=== PATIENT | female | born 1980 | race Caucasian/White ===

== ENCOUNTER → 2022-10-26 | Outpatient (CLI) | payer MEDICARE, OTHER, SELFPAY ==
[2022-10-26 11:05] LABS: Absolute Lymphocyte Count 2.23 X10^3/uL (0.83-4.51); Absolute Neutrophil Count 6.4 X10^3/uL (2.0-7.7); Basophil# 0.03 X10^3/uL; Basophil% 0.3 % (0-1); Eosinophil# 0.24 X10^3/uL; Eosinophils% 2.5 % (0-5); Hematocrit 40.4 % (37-47); Hemoglobin 12.9 g/dL (12.0-15.0); Lymphocyte # 2.23 X10^3/ul (0.83-4.51); Lymphocyte % 23.3 % (19-41); Mean Corp Hgb Conc 31.9 g/dL (32-36); Mean Corpuscular Hgb 29.3 pg (27.0-32.0); Mean Corpuscular Volume 91.8 fL (81-99); Monocyte# 0.65 X10^3/uL; Monocyte% 6.8 % (0-10); NRBC Flagged by Analyzer 0 % (0-5); Neutrophil # 6.39 X10^3/uL (2.7-7.7); Neutrophil % 66.8 % (47-70); Platelet Count 304 K/mm3 (150-450); RBC Distribution Width CV 13.6 % (11.6-14.6); RBC Distribution Width SD 46.3 fl (35.1-43.9); White Blood Count 9.6 K/mm3 (4.4-11.0)
[2022-10-26 11:22] LABS: ALB/GLOB Ratio 0.8 RATIO (0.9-2.4); AST(SGOT) 35 U/L (15-37); Alanine Aminotransfer ALT/SGPT 58 U/L (13-56); Albumin, Serum 3.8 g/dL (3.2-5.0); Alkaline Phosphatase 82 U/L (45-117); Anion Gap 2 (5-15); BUN 17 mg/dL (7-18); BUN/Creat Ratio 19.3 RATIO (10-20); Calcium,Total 9.2 mg/dL (8.5-10.1); Chloride 106 mmol/L (98-107); Creatinine, Serum 0.88 mg/dL (0.55-1.02); EST Glomerular Filtration Rate 74 mL/min (>60); Est Glom Filt Rate - Afr Amer 89 mL/min (>60); Globulin 4.5 g/dL (2.2-4.2); Glucose 149 mg/dL (74-106); Potassium 4.2 mmol/L (3.5-5.1); Protein, Total 8.3 g/dL (6.4-8.2); Sodium Level 139 mmol/L (136-145)
[2022-10-26 11:40] LABS: Hemoglobin A1c 6.9 % (3.8-5.6)
== END | disposition home or self-care (01) ==
PROVIDERS: PCP Internal Medicine; Referring Provider Internal Medicine; Visit Provider Internal Medicine
DX: R73.9 Hyperglycemia, unspecified (principal)
CPT/HCPCS: 36415; 80053; 83036; 85025

== ENCOUNTER → 2023-02-13 | Outpatient (CLI) | payer MEDICARE, OTHER, MEDICAID, SELFPAY ==
[2023-02-13 10:35] LABS: Absolute Lymphocyte Count 1.56 X10^3/uL (0.83-4.51); Absolute Neutrophil Count 3.8 X10^3/uL (2.0-7.7); Basophil# 0.03 X10^3/uL; Basophil% 0.5 % (0-1); Eosinophil# 0.12 X10^3/uL; Hematocrit 24.7 % (37-47); Hemoglobin 7.2 g/dL (12.0-15.0); Lymphocyte # 1.56 X10^3/ul (0.83-4.51); Lymphocyte % 25.7 % (19-41); Mean Corp Hgb Conc 29.1 g/dL (32-36); Mean Corpuscular Hgb 27.1 pg (27.0-32.0); Mean Corpuscular Volume 92.9 fL (81-99); Mean Platelet Vol. 10.8 fl (6.2-12.0); Monocyte# 0.52 X10^3/uL; Monocyte% 8.6 % (0-10); NRBC Flagged by Analyzer 0 % (0-5); Neutrophil % 62.7 % (47-70); Platelet Count 374 K/mm3 (150-450); RBC Distribution Width CV 16.1 % (11.6-14.6); RBC Distribution Width SD 54.3 fl (35.1-43.9); Red Blood Count 2.66 M/mm3 (4.2-5.4); White Blood Count 6.1 K/mm3 (4.4-11.0)
[2023-02-13 10:36] LABS: ALB/GLOB Ratio 0.8 RATIO (0.9-2.4); AST(SGOT) 24 U/L (15-37); Alanine Aminotransfer ALT/SGPT 61 U/L (13-56); Albumin, Serum 3.6 g/dL (3.2-5.0); Alkaline Phosphatase 80 U/L (45-117); Anion Gap -1 (5-15); BUN 16 mg/dL (7-18); BUN/Creat Ratio 16.9 RATIO (10-20); Calcium,Total 9.2 mg/dL (8.5-10.1); Chloride 110 mmol/L (98-107); Cholesterol 158 mg/dL (200); Creatinine, Serum 0.95 mg/dL (0.55-1.02); EST Glomerular Filtration Rate 68 mL/min (>60); Est Glom Filt Rate - Afr Amer 82 mL/min (>60); Globulin 4.3 g/dL (2.2-4.2); Glucose 108 mg/dL (74-106); High Density Lipoprotein 41 mg/dL; Potassium 4.6 mmol/L (3.5-5.1); Protein, Total 7.9 g/dL (6.4-8.2); Sodium Level 137 mmol/L (136-145); Triglycerides 88 mg/dL; Very Low Density Lipoprotein 18 mg/dL (5-40)
[2023-02-13 10:44] LABS: Hemoglobin A1c 5.3 % (3.8-5.6)
[2023-02-13 11:01] LABS: Microalbumin:Creatinine Ratio 39.9 mg/g CRE (<30 mg/g CRE)
[2023-02-14 09:26] LABS: Ferritin 7 ng/mL (8-252); Iron 19 ug/dL (50-170); Iron Binding Capacity,Total 460 ug/dL (250-450); PERCENT IRON SATURATION 4.1 % (15.0-55.0)
[2023-02-14 09:35] LABS: POSITIVE COUNT YES; Reticulocyte Count 4.31 % (0.5-1.5)
== END | disposition home or self-care (01) ==
PROVIDERS: PCP Internal Medicine; Referring Provider Internal Medicine; Visit Provider Internal Medicine
DX: Z00.00 Encounter for general adult medical examination without abnormal findings (principal); E11.9 Type 2 diabetes mellitus without complications; I37.0 Nonrheumatic pulmonary valve stenosis; E66.9 Obesity, unspecified; Q87.19 Other congenital malformation syndromes predominantly associated with short stature; D64.9 Anemia, unspecified
CPT/HCPCS: 36415; 80053; 80061; 82043; 82570; 82728; 82746; 83036; 83540; 83550; 85025; 85045

== ENCOUNTER 2023-02-14 15:01 | Inpatient (IN) | payer MEDICARE, OTHER, MEDICAID, SELFPAY ==
[2023-02-14 15:02] VITALS: BP 144/99; PULSE 109; RESP 16; TEMP 36.6; O2SAT 99; BMI 35.0
--- NOTE | 2023-02-14 15:36 | EKG12_ITS ---
Test Reason : ABN LABS Blood Pressure : / mmHG Vent. Rate : 092 BPM Atrial Rate : 092 BPM P-R Int : 168 ms QRS Dur : 068 ms QT Int : 360 ms P-R-T Axes : 046 057 -40 degrees QTc Int : 445 ms Normal sinus rhythm ST & T wave abnormality, consider inferior ischemia Abnormal ECG Confirmed by WILIAM BOLIVAR, GLORIA ([id number]), commissioning editor INÉS HOWELL ([id number]) on 02/16/2023 9:05:51 AM Referred By: Confirmed By:GLORIA SWAIN MD
--- NOTE | 2023-02-14 15:40 | EX.ED.DYSGE1 ---
HPI History of Present Illness Chief Complaint: Abn Labs Detail of Chief Complaint: Anemia Informant: patient and parent Narrative Narrative: Patient sent in by primary care physician secondary to anemia. She was recently diagnosed with diabetes and has an appointment to be seen by her doctor next week. Yesterday she had some labs drawn in preparation for her upcoming appointment. She was noted to be anemic with a hemoglobin of 7.2. Last hemoglobin was in the 12 range in October of this year. CBC was redrawn this morning and confirms hemoglobin of 7.1. Patient does report intermittent dark stools or bloody stools over the past couple of months. No significant abdominal pain. She does report feeling lightheaded and dizzy over the past 2 weeks. [facility] Medical History Diabetes Migraines Bruno syndrome VSD (ventricular septal defect) Allergy/AdvReac Type Severity Reaction Status Date / Time Sulfa (Sulfonamide AdvReac PT UNSURE Verified 02/14/23 15:03 Antibiotics) OF REACTION Social History Smoking Status: Never smoker ROS ROS ED Constitutional Constitutional ED: Denies chills or fever(s) Eyes Eyes: Denies change in vision or discharge from eye(s) ENT ENT ED: Denies discharge from eye(s), rhinorrhea or sore throat Cardiovascular Cardiovascular: Denies chest pain or palpitations Respiratory/Chest Respiratory/Chest: Denies cough or dyspnea Gastrointestinal Gastrointestinal: Reports melena and nausea; Denies abdominal pain, diarrhea or vomiting Genitourinary Genitourinary ED: Denies dysuria Musculoskeletal Musculoskeletal: Denies back pain or extremity pain Integumentary Denies Abrasions or rash Neurologic Neurologic: Reports weakness; Denies headache(s) Psychiatric Psychiatric: Denies anxiety or depression Allergic/Immunologic Allergic/Immunologic ED: Denies lip swelling or urticaria EXAM Physical Exam Const Vital Signs: 02/14/23 15:02 02/14/23 15:41 02/14/23 15:43 Temperature 98 F Temperature Source Temporal Pulse Rate 109 H 97 Respiratory Rate 16 13 Respiratory Effort Normal Non-Labored Respiratory Pattern Normal Blood Pressure 144/99 H 130/83 H Blood Pressure Mean 114 98 Pulse Ox 99 97 Oxygen Delivery Method Room Air Room Air 02/14/23 17:14 Temperature Temperature Source Pulse Rate 91 Respiratory Rate 14 Respiratory Effort Respiratory Pattern Blood Pressure 123/57 H Blood Pressure Mean 79 Pulse Ox 98 Oxygen Delivery Method Room Air Positive well nourished and well developed General Appearance ED: well developed HEENT Reports normocephalic and head/scalp atraumatic Eyes PERRL and EOMs intact bilaterally Neck supple Chest Wall inspection of chest normal and palpation of chest normal Resp normal respiratory effort and clear to auscultation bilaterally Cardio regular rate and regular rhythm GI normal to inspection, nondistended, normoactive bowel sounds GI Narrative: Rectal examination performed with brown-colored stool noted on gloved finger. No obvious hemorrhoids or source of bleeding noted Palpation: soft Back/Spine no CVA tenderness Extremity normal to inspection Neuro oriented x3 and no sensory deficits noted Sensorium / Orientation: alert Motor Exam: strength 5/5 throughout Psych mental status grossly normal Skin no rashes or lesions noted MDM MDM MDM Narrative Medical decision making narrative: Patient CBC from earlier today is reviewed. Hemoglobin is 7.1 and hematocrit is 24.4. Platelet count is normal at 339,000. Coags are obtained. Microscopic urine from earlier today appears to show possible infection so full urinalysis is obtained. Stool guaiac obtained. Given the patient's recent dizziness she was placed on nurse monitoring and EKG was obtained. Lab Data Attestation: I reviewed the patient's lab results. Labs: Laboratory Results - last 24 hr 02/14/23 02/14/23 17:15 17:15 PT 12.7 INR 1.0 APTT 27.8 Urine Color Yellow Urine Clarity Clear Urine pH 6.0 Ur Specific [place] 1.015 Urine Protein Negative Urine Glucose (UA) Normal Urine Ketones Negative Urine Occult Blood 10 H Urine Nitrite Negative Urine Bilirubin Negative Urine Urobilinogen Normal Ur Leukocyte Esterase 500 H Urine RBC 0 SEEN Urine WBC 0-5 SEEN Ur Squamous Epith Cells 0-5 SEEN Urine Bacteria RARE Urine Mucus 0 SEEN EKG Initial EKG: Attestation: I personally reviewed and interpreted this EKG as follows: Interpretation: Sinus Rhythm (Sinus at 92 with anterior lateral minimal ST depression of 1/2 to 1 mm. No prior studies available for comparison.) Treatment and Re-Evaluation :: Stool guaiac test returned positive. Coags are unremarkable. Full urinalysis reveals no evidence of infection. I spoke with Dr. Dolan, on-call for GI. Patient's hemoglobin is 7.1 with no significant history of coronary artery disease. Her vital signs are stable. He does recommend she come into the hospital for monitoring of her hemoglobin and scope. I will speak with the hospitalist. Discharge Plan Triage Chief Complaint: Abn Labs ED Provider: Kelley Farmer Dx/Rx/DC Orders Clinical Impression: GI bleed, Anemia Primary Care Provider: Marie Ritter Referrals: Marie Ritter MD [Primary Care Provider] - Disposition Disposition: Acute Care Hospital [facility]
[2023-02-14 15:41] VITALS: BP 130/83; PULSE 97; RESP 13; O2SAT 97
[2023-02-14 17:14] VITALS: BP 123/57; PULSE 91; RESP 14; O2SAT 98
[2023-02-14] MEDS: 0.9% Normal Saline 1,000 ML 150 ML IV ×2 (17:21→22:44)
[2023-02-14 17:22] LABS: Mucous, Urine 0 SEEN /hpf (<or=2+); Red Blood Cells-Urine 0 SEEN /hpf (0-5)
[2023-02-14 17:34] LABS: Prothrombin Time (Protime)PT. 12.7 SECONDS (11.7-14.9)
[2023-02-14 17:35] LABS: Partial Thromboplast Time 27.8 Seconds (24.1-36.2)
[2023-02-14 17:42] LABS: Color, Urine Yellow (Yellow); Glucose, Dipstick Normal (Normal); Ketone-Dipstick Negative (Negative); Leukocyte Esterase-Dipstick 500 /ul (Negative); Nitrite-Dipstick Negative (Negative); Occult Blood-Urine 10 /ul (Negative); Protein-Dipstick Negative (Negative); Specific Gravity, Urine 1.015 (1.002-1.030); Urine Bilirubin Dipstick Negative (Negative); Urine Clarity Clear (Clear); Urine Urobilinogen Normal (Normal)
[2023-02-14 18:08] LABS: White Blood Cells 0-5 SEEN /hpf (0-5)
[2023-02-14 18:09] LABS: Bacteria RARE /hpf (None Seen); Squamous Epithelial Cells - UA 0-5 SEEN /hpf (5-10)
[2023-02-14 19:05] VITALS: BP 112/73; PULSE 84; RESP 14; O2SAT 99
--- NOTE | 2023-02-14 19:31 | HP.PCM.HOS_ITS ---
HPI - General General Date of Admission: 02/14/23 Date of Service: 02/14/23 Chief Complaint: Low hemoglobin on outpatient lab HPI Narrative FRIDA LEBRON, is a 42 F with a significant history of diabetes mellitus; Georges syndrome and VSD who presents to the emergency department with low hemoglobin on outpatient lab. Patient was recently diagnosed with diabetes mellitus and was started on metformin. Because of upcoming follow-up doctor visits on her diabetes patient was requested to get some lab work done ahead of her visit. The lab work showed low hemoglobin of 7.2. However in October this year her hemoglobin was 12.9. With patient's hemoglobin of 7.2 she was made to repeat the hemoglobin and the repeat hemoglobin turned out to be 7.1. Because of persistent low hemoglobin she was sent to emergency department for further evaluation and treatment. Also patient reports that in the past 2 days she noticed dark stools and a spot of blood. She reports lightheadedness for the past 2 weeks. She reports fatigue. She denies anorexia. Emergency department, discussed the case with gastroenterology who recommended that patient stays at the hospital for further evaluation and treatment. Emergency department doctor reports guaiac positive exams on rectal examination. In regard to patient's VSD she reports that she is growing out of it and follow- up examination shows that the VSD is closing up. She reported that her last symptoms in regard to the VSD was when she was a kid. [facility] Medical History Diabetes Migraines Georges syndrome VSD (ventricular septal defect) Home Medications loratadine 10 mg tablet (Claritin) 10 mg PO DAILY PRN SEASONAL ALLERGIES 01/22 03/14 [History Last Taken 02/14/23] metformin 500 mg tablet,extended release 24 hr 500 mg PO QPM diabetes 02/14/23 [History Last Taken 02/13/23] multivitamin 1 tab PO DAILY health maintenance 02/14/23 [History Last Taken 02/14/23] pantoprazole 40 mg tablet,delayed release 40 mg PO DAILY acid reflux 02/14/23 [History Last Taken Unknown] sumatriptan succinate 25 mg tablet 25 mg PO DAILY PRN Migraine Headache 02/14/23 [History Last Taken 2 Days Ago ~02/12/23] Allergy/AdvReac Type Severity Reaction Status Date / Time Sulfa (Sulfonamide AdvReac PT UNSURE Verified 02/14/23 15:03 Antibiotics) OF REACTION Family History Other Alzheimer's dementia Breast cancer Colon cancer Diabetes Surgical History History of excision of pilonidal cyst Social History Smoking Status: Never smoker ROS ROS Narrative Pertinent positives and pertinent negatives as noted in HPI. All other systems were reviewed and are negative Vital Signs Vital Signs Vital Signs: 02/14/23 15:02 02/14/23 15:41 02/14/23 15:43 Temperature 98 F Temperature Source Temporal Pulse Rate 109 H 97 Respiratory Rate 16 13 Respiratory Effort Normal Non-Labored Respiratory Pattern Normal Blood Pressure 144/99 H 130/83 H Blood Pressure Mean 114 98 Pulse Ox 99 97 Oxygen Delivery Method Room Air Room Air 02/14/23 17:14 02/14/23 19:05 Temperature Temperature Source Pulse Rate 91 84 Respiratory Rate 14 14 Respiratory Effort Respiratory Pattern Blood Pressure 123/57 H 112/73 Blood Pressure Mean 79 86 Pulse Ox 98 99 Oxygen Delivery Method Room Air Room Air Weight Weight: 81.335 kg Body Mass Index (BMI) 35.0 Physical Exam Narrative Physical exam: General: Well-nourished, well-developed. Head: Normocephalic, atraumatic, no tenderness Eyes: Vision is grossly intact. EOMI ENT, no trauma, moist mucous membranes, no rhinorrhea Neck: Nontender, No thyromegaly. CVS: Regular rate and rhythm. S1-S2 present. No murmur, gallop or rub. Respiratory : clear to auscultation bilaterally, chest wall nontender Abdomen: Soft, nontender, nondistended, normal bowel sounds, no masses : Deferred Back: Nontender, no CVA tenderness, no midline spinal tenderness, deformities, step-offs Extremities: Nontender full range of motion, no trauma Skin: Normal color, no trauma, abrasions Neuro: Alert, oriented, cranial nerves II through XII grossly intact. Psychiatry: Normal mood. Normal affect. Not depressed. Not anxious. Results Lab / Micro Data Labs: Laboratory Results - last 24 hr 02/14/23 17:15: PT 12.7, INR 1.0, APTT 27.8 02/14/23 17:15: Urine Color Yellow, Urine Clarity Clear, Urine pH 6.0, Ur Specific [place] 1.015, Urine Protein Negative, Urine Glucose (UA) Normal, Urine Ketones Negative, Urine Occult Blood 10 H, Urine Nitrite Negative, Urine Bilirubin Negative, Urine Urobilinogen Normal, Ur Leukocyte Esterase 500 H, Urine RBC 0 SEEN, Urine WBC 0-5 SEEN, Ur Squamous Epith Cells 0-5 SEEN, Urine Bacteria RARE, Urine Mucus 0 SEEN Micro: Microbiology 02/14/23 15:39 Stool Stool Occult Blood (LEX) - Final Occult Blood Positive Assessment & Plan Assessment/Plan (1) ABLA (acute blood loss anemia): (2) GI bleed: PLAN: Plan Acute blood loss anemia Patient with lightheadedness, fatigue, BUN is stable. Of note BUN on the same day of presentation was 16. BUN on 10/26/2022 was 17. With dark stools upper GI bleed is more probable. However cannot rule out lower GI bleed. Patient was prescribed Protonix p.o. on the same day of presentation. However she could not get to start the outpatient Protonix p.o. Protonix bolus and drip ordered at the emergency department. Protonix drip continued inpatient. Normal saline hydration of 150 MLS per hour. Admit to monitored bed on [facility] Hemoglobin on the day before presentation was 7.2. Hemoglobin on the day of presentation was 7.1. Hemoglobin on 10/26/2022 was 12.9. H&H every 6 hours Review of outpatient iron panel a day before presentation gives a picture of iron deficiency anemia. Will order one-time dose of iron sucrose IV No anticoagulants for DVT prophylaxis SCD Bowel prep with Dulcolax and GoLytely ordered. Clear liquid diet on the day of presentation and n.p.o. after midnight. Gastroenterology consulted. Diabetes mellitus Review of labs shows that her hemoglobin A1c on 10/26/2022 was 6.9. Her hemoglobin A1c on 02/13/2023 is 5.3. Patient is doing well on home metformin therapy. We will hold antidiabetic medication in the setting of clear liquids and n.p.o. after midnight. Blood glucose on BMP on day of presentation is stable. BMP in AM. DVT prophylaxis: SCDs ordered. Charges/Coding Visit Charges Inpatient E&M: 54092 Init Hosp L3
[2023-02-14 19:51] VITALS: BP 118/64; PULSE 91; RESP 16; TEMP 36.3; O2SAT 99
[2023-02-14 20:56] VITALS: BMI 34.7
[2023-02-14 20:59] VITALS: BP 128/57; PULSE 85; RESP 16; TEMP 36.9; O2SAT 100
[2023-02-14] MEDS: Bisacodyl 5 MG Tablet 20 MG PO (21:35)
[2023-02-14] MEDS: Polyethylene Glycol 3350 BOWEL PREP PO (21:36)
[2023-02-14 22:05] LABS: Hemoglobin 7.1 g/dL (12.0-15.0)
[2023-02-15] VITALS (14 sets, daily range): BP systolic 106–140; BP diastolic 46–76; PULSE 66–88; RESP 14–18; TEMP 36.7–37.2; O2SAT 95–98
[2023-02-15 03:42] LABS: Anion Gap 4 (5-15); BUN 10 mg/dL (7-18); BUN/Creat Ratio 11.4 RATIO (10-20); Calcium,Total 8.6 mg/dL (8.5-10.1); Chloride 111 mmol/L (98-107); Creatinine, Serum 0.88 mg/dL (0.55-1.02); EST Glomerular Filtration Rate 74 mL/min (>60); Est Glom Filt Rate - Afr Amer 90 mL/min (>60); Glucose 131 mg/dL (74-106); Potassium 3.8 mmol/L (3.5-5.1); Sodium Level 137 mmol/L (136-145)
[2023-02-15 03:48] LABS: Absolute Lymphocyte Count 2.05 X10^3/uL (0.83-4.51); Absolute Neutrophil Count 4.7 X10^3/uL (2.0-7.7); Basophil# 0.04 X10^3/uL; Basophil% 0.5 % (0-1); Eosinophil# 0.12 X10^3/uL; Eosinophils% 1.5 % (0-5); Hematocrit 26.4 % (37-47); Hemoglobin 7.6 g/dL (12.0-15.0); Lymphocyte # 2.05 X10^3/ul (0.83-4.51); Lymphocyte % 26.3 % (19-41); Mean Corp Hgb Conc 28.8 g/dL (32-36); Mean Corpuscular Hgb 26.8 pg (27.0-32.0); Mean Platelet Vol. 11.1 fl (6.2-12.0); Monocyte% 10.3 % (0-10); NRBC Flagged by Analyzer 0 % (0-5); Neutrophil # 4.74 X10^3/uL (2.7-7.7); Neutrophil % 60.9 % (47-70); Platelet Count 271 K/mm3 (150-450); RBC Distribution Width CV 15.9 % (11.6-14.6); RBC Distribution Width SD 54.4 fl (35.1-43.9); Red Blood Count 2.84 M/mm3 (4.2-5.4); White Blood Count 7.8 K/mm3 (4.4-11.0)
[2023-02-15] MEDS: 0.9% Normal Saline 1,000 ML 150 ML IV (06:55)
[2023-02-15 07:50] LABS: Hemoglobin A1c 5.1 % (3.8-5.6)
--- NOTE | 2023-02-15 08:01 | EX.PCM.CON.G ---
HPI Consult Data Date of Consult: 02/14/23 HPI Narrative Reason for Consultation: Anemia HPI Narrative: FRIDA LEBRON, is a 42 F who presents for the evaluation of anemia. Patient sent in by primary care physician secondary to anemia.? She was recently diagnosed with diabetes and has an appointment to be seen by her doctor next week.? Yesterday she had some labs drawn in preparation for her upcoming appointment.? She was noted to be anemic with a hemoglobin of 7.2.? Last hemoglobin was in the 12 range in October of this year.? CBC was redrawn this morning and confirms hemoglobin of 7.1. Patient does report intermittent dark stools or bloody stools over the past couple of months.? No significant abdominal pain.? She does report feeling lightheaded and dizzy over the past 2 weeks. Also patient reports that in the past 2 days she noticed dark stools and a spot of blood.? She reports lightheadedness for the past 2 weeks. She reports fatigue.? She denies anorexia. Emergency department doctor reports guaiac positive exams on rectal examination. In regard to patient's VSD she reports that she is growing out of it and follow-up examination shows that the VSD is closing up.? She reported that her last symptoms in regard to the VSD was when she was a kid. [facility] Medical History Diabetes Migraines Georges syndrome VSD (ventricular septal defect) Home Medications loratadine 10 mg tablet (Claritin) 10 mg PO DAILY PRN SEASONAL ALLERGIES 02/14/23 [History Last Taken 02/14/23] metformin 500 mg tablet,extended release 24 hr 500 mg PO QPM diabetes 02/14/23 [History Last Taken 02/13/23] multivitamin 1 tab PO DAILY health maintenance 02/14/23 [History Last Taken 02/14/23] pantoprazole 40 mg tablet,delayed release 40 mg PO DAILY acid reflux 02/14/23 [History Last Taken Unknown] sumatriptan succinate 25 mg tablet 25 mg PO DAILY PRN Migraine Headache 02/14/23 [History Last Taken 2 Days Ago ~02/12/23] Allergy/AdvReac Type Severity Reaction Status Date / Time Sulfa (Sulfonamide AdvReac PT UNSURE Verified 02/14/23 15:03 Antibiotics) OF REACTION Family History Other Alzheimer's dementia Breast cancer Colon cancer Diabetes Surgical History History of excision of pilonidal cyst Social History Smoking Status: Never smoker ROS ROS Narrative Pertinent positives and pertinent negatives as noted in HPI. All other systems were reviewed and are negative Physical Exam Narrative Physical exam: General: Well-nourished, well-developed. Head: Normocephalic, atraumatic, no tenderness Eyes: Vision is grossly intact. EOMI ENT, no trauma, moist mucous membranes, no rhinorrhea Neck: Nontender, No thyromegaly. CVS: Regular rate and rhythm. S1-S2 present. No murmur, gallop or rub. Respiratory : clear to auscultation bilaterally, chest wall nontender Abdomen: Soft, nontender, nondistended, normal bowel sounds, no masses : Deferred Back: Nontender, no CVA tenderness, no midline spinal tenderness, deformities, step-offs Extremities: Nontender full range of motion, no trauma Skin: Normal color, no trauma, abrasions Neuro: Alert, oriented, cranial nerves II through XII grossly intact. Psychiatry: Normal mood. Normal affect. Not depressed. Not anxious. Lab / Micro Data Result Diagrams: 02/15/23 03:37 02/15/23 02:55 Labs: Laboratory Results - last 24 hr 02/14/23 17:15: PT 12.7, INR 1.0, APTT 27.8 02/14/23 17:15: Urine Color Yellow, Urine Clarity Clear, Urine pH 6.0, Ur Specific [place] 1.015, Urine Protein Negative, Urine Glucose (UA) Normal, Urine Ketones Negative, Urine Occult Blood 10 H, Urine Nitrite Negative, Urine Bilirubin Negative, Urine Urobilinogen Normal, Ur Leukocyte Esterase 500 H, Urine RBC 0 SEEN, Urine WBC 0-5 SEEN, Ur Squamous Epith Cells 0-5 SEEN, Urine Bacteria RARE, Urine Mucus 0 SEEN 02/14/23 21:55: Hgb 7.1 L, Hct 24.0 L 02/15/23 02:55: Sodium 137, Potassium 3.8, Chloride 111 H, Carbon Dioxide 22.0, Anion Gap 4 L, BUN 10, Creatinine 0.88, Estim Creat Clear Calc 58.60, Est GFR (MDRD) Af Amer 90, Est GFR (MDRD) Non-Af 74, BUN/Creatinine Ratio 11.4, Glucose 131 H, Calcium 8.6 02/15/23 03:37: WBC 7.8, RBC 2.84 L, Hgb 7.6 L, Hct 26.4 L, MCV 93.0, MCH 26.8 L, MCHC 28.8 L, RDW Std Deviation 54.4 H, RDW Coeff of Dana 15.9 H, Plt Count 271, MPV 11.1, Immature Gran % (Auto) 0.500, Neut % (Auto) 60.9, Lymph % (Auto) 26.3, [place] % (Auto) 10.3 H, Eos % (Auto) 1.5, Baso % (Auto) 0.5, Absolute Neuts (auto) 4.7, Absolute Lymphs (auto) 2.05, Nucleated RBC % 0 02/15/23 03:37: Hemoglobin A1c 5.1 Micro: Microbiology 02/14/23 15:39 Stool Stool Occult Blood (LEX) - Final Occult Blood Positive Assessment & Plan Assessment/Plan (1) ABLA (acute blood loss anemia): (2) GI bleed: PLAN: Plan 42-year-old presents with fatigue and weakness along with some dark stools discovered to have a profound iron deficiency anemia. She has a positive family history of ovarian cancer and colon cancer in her grandfather and aunt respectively. Patient was prescribed Protonix p.o. on the same day of presentation. However she could not get to start the outpatient Protonix p.o. the differential diagnosis does include celiac disease, angiodysplasia, hereditary telangiectasia, neoplasia, gastric antral vascular ectasia. She will undergo an upper and lower endoscopy in order to evaluate upper and lower GI tract. If this test are negative. I discussed with the patient and her sister at the bedside she will need to undergo capsule endoscopy. DVT prophylaxis: SCDs ordered. Charges/Coding Visit Charges Inpatient E&M: 27140 Init Hosp L3
[2023-02-15 09:30] LABS: Erythrocyte Sedimentation Rate 5 mm/hr (0-30)
[2023-02-15 10:15] LABS: CRP 5.34 mg/L (0.0-3.0)
--- NOTE | 2023-02-15 10:20 | NURSING ---
pt to AC/ENDO area via bed staff were informed of 2 preop antb to be given
[2023-02-15 10:30] LABS: Hematocrit 22.6 % (37-47); Hemoglobin 6.4 g/dL (12.0-15.0)
--- NOTE | 2023-02-15 11:29 | CASEMGMT ---
RN CM NOTE: RN CM to room to complete initial RN CM assessment. Pt out of room @ endo at this time. Jennifer BSN RN CM
[2023-02-15 12:21] LABS: Troponin-I HS 5 pg/mL (3.0-54.0)
--- NOTE | 2023-02-15 15:20 | CASEMGMT ---
RN?CM?RED CROSS WORKER?CM?to room to meet with patient for initial transition planning/care coordination?assessment.?RN?CM?introduced self and role at [facility].? Pt voices understanding and consents to?assessment?at this time.? Pt resting in bed in no distress at this time.? Pt's mother and sister visiting @ bedside. Pt is A/O at this time and answers all questions appropriately.? Care providers, pharmacy, and demographics verified/updated at this time with pt and her family. PCP: Dr Ritter Specialists: none Preferred Pharmacy: [facility] Retail Insurance: MCR, , KRYSTYNA Prescription Benefit:?Yes Living Will/HPOA:?Pt does not currently have LW, but she does have HCPOA, who is her mother. LNOK: Mother/POA, May. Sister, Pallavi Living Arrangements: Pt lives w/her mother, May, who is an MECHANICAL MAINTENANCE. They live in a split-level home (6-7 steps between floors) w/7 steps to enter home w/railing on both sides. Pt states she usually can navigate the stairs well, but has been weak recently d/t low Hgb and they have become more difficult to navigate. Pt is indep w/ADL's and IADL's @ her baseline. Mom does med mgmt and appts. Transportation:?mom drives. Pt states she is working on getting her drivers' permit. DME: States has the following DME:?functioning glucometer w/supplies. HHC/SNF: No hx of SNF. Pt has had HHC in the past. Pt wishes to return home and states has no concerns with going home at time of discharge.? ?CM?to follow for any discharge planning/needs.? Pt and family voice no further concerns/needs at this time.? Advised them to ask for?CM?if any questions/concerns/needs arise.? They voice understanding. PLAN:??Home w/family support and discharge plans in place. Jennifer CRANEN?RN?CM
[2023-02-15 15:22] LABS: Vitamin B12 631 pg/mL (211-911)
--- NOTE | 2023-02-15 16:16 | PN.HOSP_ITS ---
Subjective Subjective Doing well, no issues overnight. She feels little bit better today she denies any chest pain or shortness of breath. She still is a little bit fatigued from her anemia Objective Data Objective Data Vital Signs: Vital Signs Temp Pulse Resp BP Pulse Ox O2 Del Method 98.0 F 81 18 117/61 98 Room Air 02/15/23 15:56 02/15/23 15:56 02/15/23 15:56 02/15/23 15:56 02/15/23 15:56 02/15/23 15:56 Oxygen Delivery Method Room Air Weight: 177 lb 14.609 oz Body Mass Index (BMI) 34.7 Intake & Output: Intake and Output for Last 24 Hours 02/14/23 02/15/23 02/16/23 03:59 03:59 03:59 Intake Total 985 / 985 2821.5 / 2821.5 Balance 985 / 985 2821.5 / 2821.5 Lab / Micro Data Result Diagrams: 02/15/23 09:15 02/15/23 02:55 Labs: Laboratory Results - last 24 hr 02/14/23 16:20: Blood Type O POSITIVE, Antibody Screen NEGATIVE, Crossmatch See Detail 02/14/23 17:15: PT 12.7, INR 1.0, APTT 27.8 02/14/23 17:15: Urine Color Yellow, Urine Clarity Clear, Urine pH 6.0, Ur Specific [place] 1.015, Urine Protein Negative, Urine Glucose (UA) Normal, Urine Ketones Negative, Urine Occult Blood 10 H, Urine Nitrite Negative, Urine Bilirubin Negative, Urine Urobilinogen Normal, Ur Leukocyte Esterase 500 H, Urine RBC 0 SEEN, Urine WBC 0-5 SEEN, Ur Squamous Epith Cells 0-5 SEEN, Urine Bacteria RARE, Urine Mucus 0 SEEN 02/14/23 21:55: Hgb 7.1 L, Hct 24.0 L 02/15/23 02:55: Sodium 137, Potassium 3.8, Chloride 111 H, Carbon Dioxide 22.0, Anion Gap 4 L, BUN 10, Creatinine 0.88, Estim Creat Clear Calc 58.60, Est GFR (MDRD) Af Amer 90, Est GFR (MDRD) Non-Af 74, BUN/Creatinine Ratio 11.4, Glucose 131 H, Calcium 8.6 02/15/23 03:37: WBC 7.8, RBC 2.84 L, Hgb 7.6 L, Hct 26.4 L, MCV 93.0, MCH 26.8 L , MCHC 28.8 L, RDW Std Deviation 54.4 H, RDW Coeff of [place] 15.9 H, Plt Count 271, MPV 11.1, Immature Gran % (Auto) 0.500, Neut % (Auto) 60.9, Lymph % (Auto) 26.3, [place] % (Auto) 10.3 H, Eos % (Auto) 1.5, Baso % (Auto) 0.5, Absolute Neuts (auto) 4.7, Absolute Lymphs (auto) 2.05, Nucleated RBC % 0 02/15/23 03:37: Hemoglobin A1c 5.1 02/15/23 09:15: Hgb 6.4 L, Hct 22.6 L 02/15/23 09:15: ESR 5 02/15/23 09:15: C-React Prot Ext Range 5.34 H, Folate 14.30 02/15/23 09:15: Vitamin B12 631 02/15/23 09:15: Troponin I High Sens 5 Micro: Microbiology 02/14/23 15:39 Stool Stool Occult Blood (LEX) - Final Occult Blood Positive Physical Exam Narrative General: Alert, Oriented x3, Cooperative, No apparent distress HEENT: Atraumatic, PERRLA, EOMI, Normocephalic Oral: Moist Mucosa Neck: Supple, No JVD Lungs:?, Normal air movement, No rhonchi, No wheeze, No rales Cardiovascular: Regular rate, Regular Rhythm, Normal S1, Normal S2, No murmurs Abdomen: Soft, Non Tender, Non-Distended, No Hepato-splenomegaly Extremities: No edema, Capillary Refill Less than 3 Seconds Skin: No rashes, No breakdown Musculoskeletal: No Tenderness to Palpation of Joints or Extremities Neurological: Cranial nerves II-XII grossly intact, Motor Exam 5/5 strength throughout, Sensory exam intact to light touch and pain Psych/Mental Status: Normal Affect, Appropriate Assessment & Plan Assessment/Plan (1) ABLA (acute blood loss anemia): (2) GI bleed: PLAN: Plan 1. Acute blood loss anemia from likely GI bleed ? Plan was for EGD today however this was canceled because of her anemia below 7 despite the appropriateness of intervention by EGD to fix the bleeding there was report of ST changes which are not evident on the EKG prior, troponin was normal and she continues to deny any chest pain. No further cardiac work-up at this time is indicated and EGD should proceed as planned ? Continue with PPI ? Continue with 1 unit PRBCs as she does not have any cardiac history we need to maintain her only above 7 ? Appreciate GIs assistance, will continue with gentamicin and Vanc ? She did receive an iron infusion yesterday 2. DM2 ? Continue with sliding scale insulin when she is able to take p.o. ? Hold metformin ? A1c is improved to 5.3 ? We will make adjustments to her blood sugar interventions as necessary DVT: SCDs Charges/Coding Visit Charges Inpatient E&M: 17461 Subs Hosp L2
[2023-02-15] MEDS: 0.9% Normal Saline 1,000 ML 100 ML IV (18:24)
[2023-02-15] MEDS: 0.9% Saline Lock 10 ML Syringe IV (18:30)
[2023-02-15 20:58] LABS: Hematocrit 31.6 % (37-47); Hemoglobin 9.5 g/dL (12.0-15.0)
[2023-02-16] VITALS (10 sets, daily range): BP systolic 98–132; BP diastolic 55–72; PULSE 73–95; RESP 15–18; TEMP 36.6–37.2; O2SAT 94–100
[2023-02-16] MEDS: 0.9% Normal Saline 1,000 ML 100 ML IV (04:10)
[2023-02-16 05:46] LABS: Absolute Lymphocyte Count 1.75 X10^3/uL (0.83-4.51); Absolute Neutrophil Count 5.2 X10^3/uL (2.0-7.7); Basophil# 0.04 X10^3/uL; Basophil% 0.5 % (0-1); Eosinophil# 0.27 X10^3/uL; Eosinophils% 3.4 % (0-5); Hematocrit 29.8 % (37-47); Hemoglobin 9.2 g/dL (12.0-15.0); Lymphocyte # 1.75 X10^3/ul (0.83-4.51); Mean Corp Hgb Conc 30.9 g/dL (32-36); Mean Corpuscular Hgb 27.1 pg (27.0-32.0); Mean Corpuscular Volume 87.6 fL (81-99); Mean Platelet Vol. 10.8 fl (6.2-12.0); Monocyte# 0.63 X10^3/uL; Monocyte% 7.9 % (0-10); NRBC Flagged by Analyzer 0.3 % (0-5); Neutrophil # 5.23 X10^3/uL (2.7-7.7); Neutrophil % 65.6 % (47-70); Platelet Count 268 K/mm3 (150-450); RBC Distribution Width CV 18.1 % (11.6-14.6); RBC Distribution Width SD 57.6 fl (35.1-43.9)
[2023-02-16 06:09] LABS: Anion Gap 3 (5-15); BUN 7 mg/dL (7-18); BUN/Creat Ratio 8.7 RATIO (10-20); Calcium,Total 8.2 mg/dL (8.5-10.1); Chloride 111 mmol/L (98-107); Creatinine, Serum 0.81 mg/dL (0.55-1.02); EST Glomerular Filtration Rate 82 mL/min (>60); Est Glom Filt Rate - Afr Amer 99 mL/min (>60); Estimated Creatinine Clearance 63.66 ml/min; Glucose 100 mg/dL (74-106); Potassium 3.6 mmol/L (3.5-5.1); Sodium Level 139 mmol/L (136-145)
--- NOTE | 2023-02-16 09:01 | PCM.PN.HOSP ---
Subjective Subjective Doing well, no issues overnight. No chest pain Objective Data Objective Data Vital Signs: Vital Signs Temp Pulse Resp BP Pulse Ox O2 Del Method 98.8 F 74 15 132/72 H 96 Room Air 02/16/23 03:00 02/16/23 03:00 02/16/23 03:00 02/16/23 03:00 02/16/23 07:14 02/16/23 07:14 Oxygen Delivery Method Room Air Weight: 177 lb 14.609 oz Body Mass Index (BMI) 34.7 Intake & Output: Intake and Output for Last 24 Hours 02/15/23 02/16/23 02/17/23 03:59 03:59 03:59 Intake Total 985 / 985 5028.0 / 5028.0 1073.34 / 1073.34 Balance 985 / 985 5028.0 / 5028.0 1073.34 / 1073.34 Lab / Micro Data Result Diagrams: 02/16/23 05:15 02/16/23 05:15 Labs: Laboratory Results - last 24 hr 02/14/23 16:20: Blood Type O POSITIVE, Antibody Screen NEGATIVE, Crossmatch See Detail 02/15/23 09:15: Hgb 6.4 L, Hct 22.6 L 02/15/23 09:15: ESR 5 02/15/23 09:15: C-React Prot Ext Range 5.34 H, Folate 14.30 02/15/23 09:15: Vitamin B12 631 02/15/23 09:15: Troponin I High Sens 5 02/15/23 20:28: Hgb 9.5 L, Hct 31.6 L 02/16/23 05:15: WBC 8.0, RBC 3.40 L, Hgb 9.2 L, Hct 29.8 L, MCV 87.6 D, MCH 27.1, MCHC 30.9 L D, RDW Std Deviation 57.6 H, RDW Coeff of Dana 18.1 H, Plt Count 268, MPV 10.8, Immature Gran % (Auto) 0.600, Neut % (Auto) 65.6, Lymph % (Auto) 22.0, [place] % (Auto) 7.9, Eos % (Auto) 3.4, Baso % (Auto) 0.5, Absolute Neuts (auto) 5.2, Absolute Lymphs (auto) 1.75, Nucleated RBC % 0.3 02/16/23 05:15: Sodium 139, Potassium 3.6, Chloride 111 H, Carbon Dioxide 25.0, Anion Gap 3 L, BUN 7, Creatinine 0.81, Estim Creat Clear Calc 63.66, Est GFR (MDRD) Af Amer 99, Est GFR (MDRD) Non-Af 82, BUN/Creatinine Ratio 8.7 L, Glucose 100, Calcium 8.2 L Micro: Microbiology 02/14/23 15:39 Stool Stool Occult Blood (LEX) - Final Occult Blood Positive Physical Exam Narrative General: Alert, Oriented x3, Cooperative, No apparent distress HEENT: Atraumatic, PERRLA, EOMI, Normocephalic Oral: Moist Mucosa Neck: Supple, No JVD Lungs: Diminished, Normal air movement, No rhonchi, No wheeze, No rales Cardiovascular: Regular rate, Regular Rhythm, Normal S1, Normal S2, No murmurs Abdomen: Soft, Non Tender, Non-Distended, No Hepato-splenomegaly Extremities: No edema, Capillary Refill Less than 3 Seconds Skin: No rashes, No breakdown Musculoskeletal: No Tenderness to Palpation of Joints or Extremities Neurological: Cranial nerves II-XII grossly intact, Motor Exam 5/5 strength throughout, Sensory exam intact to light touch and pain Psych/Mental Status: Normal Affect, Appropriate Assessment & Plan Assessment/Plan (1) ABLA (acute blood loss anemia): (2) GI bleed: PLAN: Plan 1. Acute blood loss anemia from likely GI bleed ? Plan was for EGD yesterday however this was canceled because of her anemia below 7 despite the appropriateness of intervention by EGD to fix the bleeding there was report of ST changes which are not evident on the EKG prior, troponin was normal and she continues to deny any chest pain. No further cardiac work-up at this time is indicated and EGD should proceed as planned ? Continue with PPI ? She transfused 2 unit and overcorrected to 9 indicating at the 6.4 yesterday that held up EGD was falsely low ? Appreciate GIs assistance, will continue with gentamicin and Vanc ? She did receive an iron infusion yesterday 2. DM2 ? Continue with sliding scale insulin when she is able to take p.o. ? Hold metformin ? A1c is improved to 5.3 ? We will make adjustments to her blood sugar interventions as necessary DVT: SCDs Charges/Coding Visit Charges Inpatient E&M: 51346 Subs Hosp L2
[2023-02-16 10:34] LABS: Partial Thromboplast Time 29.9 Seconds (24.1-36.2)
[2023-02-16] MEDS: 0.9% Normal Saline 1,000 ML 15 ML IV (10:46)
--- NOTE | 2023-02-16 11:30 | EGD_PTH ---
PATIENT: FRIDA LEBRON LOC: MS3 U#:[id number] AGE/SX: 42/F ROOM: [facility] RE02/14/[address]: Dr. Charly Diaz MD : 1980 BED: 1 DIS: 02/16/2023 SPEC #: [id number] RECD: 02/16/23 14:07 STATUS: CHAPARRITA ALVARADO #: [id number] FLAKITO: 02/16/23 11:[address]: Anthony Dolan DEPT: SURGICAL PATHOLOGY RECD BY: Liya Cotter ENTERED: 02/17/23 08:50 SP TYPE: EGD BIOPSY OTHR DR: MD Dr. Jean-Pierre Aguilera MD Dr. Nicholas F Kotsonis, MD Tissues: A - Gastric mucous membrane B - Duodenum, NOS C - Ileum, NOS D - Sigmoid colon biopsy Procedures: Surgery Specimen Level IV Comments: @ Ordering doctor for SUIV edited from to @ by MARGARITA at 02/17/23 1340 @ Submitting doctor edited from to @ by RGOOD at 02/17/23 1340 HEADER OPERATION: Colonoscopy, EGD ([facility]), biopsy PRE-OP DIAGNOSIS: Acute blood loss anemia, GI bleed TISSUE SUBMITTED: A ? Gastric ulcer biopsy for histo and H. pylori, B ? Duodenum biopsy, C ? Terminal ileum biopsy, D ? Sigmoid polyps biopsy MICROSCOPIC DIAGNOSIS A. Gastric ulcer, biopsy: Ulceration with associated acute and chronic inflammation and granulation. Chronic gastritis. See comment. B. Duodenum, biopsy: Focal changes suggestive of gastric metaplasia. C. Terminal ileum, biopsy: No pathologic change. D. Sigmoid colon polyps, biopsy: Fragments of hyperplastic polyp. AM:erwin 02/20/2023 COMMENT A. The results of immunohistochemistry for Helicobacter pylori will be reported separately ([id number]). MICROSCOPIC DESCRIPTION Slides are reviewed. GROSS DESCRIPTION A - Received in fixative is one container labeled with the patient's name and designated gastric ulcer biopsy. The specimen consists of multiple irregular fragments of light hair soft tissue that in aggregate measure 1.0 x 1.0 x 0.1 cm. The specimen is totally submitted in one cassette. B - Received in fixative is one container labeled with the patient's name and designated duodenum biopsy. The specimen consists of multiple irregular fragments of light hair soft tissue that in aggregate measure 0.8 x 0.3 x 0.1 cm. The specimen is totally submitted in one cassette. C - Received in fixative is one container labeled with the patient's name and designated terminal ileum biopsy. The specimen consists of one irregular fragment of light hair soft tissue that measures 0.4 x 0.3 x 0.1 cm. The specimen is totally submitted in one cassette. D - Received in fixative is one container labeled with the patient's name and designated sigmoid polyps biopsy. The specimen consists of two irregular fragments of light hair soft tissue that in aggregate measure 0.7 x 0.4 x 0.1 cm. The specimen is totally submitted in one cassette. / SJ:rg 02/17/2023 TC:2 CPT: 31560 x4
--- NOTE | 2023-02-16 11:30 | IMM_PTH ---
PATIENT: FRIDA LEBRON LOC: MS3 U#:[id number] AGE/SX: 42/F ROOM: [facility] RE02/14/[address]: Dr. Charly Diaz MD : 1980 BED: 1 DIS: 02/16/2023 SPEC #: [id number] RECD: 02/17/23 10:00 STATUS: CHAPARRITA RETeri #: [id number] FLAKITO: 02/16/23 11:[address]: Anthony Dolan DEPT: IMMUNOHISTOCHEMISTRY RECD BY: Rosalba Wade ENTERED: 02/17/23 10:01 SP TYPE: IMMUNO OTHR DR: MD Dr. Jean-Pierre Aguilera MD Dr. Nicholas F Kotsonis, MD Tissues: A - Stomach, NOS Procedures: H Pylori (initial) PHYSICIAN & INSTITUTION [place] [id number] SPECIMEN INFORMATION: Tissue Source: A ? Gastric ulcer Clinical Info: Acute blood loss anemia, GI bleed Specimen Number: [id number] CPT code: 61999 METHODOLOGY: Deparaffinized sections of prefer/formalin-fixed tissue or PAP/DQ stained slides are incubated with monoclonal/polyclonal antibodies/oligonucleotide probes. Localization is made via biotin free immunoperoxidase method. Appropriate controls are performed and reacted as expected. Results on target cell population are indicated in the following table: RESULTS: ANTIBODY / CLONE RESULT Block A H Pylori (polyclonal) negative These tests were developed and their performance characteristics determined by [facility]. They may not have been cleared or approved by the U.S. Food and Drug Administration. The FDA has determined that such clearance or approval is not necessary. The above immunohistochemical/dualISH markers are ordered and reviewed by the Pathologist. INTERPRETATION: A. Gastric ulcer, biopsy: Negative for Helicobacter pylori organisms. AM:erwin 02/20/2023
[2023-02-16] MEDS: Vancomycin IV 1,000 MG/200 ML BAG 200 MG IV (12:45)
--- NOTE | 2023-02-16 13:12 | OP.CCLET_ITS ---
02/16/2023 Marie Ritter Re : Upper GI endoscopy procedure for Sophia Wolfe Dear Stone This procedure was performed on January. My impressions and recommendations are as follows: Impressions : - Normal esophagus. - Oozing gastric ulcer with a visible vessel. Injected. Biopsied. Treated with a heater probe. - Duodenitis. Biopsied. Recommendations : - Return patient to hospital al for ongoing care. - Use Protonix (pantoprazole) 40 mg PO BID for 8 weeks. - Use sucralfate tablets 1 gram PO QID for 8 weeks. - Continue present medications. My findings are described in the full procedure note, which is enclosed. If I can be of further assistance, please feel free to contact me at . Sincerely, Anthony Dolan, 02/16/2023 1:11:55 PM This report has been signed electronically.
--- NOTE | 2023-02-16 13:12 | OP.EGD_ITS ---
Patient Name: Sophia Wolfe Procedure Date: 02/16/2023 12:05 PM Date of : 1980 Age: 42 Procedure: Upper GI endoscopy Indications: Iron deficiency anemia Providers: Anthony Dolan DO Medicines: Monitored Anesthesia Care Patient Profile: This is a 42 year old female. Refer to note in patient chart for documentation of history and physical. Patient has symptoms. Complications: No immediate complications. Procedure: Pre-Anesthesia Assessment: - Prior to the procedure, a History and Physical was performed, and patient medications and allergies were reviewed. The patient is competent. The risks and benefits of the procedure and the sedation options and risks were discussed with the patient. All questions were answered and informed consent was obtained. Patient identification and proposed procedure were verified by the physician in the pre-procedure area. Mental Status Examination: alert and oriented. Airway Examination: normal oropharyngeal airway and neck mobility. Respiratory Examination: clear to auscultation. CV Examination: normal. Prophylactic Antibiotics: The patient does not require prophylactic antibiotics. Prior Anticoagulants: The patient has taken no previous anticoagulant or antiplatelet agents. ASA Grade Assessment: II - A patient with mild systemic disease. After reviewing the risks and benefits, the patient was deemed in satisfactory condition to undergo the procedure. The anesthesia plan was to use monitored anesthesia care (MAC). Immediately prior to administration of medications, the patient was re-assessed for adequacy to receive sedatives. The heart rate, respiratory rate, oxygen saturations, blood pressure, adequacy of pulmonary ventilation, and response to care were monitored throughout the procedure. The physical status of the patient was re-assessed after the procedure. After obtaining informed consent, the endoscope was passed under direct vision. Throughout the procedure, the patient's blood pressure, pulse, and oxygen saturations were monitored continuously. The colonoscope was introduced through the mouth, and advanced to the second part of duodenum. The upper GI endoscopy was accomplished without difficulty. The patient tolerated the procedure well. Scope In: 12:20:12 PM Scope Out: 12:35:05 PM Total Procedure Duration Time 0 hours 14 minutes 53 seconds Findings: The examined esophagus was normal. One oozing cratered gastric ulcer with a visible vessel was found in the gastric antrum. The lesion was 15 mm in largest dimension. Area was successfully injected with 5 mL of a 1:10,000 solution of epinephrine for drug delivery. Estimated blood loss: none. Biopsies were taken with a cold forceps for histology. Verification of patient identification for the specimen was done. Estimated blood loss was minimal. Coagulation for hemostasis using heater probe was successful. Estimated blood loss was minimal. Patchy moderate inflammation characterized by congestion (edema) and friability was found in the duodenal bulb. Biopsies were taken with a cold forceps for histology. Verification of patient identification for the specimen was done. Estimated blood loss was minimal. Impression: - Normal esophagus. - Oozing gastric ulcer with a visible vessel. Injected. Biopsied. Treated with a heater probe. - Duodenitis. Biopsied. Recommendation: - Return patient to hospital al for ongoing care. - Use Protonix (pantoprazole) 40 mg PO BID for 8 weeks. - Use sucralfate tablets 1 gram PO QID for 8 weeks. - Continue present medications. Procedure Code(s): --- Professional --- 57980, 59, Esophagogastroduodenoscopy, flexible, transoral; with control of bleeding, any method 66289, 59, Esophagogastroduodenoscopy, flexible, transoral; with directed submucosal injection(s), any substance 33460, 51, Esophagogastroduodenoscopy, flexible, transoral; with biopsy, single or multiple CPT copyright 2017 [employer]. All rights reserved. The codes documented in this report are preliminary and upon food inspector review may be revised to meet current compliance requirements. Anthony Dolan DO 02/16/2023 1:11:55 PM This report has been signed electronically. Number of Addenda: 0 Note Initiated On: 02/16/2023 12:05 PM
--- NOTE | 2023-02-16 13:18 | OP.COLON_ITS ---
Patient Name: Sophia Wolfe Procedure Date: 02/16/2023 12:35 PM Date of : 1980 Age: 42 Procedure: Colonoscopy Indications: Hematochezia Providers: Anthony Dolan DO Medicines: Monitored Anesthesia Care Patient Profile: This is a 42 year old female. Refer to note in patient chart for documentation of history and physical. Patient has symptoms. Last Colonoscopy: none. The patient's first colonoscopy is today. Complications: No immediate complications. Procedure: Pre-Anesthesia Assessment: - Prior to the procedure, a History and Physical was performed, and patient medications and allergies were reviewed. The patient is competent. The risks and benefits of the procedure and the sedation options and risks were discussed with the patient. All questions were answered and informed consent was obtained. Patient identification and proposed procedure were verified by the physician in the pre-procedure area. Mental Status Examination: alert and oriented. Airway Examination: normal oropharyngeal airway and neck mobility. Respiratory Examination: clear to auscultation. CV Examination: normal. Prophylactic Antibiotics: The patient does not require prophylactic antibiotics. Prior Anticoagulants: The patient has taken no previous anticoagulant or antiplatelet agents. ASA Grade Assessment: II - A patient with mild systemic disease. After reviewing the risks and benefits, the patient was deemed in satisfactory condition to undergo the procedure. The anesthesia plan was to use monitored anesthesia care (MAC). Immediately prior to administration of medications, the patient was re-assessed for adequacy to receive sedatives. The heart rate, respiratory rate, oxygen saturations, blood pressure, adequacy of pulmonary ventilation, and response to care were monitored throughout the procedure. The physical status of the patient was re-assessed after the procedure. After I obtained informed consent, the scope was passed under direct vision. Throughout the procedure, the patient's blood pressure, pulse, and oxygen saturations were monitored continuously. The colonoscope was introduced through the anus and advanced to the terminal ileum. The colonoscopy was performed without difficulty. The patient tolerated the procedure well. The quality of the bowel preparation was poor. Scope In: 12:37:25 PM Scope Withdrawal Time 0 hours 7 minutes 9 seconds Scope Out: 12:57:20 PM Total Procedure Duration Time 0 hours 19 minutes 55 seconds Findings: The perianal and digital rectal examinations were normal. Two sessile polyps were found in the sigmoid colon. The polyps were 1 to 2 mm in size. These polyps were removed with a cold snare. Resection and retrieval were complete. Verification of patient identification for the specimen was done. Estimated blood loss was minimal. The terminal ileum appeared normal. Biopsies were taken with a cold forceps for histology. Verification of patient identification for the specimen was done. Estimated blood loss was minimal. A large amount of stool was found in the rectum, in the recto-sigmoid colon, in the sigmoid colon, in the descending colon, in the transverse colon, at the hepatic flexure, in the ascending colon and in the cecum, precluding visualization. Lavage of the area was performed using copious amounts of sterile water, resulting in incomplete clearance with continued poor visualization. Impression: - Preparation of the colon was poor. - Two 1 to 2 mm polyps in the sigmoid colon, removed with a cold snare. Resected and retrieved. - The examined portion of the ileum was normal. Biopsied. - Stool in the rectum, in the recto-sigmoid colon, in the sigmoid colon, in the descending colon, in the transverse colon, at the hepatic flexure, in the ascending colon and in the cecum. Recommendation: - Return patient to hospital al for ongoing care. - Repeat colonoscopy in 4 months because the bowel preparation was poor. - Continue present medications. Procedure Code(s): --- Professional --- 68010, Colonoscopy, flexible; with removal of tumor(s), polyp(s), or other lesion(s) by snare technique 18772, 59, Colonoscopy, flexible; with biopsy, single or multiple CPT copyright 2017 [employer]. All rights reserved. The codes documented in this report are preliminary and upon manager fleet review may be revised to meet current compliance requirements. Anthony Dolan DO 02/16/2023 1:17:53 PM This report has been signed electronically. Number of Addenda: 0 Note Initiated On: 02/16/2023 12:35 PM
--- NOTE | 2023-02-16 13:18 | OP.CCLET_ITS ---
02/16/2023 Marie Ritter Re : Colonoscopy procedure for Sophia Wolfe Dear Stone This procedure was performed on January. My impressions and recommendations are as follows: Impressions : - Preparation of the colon was poor. - Two 1 to 2 mm polyps in the sigmoid colon, removed with a cold snare. Resected and retrieved. - The examined portion of the ileum was normal. Biopsied. - Stool in the rectum, in the recto-sigmoid colon, in the sigmoid colon, in the descending colon, in the transverse colon, at the hepatic flexure, in the ascending colon and in the cecum. Recommendations : - Return patient to hospital al for ongoing care. - Repeat colonoscopy in 4 months because the bowel preparation was poor. - Continue present medications. My findings are described in the full procedure note, which is enclosed. If I can be of further assistance, please feel free to contact me at . Sincerely, Anthony Dolan, 02/16/2023 1:17:53 PM This report has been signed electronically.
[2023-02-16 14:01] LABS: Internal QC Validated? YES +Cl - CLEAR BKGD; Pregnancy, Urine Negative Negative
[2023-02-16 14:09] LABS: Anti-Centromere B Ab <0.2 AI (0.0-0.9); Anti-Chromatin <0.2 AI (0.0-0.9); Anti-Jo <0.2 AI (0.0-0.9); Anti-Scleroderma-70 AB <0.2 AI (0.0-0.9); Anti-dsDNA Ab 1 IU/mL (0-9); RNP Ab <0.2 AI (0.0-0.9); SJOGREN'S Anti-SS-A test < 0.2 AI (0.0-0.9); SJOGREN'S Anti-SS-B test < 0.2 AI (0.0-0.9); Smith Ab <0.2 AI (0.0-0.9)
--- NOTE | 2023-02-16 14:40 | CASEMGMT ---
RN NOLA NOTE: Pt being discharged. RN CM to room. Pt resting in bed. Mother @ bedside. They deny having any discharge planning needs and deny wanting/needing HHC. Jennifer CRNAEN RN CM
--- NOTE | 2023-02-16 15:13 | PCM.DC ---
Discharge Instructions Diet Discharge Diet: Carb Control Diet Activity Discharge Activity: Return to Normal Activity Dressing / Incision Call your doctor if you observe: Fever of 101 or Higher, Shortness of breath, Dizziness, Fainting spells, Swelling in the ankles, Chest pain and Increased palpitations (irregular heartbeat) Follow Up Care Test Results: Test results from this visit will be discussed in further detail at your follow-up appointment, if applicable. Discharge Plan Admission Admit Date/Time: 02/14/23 19:12 Attending Provider: Charly Diaz Primary Care Provider: Marie Ritter Consulting Providers: Jean-Pierre Antonio Instructions Additional Instructions / Restrictions: Follow-up with your PCP in 3 to 5 days to obtain outpatient lab work to monitor your hemoglobin Discharge Orders/Prescriptions Prescriptions: New sucralfate 1 gram Tablet 1 g PO 1HR_ACHS 30 Days Qty: 90 0RF Continued metformin 500 mg tablet extended release 24 hr 500 mg PO QPM Label Comments: take 1 tablet by mouth every evening multivitamin Tablet 1 tab PO DAILY sumatriptan succinate 25 mg tablet 25 mg PO DAILY PRN (Reason: Migraine Headache) Label Comments: take 1 tablet by mouth if needed AT ONSET OF HEADACHE may repeat in 2 hours if needed loratadine [Claritin] 10 mg Tablet 10 mg PO DAILY PRN (Reason: SEASONAL ALLERGIES) Changed pantoprazole 40 mg tablet,delayed release (DR/EC) 40 mg PO BID 60 Days Qty: 120 0RF Referrals / Follow Up: Marie Ritter MD [Primary Care Provider] - Within 1 Week Anthony Dolan DO [Med Staff - Active Staff] - Within 1 Month Disposition Disposition (needs filled in before D/C Order can be placed): Home, Self Care
--- NOTE | 2023-02-16 15:18 | DS.PCM_ITS ---
Providers Date of Admission: 02/14/23 Primary Care Physician: Dr. Marie Ritter MD Consultations 02/14/23 20:55 Consult: Gastroenterology Routine Consulting Provider: Sergio Gastroenterology Reason for Consult: ABLA EMERGENT Consult: No MD Notified: Yes Date Notified: 02/14/23 Time Notified: 19:26 Method of Notification: Text Reason For Visit: ABLA Diagnosis Discharge Diagnosis (1) ABLA (acute blood loss anemia): Status: Acute Code(s): D62 - Acute posthemorrhagic anemia (2) GI bleed: Status: Acute Code(s): K92.2 - Gastrointestinal hemorrhage, unspecified Medications at Discharge Home Medications loratadine 10 mg tablet (Claritin) 10 mg PO DAILY PRN SEASONAL ALLERGIES 02/14/23 metformin 500 mg tablet,extended release 24 hr 500 mg PO QPM diabetes 02/14/23 multivitamin 1 tab PO DAILY health maintenance 02/14/23 sumatriptan succinate 25 mg tablet 25 mg PO DAILY PRN Migraine Headache 02/14/23 pantoprazole 40 mg tablet,delayed release 40 mg PO BID acid reflux 60 days #120 tabs 02/16/23 sucralfate 1 gram tablet 1 g PO 1HR_ACHS 30 days #90 tabs 02/16/23 Hospital Course Operations None Procedures Colonoscopy and EGD Summary of Care Provided Minutes Spent on Discharge: 35 Hospital Course: Per HPI: FRIDA LEBRON, is a 42 F with a significant history of diabetes tone itus; Georges syndrome and VSD who presents to the emergency department with low hemoglobin on outpatient lab. Patient was recently diagnosed with diabetes mellitus and was started on metformin.? Because of upcoming follow-up doctor visits on her diabetes patient was requested to get some lab work done ahead of her visit.? The lab work showed low hemoglobin of 7.2.? However in October this year her hemoglobin was 12.9.?With patient's hemoglobin of 7.2 she was made to repeat the hemoglobin and the repeat hemoglobin turned out to be 7.1.? Because of persistent low hemoglobin she was sent to emergency department for further evaluation and treatment. Also patient reports that in the past 2 days she noticed dark stools and a spot of blood.? She reports lightheadedness for the past 2 weeks. She reports fatigue.? She denies anorexia. Emergency department, discussed the case with gastroenterology who recommended that patient stays at the hospital for further evaluation and treatment.?Emergency department doctor reports guaiac positive exams on rectal examination. In regard to patient's VSD she reports that she is growing out of it and follow- up examination shows that the VSD is closing up.? She reported that her last symptoms in regard to the VSD was when she was a kid. Hospital Course: 1. Acute blood loss anemia from upper GI bleed ? Plan was for EGD yesterday however this was canceled because of her anemia below 7 despite the appropriateness of intervention by EGD to fix the bleeding there was report of ST changes which are not evident on the EKG prior, troponin was normal and she continues to deny any chest pain. No further cardiac work-up at this time is indicated ? Continue with PPI ? She transfused 2 unit and overcorrected to 9.5 indicating that the 6.4 yesterday that held up EGD was falsely low ? Appreciate GIs assistance, will continue with gentamicin and Vanc ? She did receive an iron infusion during her stay ? EGD demonstrated a gastric ulcer or that was oozing with a visible vessel this was treated with heater probe and injection. We will plan on Carafate for the next 8 weeks as well as twice daily Protonix for the next 8 weeks. She did have a colonoscopy that showed 2 polyps that were removed however prep was poor so she needs a follow-up with gastroenterology in the next 4 months to have a repeat colonoscopy. I discussed with her and her family the plan for possible discharge today they expressed understanding the risk benefits of going home and would like to go home today. They did state that she does tend to take a decent amount of Advil per month due to headaches I discussed with the risks of taking Advil in the setting of her GI bleeding and expressed understanding and will find alternative methods to controlling and treating the headaches 2. DM2 ? Continue with sliding scale insulin when she is able to take p.o. ? Can resume metformin on discharge ? A1c is improved to 5.3 ? We will make adjustments to her blood sugar interventions as necessary Weight / BMI Weight Weight: 177 lb 14.609 oz Body Mass Index (BMI) 34.7 ABG / Lab / Microbiology Data Result Diagrams: 02/16/23 05:15 02/16/23 05:15 Laboratory: Laboratory Results - last 24 hr 02/14/23 16:20: Blood Type O POSITIVE, Antibody Screen NEGATIVE, Crossmatch See Detail 02/15/23 09:15: ZAFRA-1 Antibody <0.2, SS-A/Ro IgG Antibody < 0.2, SS-B/La IgG Antibody < 0.2, Sm (Funes) Antibody <0.2, SENIOR G[employer]ERNMENT PROGRAM ANALYST Antibody <0.2, Scl-70 Scleroderma Ab <0.2, Double Strand DNA Ab 1, Centromere B Antibody <0.2 02/15/23 09:15: Vitamin B12 631 02/15/23 20:28: Hgb 9.5 L, Hct 31.6 L 02/16/23 05:15: WBC 8.0, RBC 3.40 L, Hgb 9.2 L, Hct 29.8 L, MCV 87.6 D, MCH 27.1, MCHC 30.9 L D, RDW Std Deviation 57.6 H, RDW Coeff of Dana 18.1 H, Plt Count 268, MPV 10.8, Immature Gran % (Auto) 0.600, Neut % (Auto) 65.6, Lymph % (Auto) 22.0, [place] % (Auto) 7.9, Eos % (Auto) 3.4, Baso % (Auto) 0.5, Absolute Neuts (auto) 5.2, Absolute Lymphs (auto) 1.75, Nucleated RBC % 0.3 02/16/23 05:15: Sodium 139, Potassium 3.6, Chloride 111 H, Carbon Dioxide 25.0, Anion Gap 3 L, BUN 7, Creatinine 0.81, Estim Creat Clear Calc 63.66, Est GFR (MDRD) Af Amer 99, Est GFR (MDRD) Non-Af 82, BUN/Creatinine Ratio 8.7 L, Glucose 100, Calcium 8.2 L 02/16/23 09:25: Urine Test Negative 02/16/23 10:16: APTT 29.9 Microbiology: Microbiology 02/14/23 15:39 Stool Stool Occult Blood (LEX) - Final Occult Blood Positive D/C Instructions Discharge Diet: Carb Control Diet Call your doctor if you observe: Fever of 101 or Higher, Shortness of breath, Dizziness, Fainting spells, Swelling in the ankles, Chest pain and Increased palpitations (irregular heartbeat) Meaningful Use Info Meaningful Use Diagnoses (Choose all that apply): None applicable Discharge Plan Admission Admit Date/Time: 02/14/23 19:12 Attending Provider: Charly Diaz Primary Care Provider: Marie Ritter Consulting Providers: Jean-Pierre Antonio Instructions Additional Instructions / Restrictions: Follow-up with your PCP in 3 to 5 days to obtain outpatient lab work to monitor your hemoglobin Discharge Orders/Prescriptions Prescriptions: New sucralfate 1 gram Tablet 1 g PO 1HR_ACHS 30 Days Qty: 90 0RF Continued metformin 500 mg tablet extended release 24 hr 500 mg PO QPM Label Comments: take 1 tablet by mouth every evening multivitamin Tablet 1 tab PO DAILY sumatriptan succinate 25 mg tablet 25 mg PO DAILY PRN (Reason: Migraine Headache) Label Comments: take 1 tablet by mouth if needed AT ONSET OF HEADACHE may repeat in 2 hours if needed loratadine [Claritin] 10 mg Tablet 10 mg PO DAILY PRN (Reason: SEASONAL ALLERGIES) Changed pantoprazole 40 mg tablet,delayed release (DR/EC) 40 mg PO BID 60 Days Qty: 120 0RF Referrals / Follow Up: Marie Ritter MD [Primary Care Provider] - Within 1 Week FriendAnthony DO [Med Staff - Active Staff] - Within 1 Month Disposition Disposition (needs filled in before D/C Order can be placed): Home, Self Care Charges/Coding Visit Charges Inpatient E&M: 58288 Disch Hosp >30min
--- NOTE | 2023-02-16 15:46 | CASEMGMT ---
Social Work SW spoke with pt and mother regarding advance directives. Pt states she does have a HCPOA naming mother May Wolfe. Pt has not made a living will. SW requested HCPOA be brought in for scanning into medical record. FABIOLA Brannon
[2023-02-16 17:07] LABS: Deamidated Gliadin IgA 5 units (0-19); Deamidated Gliadin IgG 5 units (0-19); Endomysial Antibody IgA Negative (Negative); Immunoglobulin A 152 mg/dL (87-352); t-Transglutaminase IgA <2 U/mL (0-3)
[2023-02-19 02:06] LABS: Cytoplasmic Ab (C-ANCA) <1:20 titer (Neg:<1:20); Immunoglobulin A 176 mg/dL (87-352); Immunoglobulin E 26 IU/mL (6-495); Immunoglobulin G 1160 mg/dL (586-1602); Immunoglobulin M 112 mg/dL (26-217); Perinuclear Ab (P-ANCA) <1:20 titer (Neg:<1:20)
== END 2023-02-16 16:14 | disposition home or self-care (01) | DRG 378 ==
LOC: ED 19:47 → MS3 20:44
PROVIDERS: Anesthesiology; Internal Medicine Gastroenterology; Admitting Provider Hospitalist; Emergency Provider Emergency Medicine; PCP Internal Medicine; Visit Provider Family Medicine
PROC: 0DJD8ZZ Inspection of Lower Intestinal Tract, Via Natural or Artificial Opening Endoscopic (ICD-10-PCS; CPT 45378; principal; 2023-02-16 11:25)
DX: K25.4 Chronic or unspecified gastric ulcer with hemorrhage (principal); D62 Acute posthemorrhagic anemia; Q87.19 Other congenital malformation syndromes predominantly associated with short stature; Q21.0 Ventricular septal defect; E11.9 Type 2 diabetes mellitus without complications; Z79.4 Long term (current) use of insulin; K63.5 Polyp of colon; I37.0 Nonrheumatic pulmonary valve stenosis; K29.81 Duodenitis with bleeding; K29.51 Unspecified chronic gastritis with bleeding; E66.9 Obesity, unspecified; Z68.34 Body mass index [BMI] 34.0-34.9, adult; Z79.2 Long term (current) use of antibiotics; Z79.84 Long term (current) use of oral hypoglycemic drugs; Z80.0 Family history of malignant neoplasm of digestive organs
CPT/HCPCS: 36415; 80048; 80053; 80061; 81001; 81002; 81025; 82043; 82274; 82306; 82570; 82607; 82728; 82746; 82784; 82785; 83036; 83516; 83540; 83550; 84443; 84484; 85014; 85018; 85025; 85045; 85610; 85652; 85730; 86140; 86225; 86235; 86255; 86256; 86850; 86900; 86901; 86920; 86922; 88305; 88342; 93005; 99284; J7030; J7040; J7050; J7120; P9016; A4216; J2405; J2916; J3490

== ENCOUNTER → 2023-02-14 | Outpatient (CLI) | payer MEDICARE, OTHER, MEDICAID, SELFPAY ==
[2023-02-14 10:24] LABS: Absolute Lymphocyte Count 1.57 X10^3/uL (0.83-4.51); Absolute Neutrophil Count 4.2 X10^3/uL (2.0-7.7); Basophil# 0.02 X10^3/uL; Basophil% 0.3 % (0-1); Eosinophil# 0.12 X10^3/uL; Eosinophils% 1.8 % (0-5); Hematocrit 24.4 % (37-47); Hemoglobin 7.1 g/dL (12.0-15.0); Lymphocyte # 1.57 X10^3/ul (0.83-4.51); Lymphocyte % 24.2 % (19-41); Mean Corp Hgb Conc 29.1 g/dL (32-36); Mean Corpuscular Hgb 26.9 pg (27.0-32.0); Mean Corpuscular Volume 92.4 fL (81-99); Mean Platelet Vol. 10.6 fl (6.2-12.0); Monocyte# 0.52 X10^3/uL; NRBC Flagged by Analyzer 0 % (0-5); Neutrophil # 4.23 X10^3/uL (2.7-7.7); Neutrophil % 65.1 % (47-70); Platelet Count 339 K/mm3 (150-450); RBC Distribution Width CV 15.9 % (11.6-14.6); RBC Distribution Width SD 53.6 fl (35.1-43.9); Red Blood Count 2.64 M/mm3 (4.2-5.4); White Blood Count 6.5 K/mm3 (4.4-11.0)
[2023-02-14 10:48] LABS: Thyroid Stim Hormone (TSH) 2.43 uIU/mL (0.358-3.74)
[2023-02-14 10:53] LABS: Color, Urine Yellow (Yellow); Glucose, Dipstick Normal (Normal); Ketone-Dipstick Negative (Negative); Leukocyte Esterase-Dipstick 500 /ul (Negative); Nitrite-Dipstick Negative (Negative); Occult Blood-Urine 50 /ul (Negative); Protein-Dipstick 100 mg/dl (Negative); Urine Bilirubin Dipstick Negative (Negative); Urine Clarity Sl. Cloudy (Clear); Urine Urobilinogen Normal (Normal); Urine pH 6.5 (5.0 - 8.0)
[2023-02-14 10:58] LABS: Vitamin B12 731 pg/mL (211-911); Vitamin D,25 Hydroxy 53.8 ng/mL
== END | disposition home or self-care (01) ==
PROVIDERS: PCP Internal Medicine; Referring Provider Internal Medicine; Visit Provider Internal Medicine
DX: E11.9 Type 2 diabetes mellitus without complications (principal); E66.9 Obesity, unspecified; I37.0 Nonrheumatic pulmonary valve stenosis; Q87.19 Other congenital malformation syndromes predominantly associated with short stature; D64.9 Anemia, unspecified
CPT/HCPCS: 36415; 81002; 82306; 82607; 84443; 85025

== ENCOUNTER → 2023-02-21 | Outpatient (CLI) | payer MEDICARE, OTHER, MEDICAID, SELFPAY ==
[2023-02-21 10:06] LABS: Absolute Lymphocyte Count 1.96 X10^3/uL (0.83-4.51); Absolute Neutrophil Count 4.7 X10^3/uL (2.0-7.7); Basophil# 0.04 X10^3/uL; Basophil% 0.5 % (0-1); Eosinophil# 0.22 X10^3/uL; Eosinophils% 2.9 % (0-5); Hematocrit 36.8 % (37-47); Hemoglobin 10.8 g/dL (12.0-15.0); Lymphocyte # 1.96 X10^3/ul (0.83-4.51); Mean Corp Hgb Conc 29.3 g/dL (32-36); Mean Corpuscular Hgb 26.8 pg (27.0-32.0); Mean Corpuscular Volume 91.3 fL (81-99); Mean Platelet Vol. 10.9 fl (6.2-12.0); Monocyte# 0.55 X10^3/uL; Monocyte% 7.3 % (0-10); NRBC Flagged by Analyzer 0 % (0-5); Neutrophil # 4.74 X10^3/uL (2.7-7.7); Neutrophil % 62.9 % (47-70); Platelet Count 313 K/mm3 (150-450); RBC Distribution Width CV 17.4 % (11.6-14.6); RBC Distribution Width SD 57.1 fl (35.1-43.9); Red Blood Count 4.03 M/mm3 (4.2-5.4); White Blood Count 7.5 K/mm3 (4.4-11.0)
== END | disposition home or self-care (01) ==
LOC: PAVLAB 09:34
PROVIDERS: PCP Internal Medicine; Referring Provider Internal Medicine; Visit Provider Internal Medicine
DX: D64.9 Anemia, unspecified (principal)
CPT/HCPCS: 36415; 85025

== ENCOUNTER → 2023-04-07 | Outpatient (CLI) | payer MEDICARE, OTHER, MEDICAID, SELFPAY ==
[2023-04-07 10:39] LABS: Absolute Lymphocyte Count 2.01 X10^3/uL (0.83-4.51); Absolute Neutrophil Count 6.3 X10^3/uL (2.0-7.7); Basophil# 0.04 X10^3/uL; Basophil% 0.4 % (0-1); Eosinophil# 0.21 X10^3/uL; Eosinophils% 2.3 % (0-5); Hematocrit 39.3 % (37-47); Hemoglobin 12.3 g/dL (12.0-15.0); Lymphocyte # 2.01 X10^3/ul (0.83-4.51); Lymphocyte % 22.1 % (19-41); Mean Corp Hgb Conc 31.3 g/dL (32-36); Mean Corpuscular Hgb 27.7 pg (27.0-32.0); Mean Corpuscular Volume 88.5 fL (81-99); Mean Platelet Vol. 11.6 fl (6.2-12.0); Monocyte# 0.55 X10^3/uL; NRBC Flagged by Analyzer 0 % (0-5); Neutrophil # 6.27 X10^3/uL (2.7-7.7); Platelet Count 301 K/mm3 (150-450); RBC Distribution Width CV 16.5 % (11.6-14.6); RBC Distribution Width SD 54.2 fl (35.1-43.9); Red Blood Count 4.44 M/mm3 (4.2-5.4); White Blood Count 9.1 K/mm3 (4.4-11.0)
[2023-04-07 11:15] LABS: Ferritin 8 ng/mL (8-252); Iron 91 ug/dL (50-170); Iron Binding Capacity,Total 346 ug/dL (250-450); PERCENT IRON SATURATION 26.3 % (15.0-55.0)
== END | disposition home or self-care (01) ==
LOC: LAB 09:54
PROVIDERS: PCP Internal Medicine; Referring Provider Nurse Practitioner Adult Health; Visit Provider Nurse Practitioner Adult Health
DX: D62 Acute posthemorrhagic anemia (principal)
CPT/HCPCS: 36415; 82728; 83540; 83550; 85025

== ENCOUNTER 2023-08-07 05:14 | Day surgery (SDC) | payer MEDICARE, OTHER, MEDICAID, SELFPAY ==
--- NOTE | 2023-08-07 | COLBX_PTH ---
PATIENT: FRIDA LEBRON LOC: EN U#:[id number] AGE/SX: 43/F ROOM: RE08/07/[address]: Dr. Anthony Dolan DO : 1980 BED: DIS: 08/07/2023 SPEC #: [id number] RECD: 08/07/23 10:48 STATUS: CHAPARRITA JENNY #: [id number] FLAKITO: 08/07/23 00:[address]: Anthony Dolan DEPT: SURGICAL PATHOLOGY RECD BY: Lydia Wayne ENTERED: 08/07/23 11:20 SP TYPE: COLON BX OTHR DR: Dr. Marie Ritter MD Tissues: A - Gastric mucous membrane B - Esophagus, NOS C - Descending colon D - Rectum, NOS Procedures: Special Stain Group II Surgery Specimen Level IV Alcian Blue/PAS (control) HEADER OPERATION: Colonoscopy, EGD ([facility]), biopsy, polypectomy PRE-OP DIAGNOSIS: Gastric ulcer due to NSAID therapy, colon polyps TISSUE SUBMITTED: A - Gastric antrum ulcer biopsy, B - Distal esophagus biopsy, C - Descending colon polyp, D - Rectum polyp MICROSCOPIC DIAGNOSIS A. Gastric antrum ulcer, biopsy: Fragments of gastric mucosa with focal ulceration, fibrinopurulent exudation and acute and chronic inflammation. See comment. B. Distal esophagus, biopsy: Fragments of gastroesophageal mucosa with moderate chronic inflammation. Intestinal metaplasia (goblet cell metaplasia) not identified. See comment. C. Descending colon polyp, polypectomy: Tubular adenoma. D. Rectum polyp, polypectomy: Fragments of hyperplastic polyp. SJ:rg 08/08/2023 COMMENT A. The results of immunohistochemistry for Helicobacter pylori will be reported separately ([id number]). B. Alcian blue/PAS stain with matched control is used in the evaluation of the specimen. MICROSCOPIC DESCRIPTION Slides are reviewed. GROSS DESCRIPTION A - Received in fixative is one container labeled with the patient's name and designated gastric antrum ulcer. The specimen consists of multiple irregular fragments of light hair soft tissue that in aggregate measure 2.0 x 0.3 x 0.1 cm. The specimen is totally submitted in one cassette. B - Received in fixative is one container labeled with the patient's name and designated distal esophagus biopsy. The specimen consists of two irregular fragments of light hair soft tissue that in aggregate measure 0.6 x 0.3 x 0.1 cm. The specimen is totally submitted in one cassette. C - Received in fixative is one container labeled with the patient's name and designated descending colon polyp. The specimen consists of one irregular fragment of light hair soft tissue that measures 0.3 x 0.2 x 0.1 cm. The specimen is totally submitted in one cassette. D - Received in fixative is one container labeled with the patient's name and designated rectum polyp. The specimen consists of multiple irregular fragments of light hair soft tissue that in aggregate measure 1.0 x 0.3 x 0.1 cm. The specimen is totally submitted in one cassette. / SJ:rg 08/07/2023 TC:2 CPT: 04950 x4
[2023-08-07] MEDS: Lactated Ringers 1,000 ML 15 ML IV (06:03)
[2023-08-07 06:05] VITALS: BP 117/63; PULSE 70; RESP 18; TEMP 37; O2SAT 98; BMI 33.2
[2023-08-07 06:28] LABS: Bedside Glucose 95 mg/dL (74-106)
[2023-08-07 06:29] LABS: Internal QC Validated? YES +Cl - CLEAR BKGD; Pregnancy, Serum, hCG Quali. NEGATIVE Negative
--- NOTE | 2023-08-07 06:30 | IMM_PTH ---
PATIENT: FRIDA LEBRON LOC: EN U#:[id number] AGE/SX: 43/F ROOM: RE08/07/[address]: Dr. Anthony Dolan DO : 1980 BED: DIS: 08/07/2023 SPEC #: [id number] RECD: 08/07/23 14:00 STATUS: CHAPARRITA RETeri #: [id number] FLAKITO: 08/07/23 06:[address]: Anthony Dolan DEPT: IMMUNOHISTOCHEMISTRY RECD BY: Rosalba Wade ENTERED: 08/07/23 14:00 SP TYPE: IMMUNO OTHR DR: Dr. Marie Ritter MD Tissues: A - Stomach, NOS Procedures: H Pylori (initial) PHYSICIAN & INSTITUTION [place] [phone] SPECIMEN INFORMATION: Tissue Source: A - Gastric antrum ulcer Clinical Info: Gastric ulcer due to NSAID therapy; colon polyps Specimen Number: [id number] CPT code: 66844 METHODOLOGY: Deparaffinized sections of prefer/formalin-fixed tissue or PAP/DQ stained slides are incubated with monoclonal/polyclonal antibodies/oligonucleotide probes. Localization is made via biotin free immunoperoxidase method. Appropriate controls are performed and reacted as expected. Results on target cell population are indicated in the following table: RESULTS: ANTIBODY / CLONE RESULT Block A H Pylori (polyclonal) negative These tests were developed and their performance characteristics determined by [facility]. They may not have been cleared or approved by the U.S. Food and Drug Administration. The FDA has determined that such clearance or approval is not necessary. The above immunohistochemical/dualISH markers are ordered and reviewed by the Pathologist. INTERPRETATION: A. Gastric antrum ulcer, biopsy: Negative for Helicobacter pylori organisms. BISHOP:erwin 08/08/2023
--- NOTE | 2023-08-07 06:37 | PCM.HP.BLA ---
History and Physical Date of Admission: 08/07/23 43 F who presents to the office today for f/u hospitalization 02/14/23-02/16/23 for acute blood loss anemia from upper GI bleed. She is accompanied by her mother. She was admitted via the ED where she had been sent by primary care for hgb of 7.2. EGD demonstrated a 15 mm gastric ulcer that was oozing with a visible vessel which was treated with heater probe and injection.?Bxs revealed chronic gastritis, gastric metaplasia in duodenum, negative H pylori. Being treated with pantoprazole 40 mg bid x 8 wks and sucralfate x 8 wks. Received iron transfusion during hospitalization as well as 2 units of blood. Had colonoscopy but prep was poor so she needs repeat colonoscopy; 2 polyps were removed--hyperplastic. Was taking ibuprofen and naproxen for headaches, no longer taking those. She feels better--no longer has SOB, dizziness, abd pain. No melena or hematochezia. No nausea, vomiting, dysphagia, diarrhea, constipation. ROS Const Constitutional: Positive for headache(s); No fatigue ENT ENT: Positive for headache(s); No difficulty swallowing Gastro GI: No abdominal pain, belching, bloating, change in bowel habits, change in stool character, coffee ground emesis, constipation, cramping, diarrhea, heartburn, difficulty swallowing, feeling full early, excessive flatus, incontinent of stools, Vomiting blood/hematemesis, Blood in stool, loose stools, Black,tarry stools, nausea/dyspepsia, pain with swallowing, vomiting or other Musc Musculoskeletal: Positive for back pain and sciatica; No joint pain Skin Skin: No yellowing of the eye or itchy eyes Neuro Neurology: Positive for headache(s) and tremor(s) Psych Psychiatric: Positive for anxiety and No depression Endo Endocrine: No fatigue Aller/Imm Allergy/Immunologic: No itchy eyes Mo/Lymp Hematologic/Lymphatic: No easy bleeding or easy bruising Exam Const General: cooperative, healthy appearing and comfortable Nutritional Appearance: obese Orientation: alert, awake and oriented x3 Eyes Conjunctivae: conjunctivae normal Sclera: sclerae normal Resp Effort & Inspection: normal respiratory effort GI Inspection: normal to inspection Skin General: no rashes or lesions noted Quality Reporting Tobacco Screening ([facility] 138) Smoking Status: Never smoker Assessment and Plan Assessment and Plan (1) Gastric ulcer due to nonsteroidal antiinflammatory drug (NSAID) therapy: Status: Acute Plan: 43 yo female with recent hospitalization for bleeding gastric ulcer. Due to large size 15 mm of ulcer she needs repeat EGD. Will be done same time as repeat colonoscopy which is required because of poor prep, 2 small polyps were removed--hyperplastic. Finish 8 wk course of sucralfate, as well as 8 wk course of PPI bid, then continue pantoprazole 40 mg QAM. f/u after endoscopies. Update cbc, iron today. (2) Colon polyps: Status: Acute Plan: see above Orders: Orders CBC W/Diff, Automated Today D62 - Acute posthemorrhagic anemia Iron+Iron Binding Capacity Today D62 - Acute posthemorrhagic anemia Ferritin Today D62 - Acute posthemorrhagic anemia Medications: Changed From pantoprazole 40 mg PO BID 60 days 120 tabs 0RF acid reflux To pantoprazole 40 mg PO QAM 90 tabs 1RF acid reflux I have examined the patient and the H&P has been reviewed. There are no clinical changes since date of exam.
[2023-08-07 07:16] VITALS: BP 106/57; BP 117/63; PULSE 80; RESP 18; TEMP 36.2; O2SAT 98
[2023-08-07 07:20] VITALS: BP 106/55; BP 117/63; PULSE 78; RESP 18; O2SAT 100
--- NOTE | 2023-08-07 07:24 | OP.CCLET_ITS ---
08/07/2023 Marie Ritter Re : Upper GI endoscopy procedure for Sophia Wolfe Dear Stone This procedure was performed on Monday, August 07, 2023. My impressions and recommendations are as follows: Impressions : - Z-line irregular, 37 cm from the incisors. Biopsied. - Non-bleeding gastric ulcer with no stigmata of bleeding. Biopsied. - Normal first portion of the duodenum. Recommendations : - Await pathology results. - Repeat upper endoscopy. - Continue present medications. My findings are described in the full procedure note, which is enclosed. If I can be of further assistance, please feel free to contact me at . Sincerely, Anthony Dolan, 08/07/2023 7:24:00 AM This report has been signed electronically.
--- NOTE | 2023-08-07 07:24 | OP.EGD_ITS ---
Patient Name: Sophia Wolfe Procedure Date: 08/07/2023 6:09 AM Date of : 1980 Age: 43 Procedure: Upper GI endoscopy Indications: Peptic ulcer Providers: Anthony Dolan DO Medicines: Monitored Anesthesia Care Patient Profile: This is a 43 year old female. Refer to note in patient chart for documentation of history and physical. Patient has symptoms of chronic epigastric abdominal pain. Her most recent EGD for ulcer treatment. Complications: No immediate complications. Procedure: Pre-Anesthesia Assessment: - Prior to the procedure, a History and Physical was performed, and patient medications and allergies were reviewed. The patient is competent. The risks and benefits of the procedure and the sedation options and risks were discussed with the patient. All questions were answered and informed consent was obtained. Patient identification and proposed procedure were verified by the physician. Mental Status Examination: normal. Prophylactic Antibiotics: The patient does not require prophylactic antibiotics. Prior Anticoagulants: The patient has taken no anticoagulant or antiplatelet agents. After reviewing the risks and benefits, the patient was deemed in satisfactory condition to undergo the procedure. The anesthesia plan was to use monitored anesthesia care (MAC). Immediately prior to administration of medications, the patient was re-assessed for adequacy to receive sedatives. The heart rate, respiratory rate, oxygen saturations, blood pressure, adequacy of pulmonary ventilation, and response to care were monitored throughout the procedure. The physical status of the patient was re-assessed after the procedure. After obtaining informed consent, the endoscope was passed under direct vision. Throughout the procedure, the patient's blood pressure, pulse, and oxygen saturations were monitored continuously. The colonoscope was introduced through the mouth, and advanced to the second part of duodenum. The upper GI endoscopy was accomplished without difficulty. The patient tolerated the procedure well. Scope In: 6:41:43 AM Scope Out: 6:50:15 AM Total Procedure Duration Time 0 hours 8 minutes 32 seconds Findings: The Z-line was irregular and was found 37 cm from the incisors. Biopsies were taken with a cold forceps for histology. Verification of patient identification for the specimen was done. Estimated blood loss was minimal. One non-bleeding cratered gastric ulcer with no stigmata of bleeding was found in the gastric antrum. The lesion was 8 mm in largest dimension. Biopsies were taken with a cold forceps for histology. Verification of patient identification for the specimen was done. Estimated blood loss was minimal. The first portion of the duodenum was normal. Impression: - Z-line irregular, 37 cm from the incisors. Biopsied. - Non-bleeding gastric ulcer with no stigmata of bleeding. Biopsied. - Normal first portion of the duodenum. Recommendation: - Await pathology results. - Repeat upper endoscopy. - Continue present medications. Procedure Code(s): --- Professional --- 77794, Esophagogastroduodenoscopy, flexible, transoral; with biopsy, single or multiple CPT copyright 2021 [employer]. All rights reserved. The codes documented in this report are preliminary and upon internal affairs commander review may be revised to meet current compliance requirements. Anthony Dolan DO 08/07/2023 7:24:00 AM This report has been signed electronically. Number of Addenda: 0 Note Initiated On: 08/07/2023 6:09 AM
[2023-08-07 07:25] VITALS: BP 112/68; BP 117/63; PULSE 76; RESP 18; O2SAT 100
--- NOTE | 2023-08-07 07:27 | OP.COLON_ITS ---
Patient Name: Sophia Wolfe Procedure Date: 08/07/2023 6:50 AM Date of : 1980 Age: 43 Procedure: Colonoscopy Indications: Colon cancer screening in patient at increased risk: Family history of 1st-degree relative with colon polyps, High risk colon cancer surveillance: Personal history of colonic polyps Providers: Anthony Dolan DO Medicines: Monitored Anesthesia Care Patient Profile: This is a 43 year old female. Refer to note in patient chart for documentation of history and physical. Patient has symptoms of chronic epigastric abdominal pain. Her most recent EGD for ulcer treatment. Last Colonoscopy: 5 years ago. Complications: No immediate complications. Procedure: Pre-Anesthesia Assessment: - Prior to the procedure, a History and Physical was performed, and patient medications and allergies were reviewed. The patient is competent. The risks and benefits of the procedure and the sedation options and risks were discussed with the patient. All questions were answered and informed consent was obtained. Patient identification and proposed procedure were verified by the physician. Mental Status Examination: normal. Prophylactic Antibiotics: The patient does not require prophylactic antibiotics. Prior Anticoagulants: The patient has taken no anticoagulant or antiplatelet agents. After reviewing the risks and benefits, the patient was deemed in satisfactory condition to undergo the procedure. The anesthesia plan was to use monitored anesthesia care (MAC). Immediately prior to administration of medications, the patient was re-assessed for adequacy to receive sedatives. The heart rate, respiratory rate, oxygen saturations, blood pressure, adequacy of pulmonary ventilation, and response to care were monitored throughout the procedure. The physical status of the patient was re-assessed after the procedure. After I obtained informed consent, the scope was passed under direct vision. Throughout the procedure, the patient's blood pressure, pulse, and oxygen saturations were monitored continuously. The colonoscope was introduced through the anus and advanced to the cecum, identified by appendiceal orifice and ileocecal valve. The colonoscopy was performed without difficulty. The patient tolerated the procedure well. The quality of the bowel preparation was adequate. The ileocecal valve, appendiceal orifice, and rectum were photographed. Scope In: 6:52:35 AM Scope Withdrawal Time 0 hours 10 minutes 58 seconds Scope Out: 7:12:17 AM Total Procedure Duration Time 0 hours 19 minutes 42 seconds Findings: The perianal and digital rectal examinations were normal. A few small and large-mouthed diverticula were found in the recto-sigmoid colon and sigmoid colon. A 5 mm polyp was found in the rectum. The polyp was sessile. The polyp was removed with a jumbo cold forceps. Resection and retrieval were complete. Verification of patient identification for the specimen was done. Estimated blood loss was minimal. A 15 mm polyp was found in the descending colon. The polyp was sessile. The polyp was removed with a hot snare. Resection and retrieval were complete. Verification of patient identification for the specimen was done. Estimated blood loss was minimal. Impression: - Diverticulosis in the recto-sigmoid colon and in the sigmoid colon. - One 5 mm polyp in the rectum, removed with a jumbo cold forceps. Resected and retrieved. - One 15 mm polyp in the descending colon, removed with a hot snare. Resected and retrieved. Recommendation: - Repeat colonoscopy in 5 years for surveillance. - Continue present medications. Procedure Code(s): --- Professional --- 75559, Colonoscopy, flexible; with removal of tumor(s), polyp(s), or other lesion(s) by snare technique 02383, 59, Colonoscopy, flexible; with biopsy, single or multiple CPT copyright 2021 [employer]. All rights reserved. The codes documented in this report are preliminary and upon hospital coder review may be revised to meet current compliance requirements. Anthony Dolan DO 08/07/2023 7:27:05 AM This report has been signed electronically. Number of Addenda: 0 Note Initiated On: 08/07/2023 6:50 AM
--- NOTE | 2023-08-07 07:27 | OP.CCLET_ITS ---
08/07/2023 Marie Ritter Re : Colonoscopy procedure for Sophia Wolfe Dear Stone This procedure was performed on Monday, August 07, 2023. My impressions and recommendations are as follows: Impressions : - Diverticulosis in the recto-sigmoid colon and in the sigmoid colon. - One 5 mm polyp in the rectum, removed with a jumbo cold forceps. Resected and retrieved. - One 15 mm polyp in the descending colon, removed with a hot snare. Resected and retrieved. Recommendations : - Repeat colonoscopy in 5 years for surveillance. - Continue present medications. My findings are described in the full procedure note, which is enclosed. If I can be of further assistance, please feel free to contact me at . Sincerely, Anthony Dolan, 08/07/2023 7:27:05 AM This report has been signed electronically.
[2023-08-07 07:30] VITALS: BP 107/73; BP 117/63; PULSE 70; RESP 18; TEMP 36.3; O2SAT 100
[2023-08-07 07:47] VITALS: BP 117/63
== END 2023-08-07 07:56 | disposition home or self-care (01) ==
LOC: EN 05:16 → AC 05:17
PROVIDERS: Anesthesiology; PCP Internal Medicine; Referring Provider Internal Medicine; Visit Provider Internal Medicine Gastroenterology
PROC: 0DJD8ZZ Inspection of Lower Intestinal Tract, Via Natural or Artificial Opening Endoscopic (ICD-10-PCS; CPT 45378; principal; 2023-08-07 06:25)
DX: D12.4 Benign neoplasm of descending colon (principal); E11.9 Type 2 diabetes mellitus without complications; K25.3 Acute gastric ulcer without hemorrhage or perforation; K25.7 Chronic gastric ulcer without hemorrhage or perforation; K57.30 Diverticulosis of large intestine without perforation or abscess without bleeding; K62.1 Rectal polyp; E66.9 Obesity, unspecified; E78.00 Pure hypercholesterolemia, unspecified; G43.909 Migraine, unspecified, not intractable, without status migrainosus; Z79.899 Other long term (current) drug therapy; Z79.84 Long term (current) use of oral hypoglycemic drugs; Z86.010 Personal history of colon polyps; Z68.33 Body mass index [BMI] 33.0-33.9, adult
CPT/HCPCS: 45385; 45380; 43239; 82962; 84703; 88305; 88313; 88342; J7120; J2405

== ENCOUNTER → 2023-08-24 | Outpatient (CLI) | payer MEDICARE, OTHER, MEDICAID, SELFPAY ==
[2023-08-24 08:18] LABS: Absolute Lymphocyte Count 2.39 X10^3/uL (0.83-4.51); Absolute Neutrophil Count 5.2 X10^3/uL (2.0-7.7); Basophil# 0.03 X10^3/uL; Basophil% 0.4 % (0-1); Eosinophil# 0.22 X10^3/uL; Eosinophils% 2.6 % (0-5); Hematocrit 39.9 % (37-47); Hemoglobin 12.6 g/dL (12.0-15.0); Lymphocyte # 2.39 X10^3/ul (0.83-4.51); Lymphocyte % 28.3 % (19-41); Mean Corp Hgb Conc 31.6 g/dL (32-36); Mean Corpuscular Hgb 28.9 pg (27.0-32.0); Mean Corpuscular Volume 91.5 fL (81-99); Mean Platelet Vol. 10.9 fl (6.2-12.0); Monocyte# 0.61 X10^3/uL; Monocyte% 7.2 % (0-10); NRBC Flagged by Analyzer 0 % (0-5); Neutrophil # 5.16 X10^3/uL (2.7-7.7); Neutrophil % 61.1 % (47-70); Platelet Count 334 K/mm3 (150-450); RBC Distribution Width CV 14.6 % (11.6-14.6); RBC Distribution Width SD 49.3 fl (35.1-43.9); Red Blood Count 4.36 M/mm3 (4.2-5.4); Reticulocyte Count 1.93 % (0.5-1.5); White Blood Count 8.4 K/mm3 (4.4-11.0)
[2023-08-24 08:51] LABS: Vitamin B12 513 pg/mL (211-911)
[2023-08-24 08:55] LABS: Hemoglobin A1c 5.9 % (3.8-5.6)
[2023-08-24 08:59] LABS: ALB/GLOB Ratio 0.8 RATIO (0.9-2.4); AST(SGOT) 18 U/L (15-37); Alanine Aminotransfer ALT/SGPT 35 U/L (13-56); Albumin, Serum 3.6 g/dL (3.2-5.0); Alkaline Phosphatase 82 U/L (45-117); Anion Gap 4 (5-15); BUN 18 mg/dL (7-18); BUN/Creat Ratio 19.8 RATIO (10-20); Calcium,Total 8.9 mg/dL (8.5-10.1); Chloride 104 mmol/L (98-107); Cholesterol 131 mg/dL (200); Creatinine, Serum 0.91 mg/dL (0.55-1.02); EST Glomerular Filtration Rate 71 mL/min (>60); Est Glom Filt Rate - Afr Amer 86 mL/min (>60); Ferritin 11 ng/mL (8-252); Globulin 4.3 g/dL (2.2-4.2); Glucose 125 mg/dL (74-106); High Density Lipoprotein 45 mg/dL; Iron 48 ug/dL (50-170); Iron Binding Capacity,Total 348 ug/dL (250-450); PERCENT IRON SATURATION 13.8 % (15.0-55.0); Potassium 4.5 mmol/L (3.5-5.1); Protein, Total 7.9 g/dL (6.4-8.2); Sodium Level 137 mmol/L (136-145); Thyroid Stim Hormone (TSH) 3.36 uIU/mL (0.358-3.74); Triglycerides 126 mg/dL; Very Low Density Lipoprotein 25 mg/dL (5-40)
[2023-08-24 10:41] LABS: Microalbumin,Random Urine 5.3 mg/L (NO RANGE EST.); Microalbumin:Creatinine Ratio 10.5 mg/g CRE (<30 mg/g CRE)
== END | disposition home or self-care (01) ==
PROVIDERS: PCP Internal Medicine; Referring Provider Internal Medicine; Visit Provider Internal Medicine
DX: E78.00 Pure hypercholesterolemia, unspecified (principal); E11.9 Type 2 diabetes mellitus without complications; D64.9 Anemia, unspecified
CPT/HCPCS: 36415; 80053; 80061; 82043; 82570; 82607; 82728; 82746; 83036; 83540; 83550; 84443; 85025; 85045

== ENCOUNTER → 2023-08-25 | Outpatient (CLI) | payer MEDICARE, OTHER, MEDICAID, SELFPAY ==
--- NOTE | 2023-08-25 12:01 | BI_ITS ---
MAMMOGRAPHY - BILATERAL SCREENING REASON FOR EXAM: Female, 43 years old. Routine annual screening examination. PERTINENT HISTORY: Grandmother with breast cancer. Aunt with breast cancer. TECHNIQUE: Digital bilateral breast bereket (3D mammographic acquisition) in the CC and MLO projections. 2-D mediolateral oblique (MLO) and craniocaudad (CC) views of both breasts were obtained. CAD: Full Field Digital Mammography with Computer Added Detection was performed. COMPARISON: Comparison is made with prior examination dated April 03, 2020. FINDINGS: Breast Composition: The breasts are heterogeneously dense, which may obscure small masses. There are no dominant masses or suspicious calcifications. No other significant abnormalities are identified. There has been no significant change since the prior study. BI/SCRN MAMM (CAD)W/BEREKET BILAT IMPRESSION: Stable bilateral screening mammogram. Yearly follow-up mammogram recommended. (A) ASSESSMENT CATEGORY: BIRADS Category 1: Negative. A letter regarding these results will be sent to the patient by the facility within 30 days. Approximately 10% of breast cancers are not detected by mammography. A normal mammogram should not delay biopsy of a clinically suspicious abnormality. [id number] Electronically Signed: Raghavendra Guo MD at 13:52 EDT ,
== END | disposition home or self-care (01) ==
LOC: OPBI 12:00
PROVIDERS: PCP Internal Medicine; Referring Provider Internal Medicine; Visit Provider Internal Medicine
DX: Z12.31 Encounter for screening mammogram for malignant neoplasm of breast (principal)
CPT/HCPCS: 77063; 77067

== ENCOUNTER 2023-10-10 12:42 | Emergency (ER) | payer MEDICARE, OTHER, MEDICAID, SELFPAY ==
[2023-10-10 12:42] VITALS: BP 144/69; PULSE 71; RESP 16; TEMP 36.2; O2SAT 99; BMI 34.2
--- NOTE | 2023-10-10 13:04 | EDS_ITS ---
HPI <IGGY Pruett - Last Filed: 10/10/23 14:16> History of Present Illness Chief Complaint: Abd Pain Narrative Narrative: Patient is a 43-year-old female with history of a VSD, gastric ulcers who sees Dr. Dolan. Patient seen Dr. Dolan the end of July 2023. Patient had a gastric ulcer secondary to NSAID usage that she takes for chronic migraines. Patient states that last evening, she had big ziti which she does not usually eat. This morning, she had catch up with her breakfast, and also took 4 Excedrin tablets for her migraine headaches. She developed some pain to her epigastric area, she is concerned for the irritation of the ulcer. She denies any fever or chills. Denies any nausea or vomiting. PFSH <IGGY Pruett - Last Filed: 10/10/23 14:16> [facility] Medical History Anemia Anxiety Bladder disease Cardiology follow-up encounter Diabetes GERD (gastroesophageal reflux disease) High cholesterol History of echocardiogram History of ulceration Iron deficiency anemia Loss of hearing Migraines Neurogenic bladder Non-smoker [place] syndrome Pulmonic stenosis Type 2 diabetes mellitus without complication VSD (ventricular septal defect) Wears glasses Home Medications loratadine 10 mg tablet (Claritin) 10 mg PO DAILY PRN SEASONAL ALLERGIES 02/14/23 [History Last Taken 02/14/23] metformin 500 mg tablet,extended release 24 hr 500 mg PO QPM diabetes 02/14/23 [History Last Taken 02/13/23] sumatriptan succinate 25 mg tablet 25 mg PO DAILY PRN Migraine Headache 02/14/23 [History Last Taken 2 Days Ago ~02/12/23] atorvastatin 20 mg tablet 20 mg PO DAILY 08/02/23 [History Last Taken Unknown] pantoprazole 40 mg tablet,delayed release 40 mg PO DAILY 08/02/23 [History Last Taken Unknown] sucralfate 1 gram tablet (Carafate) 1 g PO TID 10 days #30 tabs 10/10/23 [Rx Last Taken Unknown] Allergy/AdvReac Type Severity Reaction Status Date / Time Sulfa (Sulfonamide AdvReac PT UNSURE Verified 10/10/23 12:43 Antibiotics) OF REACTION Family History Father Heart disease CVA (cerebral vascular accident) Hypertension Dementia Mother Diabetes Sister Diabetes Fibromyalgia Other Alzheimer's dementia Breast cancer Colon cancer Surgical History History of cardiac catheterization History of colonoscopy History of excision of pilonidal cyst (~2004) Social History household members: family housing: house pets and animals: Yes Smoking Status: Never smoker alcohol intake: never substance use type: does not use caffeine: Yes ROS <IGGY Pruett - Last Filed: 10/10/23 14:16> ROS ED ROS Narrative Constitutional: Negative for fever, chills, weight loss, weakness Eyes: Negative for vision loss, vision change, double vision ENT: Negative for any sore throat, ear pain, congestion Cardiovascular: Negative for any chest pain, tightness, palpitations Respiratory: Negative for any cough, sputum production, hemoptysis, dyspnea, dyspnea on exertion, orthopnea Gastrointestinal: Negative for any nausea, vomiting, diarrhea, constipation, blood in stool, blood in vomit. Positive for abdominal pain, epigastric pain : Negative for any urinary frequency, dysuria, retention, blood in urine Muscle skeletal: Negative for any myalgias, arthralgias, neck pain, back pain Neurological: Negative for any headache, syncope, paresthesias, dizziness Skin: Negative for any rashes, lumps, itching, abrasions, lacerations Psychiatric: Negative for any depression, anxiety, stress, suicidal ideation, homicidal ideation Hematologic: Negative for any easy bruising, excessive bruising, easy bleeding Allergies: Negative for any eczema, hives, rash EXAM <IGGY Pruett - Last Filed: 10/10/23 14:16> Physical Exam Narrative Exam Narrative: Vital signs reviewed. HEET: Head normocephalic atraumatic, TMs clear bilaterally. Posterior pharynx is clear, moist mucous membranes. Nares clear bilaterally. Neck: Supple with no lymphadenopathy or tenderness. No signs of meningismus. Cardiac: Regular rate and rhythm no murmurs gallops or rubs, equal peripheral pulses bilaterally. Respiratory: Lungs clear to auscultation bilaterally. No chest tenderness. Abdomen: Soft, nondistended. No abdominal bruit or pulsatile masses. No hepatosplenomegaly. Patient did have some discomfort to the epigastric area palpation. Negative Munguia sign. Extremities: No peripheral edema, no signs of gross trauma or deformity. Active full range of motion of all extremities. Neuro: Cranial nerves II through XII intact, no focal neurological deficits. Skin: Clean dry and intact with no rash, purpura, petechiae, vesicles or pustules. Backs/flank: No CVA tenderness, no midline spinal tenderness, no deformity. Psych: Normal mood and affect. No SI, HI or acute psychosis. Const Vital Signs: 10/10/23 12:42 Temperature 97.2 F L Temperature Source Temporal Pulse Rate 71 Respiratory Rate 16 Blood Pressure 144/69 H Blood Pressure Mean 94 Pulse Ox 99 Oxygen Delivery Method Room Air <Dr. Ramírez Forbes DO - Last Filed: 10/10/23 14:27> Physical Exam Const Vital Signs: 10/10/23 12:42 Temperature 97.2 F L Temperature Source Temporal Pulse Rate 71 Respiratory Rate 16 Blood Pressure 144/69 H Blood Pressure Mean 94 Pulse Ox 99 Oxygen Delivery Method Room Air [facility] <IGGY Pruett - Last Filed: 10/10/23 14:16> [facility] Lab Data Labs: Laboratory Results - last 24 hr 10/10/23 12:58 WBC 9.5 RBC 4.55 Hgb 13.0 Hct 40.8 MCV 89.7 MCH 28.6 MCHC 31.9 L RDW Std Deviation 46.2 H RDW Coeff of Dana 14.1 Plt Count 293 MPV 11.8 Immature Gran % (Auto) 0.500 Neut % (Auto) 66.4 Lymph % (Auto) 23.1 [place] % (Auto) 8.1 Eos % (Auto) 1.5 Baso % (Auto) 0.4 Absolute Neuts (auto) 6.3 Absolute Lymphs (auto) 2.19 Nucleated RBC % 0 Sodium 141 Potassium 3.9 Chloride 102 Carbon Dioxide 33.0 H Anion Gap 6 BUN 15 Creatinine 0.96 Estim Creat Clear Calc 53.16 Est GFR (MDRD) Af Amer 81 Est GFR (MDRD) Non-Af 67 BUN/Creatinine Ratio 15.7 Glucose 114 H Calcium 9.7 Total Bilirubin 0.30 AST 20 ALT 28 Alkaline Phosphatase 79 Total Protein 8.4 H Albumin 3.8 Globulin 4.6 H Albumin/Globulin Ratio 0.8 L Lipase 24 Treatment and Re-Evaluation :: Patient appears generally well, patient appears nontoxic, vital signs are stable. Presenting to the emergency department with complaints of epigastric pain concern of her gastritis. Differential diagnosis includes acute cholecystitis, bowel obstruction, gastritis which she has history of. Patient will be treated with IV Pepcid, GI cocktail. She will receive laboratory values look for any leukocytosis, electrolyte abnormality, lipase will be drawn. Patient's laboratory values showed normal CBC, patient's chemistries were unremarkable. Patient received GI cocktail as well as IV Pepcid. On reevaluation, the patient was feeling much better. At this time, this is patient's likely recurrent gastritis. Patient will be continuing her Protonix, she will also be given Carafate before meals as well as at nighttime. She will follow-up with Dr. Dolan who is her GI specialist. She instructed to decrease her spicy fatty foods. To decrease any caffeine use. 2 decrease any of her anti-inflammatories. All questions were answered, she instructed return for any worsening symptoms <Dr. Ramírez Forbes, DO - Last Filed: 10/10/23 14:27> [facility] Narrative Medical decision making narrative: I have personally performed a face to face assessment of the patient and have reviewed the IMAN Note. I performed a substantive portion of the visit including all aspects of the following. My sinha findings include: History: Patient presents with epigastric abdominal pain that began today. Patient states it began after eating breakfast today. Patient states it began rather suddenly. Patient describes it as stabbing, cramping, and sharp. Patient states nothing seems to help with her pain. Patient denies any fevers or chills. Patient denies any nausea or vomiting. Patient denies any diarrhea, melena, or hematochezia. Patient denies any dysuria, frequency, or hematuria. Patient denies any back pain. Exam: Vital signs are stable. Patient is afebrile. Patient is in no acute distress. Oral mucosa is pink and moist. Neck is supple. Trachea is midline. There is no JVD. Heart was regular rate and rhythm. Lungs are clear and equal bilaterally. Abdomen is soft. Bowel sounds are normal. There is tenderness over the epigastric area. There is no rebound or guarding noted. Cranial nerves II through XII are intact. There are no focal motor or sensory deficits noted. Medical Decision Making: Differential diagnosis includes peptic ulcer disease, gastritis, cholecystitis, cholelithiasis, pancreatitis, and gastroesophageal reflux disease. CBC will be obtained to assess for leukocytosis and anemia. Comprehensive metabolic profile will be obtained to assess for hepatic function, renal function, and electrolyte abnormality. Lipase will be obtained to assess for pancreatitis. CBC was reviewed and was within normal limits. Comprehensive metabolic profile was reviewed and was within normal limits. Lipase was reviewed and was normal at 24. Patient was given a GI cocktail here. Patient is feeling better on reevaluation. Patient was also given a dose of Pepcid. Patient was given a prescription for Carafate. Patient was instructed to follow-up with her primary care physician in 5 to 7 days. Patient was instructed to eat a bland diet. 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 Patient and family understood and were agreeable with the plan. All questions were answered. Lab Data Labs: Laboratory Results - last 24 hr 10/10/23 12:58 WBC 9.5 RBC 4.55 Hgb 13.0 Hct 40.8 MCV 89.7 MCH 28.6 MCHC 31.9 L RDW Std Deviation 46.2 H RDW Coeff of Dana 14.1 Plt Count 293 MPV 11.8 Immature Gran % (Auto) 0.500 Neut % (Auto) 66.4 Lymph % (Auto) 23.1 [place] % (Auto) 8.1 Eos % (Auto) 1.5 Baso % (Auto) 0.4 Absolute Neuts (auto) 6.3 Absolute Lymphs (auto) 2.19 Nucleated RBC % 0 Sodium 141 Potassium 3.9 Chloride 102 Carbon Dioxide 33.0 H Anion Gap 6 BUN 15 Creatinine 0.96 Estim Creat Clear Calc 53.16 Est GFR (MDRD) Af Amer 81 Est GFR (MDRD) Non-Af 67 BUN/Creatinine Ratio 15.7 Glucose 114 H Calcium 9.7 Total Bilirubin 0.30 AST 20 ALT 28 Alkaline Phosphatase 79 Total Protein 8.4 H Albumin 3.8 Globulin 4.6 H Albumin/Globulin Ratio 0.8 L Lipase 24 Discharge Plan Triage Chief Complaint: Abd Pain ED Midlevel Provider: Michael Fritz ED Provider: Ramírez Forbes Dx/Rx/DC Orders Prescriptions: No Action metformin 500 mg tablet extended release 24 hr 500 mg PO QPM Patient Comments: take 1 tablet by mouth every evening sumatriptan succinate 25 mg tablet 25 mg PO DAILY PRN (Reason: Migraine Headache) Patient Comments: take 1 tablet by mouth if needed AT ONSET OF HEADACHE may repeat in 2 hours if needed loratadine [Claritin] 10 mg Tablet 10 mg PO DAILY PRN (Reason: SEASONAL ALLERGIES) atorvastatin 20 mg tablet 20 mg PO DAILY Patient Comments: take 1 tablet by mouth every evening pantoprazole 40 mg tablet,delayed release (DR/EC) 40 mg PO DAILY Primary Care Provider: Marie Ritter Referrals: Marie Ritter MD [Primary Care Provider] -
[2023-10-10 13:11] LABS: Absolute Lymphocyte Count 2.19 X10^3/uL (0.83-4.51); Absolute Neutrophil Count 6.3 X10^3/uL (2.0-7.7); Basophil# 0.04 X10^3/uL; Basophil% 0.4 % (0-1); Eosinophil# 0.14 X10^3/uL; Eosinophils% 1.5 % (0-5); Hematocrit 40.8 % (37-47); Lymphocyte # 2.19 X10^3/ul (0.83-4.51); Lymphocyte % 23.1 % (19-41); Mean Corp Hgb Conc 31.9 g/dL (32-36); Mean Corpuscular Hgb 28.6 pg (27.0-32.0); Mean Corpuscular Volume 89.7 fL (81-99); Mean Platelet Vol. 11.8 fl (6.2-12.0); Monocyte# 0.77 X10^3/uL; Monocyte% 8.1 % (0-10); NRBC Flagged by Analyzer 0 % (0-5); Neutrophil # 6.31 X10^3/uL (2.7-7.7); Neutrophil % 66.4 % (47-70); Platelet Count 293 K/mm3 (150-450); RBC Distribution Width CV 14.1 % (11.6-14.6); RBC Distribution Width SD 46.2 fl (35.1-43.9); Red Blood Count 4.55 M/mm3 (4.2-5.4); White Blood Count 9.5 K/mm3 (4.4-11.0)
[2023-10-10] MEDS: Mag Hydrox/Al Hydrox/Simeth 30 ML UDC PO (13:17)
[2023-10-10] MEDS: Famotidine 200 MG/20 ML MDV 20 MG in 0.9% Normal Saline (Pres. free 8 ML 300 MG IV (13:24)
[2023-10-10 13:28] LABS: ALB/GLOB Ratio 0.8 RATIO (0.9-2.4); AST(SGOT) 20 U/L (15-37); Alanine Aminotransfer ALT/SGPT 28 U/L (13-56); Albumin, Serum 3.8 g/dL (3.2-5.0); Alkaline Phosphatase 79 U/L (45-117); Anion Gap 6 (5-15); BUN 15 mg/dL (7-18); BUN/Creat Ratio 15.7 RATIO (10-20); Calcium,Total 9.7 mg/dL (8.5-10.1); Chloride 102 mmol/L (98-107); Creatinine, Serum 0.96 mg/dL (0.55-1.02); EST Glomerular Filtration Rate 67 mL/min (>60); Est Glom Filt Rate - Afr Amer 81 mL/min (>60); Estimated Creatinine Clearance 53.16 ml/min; Globulin 4.6 g/dL (2.2-4.2); Glucose 114 mg/dL (74-106); Lipase 24 U/L (13-75); Potassium 3.9 mmol/L (3.5-5.1); Protein, Total 8.4 g/dL (6.4-8.2); Sodium Level 141 mmol/L (136-145)
== END 2023-10-10 14:25 | disposition home or self-care (01) ==
PROVIDERS: Nurse Practitioner; Emergency Provider Emergency Medicine; PCP Internal Medicine; Visit Provider Emergency Medicine
DX: R10.13 Epigastric pain (principal); E11.9 Type 2 diabetes mellitus without complications; E78.00 Pure hypercholesterolemia, unspecified; K21.9 Gastro-esophageal reflux disease without esophagitis; G43.909 Migraine, unspecified, not intractable, without status migrainosus; Z79.84 Long term (current) use of oral hypoglycemic drugs; Z79.899 Other long term (current) drug therapy
CPT/HCPCS: 80053; 83690; 85025; 96365; 99283; J3490

== ENCOUNTER → 2023-10-25 | Outpatient (CLI) | payer MEDICARE, OTHER, SELFPAY ==
--- NOTE | 2023-10-25 11:34 | US_ITS ---
EXAM: US SOFT TISSUES HEAD AND NECK, THYROID CLINICAL INDICATION: ENLARGED THYROID TECHNIQUE: Greyscale and color doppler imaging was performed of the thyroid gland. COMPARISON: No relevant prior studies available. FINDINGS: LEFT THYROID LOBE: The left thyroid lobe measures 4.5 x 1.9 x 1.5 cm. Homogeneous echotexture with normal vascularity. No thyroid nodules are present. RIGHT THYROID LOBE: The right thyroid lobe measures 4.9 x 2.1 x 2.1 cm. There is a right lower pole thyroid nodule measuring 1 cm. This nodule is mixed cystic and solid, hyperechoic or isoechoic, [id number], ill-defined and contains no echogenic foci. TI-RADS points: 2. TI-RADS category: TR2. This nodule is not suspicious and no FNA or follow-up is necessary. ISTHMUS: The thyroid isthmus measures 0.08 cm. No thyroid nodules are present. US/Thyroid IMPRESSION: There is a right lower pole thyroid nodule. TI-RADS category: TR2. This nodule is not suspicious and no FNA or follow-up is necessary. No additional thyroid abnormality is identified. Electronically Signed: Herberth Son DO at 23:32 EST ,
--- OUTSIDE RECORDS SUMMARY | 2023-10-25 12:47 | XMS RPT_ITS | CCD ---
Author Name Unknown Address [address] [place] [address] Organization [facility] Care Team Providers Care Supervisor [employer] Name Role Phone DEBBI MILLAN MD Primary Care Unavailable LATOUF, DEBBI BOLIVAR Admitting Unavailable LATOUF, DEBBI BOLIVAR Consulting Unavailable LATOUF, DEBBI BOLIVAR Attending Unavailable PROVIDER, UNKNOWN Consulting Unavailable PROVIDER, UNKNOWN Consulting Unavailable PROVIDER, UNKNOWN Consulting Unavailable LATOURaysa, DEBBI BOLIVAR Primary Care Unavailable LATOUF, DEBBI BOLIVAR Admitting Unavailable LATOUF, DEBBI BOLIVAR Attending Unavailable LATOUF, DEBBI BOLIVAR Consulting Unavailable PROVIDER, UNKNOWN Consulting Unavailable PROVIDER, UNKNOWN Consulting Unavailable PROVIDER, UNKNOWN Consulting Unavailable LATOURaysa, DEBBI BOLIVAR Primary Care Unavailable LATOUF, DEBBI BOLIVAR Admitting Unavailable LATOUF, DEBBI BOLIVAR Attending Unavailable LATOUF, DEBBI BOLIVAR Consulting Unavailable PROVIDER, UNKNOWN Consulting Unavailable PROVIDER, UNKNOWN Consulting Unavailable PROVIDER, UNKNOWN Consulting Unavailable LATOUF, DEBBI BOLIVAR Admitting Unavailable LATOUF, DEBBI BOLIVAR Attending Unavailable LATOUF, DEBBI BOLIVAR Consulting Unavailable LATOUF, DEBBI BOLIVAR Primary Care Unavailable PROVIDER, UNKNOWN Consulting Unavailable PROVIDER, UNKNOWN Consulting Unavailable PROVIDER, UNKNOWN Consulting Unavailable LATOURaysa, DEBBI BOLIVAR Primary Care Unavailable LATOUF, DEBBI BOLIVAR Admitting Unavailable LATOUF, DEBBI BOLIVAR Attending Unavailable LATOUF, DEBBI BOLIVAR Consulting Unavailable PROVIDER, UNKNOWN Consulting Unavailable PROVIDER, UNKNOWN Consulting Unavailable PROVIDER, UNKNOWN Consulting Unavailable LATOURaysa, DEBBI BOLIVAR Primary Care Unavailable LATOUF, DEBBI BOLIVAR Admitting Unavailable LATOUF, DEBBI BOLIVAR Attending Unavailable LATOUF, DEBBI BOLIVAR Consulting Unavailable PROVIDER, UNKNOWN Consulting Unavailable PROVIDER, UNKNOWN Consulting Unavailable PROVIDER, UNKNOWN Consulting Unavailable Allergies Allergy Classification Reported Allergen(s) Allergy Type Date of Onset Reaction(s) Facility (1 source) Sulfonamides (Antibiotic) Drug allergy (disorder) [facility] Repository Problems Problem Classification Problem Date Documented Da te Episodic/Chronic Deficiency and other anemia (1 source) Iron deficiency anemia, unspecified; Translations: [Iron deficiency anemia, unspecified] Onset: 09-05-2023 Episodic Deficiency and other anemia (1 source) Anemia, unspecified; Translations: [Anemia, unspecified] Onset: 09-05-2023 Episodic Diabetes mellitus without complication (2 sources) Type 2 diabetes mellitus without complications; Translations: [Type 2 diabetes mellitus without complications] Onset: 09-05-2023 Chronic Diabetes mellitus without complication (1 source) Hyperglycemia, unspecified; Translations: [Hyperglycemia, unspecified] Onset: 10-19-2023 Episodic Disorders of lipid metabolism (1 source) Pure hypercholesterolem ia, unspecified; Translations: [Pure hypercholesterolem ia, unspecified] Onset: 09-05-2023 Chronic Encounters Encounter Date Encounter Type Care Provider Facility Start: 10-19-2023 ambulatory DEBBI BOLIVAR [facility] Start: 09-06-2023 End: 09-06-2023 ambulatory DEBBI BOLIVAR [facility] Start: 09-06-2023 Encounter for genera l adult medical examination without abnormal findings DEBBI BOLIVAR [facility] Start: 09-05-2023 ambulatory DEBBI BOLIVAR [facility] Start: 12-12-2022 End: 12-12-2022 ambulatory DEBBI BOLIVAR [facility] Payers Date Payer Category Payer Medicare [id number] 1980 Unknown [id number] 1978 Unknown [id number] 1978 Unknown [id number] 1978 Unknown [id number] 1978 Unknown [id number] 1978 Unknown [id number] [employer] ([facility] and others) [id number] [facility] and others) [id number] Medicaid [id number] Summary Purpose Family History No Family History Records Found Advance Directives No Advanced Directives Records Found Additional Source Comments INFORMATION SOURCE (unrecogn ized section and content) FOR RECORDS PERTAINING TO PATIENTS WHO ARE OR HAVE BEEN ENROLLED IN A CHEMICAL DEPENDENCY/SUBSTANCEABUSE PROGRAM, SOME INFORMATION MAY BE OMITTED. This clinical summary was aggregated from multiple sources. Caution should be exercised in using it in the provision of clinical care. This summary normalizes information from multiple sources, and as a consequence, information in this document may materially change the coding, format and clinical context of patient data. In addition, data may be omitted in some cases. CLINICAL DECISIONS SHOULD BE BASED ON THE PRIMARY CLINICAL RECORDS. [employer] [facility]. provides no warranty or guarantee of the accuracy or completeness of information in this document.
== END | disposition home or self-care (01) ==
PROVIDERS: PCP Internal Medicine; Visit Provider Internal Medicine
DX: E04.9 Nontoxic goiter, unspecified (principal)
CPT/HCPCS: 76536

== ENCOUNTER → 2023-11-28 | Outpatient (CLI) | payer MEDICARE, OTHER, SELFPAY ==
[2023-11-28 12:37] LABS: Absolute Neutrophil Count 5.8 X10^3/uL (2.0-7.7); Basophil# 0.03 X10^3/uL; Basophil% 0.3 % (0-1); Eosinophils% 2.2 % (0-5); Hematocrit 39.8 % (37-47); Lymphocyte % 25.4 % (19-41); Mean Corp Hgb Conc 32.7 g/dL (32-36); Mean Corpuscular Hgb 29.7 pg (27.0-32.0); Mean Corpuscular Volume 91.1 fL (81-99); Mean Platelet Vol. 11.4 fl (6.2-12.0); Monocyte# 0.68 X10^3/uL; Monocyte% 7.5 % (0-10); NRBC Flagged by Analyzer 0 % (0-5); Neutrophil # 5.82 X10^3/uL (2.7-7.7); Neutrophil % 64.2 % (47-70); Platelet Count 336 K/mm3 (150-450); RBC Distribution Width CV 14.6 % (11.6-14.6); RBC Distribution Width SD 49.4 fl (35.1-43.9); Red Blood Count 4.37 M/mm3 (4.2-5.4); White Blood Count 9.1 K/mm3 (4.4-11.0)
[2023-11-28 13:47] LABS: Iron 49 ug/dL (50-170); Iron Binding Capacity,Total 304 ug/dL (250-450)
[2023-11-28 13:59] LABS: Hemoglobin A1c 6.4 % (3.8-5.6)
[2023-11-29 08:40] LABS: PERCENT IRON SATURATION 16.1 % (15.0-55.0)
== END | disposition home or self-care (01) ==
PROVIDERS: PCP Internal Medicine; Referring Provider Internal Medicine; Visit Provider Internal Medicine
DX: D50.9 Iron deficiency anemia, unspecified (principal); E11.9 Type 2 diabetes mellitus without complications
CPT/HCPCS: 36415; 83036; 83540; 83550; 85025

== ENCOUNTER → 2024-01-30 | Outpatient (CLI) | payer MEDICARE, OTHER, SELFPAY | END | disposition home or self-care (01) | LOC: SL 13:09 | PROVIDERS: PCP Internal Medicine; Referring Provider Internal Medicine; Visit Provider Internal Medicine | DX: G47.10 Hypersomnia, unspecified (principal) | CPT/HCPCS: 95806 ==

== ENCOUNTER → 2024-05-13 | Outpatient (CLI) | payer MEDICARE, OTHER, SELFPAY ==
--- NOTE | 2024-05-13 12:36 | ECHOD_ITS ---
Reason For Study: VENTRICULAR SEPTAL DEFECT Procedure This was a 2D Doppler, Color Flow transthoracic echocardiogram. Myocardial strain analysis was performed in this exam to aid in the assessment of cardiac function. Exam performed in department. Left Ventricle Normal LV size. Mildapical non compaction noted. Small membranous VSD with a pressure gradient of 80 to 85 mmHg across with L to R shunt Qp/Qs 1.5/1. Left ventricular systolic function is normal. The left ventricular ejection fraction is 55 %. No regional wall motion abnormalities noted. Right Ventricle Normal RV size. Normal systolic function. Atria Normal left atrium. Normal right atrium. Mitral Valve Normal mitral valve. Tricuspid Valve Normal tricuspid valve. Aortic Valve Trisinus/trileaflet aortic valve. Pulmonic Valve Normal pulmonic valve. Great Vessels Normal aortic root. The pulmonary artery is normal size. Normal inferior vena cava. Pericardium/Pleural No pericardial effusion. MMode/2D Measurements & Calculations LVIDd: 4.5 cm IVSd: 0.72 cm LVOT diam: 1.8 cm LVIDs: 2.5 cm LVPWd: 0.72 cm LVOT area: 2.5 cm2 RVDd: 2.8 cm FS: 44.8 % Ao root diam: 2.7 cm LAV(MOD-bp): 31.8 ml RVOT diam: 2.0 cm LAV(MOD-bp) Indexed: 17.6 ml/m2 LAV(MOD-sp2): 39.0 ml LAV(MOD-sp4): 23.8 ml SV(MOD-sp4): 22.2 ml LVAd ap4: 17.7 cm2 LVAd ap2: 15.2 cm2 LVLd ap4: 6.7 cm LVLd ap2: 6.3 cm EDV(MOD-sp4): 40.1 ml EDV(MOD-sp2): 32.7 ml EDV(sp4-el): 40.0 ml EDV(sp2-el): 31.3 ml LVAs ap4: 10.6 cm2 LVAs ap2: 9.2 cm2 LVLs ap4: 5.5 cm LVLs ap2: 5.4 cm ESV(MOD-sp4): 17.9 ml ESV(MOD-sp2): 14.3 ml ESV(sp4-el): 17.2 ml ESV(sp2-el): 13.2 ml EF(MOD-sp4): 55.4 % EF(MOD-sp2): 56.4 % EF(sp4-el): 57.0 % SV(MOD-sp2): 18.4 ml SV(sp4-el): 22.8 ml LA A4 area: 12.3 cm2 LA dimension(2D): 3.7 cm TAPSE: 1.8 cm RA A4 area: 8.3 cm2 Time Measurements MV dec time: 0.19 sec Doppler Measurements & Calculations MV E max anirudh: 87.2 cm/sec Lat Peak E' Anirudh: 9.2 cm/sec Med Peak E' Anirudh: 8.0 cm/sec MV A max anirudh: 98.6 cm/sec E/E' lat: 9.4 E/E' med: 11.0 MV E/A: 0.88 MV dec slope: 468.3 cm/sec2 Ao V2 max: 144.8 cm/sec LV V1 max: 107.9 cm/sec Ao max P.4 mmHg LV V1 max P.7 mmHg Ao V2 mean: 101.3 cm/sec LV V1 mean P.3 mmHg Ao mean P.6 mmHg LV V1 mean: 70.5 cm/sec Ao V2 VTI: 27.8 cm LV V1 VTI: 20.3 cm AV (velocity ratio): 0.73 CLINT(I,D): 1.9 cm2 CLINT(V,D): 1.9 cm2 SV(LVOT): 51.6 ml PA V2 max: 165.4 cm/sec PI end-d anirudh: 91.3 cm/sec PA max PG (full): 5.0 mmHg PA V2 mean: 114.7 cm/sec PA mean PG (full): 2.7 mmHg SV(RVOT): 77.9 ml Qp/Qs: 1.5/1.0 ECHO/Echo Complete Interpretation Summary Normal LV size. Left ventricular systolic function is normal. The left ventricular ejection fraction is 55 %. Mildapical non compaction noted Small membranous VSD with a pressure gradient of 80 to 85 mmHg across with L to R shunt Qp/Qs 1.5/1 The global longitudinal strain is normal. The global longitudinal strain = -17. 3 % (normal). Ordering Physician: Ammon Whitt Referring Physician: Ammon Whitt MD Performed By: Radha Michele SASHA
== END | disposition home or self-care (01) ==
LOC: CVS 12:35
PROVIDERS: PCP Internal Medicine; Referring Provider Internal Medicine Cardiovascular Disease; Visit Provider Internal Medicine Cardiovascular Disease
DX: Q21.0 Ventricular septal defect (principal)
CPT/HCPCS: 93306

== ENCOUNTER → 2024-05-30 | Outpatient (CLI) | payer MEDICARE, OTHER, SELFPAY ==
[2024-05-30 09:26] LABS: Absolute Lymphocyte Count 1.84 X10^3/uL (0.83-4.51); Absolute Neutrophil Count 5.5 X10^3/uL (2.0-7.7); Basophil# 0.03 X10^3/uL; Basophil% 0.4 % (0-1); Eosinophil# 0.12 X10^3/uL; Eosinophils% 1.5 % (0-5); Hematocrit 43.6 % (37-47); Hemoglobin 14.1 g/dL (12.0-15.0); Lymphocyte # 1.84 X10^3/ul (0.83-4.51); Lymphocyte % 23.1 % (19-41); Mean Corp Hgb Conc 32.3 g/dL (32-36); Mean Corpuscular Hgb 29.4 pg (27.0-32.0); Mean Corpuscular Volume 90.8 fL (81-99); Mean Platelet Vol. 11.2 fl (6.2-12.0); Monocyte# 0.47 X10^3/uL; Monocyte% 5.9 % (0-10); NRBC Flagged by Analyzer 0 % (0-5); Neutrophil # 5.48 X10^3/uL (2.7-7.7); Neutrophil % 68.7 % (47-70); Platelet Count 309 K/mm3 (150-450); RBC Distribution Width CV 13.9 % (11.6-14.6); RBC Distribution Width SD 46.7 fl (35.1-43.9)
[2024-05-30 10:03] LABS: ALB/GLOB Ratio 0.8 RATIO (0.9-2.4); AST(SGOT) 18 U/L (15-37); Alanine Aminotransfer ALT/SGPT 31 U/L (13-56); Albumin, Serum 3.8 g/dL (3.2-5.0); Alkaline Phosphatase 80 U/L (45-117); Anion Gap 4 (5-15); BUN 15 mg/dL (7-18); BUN/Creat Ratio 14.7 RATIO (10-20); Calcium,Total 9.3 mg/dL (8.5-10.1); Chloride 106 mmol/L (98-107); Cholesterol 179 mg/dL (200); Creatinine, Serum 1.02 mg/dL (0.55-1.02); EST Glomerular Filtration Rate 62 mL/min (>60); Est Glom Filt Rate - Afr Amer 75 mL/min (>60); Ferritin 41 ng/mL (8-252); Globulin 4.7 g/dL (2.2-4.2); Glucose 135 mg/dL (74-106); High Density Lipoprotein 42 mg/dL; Iron 89 ug/dL (50-170); Iron Binding Capacity,Total 320 ug/dL (250-450); PERCENT IRON SATURATION 27.8 % (15.0-55.0); Potassium 4.2 mmol/L (3.5-5.1); Protein, Total 8.5 g/dL (6.4-8.2); Sodium Level 137 mmol/L (136-145); T4 Free Direct 0.89 ng/dL (0.76-1.46); Thyroid Stim Hormone (TSH) 2.74 uIU/mL (0.358-3.74); Triglycerides 168 mg/dL; Very Low Density Lipoprotein 34 mg/dL (5-40)
[2024-05-30 10:35] LABS: Hemoglobin A1c 6.3 % (3.8-5.6)
== END | disposition home or self-care (01) ==
LOC: LAB 07:59
PROVIDERS: PCP Internal Medicine; Referring Provider Internal Medicine; Visit Provider Internal Medicine
DX: D50.9 Iron deficiency anemia, unspecified (principal); E11.9 Type 2 diabetes mellitus without complications; E78.00 Pure hypercholesterolemia, unspecified; E04.1 Nontoxic single thyroid nodule
CPT/HCPCS: 36415; 80053; 80061; 82043; 82570; 82728; 83036; 83540; 83550; 84439; 84443; 85025

== ENCOUNTER 2024-07-01 17:48 | Inpatient (IN) | payer MEDICARE, OTHER, SELFPAY ==
[2024-07-01 17:49] VITALS: BP 138/94; PULSE 118; RESP 18; TEMP 36.3; O2SAT 100; BMI 34.7
--- NOTE | 2024-07-01 18:48 | EKG12_ITS ---
Test Reason : DYSRHYTHMIA Blood Pressure : / mmHG Vent. Rate : 097 BPM Atrial Rate : 097 BPM P-R Int : 152 ms QRS Dur : 066 ms QT Int : 316 ms P-R-T Axes : 049 059 -47 degrees QTc Int : 401 ms Normal sinus rhythm ST & T wave abnormality, consider inferior ischemia Abnormal ECG Confirmed by WILIAM BOLIVAR, GLORIA ([id number]), fan mail editor INÉS HOWELL ([id number]) on 07/02/2024 7:43:15 AM Referred By: Confirmed By:GLORIA SWAIN MD
[2024-07-01] MEDS: 0.9% Normal Saline (1000mL) 1,000 ML 999 ML IV (19:20)
[2024-07-01] MEDS: Pantoprazole Sodium 40 MG in 0.9% Normal Saline (100mL MB+) 100 ML 330 MG IV ×2 (19:23→20:55)
[2024-07-01 19:32] LABS: Absolute Lymphocyte Count 2.81 X10^3/uL (0.83-4.51); Absolute Neutrophil Count 6.6 X10^3/uL (2.0-7.7); Basophil# 0.02 X10^3/uL; Basophil% 0.2 % (0-1); Eosinophil# 0.05 X10^3/uL; Eosinophils% 0.5 % (0-5); Hematocrit 28.5 % (37-47); Hemoglobin 9.4 g/dL (12.0-15.0); Lymphocyte # 2.81 X10^3/ul (0.83-4.51); Lymphocyte % 27.2 % (19-41); Mean Corpuscular Hgb 29.4 pg (27.0-32.0); Mean Corpuscular Volume 89.1 fL (81-99); Mean Platelet Vol. 11.3 fl (6.2-12.0); Monocyte# 0.81 X10^3/uL; Monocyte% 7.8 % (0-10); NRBC Flagged by Analyzer 0 % (0-5); Neutrophil # 6.58 X10^3/uL (2.7-7.7); Neutrophil % 63.6 % (47-70); Platelet Count 275 K/mm3 (150-450); RBC Distribution Width CV 13.6 % (11.6-14.6); RBC Distribution Width SD 44.5 fl (35.1-43.9); White Blood Count 10.3 K/mm3 (4.4-11.0)
[2024-07-01 19:48] LABS: ALB/GLOB Ratio 0.9 RATIO (0.9-2.4); AST(SGOT) 13 U/L (15-37); Alanine Aminotransfer ALT/SGPT 28 U/L (13-56); Albumin, Serum 3.2 g/dL (3.2-5.0); Alkaline Phosphatase 64 U/L (45-117); Anion Gap 6 (5-15); BUN 40 mg/dL (7-18); BUN/Creat Ratio 47.7 RATIO (10-20); Calcium,Total 9.7 mg/dL (8.5-10.1); Chloride 104 mmol/L (98-107); Creatinine, Serum 0.84 mg/dL (0.55-1.02); EST Glomerular Filtration Rate 78 mL/min (>60); Est Glom Filt Rate - Afr Amer 94 mL/min (>60); Estimated Creatinine Clearance 78.68 ml/min; Globulin 3.7 g/dL (2.2-4.2); Glucose 124 mg/dL (74-106); Lipase 29 U/L (13-75); Potassium 4.1 mmol/L (3.5-5.1); Protein, Total 6.9 g/dL (6.4-8.2); Sodium Level 138 mmol/L (136-145)
[2024-07-01 19:49] VITALS: BP 123/73; PULSE 107; RESP 18; O2SAT 100
--- NOTE | 2024-07-01 19:50 | EDS_ITS ---
HPI History of Present Illness Chief Complaint: GI Bleed Narrative Narrative: Chief complaint and HPI: GI bleed. 44-year-old female with history of gastric ulcers, VSD, developmental delay presents for evaluation of GI bleed. History is taken by patient and as well as patient's mother. Per mother, patient has a diagnosis of gastric ulcer in the past in which she is required EGD and colonoscopy with cautery. Patient follows with Dr. Dolan for GI. Patient states that she has been off Carafate and PPI for approximately 4 months. Patient states that this morning she developed abdominal pain that then led to multiple episodes of dark stool. Associated symptoms are lightheadedness. She denies any syncope, fever, chills, shortness of breath, chest pain, nausea, vomiting, dysuria. Mother reports that patient had her labs drawn by the PCP today and was told to present to the ED for a drop in hemoglobin. Patient denies daily NSAID use. Denies alcohol use. Denies smoking. Review of systems: See HPI Medications: As listed on the chart Allergies: As listed on the chart PFSH: Per chart Vital signs: As listed on the chart. Reviewed. Physical exam: Gen: A&O x3, NAD Head: Normocephalic, atraumatic Eyes: No sclera icterus, conjunctiva clear ENT: Moist mucous membranes Neck: Trachea midline, No JVD CV: RRR, no murmurs, no peripheral edema Resp: Lungs CTA BL, no w/r/c GI: Abd soft, non-distended, non-tender, no r/r/g Rectal: Normal external examination. No evidence of hemorrhoids or fissures. Normal tone and sensation. No masses, fluctuance, or tenderness. No pain out of proportion. Dark stool in her underwear as well on the gloved finger. Musc: Full ROM, no deformity Skin: Warm, dry Neuro: Alert, oriented, grossly intact, sensation intact Psych: Cooperative, appropriate mood and affect EKG: Interpreted by me/EM physician: EKG shows normal sinus rhythm. Patient has nonspecific ST changes. No ST elevation. Heart rate 97. [facility] Medical History Loss of hearing Wears glasses Anxiety Diabetes Bladder disease High cholesterol Anemia History of ulceration GERD (gastroesophageal reflux disease) Non-smoker History of echocardiogram Cardiology follow-up encounter Neurogenic bladder Type 2 diabetes mellitus without complication Pulmonic stenosis Iron deficiency anemia VSD (ventricular septal defect) Georges syndrome Migraines Home Medications ?Medication ?Instructions ?Recorded ?Last Taken ?Type loratadine 10 mg tablet (Claritin) 10 mg PO DAILY PRN SEASONAL 02/14/23 02/14/23 History ALLERGIES metformin 500 mg tablet,extended 500 mg PO QHS diabetes 02/14/23 02/13/23 History release 24 hr sumatriptan succinate 25 mg tablet 25 mg PO DAILY PRN Migraine 02/14/23 2 Days Ago History Headache ~02/12/23 atorvastatin 40 mg tablet 40 mg PO DAILY 07/01/24 Unknown History Allergy/AdvReac Type Severity Reaction Status Date / Time Sulfa (Sulfonamide AdvReac PT UNSURE Verified 07/01/24 17:51 Antibiotics) OF REACTION Family History Father Heart disease CVA (cerebral vascular accident) Hypertension Dementia Mother Diabetes Sister Diabetes Fibromyalgia Other Alzheimer's dementia Breast cancer Colon cancer Surgical History History of cardiac catheterization History of colonoscopy History of excision of pilonidal cyst (~2004) Social History household members: family housing: house pets and animals: Yes Smoking Status: Never smoker alcohol intake: never substance use type: does not use caffeine: Yes EXAM Physical Exam Const Vital Signs: 07/01/24 17:49 07/01/24 19:49 Temperature 97.3 F L Temperature Source Temporal Pulse Rate 118 H 107 H Respiratory Rate 18 18 Blood Pressure 138/94 H 123/73 H Blood Pressure Mean 108 89 Pulse Ox 100 100 Oxygen Delivery Method Room Air MDM MDM MDM Narrative Medical decision making narrative: 44-year-old female with history of gastric ulcer presents for evaluation for GI bleed. Differential diagnosis includes but is not limited to gastric ulcer, PUD, AVM, anemia, electrolyte abnormality patient. On physical exam, patient has dark stool which I suspect is positive for blood. NS bolus and Protonix ordered. GI bleed workup ordered. Patient currently not endorsing abdominal pain and she is nontender on exam therefore I do not think any imaging is needed at this time. CBC without leukocytosis. Patient has acute blood loss anemia of 9.4. This is downtrending from earlier today at 10.3. Her baseline is about 13-14. CMP shows elevated BUN at 40 which is consistent with GI bleed. Lipase unremarkable. Dr. Dolan with GI was consulted and patient was discussed. He agrees with admission. He recommend a total 80 mg Protonix bolus and be given with start of a Protonix drip. This was ordered. Patient will warrant admis damien to the hospitalist service. Patient and family were updated on the results and agreed with plan. Dr. Sanders excepted admission. Impression: 1. GI bleed, suspect upper 2. Acute blood loss anemia secondary to #1 Lab Data Labs: Laboratory Results - last 24 hr 07/01/24 19:18 WBC 10.3 RBC 3.20 L Hgb 9.4 L Hct 28.5 L MCV 89.1 MCH 29.4 MCHC 33.0 RDW Std Deviation 44.5 H RDW Coeff of Dana 13.6 Plt Count 275 MPV 11.3 Immature Gran % (Auto) 0.700 Neut % (Auto) 63.6 Lymph % (Auto) 27.2 [place] % (Auto) 7.8 Eos % (Auto) 0.5 Baso % (Auto) 0.2 Absolute Neuts (auto) 6.6 Absolute Lymphs (auto) 2.81 Nucleated RBC % 0 Sodium 138 Potassium 4.1 Chloride 104 Carbon Dioxide 28.0 Anion Gap 6 BUN 40 H Creatinine 0.84 Estim Creat Clear Calc 78.68 Est GFR (MDRD) Af Amer 94 Est GFR (MDRD) Non-Af 78 BUN/Creatinine Ratio 47.7 H Glucose 124 H Calcium 9.7 Total Bilirubin 0.10 L AST 13 L ALT 28 Alkaline Phosphatase 64 Total Protein 6.9 Albumin 3.2 Globulin 3.7 Albumin/Globulin Ratio 0.9 Lipase 29 Discharge Plan Disposition Disposition: Acute Care Hospital [facility] Discharge Date/Time: 07/01/24 21:03
--- NOTE | 2024-07-01 19:55 | PCM.HP.STD ---
[facility] - General General Date of Admission: 07/01/24 Date of Service: 07/01/24 Chief Complaint: Dark Stools. [facility] Narrative FRIDA LEBRON, is a 44 F with a past medical history of hyperlipidemia, DM-2; of unknown control on Metformin, obesity; with BMI of 34.7 this admission, history of Burnside syndrome; with developmental delay, VSD and pulmonic stenosis, history of neurogenic bladder, KENN, history of Right-sided hearing loss since , history of migraine headaches, history of colon polyps and history of upper GI bleed due to PUD (01/2023); followed by Dr. Dolan of gastroenterology who has previously performed EGD and colonoscopy with electrocautery who presents to [facility] ER complaining of dark stools. Ms. Lebron reports her symptoms began earlier this morning with the abrupt-development of dark, black, foul-smelling stools that were nearly identical to her previous UGIB. She admits to associated lightheadedness but she denies related fever, chills, nausea, vomiting, abdominal pain, dysuria, chest pain, SOB or frequent NSAID use. She states she has been off of her Protonix and Carafate for the past ~4 months. She further denies EtOH use or tobacco abuse. Her mother informed the ER provider that labs drawn by her PCP revealed a drop in her hemoglobin so she decided to come in for further evaluation and treatment. In the ER she was noted to have relatively low hemoglobin of 9.4 g/dL present on admission (down from her baseline of 13-14 g/dL) with confirmatory laboratory evidence of a significantly elevated blood nitrogen level of 40 mg/dL with a normal creatinine of 0.84 mg/dL consistent with recurrent UGIB with melanotic stools and she was then admitted to the PCU for ongoing care for a stay that is expected to extend beyond 2 midnights. [facility] Medical History Loss of hearing Wears glasses Anxiety Diabetes Bladder disease High cholesterol Anemia History of ulceration GERD (gastroesophageal reflux disease) Non-smoker History of echocardiogram Cardiology follow-up encounter Neurogenic bladder Type 2 diabetes mellitus without complication Pulmonic stenosis Iron deficiency anemia VSD (ventricular septal defect) Georges syndrome Migraines Home Medications ?Medication ?Instructions ?Recorded ?Last Taken ?Type loratadine 10 mg tablet (Claritin) 10 mg PO DAILY PRN SEASONAL 02/14/23 02/14/23 History ALLERGIES metformin 500 mg tablet,extended 500 mg PO QHS diabetes 02/14/23 02/13/23 History release 24 hr sumatriptan succinate 25 mg tablet 25 mg PO DAILY PRN Migraine 02/14/23 2 Days Ago History Headache ~02/12/23 atorvastatin 40 mg tablet 40 mg PO DAILY 07/01/24 Unknown History Allergy/AdvReac Type Severity Reaction Status Date / Time Sulfa (Sulfonamide AdvReac PT UNSURE Verified 07/01/24 17:51 Antibiotics) OF REACTION Family History Father Heart disease CVA (cerebral vascular accident) Hypertension Dementia Mother Diabetes Sister Diabetes Fibromyalgia Other Alzheimer's dementia Breast cancer Colon cancer Surgical History History of cardiac catheterization History of colonoscopy History of excision of pilonidal cyst (~2004) Social History household members: family housing: house pets and animals: Yes Smoking Status: Never smoker alcohol intake: never substance use type: does not use caffeine: Yes ROS ROS Narrative Review of Systems: Constitutional: Patient denies fever or chills. Eyes: Patient denies changes in vision or discharge from eyes. ENT: Patient denies sore throat, runny nose or ear pain. Resp: Patient denies SOB or cough. CV: Patient denies chest pain, palpitations or heart racing. GI: Patient admits dark, foul-smelling stools but she denies abdominal pain, vomiting, diarrhea and constipation. : Patient denies dysuria or hematuria. MSK: Patient denies myalgias or arthralgias. Skin: Patient denies rash, abscess or jaundice. Psych: Patient denies symptoms of uncontrolled depression or anxiety. Neuro: Patient denies headache, paresthesias or focal neurologic deficits. Allergy: Patient denies lip swelling, tongue swelling or urticaria. Hematology: Patient admits to black stools similar to her previous UGIB. Endocrinology: Patient denies polyuria, polydipsia and polyphagia. 14 point ROS otherwise negative except for positives noted above. Vital Signs Vital Signs Vital Signs: 07/01/24 17:49 Temperature 97.3 F L Temperature Source Temporal Pulse Rate 118 H Respiratory Rate 18 Blood Pressure 138/94 H Blood Pressure Mean 108 Pulse Ox 100 Oxygen Delivery Method Room Air Weight Weight: 177 lb 12.8 oz Body Mass Index (BMI) 34.7 Physical Exam Const alert, oriented x3, no apparent distress and healthy appearing Constitutional Narrative: Obese. General Appearance: cooperative HEENT normocephalic, head/scalp atraumatic, hearing grossly normal bilaterally and moist oral mucous membranes Eyes PERRL and EOMs intact bilaterally Neck no lymphadenopathy and supple Resp normal respiratory effort, no retractions, no use of accessory muscles and clear to auscultation bilaterally Cardio regular rate and regular rhythm GI normal to inspection, nondistended, normoactive bowel sounds, soft to palpation, non-tender and non-distended Extremity normal to inspection, full ROM and no clubbing, cyanosis or edema Skin Skin Narrative: Patient has no evidence of rash, abscess, wound or jaundice. Neuro oriented x3, CN's II-XII intact bilaterally, moves all extremities and no focal motor deficits Sensorium / Orientation: awake, alert, oriented to person, oriented to place and oriented to time Speech: speech normal Psych affect normal Results Medical Records Data Attestation: I reviewed the patient's medical records Lab / Micro Data Attestation: I reviewed the patient's lab results. Lab results narrative: RUN DATE: 07/02/24 [facility], DEPARTMENT OF LABORATORIES PAGE 1 RUN TIME: 0117 Specimen In[facility] [address], [place], [address] PATIENT: FRIDA LEBRON LOC: [facility] U #: [id number] : 1980 AGE/SX: 44/F FACILITY: [facility] ROOM: [facility] RE07/01/[address]: Milvia Bergeron STATUS:ADM IN ED: 1 DIS: ~ SPEC #: [id number] __ FLAKITO: 07/01/24 STATUS: COMP REQ #: [id number] SOURCE: Stool RECD: 07/01/[address]: Dr. Jordan Glasgow, DO SPSESC: ENTR: 07/01/24-190 [facility] DR: Dr. Marie Ritter MD ~ ORDERED: STOB iFOB Procedure Result Verified Stool Occult Blood iFOB Final 07/01/24-2020 Occult Blood Positive Organism 1 OCCULT BLOOD POSITIVE Normal Reference Range = Negative Immunochemical Fecal Occult Blood (iFOBT) method. Limitation: Menstrual bleeding, constipation bleeding, bleeding hemorrhoids, and urinary bleeding conditions may interfere with test. RESULTS CALLED TO FRIDA 07/01/242019 Susan Hamptontannerpaulino. REPORT READ BACK BY SAME. END OF REPORT 07/01/24 19:18 07/01/24 19:18 Labs: Laboratory Results - last 24 hr 07/01/24 19:18: WBC 10.3, RBC 3.20 L, Hgb 9.4 L, Hct 28.5 L, MCV 89.1, MCH 29.4, MCHC 33.0, RDW Std Deviation 44.5 H, RDW Coeff of Dana 13.6, Plt Count 275, MPV 11.3, Immature Gran % (Auto) 0.700, Neut % (Auto) 63.6, Lymph % (Auto) 27.2, [place] % (Auto) 7.8, Eos % (Auto) 0.5, Baso % (Auto) 0.2, Absolute Neuts (auto) 6.6, Absolute Lymphs (auto) 2.81, Nucleated RBC % 0, Sodium 138, Potassium 4.1, Chloride 104, Carbon Dioxide 28.0, Anion Gap 6, BUN 40 H, Creatinine 0.84, Estim Creat Clear Calc 78.68, Est GFR (MDRD) Af Amer 94, Est GFR (MDRD) Non-Af 78, BUN/Creatinine Ratio 47.7 H, Glucose 124 H, Calcium 9.7, Total Bilirubin 0.10 L, AST 13 L, ALT 28, Alkaline Phosphatase 64, Total Protein 6.9, Albumin 3.2, Globulin 3.7, Albumin/Globulin Ratio 0.9, Lipase 29 Assessment & Plan Assessment/Plan (1) Upper gastrointestinal bleed: (2) Melanotic stools: (3) Acute blood loss anemia: (4) History of peptic ulcer disease: (5) Burnside syndrome: PLAN: Plan 1. Recurrent UGIB with melanotic stools with confirmatory laboratory evidence of a significantly elevated blood nitrogen level of 40 mg/dL with a normal creatinine of 0.84 mg/dL - Admit to PCU. Keep strict NPO and continue IV Protonix drip begun in the ER. 2. Acute Blood Loss Anemia due to #1 with relatively low hemoglobin of 9.4 g/dL present on admission (down from her baseline of 13-14 g/dL) with +FOBT present on admission in the setting of chronic KENN - Type and Screen blood. Transfuse for hemoglobin <7 g/dL. 3. History of colon polyps and history of upper GI bleed due to PUD (01/2023); followed by Dr. Dolan of gastroenterology who has previously performed EGD and colonoscopy with electrocautery with patient not on Protonix and Carafate for the past ~4 months likely precipitating #1 & #2 - Noted. Patient will likely need to take these agents chronically in the future to prevent serial readmission. 4. History of Georges syndrome; with developmental delay, VSD and pulmonic stenosis adding to the complexity of #1 - #3 - Stable. 5. Hyperlipidemia - Restart stain when patient is able to safely resume oral intake. 6. DM-2; of unknown control on Metformin - ADA diet. FSBS q. 6 hours. Hold SSI until patient resumes oral intake. 7. Obesity; with BMI of 34.7 this admission - Weight loss will be recommended. 8. History of neurogenic bladder - Noted. 9. History of Right-sided hearing loss since - Stable. 10. History of migraine headaches - Stable with no complaint of headache at this time. 11. DVT prophylaxis - SCD's only in light of recent hemorrhage outlined in #1. Total time: Approximately 55 minutes. Charges/Coding Visit Charges Inpatient E&M: 65513 Init Hosp L2
[2024-07-01 20:52] VITALS: BP 123/73; PULSE 107; RESP 16; TEMP 36.6; O2SAT 100
[2024-07-01 21:08] VITALS: BMI 32.5
[2024-07-01 21:16] VITALS: BP 123/100; PULSE 108; RESP 14; TEMP 36.6; O2SAT 100
[2024-07-01] MEDS: Lactated Ringers 1,000 ML 100 ML IV (22:18)
[2024-07-01] MEDS: Pantoprazole Sodium 80 MG in 0.9% Normal Saline (100mL Bag) 80 ML 10 MG CONT INF (22:18)
[2024-07-01 23:00] LABS: Bedside Glucose 108 mg/dL (74-106)
[2024-07-02] VITALS (11 sets, daily range): BP systolic 99–114; BP diastolic 44–65; PULSE 77–102; RESP 15–16; TEMP 36.2–37.1; O2SAT 92–98; BMI 32.5
[2024-07-02 06:59] LABS: Bedside Glucose 120 mg/dL (74-106)
[2024-07-02] MEDS: Lactated Ringers 1,000 ML 100 ML IV ×2 (07:52→17:39)
[2024-07-02 08:08] LABS: Absolute Lymphocyte Count 2.06 X10^3/uL (0.83-4.51); Absolute Neutrophil Count 4.9 X10^3/uL (2.0-7.7); Basophil# 0.02 X10^3/uL; Basophil% 0.3 % (0-1); Eosinophil# 0.13 X10^3/uL; Eosinophils% 1.7 % (0-5); Hematocrit 23.7 % (37-47); Hemoglobin 7.7 g/dL (12.0-15.0); Lymphocyte # 2.06 X10^3/ul (0.83-4.51); Lymphocyte % 27.2 % (19-41); Mean Corp Hgb Conc 32.5 g/dL (32-36); Mean Corpuscular Hgb 29.5 pg (27.0-32.0); Mean Corpuscular Volume 90.8 fL (81-99); Mean Platelet Vol. 11.1 fl (6.2-12.0); Monocyte# 0.46 X10^3/uL; Monocyte% 6.1 % (0-10); NRBC Flagged by Analyzer 0 % (0-5); Neutrophil # 4.87 X10^3/uL (2.7-7.7); Neutrophil % 64.2 % (47-70); Platelet Count 228 K/mm3 (150-450); RBC Distribution Width SD 45.6 fl (35.1-43.9); Red Blood Count 2.61 M/mm3 (4.2-5.4); White Blood Count 7.6 K/mm3 (4.4-11.0)
--- NOTE | 2024-07-02 08:17 | PCM.PN.HOSP ---
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 (07/01/24) Personal history of peptic ulcer disease (07/01/24) Subjective Subjective No nausea, no further dark stools, no abdominal pain at this time, awaiting scope, has a right-sided headache but otherwise no complaints Objective Data Objective Data Vital Signs: Vital Signs Temp Pulse Resp BP Pulse Ox O2 Del Method 97.1 F L 87 16 105/63 98 Room Air 07/02/24 08:04 07/02/24 08:04 07/02/24 08:04 07/02/24 08:04 07/02/24 08:04 07/02/24 08:04 Oxygen Delivery Method Room Air Weight: 78.3 kg Body Mass Index (BMI) 32.5 Intake & Output: Intake and Output for Last 24 Hours 06/30/24 07/01/24 07/02/24 23:59 23:59 23:59 Intake Total 1220 / 1220 956.67 / 956.67 Balance 1220 / 1220 956.67 / 956.67 Lab / Micro Data 07/02/24 07:55 07/02/24 07:55 Labs: Laboratory Results - last 24 hr 07/01/24 19:18: WBC 10.3, RBC 3.20 L, Hgb 9.4 L, Hct 28.5 L, MCV 89.1, MCH 29.4, MCHC 33.0, RDW Std Deviation 44.5 H, RDW Coeff of Dana 13.6, Plt Count 275, MPV 11.3, Immature Gran % (Auto) 0.700, Neut % (Auto) 63.6, Lymph % (Auto) 27.2, [place] % (Auto) 7.8, Eos % (Auto) 0.5, Baso % (Auto) 0.2, Absolute Neuts (auto) 6.6, Absolute Lymphs (auto) 2.81, Nucleated RBC % 0, Sodium 138, Potassium 4.1, Chloride 104, Carbon Dioxide 28.0, Anion Gap 6, BUN 40 H, Creatinine 0.84, Estim Creat Clear Calc 78.68, Est GFR (MDRD) Af Amer 94, Est GFR (MDRD) Non-Af 78, BUN/Creatinine Ratio 47.7 H, Glucose 124 H, Calcium 9.7, Total Bilirubin 0.10 L, AST 13 L, ALT 28, Alkaline Phosphatase 64, Total Protein 6.9, Albumin 3.2, Globulin 3.7, Albumin/Globulin Ratio 0.9, Lipase 29 07/01/24 21:25: POC Glucose 108 H 07/01/24 21:42: Blood Type O POSITIVE, Antibody Screen NEGATIVE 07/02/24 05:59: POC Glucose 120 H 07/02/24 07:55: WBC 7.6, RBC 2.61 L, Hgb 7.7 L, Hct 23.7 L, MCV 90.8, MCH 29.5, MCHC 32.5, RDW Std Deviation 45.6 H, RDW Coeff of Dana 14.0, Plt Count 228, MPV 11.1, Immature Gran % (Auto) 0.500, Neut % (Auto) 64.2, Lymph % (Auto) 27.2, [place] % (Auto) 6.1, Eos % (Auto) 1.7, Baso % (Auto) 0.3, Absolute Neuts (auto) 4.9, Absolute Lymphs (auto) 2.06, Nucleated RBC % 0 Micro: Microbiology 07/01/24 19:18 Stool Stool Occult Blood (LEX) - Final Occult Blood Positive Physical Exam Narrative General: Alert, no apparent distress HEENT: Atraumatic, normocephalic Eyes: Anicteric, normal conjunctiva, extraocular movements grossly intact Neck: Supple Respiratory: Clear to auscultation bilaterally, normal respiratory effort Cardiovascular: Regular rate and rhythm GI: Soft, nontender, nondistended Extremities: No edema Musculoskeletal: Moving all extremities Neuro: No overt focal neurological deficits Skin: No rashes appreciated Psych: Cooperative Assessment & Plan Assessment/Plan (1) Upper gastrointestinal bleed: PLAN: Plan # Concern for recurrent upper GI bleed -Recent GI bleed due to peptic ulcer disease 01/[address] Dolan with GI -Representing with dark stools identical to previous GI bleed -Has not been taking Protonix or Carafate -Hemoglobin initially 10.3 which down trended to 9.4 and subsequently 7.7 and an elevated BUN suggestive of upper GI bleed -Additionally had fecal occult positive -IV PPI -GI consult -N.p.o. #Type 2 diabetes mellitus -Glucose checks and sliding scale insulin # History of developmental delay/[place] syndrome -Noted, supportive care # History of neurogenic bladder -Monitor I's and O's # History of VSD/pulmonic stenosis -Noted, supportive care # History of colonic polyps -Follows with Dr. Dolan #DVT ppx: SCDs Alisa Barreto MD Time spent in the patient's overall evaluation,decision-making process, review of diagnostic data, adjustment of management, discussion with other providers, nursing nursing and ancillary staff involved in patient's care documentation, 35 minutes Charges/Coding Visit Charges Inpatient E&M: 94455 Subs Hosp L2
[2024-07-02 08:19] LABS: Phosphorus 2.7 mg/dL (2.5-4.9)
[2024-07-02] MEDS: Pantoprazole Sodium 80 MG in 0.9% Normal Saline (100mL Bag) 80 ML 10 MG CONT INF ×2 (08:25→17:39)
[2024-07-02 08:33] LABS: AST(SGOT) 12 U/L (15-37); Alanine Aminotransfer ALT/SGPT 21 U/L (13-56); Albumin, Serum 2.9 g/dL (3.2-5.0); Alkaline Phosphatase 55 U/L (45-117); Anion Gap 6 (5-15); BUN 24 mg/dL (7-18); BUN/Creat Ratio 30.2 RATIO (10-20); Calcium,Total 8.3 mg/dL (8.5-10.1); Chloride 108 mmol/L (98-107); EST Glomerular Filtration Rate 83 mL/min (>60); Est Glom Filt Rate - Afr Amer 100 mL/min (>60); Estimated Creatinine Clearance 83.23 ml/min; Globulin 2.9 g/dL (2.2-4.2); Glucose 145 mg/dL (74-106); Magnesium 1.4 mg/dL (1.6-2.6); Potassium 3.5 mmol/L (3.5-5.1); Protein, Total 5.8 g/dL (6.4-8.2); Sodium Level 140 mmol/L (136-145)
[2024-07-02 08:37] LABS: Ferritin 30 ng/mL (8-252); Iron 64 ug/dL (50-170); Iron Binding Capacity,Total 247 ug/dL (250-450); PERCENT IRON SATURATION 25.9 % (15.0-55.0)
[2024-07-02] MEDS: Magnesium Sulfate 4gm/100mL 4 GM/100 ML IV.SOLN. IV (10:02)
[2024-07-02 12:06] LABS: Bedside Glucose 118 mg/dL (74-106)
[2024-07-02] MEDS: Acetaminophen 325 MG Tablet 650 MG PO ×2 (12:43→17:43)
[2024-07-02] MEDS: Lactated Ringers 1,000 ML 15 ML IV (14:23)
--- NOTE | 2024-07-02 14:42 | PCM.PRE.AN2 ---
ASA Classification* ASA Classification ASA Classification: 2 Assessment & Plan Anesthesia* Anesthesia Assessment Anesthesia Assessment: Discussed sedation and/or anesthesia options, risks, benefits, and alternatives with patient/parents/legal guardian/POA. Questions invited. The patient/parents/legal guardian/POA seems to understand and agrees to proceed with anesthesia plan. Reviewed the physical assessment, medical history, allergy history and patient home medications list prior to surgery/procedure/anesthetic and documented any changes. Performed airway and anesthesia risk assessments. Anesthesia Type Anesthesia Type: MAC History Source History Obtained from:: Patient and Chart Anesthesia Focused Assessment* Temperature: 97.1 F Pulse Rate: 87 Blood Pressure: 105/63 Respiratory Rate: 16 Pulse Ox: 98 Oxygen Delivery Method: Room Air Airway Assessment Mouth opens: 2 cm Mallampati Score: IV Teeth Condition: Intact Neck Range of motion (ROM): Full ROM Pertinent Findings EKG Pertinent Findings:: July 01, 2024. Normal sinus rhythm. ST and T wave abnormality consider inferior ischemia. ST and T wave abnormality consider anterior lateral ischemia. Compared to EKG of February 14, 2023 there is no change. See follow-up echo after the February 14, 2023 EKG. ECHO Pertinent Findings:: May 13, 2024. Ejection fraction is 55%. Normal valves. Focused Labs Anesthesia Preop lab: CBC WBC 7.6 K/mm3 (4.4-11.0) 07/02/24 07:55 RBC 2.61 M/mm3 (4.2-5.4) L 07/02/24 07:55 Hgb 7.7 g/dL (12.0-15.0) L 07/02/24 07:55 Hct 23.7 % (37-47) L 07/02/24 07:55 Plt Count 228 K/mm3 (150-450) 07/02/24 07:55 CHEMISTRY Potassium 3.5 mmol/L (3.5-5.1) 07/02/24 07:55 Sodium 140 mmol/L (136-145) 07/02/24 07:55 Magnesium 1.4 mg/dL (1.6-2.6) L 07/02/24 07:55 Phosphorus 2.7 mg/dL (2.5-4.9) 07/02/24 07:55 BUN 24 mg/dL (7-18) H 07/02/24 07:55 Creatinine 0.80 mg/dL (0.55-1.02) 07/02/24 07:55 Glucose 145 mg/dL (74-106) H 07/02/24 07:55 POC Glucose 118 mg/dL (74-106) H 07/02/24 11:47 TSH 3.970 uIU/mL (0.358-3.740) H 07/02/24 07:55 COAG PT 12.7 SECONDS (11.7-14.9) 02/14/23 17:15 Urine Test Negative Negative 02/16/23 09:25 Pre-Assessment Diagnosis/Proposed Procedure Planned Operative Procedure(s): Esophagogastroduodenoscopy with possible biopsy. 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 When Was Last Pacemaker Check QUESTION #4 FULL TEXT: You/Your Family Experience fever (hyperthermia) with Anesthesia Last Oral Intake Last Oral intake: Last Oral Intake NPO since 00:00 07/02/24 08:04 Meds taken in AM with sips of Yes 07/02/24 08:04 water? Meds patient instructed to tylenol at 1243 07/02/24 08:04 take am of surgery PONV PONV - accountant machine processing: PONV - accountant machine processing Female HX of Motion Sickness HX of N/V After Surgery Non-Smoker Duration of Surgery greater than 60 minutes Number of Risk Factors PONV Score Height & Weight Height & Weight: Anesthesia: Height & Weight Height 5 ft 1 in 07/02/24 08:04 Weight: 78.3 kg 07/02/24 08:04 Body Mass Index (BMI) 32.5 07/02/24 08:04 Respiratory Assessment Respiratory Assessment - accountant machine processing: Respiratory Tract Infection Hx - accountant machine processing Hx Respiratory Tract Infection No 07/02/24 08:04 STOP Sleep Apnea STOP Sleep Apnea - accountant machine processing: STOP Sleep Apnea - accountant machine processing Hx Hypertension No 07/02/24 11:35 Hx Sleep Apnea No 07/01/24 21:08 CPAP BIPAP Do you snore loudly (louder No 07/01/24 21:08 than talking or can be heard Do you often feel tired/ No 07/01/24 21:08 fatigued/ sleepy during daytime? Has anyone observed you stop No 07/01/24 21:08 breathing during sleep? STOP Results Negative 07/01/24 21:08 QUESTION #5 FULL TEXT : Do you snore loudly (louder than talking or can be heard through closed doors)? Tobacco Use History Tobacco Use History - accountant machine processing: Tobacco Use History - accountant machine processing Tobacco Use Smoking Status Never smoker 07/01/24 21:08 Hx Tobacco Use No 07/01/24 21:08 Years Smoking Packs Smoked per Day Smoking Cessation Date was within the last 15 years Hx Smoking Cessation Date Hx Smoking Cessation Counseling Hematologic Medial History Hematologic Hx - accountant machine processing: Hematologic Medical Hx - dry roller Hx of Blood Transfusion Yes 07/01/24 21:08 Hx of Transfusion in last 3 No 07/01/24 21:08 Months Date of Last Transfusion (if within last 3 months) Ever experience any problems No 07/01/24 21:08 with transfusion(s)? Specify any problems Hx of Preganancy in last 3 No 07/01/24 21:08 Months Nurse Filling Out Transfusion [id number] 07/01/24 21:08 & Questions: Date: 07/01/24 07/01/24 21:08 Time: 21:11 07/01/24 21:08 Patient unable to answer at this time (ie. 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 - accountant machine processing: /Reproductive Hx- accountant machine processing Hx Now No 07/02/24 08:04 Gestational Age (in weeks): EDC: Hx Hx Para Hx Section SAB No 07/02/24 08:04 Active Medications Active Medications: Current Medications Generic Name Dose Route Start Last Admin Trade Name Freq PRN Reason Stop Dose Admin Acetaminophen 650 mg 07/02/24 11:51 07/02/24 12:43 Acetaminophen 325 Mg Tablet PO 650 mg Q4H PRN PRN Administration Pain Score 4-10 Glucagon 1 mg 07/01/24 21:08 Glucagon 1 Mg/Ml Syringe IM X1 PRN HYPOGLYCEMIA Protocol Pantoprazole Sodium 80 mg/ 100 mls @ 10 mls/hr 07/01/24 20:00 07/02/24 08:25 Sodium Chloride CONT INF 10 mls/hr Q10H GIANNA Administration Lactated Ringer's 1,000 mls @ 100 mls/hr 07/01/24 20:15 07/02/24 14:23 IV 0 mls/hr .Q10H GIANNA Infusion Dextrose 250 mls @ 0 mls/hr 07/01/24 21:08 Dextrose 10%-Water IV .Q0M PRN HYPOGLYCEMIA Protocol As Directed Sodium Chloride 250 mls @ 15 mls/hr 07/01/24 21:13 IV .[id number] PRN Additional IVPB Infusion Sodium Chloride 250 mls @ 15 mls/hr 07/01/24 21:13 IV .[id number] PRN Saline Flush Lactated Ringer's 1,000 mls @ 15 mls/hr 07/02/24 14:30 07/02/24 14:23 IV 15 mls/hr .Q48H GIANNA Administration Insulin Human Lispro 0 unit 07/02/24 00:00 07/02/24 11:47 Insulin Lispro 100 Unit/Ml Insuln.Pen SC Not Given Q6 GIANNA Protocol Morphine Sulfate 2 mg 07/01/24 21:08 Morphine 2 Mg/Ml Syringe IV Q4H PRN PRN Pain Score 6-10 Ondansetron HCl 4 mg 07/01/24 21:08 Ondansetron 4 Mg/2 Ml Vial IV Q8H PRN PRN NAUSEA/VOMITING Sodium Chloride 10 - 40 ml 07/01/24 21:13 0.9% Saline Lock 10 Ml Syringe IV UD PRN SALINE FLUSH PFSH Medical History Loss of hearing Wears glasses Anxiety Diabetes Bladder disease High cholesterol Anemia History of ulceration GERD (gastroesophageal reflux disease) Non-smoker History of echocardiogram Cardiology follow-up encounter Neurogenic bladder Type 2 diabetes mellitus without complication Pulmonic stenosis Iron deficiency anemia VSD (ventricular septal defect) Westby syndrome Migraines Home Medications ?Medication ?Instructions ?Recorded ?Last Taken ?Type loratadine 10 mg tablet (Claritin) 10 mg PO DAILY PRN SEASONAL 02/14/23 02/14/23 History ALLERGIES metformin 500 mg tablet,extended 500 mg PO QHS diabetes 02/14/23 02/13/23 History release 24 hr sumatriptan succinate 25 mg tablet 25 mg PO DAILY PRN Migraine 02/14/23 2 Days Ago History Headache ~02/12/23 atorvastatin 40 mg tablet 40 mg PO DAILY 07/01/24 Unknown History Allergy/AdvReac Type Severity Reaction Status Date / Time Sulfa (Sulfonamide AdvReac PT UNSURE Verified 07/01/24 17:51 Antibiotics) OF REACTION Family History Father Heart disease CVA (cerebral vascular accident) Hypertension Dementia Mother Diabetes Sister Diabetes Fibromyalgia Other Alzheimer's dementia Breast cancer Colon cancer Surgical History History of cardiac catheterization History of colonoscopy History of excision of pilonidal cyst (~2004) Social History household members: family housing: house pets and animals: Yes Smoking Status: Never smoker alcohol intake: never substance use type: does not use caffeine: Yes Review of Systems (Anesthesia) ROS Narrative System reviewed and no additional complaints, except as documented.
--- NOTE | 2024-07-02 15:01 | CASEMGMT ---
This RN CM to pt room at this time for initial assessment. Pt is currently off of the floor. Case management to follow.
--- NOTE | 2024-07-02 15:29 | EX.PCM.CON.G ---
HPI Consult Data Date of Consult: 07/02/24 HPI Narrative Reason for Consultation: GI bleed HPI Narrative: FRIDA LEBRON, is a 44 F with a past medical history of hyperlipidemia, DM-2; of unknown control on Metformin, obesity; with BMI of 34.7 this admission, history of Georges syndrome; with developmental delay, VSD and pulmonic stenosis, history of neurogenic bladder, KENN, history of Right-sided hearing loss since , history of migraine headaches, history of colon polyps and history of upper GI bleed due to PUD (01/2023); followed by Dr. Dolan of gastroenterology who has previously performed EGD and colonoscopy with electrocautery who presents to [facility] ER complaining of dark stools. Ms. Lebron reports her symptoms began earlier this morning with the abrupt-development of dark, black, foul-smelling stools that were nearly identical to her previous UGIB. She admits to associated lightheadedness but she denies related fever, chills, nausea, vomiting, abdominal pain, dysuria, chest pain, SOB or frequent NSAID use. She states she has been off of her Protonix and Carafate for the past ~4 months. She further denies EtOH use or tobacco abuse. Her mother informed the ER provider that labs drawn by her PCP revealed a drop in her hemoglobin so she decided to come in for further evaluation and treatment. In the ER she was noted to have relatively low hemoglobin of 9.4 g/dL present on admission (down from her baseline of 13-14 g/dL) with confirmatory laboratory evidence of a significantly elevated blood nitrogen level of 40 mg/dL with a normal creatinine of 0.84 mg/dL consistent with recurrent UGIB with melanotic stools [facility] Medical History Loss of hearing Wears glasses Anxiety Diabetes Bladder disease High cholesterol Anemia History of ulceration GERD (gastroesophageal reflux disease) Non-smoker History of echocardiogram Cardiology follow-up encounter Neurogenic bladder Type 2 diabetes mellitus without complication Pulmonic stenosis Iron deficiency anemia VSD (ventricular septal defect) Georges syndrome Migraines Home Medications ?Medication ?Instructions ?Recorded ?Last Taken ?Type loratadine 10 mg tablet (Claritin) 10 mg PO DAILY PRN SEASONAL 02/14/23 02/14/23 History ALLERGIES metformin 500 mg tablet,extended 500 mg PO QHS diabetes 02/14/23 02/13/23 History release 24 hr sumatriptan succinate 25 mg tablet 25 mg PO DAILY PRN Migraine 02/14/23 2 Days Ago History Headache ~02/12/23 atorvastatin 40 mg tablet 40 mg PO DAILY 07/01/24 Unknown History Allergy/AdvReac Type Severity Reaction Status Date / Time Sulfa (Sulfonamide AdvReac PT UNSURE Verified 07/01/24 17:51 Antibiotics) OF REACTION Family History Father Heart disease CVA (cerebral vascular accident) Hypertension Dementia Mother Diabetes Sister Diabetes Fibromyalgia Other Alzheimer's dementia Breast cancer Colon cancer Surgical History History of cardiac catheterization History of colonoscopy History of excision of pilonidal cyst (~2004) Social History household members: family housing: house pets and animals: Yes Smoking Status: Never smoker alcohol intake: never substance use type: does not use caffeine: Yes ROS ROS Narrative Review of Systems: Constitutional: Patient denies fever or chills. Eyes: Patient denies changes in vision or discharge from eyes. ENT: Patient denies sore throat, runny nose or ear pain. Resp: Patient denies SOB or cough. CV: Patient denies chest pain, palpitations or heart racing. GI: Patient admits dark, foul-smelling stools but she denies abdominal pain, vomiting, diarrhea and constipation. : Patient denies dysuria or hematuria. MSK: Patient denies myalgias or arthralgias. Skin: Patient denies rash, abscess or jaundice. Psych: Patient denies symptoms of uncontrolled depression or anxiety. Neuro: Patient denies headache, paresthesias or focal neurologic deficits. Allergy: Patient denies lip swelling, tongue swelling or urticaria. Hematology: Patient admits to black stools similar to her previous UGIB. Endocrinology: Patient denies polyuria, polydipsia and polyphagia. 14 point ROS otherwise negative except for positives noted above. Physical Exam Narrative General: Alert, no apparent distress HEENT: Atraumatic, normocephalic Eyes: Anicteric, normal conjunctiva, extraocular movements grossly intact Neck: Supple Respiratory: Clear to auscultation bilaterally, normal respiratory effort Cardiovascular: Regular rate and rhythm GI: Soft, nontender, nondistended Extremities: No edema Musculoskeletal: Moving all extremities Neuro: No overt focal neurological deficits Skin: No rashes appreciated Psych: Cooperative Lab / Micro Data 07/02/24 07:55 07/02/24 07:55 Labs: Laboratory Results - last 24 hr 07/01/24 19:18: WBC 10.3, RBC 3.20 L, Hgb 9.4 L, Hct 28.5 L, MCV 89.1, MCH 29.4, MCHC 33.0, RDW Std Deviation 44.5 H, RDW Coeff of Dana 13.6, Plt Count 275, MPV 11.3, Immature Gran % (Auto) 0.700, Neut % (Auto) 63.6, Lymph % (Auto) 27.2, [place] % (Auto) 7.8, Eos % (Auto) 0.5, Baso % (Auto) 0.2, Absolute Neuts (auto) 6.6, Absolute Lymphs (auto) 2.81, Nucleated RBC % 0, Sodium 138, Potassium 4.1, Chloride 104, Carbon Dioxide 28.0, Anion Gap 6, BUN 40 H, Creatinine 0.84, Estim Creat Clear Calc 78.68, Est GFR (MDRD) Af Amer 94, Est GFR (MDRD) Non-Af 78, BUN/Creatinine Ratio 47.7 H, Glucose 124 H, Calcium 9.7, Total Bilirubin 0.10 L, AST 13 L, ALT 28, Alkaline Phosphatase 64, Total Protein 6.9, Albumin 3.2, Globulin 3.7, Albumin/Globulin Ratio 0.9, Lipase 29 07/01/24 21:25: POC Glucose 108 H 07/01/24 21:42: Blood Type O POSITIVE, Antibody Screen NEGATIVE 07/02/24 05:59: POC Glucose 120 H 07/02/24 07:55: WBC 7.6, RBC 2.61 L, Hgb 7.7 L, Hct 23.7 L, MCV 90.8, MCH 29.5, MCHC 32.5, RDW Std Deviation 45.6 H, RDW Coeff of Dana 14.0, Plt Count 228, MPV 11.1, Immature Gran % (Auto) 0.500, Neut % (Auto) 64.2, Lymph % (Auto) 27.2, [place] % (Auto) 6.1, Eos % (Auto) 1.7, Baso % (Auto) 0.3, Absolute Neuts (auto) 4.9, Absolute Lymphs (auto) 2.06, Nucleated RBC % 0, Sodium 140, Potassium 3.5, Chloride 108 H, Carbon Dioxide 26.0, Anion Gap 6, BUN 24 H, Creatinine 0.80, Estim Creat Clear Calc 83.23, Est GFR (MDRD) Af Amer 100, Est GFR (MDRD) Non-Af 83, BUN/Creatinine Ratio 30.2 H, Glucose 145 H, Hemoglobin A1c 6.0 H, Calcium 8.3 L, Phosphorus 2.7, Magnesium 1.4 L, Iron 64, TIBC 247 L, Iron Saturation 25.9, Ferritin 30, Total Bilirubin 0.20, AST 12 L, ALT 21, Alkaline Phosphatase 55, Total Protein 5.8 L, Albumin 2.9 L, Globulin 2.9, Albumin/Globulin Ratio 1.0, TSH 3.970 H 07/02/24 11:47: POC Glucose 118 H Micro: Microbiology 07/01/24 19:18 Stool Stool Occult Blood (LEX) - Final Occult Blood Positive Assessment & Plan Assessment/Plan (1) Upper gastrointestinal bleed: (2) Melanotic stools: (3) Acute blood loss anemia: (4) History of peptic ulcer disease: (5) Georges syndrome: PLAN: Plan 1. Recurrent UGIB with melanotic stools with confirmatory laboratory evidence of a significantly elevated blood nitrogen level of 40 mg/dL with a normal creatinine of 0.84 mg/dL - Admit to PCU. Keep strict NPO and continue IV Protonix drip begun in the ER. 2. Acute Blood Loss Anemia due to #1 with relatively low hemoglobin of 9.4 g/dL present on admission (down from her baseline of 13-14 g/dL) with +FOBT present on admission in the setting of chronic KENN - Type and Screen blood. Transfuse for hemoglobin <7 g/dL. 3. She will undergo upper endoscopy. She was explained alternatives, risk, benefits including outstanding bleeding, infection, sepsis, perforation, need for surgery . She have an ASA of 3. Charges/Coding Visit Charges Inpatient E&M: 02914 Init Hosp L3
--- NOTE | 2024-07-02 16:12 | PCM.POST.ANE ---
Anesthesia: Postop Eval I Current Vital Signs Temperature: 98.8 F Pulse Rate: 99 Blood Pressure: 101/62 Respiratory Rate: 16 Pulse Ox: 92 Oxygen Delivery Method: Room Air Assessment Airway patent: Yes Spontaneous unlabored respirations: Yes Mental status: Awake and Calm nausea: No Vomiting: No Anesthesia Complication: Yes Anesthesia Complication Comment:: O2 desat d/t upper airway obstruction, switch to SFM Fluid Hydration Crystalloid volume administer (ml): 600 Total IV fluid infused: 600 Progress Note Anesthesia document: Postop Eval 1 completed: Yes
--- NOTE | 2024-07-02 16:21 | OP.EGD_ITS ---
Patient Name: Sophia Wolfe Procedure Date: 07/02/2024 3:23 PM Date of : 1980 Age: 44 Procedure: Upper GI endoscopy Indications: Active gastrointestinal bleeding Providers: Anthony Dolan DO Medicines: Monitored Anesthesia Care Patient Profile: This is a 44 year old female. Refer to note in patient chart for documentation of history and physical. Patient has symptoms of acute epigastric abdominal pain. Complications: No immediate complications. Procedure: Pre-Anesthesia Assessment: - Prior to the procedure, a History and Physical was performed, and patient medications and allergies were reviewed. The patient is competent. The risks and benefits of the procedure and the sedation options and risks were discussed with the patient. All questions were answered and informed consent was obtained. Patient identification and proposed procedure were verified by the physician in the pre-procedure area. Mental Status Examination: alert and oriented. Airway Examination: normal oropharyngeal airway and neck mobility. Respiratory Examination: clear to auscultation. CV Examination: normal. Prophylactic Antibiotics: The patient does not require prophylactic antibiotics. Prior Anticoagulants: The patient has taken no anticoagulant or antiplatelet agents except for NSAID medication. ASA Grade Assessment: II - A patient with mild systemic disease. After reviewing the risks and benefits, the patient was deemed in satisfactory condition to undergo the procedure. The anesthesia plan was to use monitored anesthesia care (MAC). Immediately prior to administration of medications, the patient was re-assessed for adequacy to receive sedatives. The heart rate, respiratory rate, oxygen saturations, blood pressure, adequacy of pulmonary ventilation, and response to care were monitored throughout the procedure. The physical status of the patient was re-assessed after the procedure. After obtaining informed consent, the endoscope was passed under direct vision. Throughout the procedure, the patient's blood pressure, pulse, and oxygen saturations were monitored continuously. The Endoscope was introduced through the mouth, and advanced to the second part of duodenum. The upper GI endoscopy was accomplished without difficulty. The patient tolerated the procedure well. Scope In: 3:34:42 PM Scope Out: 4:02:20 PM Total Procedure Duration Time 0 hours 27 minutes 38 seconds Findings: The examined esophagus was normal. Three spurting cratered gastric ulcers with a visible vessel were found in the gastric antrum. The largest lesion was 30 mm in largest dimension. Coagulation for hemostasis using monopolar probe was successful. Estimated blood loss was minimal. A single 5 mm angiodysplastic lesion with bleeding was found in the cardia. Coagulation for hemostasis using heater probe was successful. Estimated blood loss was minimal. No gross lesions were noted in the first portion of the duodenum. Impression: - Normal esophagus. - Spurting gastric ulcers with a visible vessel. Treated with a monopolar probe. - A single bleeding angiodysplastic lesion in the stomach. Treated with a heater probe. - No gross lesions in the first portion of the duodenum. - No specimens collected. Recommendation: - Return patient to hospital al for ongoing care. - Clear liquid diet today. - Give Protonix (pantoprazole): initiate therapy with 80 mg IV bolus, then 8 mg/hr IV by continuous infusion today. - Continue present medications. - Carafate 1 gm QID Procedure Code(s): --- Professional --- 81211, Esophagogastroduodenoscopy, flexible, transoral; with control of bleeding, any method CPT copyright 2021 [employer]. All rights reserved. The codes documented in this report are preliminary and upon medical biller/coder review may be revised to meet current compliance requirements. Anthony Dolan DO 07/02/2024 4:21:10 PM This report has been signed electronically. Number of Addenda: 0 Note Initiated On: 07/02/2024 3:23 PM
--- NOTE | 2024-07-02 16:21 | OP.CCLET_ITS ---
07/02/2024 Marie Ritter Re : Upper GI endoscopy procedure for Sophia Wolfe Dear Stone This procedure was performed on Tuesday, July 02, 2024. My impressions and recommendations are as follows: Impressions : - Normal esophagus. - Spurting gastric ulcers with a visible vessel. Treated with a monopolar probe. - A single bleeding angiodysplastic lesion in the stomach. Treated with a heater probe. - No gross lesions in the first portion of the duodenum. - No specimens collected. Recommendations : - Return patient to hospital al for ongoing care. - Clear liquid diet today. - Give Protonix (pantoprazole): initiate therapy with 80 mg IV bolus, then 8 mg/hr IV by continuous infusion today. - Continue present medications. - Carafate 1 gm QID My findings are described in the full procedure note, which is enclosed. If I can be of further assistance, please feel free to contact me at . Sincerely, Anthony Dolan, 07/02/2024 4:21:10 PM This report has been signed electronically.
--- NOTE | 2024-07-02 16:42 | PCM.POSTANE2 ---
Anesthesia Postop Eval I Sum Postop Eval Completion status Anesthesia document: Postop Eval 1 completed: Yes Anesthesia Postop Eval I Summary Anesthesia Postop Eval I Summary: Anesthesia Postop Eval I: Assessment Summary Airway patent Yes 07/02/24 16:13 [email or web address] Spontaneous unlabored Yes 07/02/24 16:13 [email or web address] respirations Mental status Awake,Calm 07/02/24 16:13 [email or web address] nausea No 07/02/24 16:13 [email or web address] Vomiting No 07/02/24 16:13 [email or web address] Anesthesia Postop Eval I: Fluid Summary Crystalloid volume administer 600 07/02/24 16:13 [email or web address] (ml) Colloids volume administered ( ml) Blood Product volume administered (ml) Total IV fluid infused 600 07/02/24 16:13 [email or web address] Anesthesia Postop Eval I: Summary Notes Anesthesia Complication Yes 07/02/24 16:13 [email or web address] Anesthesia Complication O2 desat d/t upper 07/02/24 16:13 [email or web address] Comment: airway obstruction, switch to SFM Post-operative progress note Anesthesia: Postop Eval II Evaluation Mental status: Awake and Calm Pain Level: 0 nausea: No Vomiting: No Progress Note Post-operative progress note: No further desaturation episodes noted in PACU Complications Anesthesia Complication: Yes Anesthesia Complication Comment:: Oxygen desaturation noted intraop. Quickly resolved with oxygen facemask and chin lift.
[2024-07-02 18:05] LABS: Bedside Glucose 111 mg/dL (74-106)
[2024-07-02 22:10] LABS: Absolute Lymphocyte Count 2.69 X10^3/uL (0.83-4.51); Absolute Neutrophil Count 5.1 X10^3/uL (2.0-7.7); Basophil# 0.02 X10^3/uL; Basophil% 0.2 % (0-1); Eosinophil# 0.12 X10^3/uL; Eosinophils% 1.4 % (0-5); Hematocrit 20.5 % (37-47); Hemoglobin 6.6 g/dL (12.0-15.0); Lymphocyte # 2.69 X10^3/ul (0.83-4.51); Lymphocyte % 31.4 % (19-41); Mean Corp Hgb Conc 32.2 g/dL (32-36); Mean Corpuscular Hgb 29.5 pg (27.0-32.0); Mean Corpuscular Volume 91.5 fL (81-99); Monocyte# 0.61 X10^3/uL; Monocyte% 7.1 % (0-10); NRBC Flagged by Analyzer 0 % (0-5); Neutrophil # 5.05 X10^3/uL (2.7-7.7); Neutrophil % 59.1 % (47-70); Platelet Count 205 K/mm3 (150-450); RBC Distribution Width CV 14.2 % (11.6-14.6); RBC Distribution Width SD 46.5 fl (35.1-43.9); Red Blood Count 2.24 M/mm3 (4.2-5.4); White Blood Count 8.6 K/mm3 (4.4-11.0)
[2024-07-02] MEDS: Sucralfate 1 GM Tablet PO (22:23)
[2024-07-02 22:46] LABS: Bedside Glucose 97 mg/dL (74-106)
[2024-07-03] VITALS (10 sets, daily range): BP systolic 95–116; BP diastolic 51–61; PULSE 79–92; RESP 16–18; TEMP 36.2–36.9; O2SAT 94–99; BMI 32.5
[2024-07-03] MEDS: Acetaminophen 325 MG Tablet 650 MG PO ×2 (00:53→09:42)
[2024-07-03] MEDS: Pantoprazole Sodium 80 MG in 0.9% Normal Saline (100mL Bag) 80 ML 10 MG CONT INF ×2 (02:47→12:29)
[2024-07-03] MEDS: 0.9% Saline Lock 10 ML Syringe IV ×2 (02:48→14:43)
[2024-07-03] MEDS: Sucralfate 1 GM Tablet PO ×4 (06:23→23:19)
[2024-07-03] MEDS: Lactated Ringers 1,000 ML 100 ML IV (06:24)
[2024-07-03 06:53] LABS: Hematocrit 23.8 % (37-47); Hemoglobin 7.6 g/dL (12.0-15.0); Mean Corp Hgb Conc 31.9 g/dL (32-36); Mean Corpuscular Hgb 28.9 pg (27.0-32.0); Mean Corpuscular Volume 90.5 fL (81-99); Mean Platelet Vol. 11.4 fl (6.2-12.0); Platelet Count 194 K/mm3 (150-450); RBC Distribution Width CV 14.5 % (11.6-14.6); RBC Distribution Width SD 47.3 fl (35.1-43.9); Red Blood Count 2.63 M/mm3 (4.2-5.4); White Blood Count 9.9 K/mm3 (4.4-11.0)
[2024-07-03 06:59] LABS: Bedside Glucose 110 mg/dL (74-106)
[2024-07-03 08:04] LABS: Anion Gap 2 (5-15); BUN 12 mg/dL (7-18); BUN/Creat Ratio 14.7 RATIO (10-20); Chloride 109 mmol/L (98-107); Creatinine, Serum 0.82 mg/dL (0.55-1.02); EST Glomerular Filtration Rate 80 mL/min (>60); Est Glom Filt Rate - Afr Amer 97 mL/min (>60); Estimated Creatinine Clearance 81.09 ml/min; Glucose 109 mg/dL (74-106); Magnesium 2.4 mg/dL (1.6-2.6); Phosphorus 2.3 mg/dL (2.5-4.9); Potassium 3.8 mmol/L (3.5-5.1); Sodium Level 139 mmol/L (136-145)
[2024-07-03 11:43] LABS: Bedside Glucose 115 mg/dL (74-106)
--- NOTE | 2024-07-03 13:40 | CASEMGMT ---
RN CM Face to Face with patient for initial transition planning/care coordination assessment. RN CM introduced self and role at [facility]. Patient lying in bed, alert and oriented, mother at bedside. Patient willing to participate in assessment and is able to answer all questions appropriately. Care providers, pharmacy, and demographics verified. Strata: 2 PCP: [facility] Specialists: Friend, GI; Peri, senior patient account representative Preferred Pharmacy: [facility] Insurance: [employer] Prescription Benefit: yes Living Will/HPOA: yes, mother May Wolfe LNOK: mother, sister Living Arrangements: Patient lives with mother in a condo. Patient is independent and able to ambulate stairs. Transportation: mother DME/HHC: Patient denies DME in the home. No previous HHC or SNF. Patient wishes to discharge home, denies needs at this time. Patient states she has no further needs or concerns at this time. CM to follow for discharge planning needs that may arise. Disposition Plan: Patient to discharge home with family support and follow-up plans in place. Susan CARLISLE, RN, CM
[2024-07-03] MEDS: DiphenhydrAMINE 25 MG Capsule PO (14:43)
[2024-07-03] MEDS: Metoclopramide 10 MG/2 ML Vial IV (14:43)
--- NOTE | 2024-07-03 16:48 | PN.GI_ITS ---
Subjective Subjective Patient is doing very well. She is status post upper endoscopy for recurrent upper GI bleed secondary to peptic ulcer disease. She remained on PPI drip. Objective Data Objective Data Vital Signs: Vital Signs Temp Pulse Resp BP Pulse Ox O2 Del Method 98.1 F 82 18 115/60 98 Room Air 07/03/24 14:40 07/03/24 14:40 07/03/24 14:40 07/03/24 14:40 07/03/24 14:40 07/03/24 14:40 Oxygen Delivery Method Room Air Weight: 172 lb 2.896 oz Body Mass Index (BMI) 32.5 Intake & Output: Intake and Output for Last 24 Hours 07/01/24 07/02/24 07/03/24 23:59 23:59 23:59 Intake Total 1220 / 1220 2622.34 / 2872.34 2889.33 / 2889.33 Balance 1220 / 1220 2622.34 / 2872.34 2889.33 / 2889.33 Lab / Micro Data 07/03/24 06:31 07/03/24 06:31 Labs: Laboratory Results - last 24 hr 07/01/24 21:42: Crossmatch See Detail 07/02/24 17:28: POC Glucose 111 H 07/02/24 22:03: WBC 8.6, RBC 2.24 L, Hgb 6.6 L, Hct 20.5 L, MCV 91.5, MCH 29.5, MCHC 32.2, RDW Std Deviation 46.5 H, RDW Coeff of Dana 14.2, Plt Count 205, MPV 11.0, Immature Gran % (Auto) 0.800, Neut % (Auto) 59.1, Lymph % (Auto) 31.4, [place] % (Auto) 7.1, Eos % (Auto) 1.4, Baso % (Auto) 0.2, Absolute Neuts (auto) 5.1, Absolute Lymphs (auto) 2.69, Nucleated RBC % 0 07/02/24 22:22: POC Glucose 97 07/03/24 06:19: POC Glucose 110 H 07/03/24 06:31: WBC 9.9, RBC 2.63 L, Hgb 7.6 L, Hct 23.8 L, MCV 90.5, MCH 28.9, MCHC 31.9 L, RDW Std Deviation 47.3 H, RDW Coeff of [place] 14.5, Plt Count 194, MPV 11.4, Sodium 139, Potassium 3.8, Chloride 109 H, Carbon Dioxide 28.0, Anion Gap 2 L, BUN 12, Creatinine 0.82, Estim Creat Clear Calc 81.09, Est GFR (MDRD) Af Amer 97, Est GFR (MDRD) Non-Af 80, BUN/Creatinine Ratio 14.7, Glucose 109 H, C alcium 8.0 L, Phosphorus 2.3 L, Magnesium 2.4 07/03/24 11:17: POC Glucose 115 H Micro: Microbiology 07/01/24 19:18 Stool Stool Occult Blood (LEX) - Final Occult Blood Positive Physical Exam Narrative General: Alert, no apparent distress HEENT: Atraumatic, normocephalic Eyes: Anicteric, normal conjunctiva, extraocular movements grossly intact Neck: Supple Respiratory: Clear to auscultation bilaterally, normal respiratory effort Cardiovascular: Regular rate and rhythm GI: Soft, nontender, nondistended Extremities: No edema Musculoskeletal: Moving all extremities Neuro: No overt focal neurological deficits Skin: No rashes appreciated Psych: Cooperative Assessment & Plan Assessment/Plan (1) Upper gastrointestinal bleed: (2) Melanotic stools: (3) Acute blood loss anemia: (4) History of peptic ulcer disease: (5) [place] syndrome: PLAN: Plan 1. Recurrent UGIB with melanotic stools with confirmatory laboratory evidence of a significantly elevated blood nitrogen level of 40 mg/dL with a normal creatinine of 0.84 mg/dL - Admit to PCU. Keep strict NPO and continue IV Protonix drip begun in the ER. 2. Acute Blood Loss Anemia due to #1 with relatively low hemoglobin of 9.4 g/dL present on admission (down from her baseline of 13-14 g/dL) with +FOBT present on admission in the setting of chronic KENN - Type and Screen blood. Transfuse for hemoglobin <7 g/dL. 3. She will undergo upper endoscopy. She was explained alternatives, risk, benefits including outstanding bleeding, infection, sepsis, perforation, need for surgery . She have an ASA of 3. 07/03/2024- Findings: The examined esophagus was normal. Three spurting cratered gastric ulcers with a visible vessel were found in the gastric antrum. The largest lesion was 30 mm in largest dimension. Coagulation for hemostasis using monopolar probe was successful. Estimated blood loss was minimal. A single 5 mm angiodysplastic lesion with bleeding was found in the cardia. Coagulation for hemostasis using heater probe was successful. Estimated blood loss was minimal. No gross lesions were noted in the first portion of the duodenum. Impression: - Normal esophagus. - Spurting gastric ulcers with a visible vessel. Treated with a monopolar probe. - A single bleeding angiodysplastic lesion in the stomach. Treated with a heater probe. - No gross lesions in the first portion of the duodenum. - No specimens collected. Recommendation: - Return patient to hospital al for ongoing care. - Advance diet as tolerated today - Switch Protonix to 40 mg p.o. twice daily - Continue present medications. - Carafate 1 gm QID Charges/Coding Visit Charges Inpatient E&M: 28926 [facility] Hosp L3
[2024-07-03 17:09] LABS: Bedside Glucose 125 mg/dL (74-106)
--- NOTE | 2024-07-03 17:12 | PCM.PN.HOSP ---
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 (07/01/24) Personal history of peptic ulcer disease (07/01/24) Subjective Subjective Patient having headache again today but denies any abdominal pain, nausea, no blood per rectum Objective Data Objective Data Vital Signs: Vital Signs Temp Pulse Resp BP Pulse Ox O2 Del Method 98.1 F 82 18 115/60 98 Room Air 07/03/24 14:40 07/03/24 14:40 07/03/24 14:40 07/03/24 14:40 07/03/24 14:40 07/03/24 14:40 Oxygen Delivery Method Room Air Weight: 78.1 kg Body Mass Index (BMI) 32.5 Intake & Output: Intake and Output for Last 24 Hours 07/01/24 07/02/24 07/03/24 23:59 23:59 23:59 Intake Total 1220 / 1220 2622.34 / 2872.34 2889.33 / 2889.33 Balance 1220 / 1220 2622.34 / 2872.34 2889.33 / 2889.33 Lab / Micro Data 07/03/24 06:31 07/03/24 06:31 Labs: Laboratory Results - last 24 hr 07/01/24 21:42: Crossmatch See Detail 07/02/24 17:28: POC Glucose 111 H 07/02/24 22:03: WBC 8.6, RBC 2.24 L, Hgb 6.6 L, Hct 20.5 L, MCV 91.5, MCH 29.5, MCHC 32.2, RDW Std Deviation 46.5 H, RDW Coeff of Dana 14.2, Plt Count 205, MPV 11.0, Immature Gran % (Auto) 0.800, Neut % (Auto) 59.1, Lymph % (Auto) 31.4, [place] % (Auto) 7.1, Eos % (Auto) 1.4, Baso % (Auto) 0.2, Absolute Neuts (auto) 5.1, Absolute Lymphs (auto) 2.69, Nucleated RBC % 0 07/02/24 22:22: POC Glucose 97 07/03/24 06:19: POC Glucose 110 H 07/03/24 06:31: WBC 9.9, RBC 2.63 L, Hgb 7.6 L, Hct 23.8 L, MCV 90.5, MCH 28.9, MCHC 31.9 L, RDW Std Deviation 47.3 H, RDW Coeff of Dana 14.5, Plt Count 194, MPV 11.4, Sodium 139, Potassium 3.8, Chloride 109 H, Carbon Dioxide 28.0, Anion Gap 2 L, BUN 12, Creatinine 0.82, Estim Creat Clear Calc 81.09, Est GFR (MDRD) Af Amer 97, Est GFR (MDRD) Non-Af 80, BUN/Creatinine Ratio 14.7, Glucose 109 H, Calcium 8.0 L, Phosphorus 2.3 L, Magnesium 2.4 07/03/24 11:17: POC Glucose 115 H 07/03/24 16:31: POC Glucose 125 H Micro: Microbiology 07/01/24 19:18 Stool Stool Occult Blood (LEX) - Final Occult Blood Positive Physical Exam Narrative General: Alert, no apparent distress HEENT: Atraumatic, normocephalic Eyes: Anicteric, normal conjunctiva, extraocular movements grossly intact Neck: Supple Respiratory: Clear to auscultation bilaterally, normal respiratory effort Cardiovascular: Regular rate and rhythm GI: Soft, nontender, nondistended Extremities: No edema Musculoskeletal: Moving all extremities Neuro: No overt focal neurological deficits Skin: No rashes appreciated Psych: Cooperative Assessment & Plan Assessment/Plan (1) Upper gastrointestinal bleed: PLAN: Plan # Recurrent upper GI bleed secondary to peptic ulcers -Recent GI bleed due to peptic ulcer disease 01/[address] Dolan with GI -Representing with dark stools identical to previous GI bleed -Has not been taking Protonix or Carafate -Hemoglobin initially 10.3 which down trended to 9.4 and subsequently 7.7 and an elevated BUN suggestive of upper GI bleed -Additionally had fecal occult positive -IV PPI -GI consult -N.p.o. -07/03: Patient had endoscopy 07/02 which demonstrated spurting gastric ulcers with visible vessel treated with monopolar probe and an angiodysplastic lesion treated with heater probe. Patient kept on Protonix drip for 24 hours and full liquids day of procedure, diet advanced today as tolerated in Protonix switched to 40 mg p.o. twice daily. Carafate 1 g 4 times daily ordered as well. # Chronic headaches -Patient has chronic headaches at home and takes frequent Excedrin and also sumatriptan -Both of these things may exacerbate GI bleed, will need alternate plan on discharge -Patient reports Tylenol has not been very helpful -Will give Reglan, Benadryl, fluids -Avoid opiates if possible however they are absolutely necessary as we are avoiding NSAIDs and triptans due to increased risk of bleeding, also avoiding steroids if possible due to increased risk of GI bleeding Chronic medical problems: #Type 2 diabetes mellitus -Glucose checks and sliding scale insulin # History of developmental delay/[place] syndrome -Noted, supportive care # History of neurogenic bladder -Monitor I's and O's # History of VSD/pulmonic stenosis -Noted, supportive care # History of colonic polyps -Follows with Dr. Dolan #DVT ppx: SCDs Alisa Barreto MD Time spent in the patient's overall evaluation,decision-making process, review of diagnostic data, adjustment of management, discussion with other providers, nursing nursing and ancillary staff involved in patient's care documentation, 37 minutes Charges/Coding Visit Charges Inpatient E&M: 42088 Subs Hosp L2
[2024-07-03] MEDS: Pantoprazole Sodium 40 MG Tablet PO (23:19)
[2024-07-03 23:42] LABS: Bedside Glucose 100 mg/dL (74-106)
[2024-07-04 02:22] VITALS: BP 102/58; PULSE 83; RESP 16; TEMP 36.4; O2SAT 94
[2024-07-04 03:37] VITALS: BMI 40.6
[2024-07-04 06:41] LABS: Absolute Lymphocyte Count 2.05 X10^3/uL (0.83-4.51); Absolute Neutrophil Count 6.5 X10^3/uL (2.0-7.7); Basophil# 0.02 X10^3/uL; Basophil% 0.2 % (0-1); Eosinophil# 0.14 X10^3/uL; Eosinophils% 1.5 % (0-5); Hematocrit 23.6 % (37-47); Hemoglobin 7.7 g/dL (12.0-15.0); Lymphocyte # 2.05 X10^3/ul (0.83-4.51); Lymphocyte % 21.6 % (19-41); Mean Corp Hgb Conc 32.6 g/dL (32-36); Mean Corpuscular Volume 91.8 fL (81-99); Monocyte# 0.77 X10^3/uL; Monocyte% 8.1 % (0-10); NRBC Flagged by Analyzer 0 % (0-5); Neutrophil # 6.45 X10^3/uL (2.7-7.7); Neutrophil % 67.9 % (47-70); Platelet Count 218 K/mm3 (150-450); RBC Distribution Width CV 15.2 % (11.6-14.6); RBC Distribution Width SD 49.9 fl (35.1-43.9); Red Blood Count 2.57 M/mm3 (4.2-5.4); White Blood Count 9.5 K/mm3 (4.4-11.0)
[2024-07-04] MEDS: Sucralfate 1 GM Tablet PO ×2 (06:43→11:16)
[2024-07-04 06:46] VITALS: BP 120/53; PULSE 89; RESP 16; TEMP 36.6; O2SAT 94
[2024-07-04 07:23] LABS: Bedside Glucose 122 mg/dL (74-106)
[2024-07-04 07:23] LABS: Anion Gap 5 (5-15); BUN 9 mg/dL (7-18); BUN/Creat Ratio 10.8 RATIO (10-20); Calcium,Total 8.4 mg/dL (8.5-10.1); Chloride 106 mmol/L (98-107); Creatinine, Serum 0.83 mg/dL (0.55-1.02); EST Glomerular Filtration Rate 79 mL/min (>60); Est Glom Filt Rate - Afr Amer 95 mL/min (>60); Estimated Creatinine Clearance 90.49 ml/min; Glucose 122 mg/dL (74-106); Potassium 3.4 mmol/L (3.5-5.1); Sodium Level 138 mmol/L (136-145)
[2024-07-04 08:38] VITALS: O2SAT 97
[2024-07-04 09:45] VITALS: BP 112/60; PULSE 87; RESP 18; TEMP 36.7; O2SAT 94
[2024-07-04] MEDS: Potassium Chloride Oral Soln 20 MEQ/15 ML UDC PO (09:46)
[2024-07-04] MEDS: Pantoprazole Sodium 40 MG Tablet PO (09:46)
[2024-07-04] MEDS: Acetaminophen 325 MG Tablet 650 MG PO (09:47)
[2024-07-04 11:35] LABS: Bedside Glucose 151 mg/dL (74-106)
--- NOTE | 2024-07-04 15:10 | DCINST_ITS ---
Discharge Instructions Diet Discharge Diet: Light diet - advance as tolerated Activity Discharge Activity: - (Increase activity as tolerated) Follow Up Care Test Results: Test results from this visit will be discussed in further detail at your follow- up appointment, if applicable. Discharge Plan Admission Admit Date/Time: 07/01/24 20:02 Primary Reason for Your Visit: Concern for GI bleed Attending Provider: Alisa Barreto Primary Care Provider: Marie Ritter Consulting Providers: Ramo Pedraza Instructions Patient Instructions: ED Upper GI Bleeding (Stable) Additional Instructions / Restrictions: DISCHARGE INSTRUCTIONS PLEASE READ *Please take this with you to your next doctors appointment* -You will need to take sucralfate 1 g 4 times daily and pantoprazole 40 mg twice daily for 8 weeks. After 8 weeks your pantoprazole may be decreased to once daily but will defer this to your outpatient physician -No aspirin, ibuprofen, naproxen as we discussed -You will need to follow-up with Dr. Dolan with GI in his office upon discharge. Please call his office to schedule your hospital follow-up appointment (ph. [phone]) -Please call your primary care provider's office upon discharge to schedule a hospital follow up within 1 week. -For any concerning signs or symptoms please call 911 or proceed to the nearest emergency department Discharge Orders/Prescriptions Prescriptions: New sucralfate 1 gram Tablet 1 g PO ACHS 30 Days Qty: 120 0RF pantoprazole 40 mg Tablet,Delayed Release (Dr/Ec) 40 mg PO BID 30 Days Qty: 60 0RF Continued metformin 500 mg tablet extended release 24 hr 500 mg PO QHS Patient Comments: take 1 tablet by mouth every evening loratadine [Claritin] 10 mg Tablet 10 mg PO DAILY PRN (Reason: SEASONAL ALLERGIES) atorvastatin 40 mg tablet 40 mg PO DAILY Discontinued sumatriptan succinate 25 mg tablet 25 mg PO DAILY PRN (Reason: Migraine Headache) Patient Comments: take 1 tablet by mouth if needed AT ONSET OF HEADACHE may repeat in 2 hours if needed Referrals / Follow Up: Marie Ritter MD [Primary Care Provider] - Within 1 Week Anthony Dolan DO [Med Staff - Active Staff] - ( -You will need to follow-up with Dr. Dolan with GI in his office upon discharge. Please call his office to schedule your hospital follow-up appointment (ph. [phone])) Disposition Disposition (needs filled in before D/C Order can be placed): Home, Self Care
--- NOTE | 2024-07-04 15:15 | DS.PCM_ITS ---
Providers Date of Admission: 07/01/24 Date of Discharge: 07/04/24 Primary Care Physician: Dr. Marie Ritter MD Consultations 07/01/24 20:06 Consult: Gastroenterology Routine Consulting Provider: [facility] Reason for Consult: Upper GI Bleed with Dark Stools. EMERGENT Consult: No MD Notified: Yes Date Notified: 07/02/24 Time Notified: 06:48 Method of Notification: Text Method of Consult:: In-Person Reason For Visit: UPPER GI BLEED WITH DARK STOOLS AND HISTORY Diagnosis Discharge Diagnosis (1) Upper gastrointestinal bleed: Status: Acute Code(s): K92.2 - Gastrointestinal hemorrhage, unspecified Plan # Recurrent upper GI bleed secondary to peptic ulcers # Chronic headaches #Type 2 diabetes mellitus # History of developmental delay/[place] syndrome # History of neurogenic bladder # History of VSD/pulmonic stenosis # History of colonic polyps Medications at Discharge Home Medications loratadine 10 mg tablet (Claritin) 10 mg PO DAILY PRN SEASONAL ALLERGIES 02/14/23 metformin 500 mg tablet,extended release 24 hr 500 mg PO QHS diabetes 02/14/23 atorvastatin 40 mg tablet 40 mg PO DAILY 07/01/24 pantoprazole 40 mg tablet,delayed release 40 mg PO BID 30 days #60 tabs 07/04/24 sucralfate 1 gram tablet 1 g PO ACHS 30 days #120 tabs 07/04/24 Hospital Course Procedures - (EGD) Summary of Care Provided Minutes Spent on Discharge: 25 Hospital Course: 44-year-old female history of peptic ulcer disease, headaches, diabetes on metformin, [place] syndrome who presented to [facility] ED 07/01/2024 with dark stools concern for recurrent upper GI bleed. Patient was started on IV PPI and GI consulted. Hemoglobin initially 10.3 which down trended to 7.7 and had elevated BUN. Fecal occult positive. Patient had endoscopy 07/02 which demonstrated spurting gastric ulcers with visible vessel treated with monopolar probe and an angiodysplastic lesion treated with heater probe. Patient kept on Protonix drip for 24 hours and full liquids day of procedure, diet advanced as tolerated in Protonix switched to 40 mg p.o. twice daily. Carafate 1 g 4 times daily ordered as well. On day of discharge patient feeling much better, discussed with GI and patient stable for discharge and outpatient follow-up. Of note during her hospitalization she did have chronic headache, options for headache treatment were limited but she was treated with Reglan and Benadryl which did help significantly. Discussed what she should and should not take for headache management and she is scheduled to follow-up with a neurologist next week for her headaches. Understanding verbalized. Discharge instructions as follows: -You will need to take sucralfate 1 g 4 times daily and pantoprazole 40 mg twice daily for 8 weeks. After 8 weeks your pantoprazole may be decreased to once daily but will defer this to your outpatient physician -No aspirin, ibuprofen, naproxen as we discussed -You will need to follow-up with Dr. Dolan with GI in his office upon discharge. Please call his office to schedule your hospital follow-up appointment (ph. [phone]) -Please call your primary care provider's office upon discharge to schedule a hospital follow up within 1 week. -For any concerning signs or symptoms please call 911 or proceed to the nearest emergency department Physical Exam Narrative General: Alert, no apparent distress HEENT: Atraumatic, normocephalic Eyes: Anicteric, normal conjunctiva, extraocular movements grossly intact Neck: Supple Respiratory: Clear to auscultation bilaterally, normal respiratory effort Cardiovascular: Regular rate and rhythm GI: Soft, nontender, nondistended Extremities: No edema Musculoskeletal: Moving all extremities Neuro: No overt focal neurological deficits Skin: No rashes appreciated Psych: Cooperative Weight / BMI Weight Weight: 97.5 kg Body Mass Index (BMI) 40.6 ABG / Lab / Microbiology Data 07/04/24 06:27 07/04/24 06:27 Laboratory: Laboratory Results - last 24 hr 07/03/24 16:31: POC Glucose 125 H 07/03/24 23:17: POC Glucose 100 07/04/24 06:27: WBC 9.5, RBC 2.57 L, Hgb 7.7 L, Hct 23.6 L, MCV 91.8, MCH 30.0, MCHC 32.6, RDW Std Deviation 49.9 H, RDW Coeff of Dana 15.2 H, Plt Count 218, MPV 11.0, Immature Gran % (Auto) 0.700, Neut % (Auto) 67.9, Lymph % (Auto) 21.6, [place] % (Auto) 8.1, Eos % (Auto) 1.5, Baso % (Auto) 0.2, Absolute Neuts (auto) 6.5, Absolute Lymphs (auto) 2.05, Nucleated RBC % 0, Sodium 138, Potassium 3.4 L , Chloride 106, Carbon Dioxide 27.0, Anion Gap 5, BUN 9, Creatinine 0.83, Estim Creat Clear Calc 90.49, Est GFR (MDRD) Af Amer 95, Est GFR (MDRD) Non-Af 79, BUN/Creatinine Ratio 10.8, Glucose 122 H, Calcium 8.4 L 07/04/24 06:42: POC Glucose 122 H 07/04/24 11:15: POC Glucose 151 H Microbiology: Microbiology 07/01/24 19:18 Stool Stool Occult Blood (LEX) - Final Occult Blood Positive D/C Instructions Discharge Diet: Light diet - advance as tolerated Meaningful Use Info Meaningful Use Meaningful Use Diagnoses (Choose all that apply): None applicable Ischemic Stroke Statin Dosing Therapy Reference: STATIN DOSE THERAPY REFERENCE: * Patients > 75 years receive moderate or high dose statin therapy. * Patients 75 years or YOUNGER should receive HIGH intensity statin dose unless contraindicated. You will be required to document reason for non-treatment if statin daily dose does not meet guidelines. HIGH DOSE STATIN THERAPY DAILY Atorvastatin > than or = to 40 mg Rosuvastatin > than or = to 20 mg Amlodipine + Atorvastatin > than or = to 2.5/40 mg Ezetimibe + Simvastatin 10/80 mg Simvastatin 80mg Discharge Plan Admission Admit Date/Time: 07/01/24 20:02 Primary Reason for Your Visit: Concern for GI bleed Attending Provider: Alisa Barreto Primary Care Provider: Marie Ritter Consulting Providers: Ramo Pedraza Instructions Patient Instructions: ED Upper GI Bleeding (Stable) Additional Instructions / Restrictions: DISCHARGE INSTRUCTIONS PLEASE READ *Please take this with you to your next doctors appointment* -You will need to take sucralfate 1 g 4 times daily and pantoprazole 40 mg twice daily for 8 weeks. After 8 weeks your pantoprazole may be decreased to once daily but will defer this to your outpatient physician -No aspirin, ibuprofen, naproxen as we discussed -You will need to follow-up with Dr. Dolan with GI in his office upon discharge. Please call his office to schedule your hospital follow-up appointment (ph. [phone]) -Please call your primary care provider's office upon discharge to schedule a hospital follow up within 1 week. -For any concerning signs or symptoms please call 911 or proceed to the nearest emergency department Discharge Orders/Prescriptions Prescriptions: New sucralfate 1 gram Tablet 1 g PO ACHS 30 Days Qty: 120 0RF pantoprazole 40 mg Tablet,Delayed Release (Dr/Ec) 40 mg PO BID 30 Days Qty: 60 0RF Continued metformin 500 mg tablet extended release 24 hr 500 mg PO QHS Patient Comments: take 1 tablet by mouth every evening loratadine [Claritin] 10 mg Tablet 10 mg PO DAILY PRN (Reason: SEASONAL ALLERGIES) atorvastatin 40 mg tablet 40 mg PO DAILY Discontinued sumatriptan succinate 25 mg tablet 25 mg PO DAILY PRN (Reason: Migraine Headache) Patient Comments: take 1 tablet by mouth if needed AT ONSET OF HEADACHE may repeat in 2 hours if needed Referrals / Follow Up: Marie Ritter MD [Primary Care Provider] - Within 1 Week Anthony Dolan DO [Med Staff - Active Staff] - ( -You will need to follow-up with Dr. Dolan with GI in his office upon discharge. Please call his office to schedule your hospital follow-up appointment (ph. [phone])) Disposition Disposition (needs filled in before D/C Order can be placed): Home, Self Care Charges/Coding Visit Charges Inpatient E&M: 84312 Disch Hosp
[2024-07-04 15:45] VITALS: BP 108/60; PULSE 84; RESP 18; TEMP 36.8; O2SAT 98
--- NOTE | 2024-07-04 15:58 | CASEMGMT ---
Patient has order for discharge. RN CM in to discuss needs at discharge, mother at bedside. Patient denies needs or help at discharge. Patient had no further questions or concerns.
--- NOTE | 2024-07-04 16:39 | EX.PCM.PN.GI ---
Subjective Subjective Patient is doing well without any sign of bleeding at this time. Her hemoglobin seems to be holding stable at 7.7. Objective Data Objective Data Vital Signs: Vital Signs Temp Pulse Resp BP Pulse Ox O2 Del Method 98.2 F 84 18 108/60 98 Room Air 07/04/24 15:45 07/04/24 15:45 07/04/24 15:45 07/04/24 15:45 07/04/24 15:45 07/04/24 15:45 Oxygen Delivery Method Room Air Weight: 214 lb 15.211 oz Body Mass Index (BMI) 40.6 Intake & Output: Intake and Output for Last 24 Hours 07/02/24 07/03/24 07/04/24 23:59 23:59 23:59 Intake Total 2622.34 / 2872.34 2941.66 / 3441.66 1000 / 1000 Balance 2622.34 / 2872.34 2941.66 / 3441.66 1000 / 1000 Lab / Micro Data 07/04/24 06:27 07/04/24 06:27 Labs: Laboratory Results - last 24 hr 07/03/24 16:31: POC Glucose 125 H 07/03/24 23:17: POC Glucose 100 07/04/24 06:27: WBC 9.5, RBC 2.57 L, Hgb 7.7 L, Hct 23.6 L, MCV 91.8, MCH 30.0, MCHC 32.6, RDW Std Deviation 49.9 H, RDW Coeff of Dana 15.2 H, Plt Count 218, MPV 11.0, Immature Gran % (Auto) 0.700, Neut % (Auto) 67.9, Lymph % (Auto) 21.6, [place] % (Auto) 8.1, Eos % (Auto) 1.5, Baso % (Auto) 0.2, Absolute Neuts (auto) 6.5, Absolute Lymphs (auto) 2.05, Nucleated RBC % 0, Sodium 138, Potassium 3.4 L, Chloride 106, Carbon Dioxide 27.0, Anion Gap 5, BUN 9, Creatinine 0.83, Estim Creat Clear Calc 90.49, Est GFR (MDRD) Af Amer 95, Est GFR (MDRD) Non-Af 79, BUN/Creatinine Ratio 10.8, Glucose 122 H, Calcium 8.4 L 07/04/24 06:42: POC Glucose 122 H 07/04/24 11:15: POC Glucose 151 H Micro: Microbiology 07/01/24 19:18 Stool Stool Occult Blood (LEX) - Final Occult Blood Positive Physical Exam Narrative General: Alert, no apparent distress HEENT: Atraumatic, normocephalic Eyes: Anicteric, normal conjunctiva, extraocular movements grossly intact Neck: Supple Respiratory: Clear to auscultation bilaterally, normal respiratory effort Cardiovascular: Regular rate and rhythm GI: Soft, nontender, nondistended Extremities: No edema Musculoskeletal: Moving all extremities Neuro: No overt focal neurological deficits Skin: No rashes appreciated Psych: Cooperative Assessment & Plan Assessment/Plan (1) Upper gastrointestinal bleed: PLAN: Plan Recurrent upper GI bleed secondary to peptic ulcers -Recent GI bleed due to peptic ulcer disease 01/[address] Dolan with GI -Representing with dark stools identical to previous GI bleed -Has not been taking Protonix or Carafate -Hemoglobin initially 10.3 which down trended to 9.4 and subsequently 7.7 and an elevated BUN suggestive of upper GI bleed -Additionally had fecal occult positive -IV PPI -GI consult -N.p.o. -07/03: Patient had endoscopy 07/02 which demonstrated spurting gastric ulcers with visible vessel treated with monopolar probe and an angiodysplastic lesion treated with heater probe. Patient kept on Protonix drip for 24 hours and full liquids day of procedure, diet advanced today as tolerated in Protonix switched to 40 mg p.o. twice daily. Carafate 1 g 4 times daily ordered as well. -She is okay to be DC from GI standpoint Charges/Coding Visit Charges Inpatient E&M: 81493 Subs Hosp L3
== END 2024-07-04 16:11 | disposition home or self-care (01) | DRG 378 ==
LOC: ED 19:34 → PCU 20:44
PROVIDERS: Internal Medicine Gastroenterology; Admitting Provider Internal Medicine; Emergency Provider Surgery; PCP Internal Medicine; Visit Provider Internal Medicine
PROC: 0DJ08ZZ Inspection of Upper Intestinal Tract, Via Natural or Artificial Opening Endoscopic (ICD-10-PCS; CPT 43235; principal; 2024-07-02 14:30)
DX: K25.4 Chronic or unspecified gastric ulcer with hemorrhage (principal); Q87.19 Other congenital malformation syndromes predominantly associated with short stature; D62 Acute posthemorrhagic anemia; E11.9 Type 2 diabetes mellitus without complications; E66.9 Obesity, unspecified; E78.00 Pure hypercholesterolemia, unspecified; K21.9 Gastro-esophageal reflux disease without esophagitis; K31.811 Angiodysplasia of stomach and duodenum with bleeding; Z86.010 Personal history of colon polyps; R62.50 Unspecified lack of expected normal physiological development in childhood; Z79.899 Other long term (current) drug therapy; Z79.84 Long term (current) use of oral hypoglycemic drugs; Z68.34 Body mass index [BMI] 34.0-34.9, adult
CPT/HCPCS: 36415; 80048; 80053; 82274; 82728; 82962; 83036; 83540; 83550; 83690; 83735; 84100; 84443; 85025; 85027; 86850; 86900; 86901; 86920; 93005; 97802; 99284; J7030; J7040; J7050; J7120; P9016; A4216; J2405

== ENCOUNTER → 2024-07-01 | Outpatient (CLI) | payer MEDICARE, OTHER, SELFPAY ==
[2024-07-01 16:29] LABS: Absolute Lymphocyte Count 2.74 X10^3/uL (0.83-4.51); Basophil# 0.02 X10^3/uL; Basophil% 0.2 % (0-1); Eosinophil# 0.04 X10^3/uL; Eosinophils% 0.3 % (0-5); Hematocrit 31.6 % (37-47); Hemoglobin 10.3 g/dL (12.0-15.0); Lymphocyte # 2.74 X10^3/ul (0.83-4.51); Lymphocyte % 23.3 % (19-41); Mean Corp Hgb Conc 32.6 g/dL (32-36); Mean Corpuscular Hgb 29.5 pg (27.0-32.0); Mean Corpuscular Volume 90.5 fL (81-99); Mean Platelet Vol. 11.3 fl (6.2-12.0); Monocyte# 0.93 X10^3/uL; Monocyte% 7.9 % (0-10); NRBC Flagged by Analyzer 0 % (0-5); Neutrophil # 7.97 X10^3/uL (2.7-7.7); Neutrophil % 67.8 % (47-70); Platelet Count 307 K/mm3 (150-450); RBC Distribution Width CV 13.6 % (11.6-14.6); RBC Distribution Width SD 45.1 fl (35.1-43.9); Red Blood Count 3.49 M/mm3 (4.2-5.4); White Blood Count 11.8 K/mm3 (4.4-11.0)
[2024-07-01 17:03] LABS: Anion Gap 5 (5-15); BUN 43 mg/dL (7-18); Calcium,Total 9.8 mg/dL (8.5-10.1); Chloride 102 mmol/L (98-107); EST Glomerular Filtration Rate 64 mL/min (>60); Est Glom Filt Rate - Afr Amer 77 mL/min (>60); Glucose 160 mg/dL (74-106); Potassium 4.8 mmol/L (3.5-5.1); Sodium Level 135 mmol/L (136-145)
== END | disposition home or self-care (01) ==
LOC: LAB 15:41
PROVIDERS: PCP Internal Medicine; Referring Provider Internal Medicine; Visit Provider Internal Medicine
DX: R42 Dizziness and giddiness (principal); K25.9 Gastric ulcer, unspecified as acute or chronic, without hemorrhage or perforation; R53.1 Weakness
CPT/HCPCS: 36415; 80048; 85025

== ENCOUNTER → 2024-07-15 | Outpatient (CLI) | payer MEDICARE, OTHER, SELFPAY ==
[2024-07-15 15:47] LABS: Absolute Lymphocyte Count 2.48 X10^3/uL (0.83-4.51); Basophil# 0.02 X10^3/uL; Basophil% 0.2 % (0-1); Eosinophil# 0.13 X10^3/uL; Eosinophils% 1.4 % (0-5); Hematocrit 29.4 % (37-47); Hemoglobin 9.2 g/dL (12.0-15.0); Lymphocyte # 2.48 X10^3/ul (0.83-4.51); Lymphocyte % 26.8 % (19-41); Mean Corp Hgb Conc 31.3 g/dL (32-36); Mean Corpuscular Hgb 29.1 pg (27.0-32.0); Mean Platelet Vol. 10.8 fl (6.2-12.0); Monocyte# 0.63 X10^3/uL; Monocyte% 6.8 % (0-10); NRBC Flagged by Analyzer 0 % (0-5); Neutrophil # 5.97 X10^3/uL (2.7-7.7); Neutrophil % 64.5 % (47-70); Platelet Count 421 K/mm3 (150-450); RBC Distribution Width CV 14.6 % (11.6-14.6); RBC Distribution Width SD 49.4 fl (35.1-43.9); Red Blood Count 3.16 M/mm3 (4.2-5.4); White Blood Count 9.3 K/mm3 (4.4-11.0)
== END | disposition home or self-care (01) ==
LOC: LAB 14:23
PROVIDERS: PCP Internal Medicine; Referring Provider Student in an Organized Health Care Education/Training Program; Visit Provider Student in an Organized Health Care Education/Training Program
DX: D64.9 Anemia, unspecified (principal)
CPT/HCPCS: 36415; 85025

== ENCOUNTER → 2024-08-05 | Outpatient (CLI) | payer MEDICARE, OTHER, SELFPAY ==
--- NOTE | 2024-08-05 15:14 | MRI_ITS ---
STUDY: MRI BRAIN WITH AND WITHOUT CONTRAST REASON FOR EXAM: Female, 44 years old. MIGRAINE WITHOUT AURA TECHNIQUE: Standardized multiplanar fat and water weighted pulse sequences were obtained. IV 15CC CLARISCAN was administered for the contrast portion of the examination. COMPARISON: None. FINDINGS: Normal size of the ventricles and extra-axial spaces for the patient''s age. There are a couple of tiny punctate white matter lesions in the cerebral hemispheres bilaterally without mass effect or restricted diffusion . Normal bilateral basal ganglia. Normal thalami. There is no extra-axial fluid accumulation. Normal flow voids within the major intracranial circulation suggesting patency by spin echo criteria. Normal venous enhancement. There is no enhancing intra-axial or extra-axial abnormality. Normal sella turcica, pituitary gland, infundibular stalk, optic chiasm and hypothalamus. Normal tectal plate and pineal gland. Normal midbrain, jazz and medulla. Normal cerebellum. Normal basal cisterns. Normal bilateral temporal bones. Normal bilateral internal auditory canals. No demonstrated orbital abnormality, within the constraints of a routine brain study. Small mucous retention cyst or polyp in left maxillary sinus. Normal calvarium and skull base. Normal visualized soft tissue structures. Normal visualized upper cervical spine. MRI/Brain W/WO Contrast IMPRESSION: Minor nonspecific white matter lesions most likely representing chronic small vessel ischemic changes in patient of this age without evidence for acute infarct. No evidence for obstructive hydrocephalus mass or enhancing lesion following contrast administration Electronically Signed: Jf Baugh MD at 23:01 EDT ,
== END | disposition home or self-care (01) ==
LOC: MRI 15:07
PROVIDERS: PCP Internal Medicine; Referring Provider Psychiatry & Neurology Neurology; Visit Provider Psychiatry & Neurology Neurology
DX: G43.709 Chronic migraine without aura, not intractable, without status migrainosus (principal)
CPT/HCPCS: 70553

== ENCOUNTER → 2024-08-22 | Outpatient (CLI) | payer MEDICARE, OTHER, SELFPAY ==
--- OUTSIDE RECORDS SUMMARY | 2024-08-22 08:16 | XMS RPT_ITS | CCD ---
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 Name Role Phone DEBBI MILLAN MD Consulting Unavailable LATOUDEBBI Tabares MD Attending Unavailable LATOUDEBBI Tabares MD Admitting Unavailable LATOUDEBBI Tabares MD Primary Care Unavailable PROVIDER, UNKNOWN Consulting Unavailable PROVIDER, UNKNOWN Consulting Unavailable PROVIDER, UNKNOWN Consulting Unavailable LATOUDEBBI Tabares MD Primary Care Unavailable LATOUF, DEBBI BOLIVAR Attending Unavailable LATOUF, DEBBI BOLIVAR Admitting Unavailable LATOUFDEBBI MD Consulting Unavailable PROVIDER, UNKNOWN Consulting Unavailable PROVIDER, UNKNOWN Consulting Unavailable PROVIDER, UNKNOWN Consulting Unavailable LATOUDEBBI Tabares MD Admitting Unavailable LATOUF, DEBBI BOLIVAR Attending Unavailable LATOURaysa, DEBBI BOLIVAR Primary Care Unavailable LATOUDEBBI Tabares MD Consulting Unavailable PROVIDER, UNKNOWN Consulting Unavailable PROVIDER, UNKNOWN Consulting Unavailable PROVIDER, UNKNOWN Consulting Unavailable LATOURaysa, DEBBI BOLIVAR Admitting Unavailable LATOUF, DEBBI BOLIVAR Attending Unavailable LATOUF, DEBBI BOLIVAR Consulting Unavailable LATOUF, DEBBI BOLIVAR Primary Care Unavailable PROVIDER, UNKNOWN Consulting Unavailable PROVIDER, UNKNOWN Consulting Unavailable PROVIDER, UNKNOWN Consulting Unavailable LATOUDEBBI Tabares MD Primary Care Unavailable LATOUDEBBI Tabares MD Consulting Unavailable LATOURaysa, DEBBI BOLIVAR Attending Unavailable LATOUF, DEBBI BOLIVAR Admitting Unavailable PROVIDER, UNKNOWN Consulting Unavailable PROVIDER, UNKNOWN Consulting Unavailable PROVIDER, UNKNOWN Consulting Unavailable LATOUDEBBI Tabares MD Consulting Unavailable LATOUF, DEBBI BOLIVAR Attending Unavailable LATOUF, DEBBI BOLIVAR Admitting Unavailable LATOUF, DEBBI BOLIVAR Primary Care Unavailable PROVIDER, UNKNOWN Consulting Unavailable PROVIDER, UNKNOWN Consulting Unavailable PROVIDER, UNKNOWN Consulting Unavailable LATDEBBI BURT MD Consulting Unavailable LATOUF, DEBBI BOLIVAR Attending Unavailable LATOUF, DEBBI BOLIVAR Admitting Unavailable LATOURaysa, DEBBI BOLIVAR Primary Care Unavailable PROVIDER, UNKNOWN Consulting Unavailable PROVIDER, UNKNOWN Consulting Unavailable PROVIDER, UNKNOWN Consulting Unavailable Allergies Allergy Classification Reported Allergen(s) Allergy Type Date of Onset Reaction(s) Facility (1 source) Sulfonamides (Antibiotic) Drug allergy (disorder) [facility] Repository Problems Active Problems Problem Classification Problem Date Documented Da te Episodic/Chronic Conditions associated with dizziness or vertigo (1 source) Dizziness and giddiness; Translations: [Dizziness and giddiness] Onset: 07-01-2024 Episodic Deficiency and other anemia (1 source) Anemia, unspecified; Translations: [Anemia, unspecified] Onset: 07-15-2024 Episodic Deficiency and other anemia (1 source) Iron deficiency anemia, unspecified; Translations: [Iron deficiency anemia, unspecified] Onset: 07-01-2024 Episodic Diabetes mellitus without complication (2 sources) Type 2 diabetes mellitus without complications; Translations: [Type 2 diabetes mellitus without complications] Onset: 07-01-2024 Chronic Disorders of lipid metabolism (2 sources) Pure hypercholesterolemi a, unspecified; Translations: [Pure hypercholesterolemi a, unspecified] Onset: 07-01-2024 Chronic Gastroduodenal ulcer (except hemorrhage) (1 source) Gastric ulcer, unspecified as acute or chronic, without hemorrhage or perforation; Translations: [Gastric ulcer, unspecified as acute or chronic, without hemorrhage or perforation] Onset: 07-01-2024 Chronic Malaise and fatigue (1 source) Weakness; Translations: [Weakness] Onset: 07-01-2024 Episodic Past or Other Problems Problem Classification Problem Date Documented Da te Episodic/Chronic Diabetes mellitus without complication (1 source) Hyperglycemia, unspecified; Translations: [Hyperglycemia, unspecified] Onset: 10-19-2023 Episodic Encounters Encounter Date Encounter Type Care Provider Facility Start: 07-15-2024 ambulatory DEBBI BOLIVAR [facility] Start: 07-01[facility]2024 [facility] Start: 02-06-2024 ambulatory DEBBI BOLIVAR [facility] Start: 10-19-2023 ambulatory DEBBI BOLIVAR [facility] Start: 09-06-2023 End: 09-06-2023 ambulatory DEBBI BOLIVAR [facility] Start: 09-06-2023 Encounter for genera l adult medical examination without abnormal findings DBEBI BOLIVAR [facility] Payers Date Payer Category Payer Medicare [id number] 1980 Unknown [id number] 1980 Unknown [id number] 1980 Unknown [id number] 1980 Unknown [id number] 1980 Unknown [id number] 1980 Unknown [id number] 1980 Unknown [id number] [employer] ( and others) [id number] Summary Purpose Family History No Family History Records Found Advance Directives No Advanced Directives Records Found Additional Source Comments INFORMATION SOURCE (unrecogn ized section and content) DATE CREATED AUTHOR 07/17/2024 [facility] FOR RECORDS PERTAINING TO PATIENTS WHO ARE [...] BE BASED ON THE PRIMARY CLINICAL RECORDS. [employer] provides no warranty or guarantee of the accuracy or completeness of information in this document.
[2024-08-22 08:46] LABS: Absolute Lymphocyte Count 2.08 X10^3/uL (0.83-4.51); Absolute Neutrophil Count 5.2 X10^3/uL (2.0-7.7); Basophil# 0.04 X10^3/uL; Basophil% 0.5 % (0-1); Eosinophils% 1.2 % (0-5); Hematocrit 33.9 % (37-47); Hemoglobin 10.5 g/dL (12.0-15.0); Lymphocyte # 2.08 X10^3/ul (0.83-4.51); Lymphocyte % 25.6 % (19-41); Mean Corpuscular Hgb 27.5 pg (27.0-32.0); Mean Corpuscular Volume 88.7 fL (81-99); Mean Platelet Vol. 11.3 fl (6.2-12.0); Monocyte# 0.67 X10^3/uL; Monocyte% 8.2 % (0-10); NRBC Flagged by Analyzer 0 % (0-5); Neutrophil # 5.21 X10^3/uL (2.7-7.7); Neutrophil % 64.1 % (47-70); Platelet Count 308 K/mm3 (150-450); RBC Distribution Width CV 15.4 % (11.6-14.6); RBC Distribution Width SD 49.9 fl (35.1-43.9); Red Blood Count 3.82 M/mm3 (4.2-5.4); White Blood Count 8.1 K/mm3 (4.4-11.0)
[2024-08-22 09:43] LABS: AST(SGOT) 15 U/L (15-37); Alanine Aminotransfer ALT/SGPT 44 U/L (13-56); Albumin, Serum 3.5 g/dL (3.2-5.0); Alkaline Phosphatase 98 U/L (45-117); Bilirubin, Direct 0.06 mg/dL (0.00-0.30); Cholesterol 119 mg/dL (200); Ferritin 4 ng/mL (8-252); Globulin 3.7 g/dL (2.2-4.2); High Density Lipoprotein 42 mg/dL; Iron 56 ug/dL (50-170); Iron Binding Capacity,Total 331 ug/dL (250-450); PERCENT IRON SATURATION 16.9 % (15.0-55.0); Protein, Total 7.2 g/dL (6.4-8.2); Triglycerides 211 mg/dL; Very Low Density Lipoprotein 42 mg/dL (5-40)
== END | disposition home or self-care (01) ==
LOC: LAB 07:55
PROVIDERS: PCP Internal Medicine; Referring Provider Internal Medicine; Visit Provider Internal Medicine
DX: D50.9 Iron deficiency anemia, unspecified (principal); E78.00 Pure hypercholesterolemia, unspecified
CPT/HCPCS: 36415; 80061; 80076; 82728; 83540; 83550; 85025

== ENCOUNTER 2024-10-08 10:33 | Day surgery (SDC) | payer MEDICARE, OTHER, SELFPAY ==
--- NOTE | 2024-10-04 13:43 | PAT.ANESEVAL ---
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 When Was Last Pacemaker Check QUESTION #4 FULL TEXT: You/Your Family Experience fever (hyperthermia) with Anesthesia Last Oral Intake Last Oral intake: Last Oral Intake NPO since Meds taken in AM with sips of water? 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 Has anyone observed you stop No 10/04/24 12:21 breathing during sleep? STOP Results Negative 10/04/24 12:21 QUESTION #5 FULL TEXT : Do you snore loudly (louder than talking or can be heard through closed doors)? 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 Specify any problems Hx of Preganancy in last 3 No 10/04/24 12:21 Months Nurse Filling Out Transfusion VCHRISTIN 10/04/24 12:21 & Questions: Date: 10/04/24 10/04/24 12:21 Time: 12:22 10/04/24 12:21 Patient unable to answer at this time (ie. 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: /Reproductive Hx- concrete block mason Hx Now No 10/04/24 12:21 Gestational Age (in weeks): EDC: Hx Hx Para Hx Section SAB No 10/04/24 12:21 [facility] Medical History (Updated 10/04/24 @ 12:21 by Mariluz Palacios) Loss of hearing Wears glasses Anxiety Diabetes Bladder disease High cholesterol Anemia History of ulceration GERD (gastroesophageal reflux disease) Non-smoker History of echocardiogram Cardiology follow-up encounter Neurogenic bladder Type 2 diabetes mellitus without complication Pulmonic stenosis Iron deficiency anemia VSD (ventricular septal defect) [place] syndrome Migraines Home Medications ?Medication ?Instructions ?Recorded ?Last Taken ?Type loratadine 10 mg tablet (Claritin) 10 mg PO DAILY PRN SEASONAL 02/14/23 02/14/23 History ALLERGIES metformin 500 mg tablet,extended 500 mg PO QHS diabetes 02/14/23 02/13/23 History release 24 hr atorvastatin 40 mg tablet 20 mg PO DAILY 07/01/24 Unknown History sumatriptan succinate 100 mg tablet See Rx Instructions PO .COMPLEX 07/15/24 Unknown History pantoprazole 40 mg tablet,delayed 40 mg PO BID 30 days #60 tabs 08/01/24 Unknown Rx release amitriptyline 50 mg tablet 50 mg PO QHS 10/04/24 Unknown History Allergy/AdvReac Type Severity Reaction Status Date / Time Sulfa (Sulfonamide AdvReac PT UNSURE Verified 10/04/24 12:15 Antibiotics) OF REACTION Family History Father Heart disease CVA (cerebral vascular accident) Hypertension Dementia Mother Diabetes Sister Diabetes Fibromyalgia Other Alzheimer's dementia Breast cancer Colon cancer Surgical History (Updated 10/04/24 @ 12:21 by Mariluz Palacios) Hx of colonoscopy History of esophagogastroduodenoscopy (EGD) History of cardiac catheterization History of colonoscopy History of excision of pilonidal cyst (~2004) Social History household members: family housing: house pets and animals: Yes Smoking Status: Never smoker alcohol intake: never substance use type: does not use caffeine: Yes Audit: Pertinent Findings Pertinent Findings EKG Perinent findings: 06/[address]-t abnl consider inf ischemia Echo (EF%) pertinent findings: 04/2024 ef 55 Consult pertinent findings: cardio 04/16/2024 VD cont current med tx. check echo Recommendation Anesthesia Recommendation Anesthesia recommendation: OPTIMIZED for anesthesia
[2024-10-08] VITALS (8 sets, daily range): BP systolic 111–130; BP diastolic 67–80; PULSE 72–85; RESP 16; TEMP 36.2–36.5; O2SAT 95–98; BMI 32.9
[2024-10-08 10:55] LABS: Internal QC Validated? YES +Cl - CLEAR BKGD; Pregnancy, Urine Negative Negative
--- NOTE | 2024-10-08 11:21 | PRE.ANES_ITS ---
ASA Classification* ASA Classification ASA Classification: 3 Assessment & Plan Anesthesia* Anesthesia Assessment Anesthesia Assessment: Discussed sedation and/or anesthesia options, risks, benefits, and alternatives with patient/parents/legal guardian/POA. Questions invited. The patient/parents/legal guardian/POA seems to understand and agrees to proceed with anesthesia plan. Reviewed the physical assessment, medical history, allergy history and patient home medications list prior to surgery/procedure/anesthetic and documented any changes. Performed airway and anesthesia risk assessments. Anesthesia Type Anesthesia Type: MAC History Source History Obtained from:: Patient and Chart Anesthesia Focused Assessment* Temperature: 97.6 F Pulse Rate: 85 Blood Pressure: 130/75 Respiratory Rate: 16 Pulse Ox: 98 Oxygen Delivery Method: Room Air Airway Assessment Mouth opens: 2 cm Mallampati Score: IV Teeth Condition: Intact Neck Range of motion (ROM): Full ROM Focused Labs Anesthesia Preop lab: CBC WBC 8.1 K/mm3 (4.4-11.0) 08/22/24 08:04 RBC 3.82 M/mm3 (4.2-5.4) L 08/22/24 08:04 Hgb 10.5 g/dL (12.0-15.0) L 08/22/24 08:04 Hct 33.9 % (37-47) L 08/22/24 08:04 Plt Count 308 K/mm3 (150-450) 08/22/24 08:04 CHEMISTRY Potassium 3.4 mmol/L (3.5-5.1) L 07/04/24 06:27 Sodium 138 mmol/L (136-145) 07/04/24 06:27 Magnesium 2.4 mg/dL (1.6-2.6) 07/03/24 06:31 Phosphorus 2.3 mg/dL (2.5-4.9) L 07/03/24 06:31 BUN 9 mg/dL (7-18) 07/04/24 06:27 Creatinine 0.83 mg/dL (0.55-1.02) 07/04/24 06:27 Glucose 122 mg/dL (74-106) H 07/04/24 06:27 POC Glucose 151 mg/dL (74-106) H 07/04/24 11:15 TSH 3.970 uIU/mL (0.358-3.740) H 07/02/24 07:55 COAG PT 12.7 SECONDS (11.7-14.9) 02/14/23 17:15 Urine Test Negative Negative 10/08/24 10:43 Pre-Assessment Diagnosis/Proposed Procedure Planned Operative Procedure(s): EGD Anesthesia History 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 When Was Last Pacemaker Check QUESTION #4 FULL TEXT: You/Your Family Experience fever (hyperthermia) with Anesthesia Last Oral Intake Last Oral intake: Last Oral Intake NPO since 00:00 10/08/24 11:00 Meds taken in AM with sips of No 10/08/24 11:00 water? 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 Female Yes 10/04/24 12:21 HX of Motion Sickness No 10/04/24 12:21 HX of N/V After Surgery No 10/04/24 12:21 Non-Smoker Yes 10/04/24 12:21 Duration of Surgery greater No 10/04/24 12:21 than 60 minutes Number of Risk Factors 2 10/04/24 12:21 PONV Score Moderate Risk 10/04/24 12:21 Height & Weight Height & Weight: Anesthesia: Height & Weight Height 5 ft 1 in 10/08/24 11:00 Weight: 79 kg 10/08/24 11:00 Body Mass Index (BMI) 32.9 10/08/24 11:00 Respiratory Assessment Respiratory Assessment - 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 Has anyone observed you stop No 10/04/24 12:21 breathing during sleep? STOP Results Negative 10/04/24 12:21 QUESTION #5 FULL TEXT : Do you snore loudly (louder than talking or can be heard through closed doors)? 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 Specify any problems Hx of Preganancy in last 3 No 10/04/24 12:21 Months Nurse Filling Out Transfusion VCHRISTIN 10/04/24 12:21 & Questions: Date: 10/04/24 10/04/24 12:21 Time: 12:22 10/04/24 12:21 Patient unable to answer at this time (ie. 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: /Reproductive Hx- tunneling machine operator Hx Now No 10/04/24 12:21 Gestational Age (in weeks): EDC: Hx Hx Para Hx Section SAB No 10/04/24 12:21 PFSH Medical History Loss of hearing Wears glasses Anxiety Diabetes Bladder disease High cholesterol Anemia History of ulceration GERD (gastroesophageal reflux disease) Non-smoker History of echocardiogram Cardiology follow-up encounter Neurogenic bladder Type 2 diabetes mellitus without complication Pulmonic stenosis Iron deficiency anemia VSD (ventricular septal defect) [place] syndrome Migraines Home Medications ?Medication ?Instructions ?Recorded ?Last Taken ?Type loratadine 10 mg tablet (Claritin) 10 mg PO DAILY PRN SEASONAL 02/14/23 02/14/23 History ALLERGIES metformin 500 mg tablet,extended 500 mg PO QHS diabetes 02/14/23 10/07/24 Hist ory release 24 hr atorvastatin 40 mg tablet 20 mg PO DAILY 07/01/24 10/07/24 History sumatriptan succinate 100 mg tablet See Rx Instructions PO .COMPLEX 07/15/24 Unknown History pantoprazole 40 mg tablet,delayed 40 mg PO BID 30 days #60 tabs 08/01/24 10/07/24 Rx release amitriptyline 50 mg tablet 50 mg PO QHS 10/04/24 10/07/24 History Allergy/AdvReac Type Severity Reaction Status Date / Time Sulfa (Sulfonamide AdvReac PT UNSURE Verified 10/08/24 10:59 Antibiotics) OF REACTION Family History Father Heart disease CVA (cerebral vascular accident) Hypertension Dementia Mother Diabetes Sister Diabetes Fibromyalgia Other Alzheimer's dementia Breast cancer Colon cancer Surgical History Hx of colonoscopy History of esophagogastroduodenoscopy (EGD) History of cardiac catheterization History of colonoscopy History of excision of pilonidal cyst (~2004) Social History household members: family housing: house pets and animals: Yes Smoking Status: Never smoker alcohol intake: never substance use type: does not use caffeine: Yes Review of Systems (Anesthesia) ROS Narrative System reviewed and no additional complaints, except as documented.
--- NOTE | 2024-10-08 12:00 | EGD_PTH ---
PATIENT: FRIDA LEBRON LOC: EN U#:[id number] AGE/SX: 44/F ROOM: RE10/08/[address]: Dr. Anthony Dolan DO : 1980 BED: DIS: 10/08/2024 SPEC #: [id number] RECD: 10/09/24 07:27 STATUS: CHAPARRITA JENNY #: [id number] FLAKITO: 10/08/24 12:[address]: Anthony Dolan DEPT: SURGICAL PATHOLOGY RECD BY: Lydia Wayne ENTERED: 10/09/24 11:23 SP TYPE: EGD BIOPSY OT DR: Dr. Marie Ritter MD Tissues: Gastric mucous membrane Procedures: Surgery Specimen Level IV HEADER OPERATION: EGD with biopsy PRE-OP DIAGNOSIS: Upper gastrointestinal bleed TISSUE SUBMITTED: Gastric antrum ulcer biopsy x2 MICROSCOPIC DIAGNOSIS Gastric antrum ulcer, biopsy: Fragments of gastric mucosa with ulceration, acute and chronic inflammation. See comment. SJ.mr 10/10/2024 COMMENT The results of immunohistochemistry for Helicobacter pylori will be reported separately ([id number]). MICROSCOPIC DESCRIPTION Slides are reviewed. GROSS DESCRIPTION Received in fixative is one container labeled with the patient's name and designated Gastric antrum ulcer biopsy x2. The specimen consists of multiple irregular fragments of light hair soft tissue that in aggregate measure 1.0 x 0.3 x 0.1 cm. The specimen is totally submitted in one cassette. 10/09/2024 TC:2 CPT:03952
--- NOTE | 2024-10-08 12:00 | IMM_PTH ---
PATIENT: FRIDA LEBRON LOC: EN U#:[id number] AGE/SX: 44/F ROOM: RE10/08/[address]: Dr. Anthony Dolan DO : 1980 BED: DIS: 10/08/2024 SPEC #: [id number] RECD: 10/09/24 11:25 STATUS: CHAPARRITA REQ #: [id number] FLAKITO: 10/08/24 12:[address]: Anthony Dolan DEPT: IMMUNOHISTOCHEMISTRY RECD BY: Lazarus King ENTERED: 10/09/24 11:25 SP TYPE: IMMUNO OTHR DR: Dr. Marie Ritter MD Tissues: A - Gastric mucous membrane Procedures: H Pylori (initial) PHYSICIAN & INSTITUTION [place] [id number] SPECIMEN INFORMATION: Tissue Source: Gastric antrum biopsy Clinical Info: Upper gastrointestinal bleed Specimen Number: [id number] CPT code: 21640 METHODOLOGY: Deparaffinized sections of prefer/formalin-fixed tissue or PAP/DQ stained slides are incubated with monoclonal/polyclonal antibodies/oligonucleotide probes. Localization is made via biotin free immunoperoxidase method. Appropriate controls are performed and reacted as expected. Results on target cell population are indicated in the following table: RESULTS: ANTIBODY / CLONE RESULT H Pylori (polyclonal) negative These tests were developed and their performance characteristics determined by [facility]. They may not have been cleared or approved by the U.[place]. Food and Drug Administration. The FDA has determined that such clearance or approval is not necessary. The above immunohistochemical/dualISH markers are ordered and reviewed by the Pathologist. INTERPRETATION: Gastric antrum, biopsy: Negative for Helicobacter pylori organisms. 10/10/2024
--- NOTE | 2024-10-08 12:13 | HP.PCM_ITS ---
HPI - General General Date of Admission: 10/08/24 Date of Service: 10/08/24 Chief Complaint: Gastric ulcer surveillance HPI Narrative FRIDA LEBRON, is a 44 F who presents to the office today for f/u *[facility] established 02.14.23-02.16.23 for management of GIB with ABLA and chronic DMII?EGD and colonoscopy 02.16.23?EGD one oozing cratered gastric ulcer, heater probe; duodenitis.? Colonoscopy poor prep; two sessile hyperplastic polyps? OV 04.07.23 as f/u ?Biochemical 04.07.23?CBC (hgb12.3), iron, TIBC, ferritin?EGD and Colonoscopy 08.07.23?EGD irregular Zline; one non- bleeding cratered gastric ulcer, 8mm. HPylori and metaplasia neg? Colonoscopy diverticulosis; 5mm rectal hyperplastic polyp, 15mm descending TA polyp.? ?OV 10.2623 Pt continues to have HB. Is very diligent with her diet. Takes Pantoprazole 40mg QD. Bowels are normal now. Was having constipation previously. No dark or bloddy stools. OV 02.16.24 Pt reports that she is doing well and has minimal symptoms to report. Pt states that she has occasionally heartburn if she's been running around doing a lot of things. Pt reports that she continues Pantoprazole 40mg. Pt states that she has at least 1 formed bm per day with no blood in the stool. OV 07.15.24 Pt was hospitalized in early June 2024 for bleeding gastric ulcer. She underwent EGD with Dr. Dolan. Since her discharge she has been doing well. She has some weakness and lightheadedness. She denies abdominal; pain, n/v, constipation, diarrhea or melena. She continues to take pantoprazole 40 mg BID and sucralfate. EGD 07.02.24 Normal esophagus. - Spurting gastric ulcers with a visible vessel. Treated with a monopolar probe. - A single bleeding angiodysplastic lesion in the stomach. Treated with a heater probe. - No gross lesions in the first portion of the duodenum. - No specimens collected. [facility] Medical History Loss of hearing Wears glasses Anxiety Diabetes Bladder disease High cholesterol Anemia History of ulceration GERD (gastroesophageal reflux disease) Non-smoker History of echocardiogram Cardiology follow-up encounter Neurogenic bladder Type 2 diabetes mellitus without complication Pulmonic stenosis Iron deficiency anemia VSD (ventricular septal defect) [place] syndrome Migraines Home Medications ?Medication ?Instructions ?Recorded ?Last Taken ?Type loratadine 10 mg tablet (Claritin) 10 mg PO DAILY PRN SEASONAL 02/14/23 02/14/23 History ALLERGIES metformin 500 mg tablet,extended 500 mg PO QHS diabetes 02/14/23 10/07/24 History release 24 hr atorvastatin 40 mg tablet 20 mg PO DAILY 07/01/24 10/07/24 History sumatriptan succinate 100 mg tablet See Rx Instructions PO .COMPLEX 07/15/24 Unknown History pantoprazole 40 mg tablet,delayed 40 mg PO BID 30 days #60 tabs 08/01/24 10/07/24 Rx release amitriptyline 50 mg tablet 50 mg PO QHS 10/04/24 10/07/24 History Allergy/AdvReac Type Severity Reaction Status Date / Time Sulfa (Sulfonamide AdvReac PT UNSURE Verified 10/08/24 10:59 Antibiotics) OF REACTION Family History Father Heart disease CVA (cerebral vascular accident) Hypertension Dementia Mother Diabetes Sister Diabetes Fibromyalgia Other Alzheimer's dementia Breast cancer Colon cancer Surgical History Hx of colonoscopy History of esophagogastroduodenoscopy (EGD) History of cardiac catheterization History of colonoscopy History of excision of pilonidal cyst (~2004) Social History household members: family housing: house pets and animals: Yes Smoking Status: Never smoker alcohol intake: never substance use type: does not use caffeine: Yes Vital Signs Vital Signs Vital Signs: 10/08/24 11:00 10/08/24 11:00 10/08/24 11:23 Temperature 97.6 F L 97.6 F L Temperature Source Temporal Pulse Rate 85 85 Respiratory Rate 16 16 Respiratory Pattern Normal Blood Pressure 130/75 H 130/75 H Blood Pressure Mean 93 Blood Pressure Source Monitor Blood Pressure Position Semi-Fowlers Blood Pressure Location Right Arm Pulse Ox 98 98 Oxygen Delivery Method Room Air Room Air Weight Weight: 174 lb 2.643 oz Body Mass Index (BMI) 32.9 Physical Exam Narrative General: Alert, no apparent distress HEENT: Atraumatic, normocephalic Eyes: Anicteric, normal conjunctiva, extraocular movements grossly intact Neck: Supple Respiratory: Clear to auscultation bilaterally, normal respiratory effort Cardiovascular: Regular rate and rhythm GI: Soft, nontender, nondistended Extremities: No edema Musculoskeletal: Moving all extremities Neuro: No overt focal neurological deficits Skin: No rashes appreciated Psych: Cooperative Results Lab / Micro Data Labs: Laboratory Results - last 24 hr 10/08/24 10:43: Urine Test Negative Assessment & Plan Assessment/Plan (1) Upper gastrointestinal bleed: PLAN: Plan Recurrent upper GI bleed secondary to peptic ulcers -Recent GI bleed due to peptic ulcer disease 01/2023 -Representing with dark stools identical to previous GI bleed -Has not been taking Protonix or Carafate -Hemoglobin initially 10.3 which down trended to 9.4 and subsequently 7.7 and an elevated BUN suggestive of upper GI bleed -N.p.o. Patient had endoscopy 07/02 which demonstrated spurting gastric ulcers with visible vessel treated with monopolar probe and an angiodysplastic lesion treated with heater probe. Patient kept on Protonix drip for 24 hours and full liquids day of procedure, diet advanced today as tolerated in Protonix switched to 40 mg p.o. twice daily. Carafate 1 g 4 times daily ordered as well. She went to have repeat upper endoscopy today. This is for surveillance of her gastric ulcers. She was explained alternatives, risk and benefits include understanding bleeding, infection, sepsis, perforation, need for charge and . She will have an ASA of 3.
[2024-10-08 12:35] LABS: Bedside Glucose 127 mg/dL (74-106)
--- NOTE | 2024-10-08 12:38 | OP.EGD_ITS ---
Patient Name: Sophia Wolfe Procedure Date: 10/08/2024 12:20 PM Date of : 1980 Age: 44 Procedure: Upper GI endoscopy Indications: Peptic ulcer Providers: Anthony Dolan DO Referring MD: Marie Ritter Medicines: Monitored Anesthesia Care Patient Profile: This is a 44 year old female. Refer to note in patient chart for documentation of history and physical. Patient has symptoms. Her most recent EGD for biopsy and EGD for treatment of bleeding was within the past three months. Complications: No immediate complications. Procedure: Pre-Anesthesia Assessment: - Prior to the procedure, a History and Physical was performed, and patient medications and allergies were reviewed. The patient is competent. The risks and benefits of the procedure and the sedation options and risks were discussed with the patient. All questions were answered and informed consent was obtained. Patient identification and proposed procedure were verified by the physician in the pre-procedure area. Mental Status Examination: alert and oriented. Airway Examination: normal oropharyngeal airway and neck mobility. Respiratory Examination: clear to auscultation. CV Examination: normal. Prophylactic Antibiotics: The patient does not require prophylactic antibiotics. Prior Anticoagulants: The patient has taken no anticoagulant or antiplatelet agents except for NSAID medication. ASA Grade Assessment: II - A patient with mild systemic disease. After reviewing the risks and benefits, the patient was deemed in satisfactory condition to undergo the procedure. The anesthesia plan was to use monitored anesthesia care (MAC). Immediately prior to administration of medications, the patient was re-assessed for adequacy to receive sedatives. The heart rate, respiratory rate, oxygen saturations, blood pressure, adequacy of pulmonary ventilation, and response to care were monitored throughout the procedure. The physical status of the patient was re-assessed after the procedure. After obtaining informed consent, the endoscope was passed under direct vision. Throughout the procedure, the patient's blood pressure, pulse, and oxygen saturations were monitored continuously. The Endoscope was introduced through the mouth, and advanced to the second part of duodenum. The upper GI endoscopy was accomplished without difficulty. The patient tolerated the procedure well. Scope In: 12:30:52 PM Scope Out: 12:34:59 PM Total Procedure Duration Time 0 hours 4 minutes 7 seconds Findings: The examined esophagus was normal. One non-bleeding cratered gastric ulcer with no stigmata of bleeding was found in the gastric antrum. The lesion was 9 mm in largest dimension. Biopsies were taken with a cold forceps for histology. Biopsies were taken with a cold forceps for histology. Verification of patient identification for the specimen was done. Estimated blood loss was minimal. No gross lesions were noted in the first portion of the duodenum. Impression: - Normal esophagus. - Non-bleeding gastric ulcer with no stigmata of bleeding. Biopsied. - No gross lesions in the first portion of the duodenum. Recommendation: - Discharge patient to home. - Resume previous diet. - Continue present medications. - Await pathology results. Procedure Code(s): --- Professional --- 99144, Esophagogastroduodenoscopy, flexible, transoral; with biopsy, single or multiple CPT copyright 2021 [employer] [place] [employer]. All rights reserved. The codes documented in this report are preliminary and upon computer networking instructor review may be revised to meet current compliance requirements. Anthony Dolan DO 10/08/2024 12:38:13 PM This report has been signed electronically. Number of Addenda: 0 Note Initiated On: 10/08/2024 12:20 PM
--- NOTE | 2024-10-08 12:39 | OP.CCLET_ITS ---
10/08/2024 Marie Ritter Re : Upper GI endoscopy procedure for Sophia Wolfe Dear Stone This procedure was performed on Tuesday, October 08, 2024. My impressions and recommendations are as follows: Impressions : - Normal esophagus. - Non-bleeding gastric ulcer with no stigmata of bleeding. Biopsied. - No gross lesions in the first portion of the duodenum. Recommendations : - Discharge patient to home. - Resume previous diet. - Continue present medications. - Await pathology results. My findings are described in the full procedure note, which is enclosed. If I can be of further assistance, please feel free to contact me at . Sincerely, Anthony Dolan, 10/08/2024 12:38:13 PM This report has been signed electronically.
--- NOTE | 2024-10-08 12:44 | PCM.POST.ANE ---
Anesthesia: Postop Eval I Current Vital Signs Temperature: 97.7 F Pulse Rate: 72 Blood Pressure: 120/77 Respiratory Rate: 16 Pulse Ox: 97 Oxygen Delivery Method: Room Air Assessment Airway patent: Yes Spontaneous unlabored respirations: Yes Mental status: Awake and Calm nausea: No Vomiting: No Anesthesia Complication: No Fluid Hydration Crystalloid volume administer (ml): 30 Total IV fluid infused: 30 Progress Note Anesthesia document: Postop Eval 1 completed: Yes
--- NOTE | 2024-10-08 12:46 | PCM.POSTANE2 ---
Anesthesia Postop Eval I Sum Postop Eval Completion status Anesthesia document: Postop Eval 1 completed: Yes Anesthesia Postop Eval I Summary Anesthesia Postop Eval I Summary: Anesthesia Postop Eval I: Assessment Summary Airway patent Yes 10/08/24 12:44 [email or web address] Spontaneous unlabored Yes 10/08/24 12:44 [email or web address] respirations Mental status Awake,Calm 10/08/24 12:44 [email or web address] nausea No 10/08/24 12:44 [email or web address] Vomiting No 10/08/24 12:44 [email or web address] Anesthesia Postop Eval I: Fluid Summary Crystalloid volume administer 30 10/08/24 12:44 [email or web address] (ml) Colloids volume administered ( ml) Blood Product volume administered (ml) Total IV fluid infused 30 10/08/24 12:44 [email or web address] Anesthesia Postop Eval I: Summary Notes Anesthesia Complication No 10/08/24 12:44 [email or web address] Anesthesia Complication Comment: Post-operative progress note Anesthesia: Postop Eval II Evaluation Mental status: Awake Pain Level: 0 nausea: No Vomiting: No
== END 2024-10-08 13:15 | disposition home or self-care (01) ==
LOC: EN 10:33 → AC 11:08
PROVIDERS: Anesthesiology; PCP Internal Medicine; Referring Provider Internal Medicine; Visit Provider Internal Medicine Gastroenterology
PROC: 0DJ08ZZ Inspection of Upper Intestinal Tract, Via Natural or Artificial Opening Endoscopic (ICD-10-PCS; CPT 43235; principal; 2024-10-08 11:55)
DX: K29.50 Unspecified chronic gastritis without bleeding (principal); E11.9 Type 2 diabetes mellitus without complications; E78.00 Pure hypercholesterolemia, unspecified; K21.9 Gastro-esophageal reflux disease without esophagitis; Z79.84 Long term (current) use of oral hypoglycemic drugs; Z79.899 Other long term (current) drug therapy; K25.9 Gastric ulcer, unspecified as acute or chronic, without hemorrhage or perforation
CPT/HCPCS: 43239; 81025; 82962; 88305; 88342; A4216; J2405

== ENCOUNTER → 2024-12-02 | Outpatient (CLI) | payer MEDICARE, OTHER, SELFPAY ==
[2024-12-02 07:47] LABS: Absolute Lymphocyte Count 2.05 X10^3/uL (0.83-4.51); Absolute Neutrophil Count 6.2 X10^3/uL (2.0-7.7); Basophil# 0.03 X10^3/uL; Basophil% 0.3 % (0-1); Eosinophil# 0.15 X10^3/uL; Eosinophils% 1.6 % (0-5); Hematocrit 39.1 % (37-47); Hemoglobin 12.3 g/dL (12.0-15.0); Lymphocyte # 2.05 X10^3/ul (0.83-4.51); Lymphocyte % 22.5 % (19-41); Mean Corp Hgb Conc 31.5 g/dL (32-36); Mean Corpuscular Hgb 28.1 pg (27.0-32.0); Mean Corpuscular Volume 89.3 fL (81-99); Mean Platelet Vol. 11.3 fl (6.2-12.0); Monocyte% 7.7 % (0-10); NRBC Flagged by Analyzer 0 % (0-5); Neutrophil # 6.16 X10^3/uL (2.7-7.7); Neutrophil % 67.7 % (47-70); Platelet Count 302 K/mm3 (150-450); RBC Distribution Width CV 15.9 % (11.6-14.6); RBC Distribution Width SD 52.3 fl (35.1-43.9); Red Blood Count 4.38 M/mm3 (4.2-5.4); White Blood Count 9.1 K/mm3 (4.4-11.0)
[2024-12-02 08:20] LABS: ALB/GLOB Ratio 0.8 RATIO (0.9-2.4); AST(SGOT) 17 U/L (15-37); Alanine Aminotransfer ALT/SGPT 31 U/L (13-56); Albumin, Serum 3.5 g/dL (3.2-5.0); Alkaline Phosphatase 84 U/L (45-117); Anion Gap 6 (5-15); BUN 23 mg/dL (7-18); Calcium,Total 9.4 mg/dL (8.5-10.1); Chloride 104 mmol/L (98-107); Cholesterol 111 mg/dL (200); Creatinine, Serum 0.92 mg/dL (0.55-1.02); EST Glomerular Filtration Rate 70 mL/min (>60); Est Glom Filt Rate - Afr Amer 84 mL/min (>60); Ferritin 18 ng/mL (8-252); Globulin 4.2 g/dL (2.2-4.2); Glucose 144 mg/dL (74-106); High Density Lipoprotein 45 mg/dL; Iron 52 ug/dL (50-170); Iron Binding Capacity,Total 264 ug/dL (250-450); PERCENT IRON SATURATION 19.7 % (15.0-55.0); Potassium 4.3 mmol/L (3.5-5.1); Protein, Total 7.7 g/dL (6.4-8.2); Sodium Level 139 mmol/L (136-145); Triglycerides 144 mg/dL; Very Low Density Lipoprotein 29 mg/dL (5-40)
[2024-12-02 09:54] LABS: Hemoglobin A1c 6.7 % (3.8-5.6)
== END | disposition home or self-care (01) ==
PROVIDERS: PCP Internal Medicine; Referring Provider Internal Medicine; Visit Provider Internal Medicine
DX: D50.9 Iron deficiency anemia, unspecified (principal); E11.9 Type 2 diabetes mellitus without complications; E78.00 Pure hypercholesterolemia, unspecified
CPT/HCPCS: 36415; 80053; 80061; 82728; 83036; 83540; 83550; 85025

== ENCOUNTER → 2024-12-04 | Outpatient (CLI) | payer MEDICARE, OTHER, SELFPAY ==
[2024-12-04 14:28] LABS: Microalbumin,Random Urine 17.5 mg/L (NO RANGE EST.); Microalbumin:Creatinine Ratio 12.8 mg/g CRE (<30 mg/g CRE)
== END | disposition home or self-care (01) ==
LOC: LAB 10:43
PROVIDERS: PCP Internal Medicine; Referring Provider Internal Medicine; Visit Provider Internal Medicine
DX: D50.9 Iron deficiency anemia, unspecified (principal); E11.9 Type 2 diabetes mellitus without complications; E78.00 Pure hypercholesterolemia, unspecified
CPT/HCPCS: 82043; 82570

== ENCOUNTER → 2024-12-13 | Outpatient (CLI) | payer MEDICARE, OTHER, SELFPAY ==
--- NOTE | 2024-12-13 10:23 | RAD_ITS ---
PROCEDURE: Lumbar spine radiographs REASON FOR EXAM: Pain, radiculopathy TECHNIQUE: 6 views of the lumbar spine COMPARISON: None. FINDINGS: See impression RAD/L/S Spine Comp/w Bending Views IMPRESSION: Vertebral body heights are within normal limits. Trace retrolisthesis of L1-2 and L4-5. Trace anterolisthesis of L5-S1. No gross pars defects. Moderate disc space narrowing at L1-2. Mild disc space na rrowing elsewhere. Negative for abnormal motion. Sacroiliac joints are intact. Reading Location: [facility]
== END | disposition home or self-care (01) ==
LOC: RAD 10:15
PROVIDERS: PCP Internal Medicine; Referring Provider Anesthesiology Pain Medicine; Visit Provider Anesthesiology Pain Medicine
DX: M54.17 Radiculopathy, lumbosacral region (principal)
CPT/HCPCS: 72114

== ENCOUNTER 2025-01-21 11:51 | Day surgery (SDC) | payer MEDICARE, OTHER, SELFPAY ==
--- NOTE | 2025-01-15 15:20 | PAT.ANESEVAL ---
Pre-Assessment Diagnosis/Proposed Procedure Planned Operative Procedure(s): EGD Anesthesia History Anesthesia History - solution designer: Anesthesia History - solution designer Hx Hospitalization Yes: 07/02/2024 - [facility] 01/15/25 14:45 Any Problems With Anesthesia No 01/15/25 14:45 Cholinesterase deficiency No 01/15/25 14:45 You/Your Family Experience No 01/15/25 14:45 fever (hyperthermia) with Relationship Recent Exposure to Contagious No 10/08/24 11:00 Disease Does patient have nerve No 01/15/25 14:45 stimulator Patient instructed to have device shut off --Does patient have Pacemaker or ICD? When Was Last Pacemaker Check QUESTION #4 FULL TEXT: You/Your Family Experience fever (hyperthermia) with Anesthesia Last Oral Intake Last Oral intake: Last Oral Intake NPO since Meds taken in AM with sips of water? 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 - solution designer: PONV - solution designer Female Yes 01/15/25 14:45 HX of Motion Sickness No 01/15/25 14:45 HX of N/V After Surgery No 01/15/25 14:45 Non-Smoker Yes 01/15/25 14:45 Duration of Surgery greater No 01/15/25 14:45 than 60 minutes Number of Risk Factors 2 01/15/25 14:45 PONV Score Moderate Risk 01/15/25 14:45 Height & Weight Height & Weight: Anesthesia: Height & Weight Height 5 ft 1 in 10/08/24 11:00 Respiratory Assessment Respiratory Assessment - solution designer: Respiratory Tract Infection Hx - solution designer Hx Respiratory Tract Infection No 01/15/25 14:45 STOP Sleep Apnea STOP Sleep Apnea - solution designer: STOP Sleep Apnea - solution designer Hx Hypertension No 01/15/25 14:45 Hx Sleep Apnea No 01/15/25 14:45 CPAP BIPAP Do you snore loudly (louder No 01/15/25 14:45 than talking or can be heard Do you often feel tired/ No 01/15/25 14:45 fatigued/ sleepy during daytime? Has anyone observed you stop No 01/15/25 14:45 breathing during sleep? STOP Results Negative 01/15/25 14:45 QUESTION #5 FULL TEXT : Do you snore loudly (louder than talking or can be heard through closed doors)? Tobacco Use History Tobacco Use History - solution designer: Tobacco Use History - solution designer Tobacco Use Smoking Status Never smoker 01/15/25 14:45 Hx Tobacco Use No 01/15/25 14:45 Years Smoking Packs Smoked per Day Smoking Cessation Date was within the last 15 years Hx Smoking Cessation Date Hx Smoking Cessation Counseling Hematologic Medial History Hematologic Hx - solution designer: Hematologic Medical Hx - nutritional services host Hx of Blood Transfusion Yes 01/15/25 14:45 Hx of Transfusion in last 3 No 01/15/25 14:45 Months Date of Last Transfusion (if within last 3 months) Ever experience any problems No 01/15/25 14:45 with transfusion(s)? Specify any problems Hx of Preganancy in last 3 N/A 01/15/25 14:45 Months Nurse Filling Out Transfusion NBUCHER 01/15/25 14:45 & Questions: Date: 01/15/25 01/15/25 14:45 Time: 14:46 01/15/25 14:45 Patient unable to answer at this time (ie. 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 - solution designer: /Reproductive Hx- solution designer Hx Now Gestational Age (in weeks): EDC: Hx Hx Para Hx Section SAB No 01/15/25 14:45 PFSH Medical History Loss of hearing Wears glasses Anxiety Diabetes Bladder disease High cholesterol Anemia History of ulceration GERD (gastroesophageal reflux disease) Non-smoker History of echocardiogram Cardiology follow-up encounter Neurogenic bladder Type 2 diabetes mellitus without complication Pulmonic stenosis Iron deficiency anemia VSD (ventricular septal defect) [place] syndrome Migraines Home Medications ?Medication ?Instructions ?Recorded ?Last Taken ?Type loratadine 10 mg tablet (Claritin) 10 mg PO DAILY PRN SEASONAL 02/14/23 02/14/23 History ALLERGIES metformin 500 mg tablet,extended 500 mg PO QHS diabetes 02/14/23 10/07/24 History release 24 hr atorvastatin 40 mg tablet 20 mg PO DAILY 07/01/24 10/07/24 History sumatriptan succinate 100 mg tablet See Rx Instructions PO .COMPLEX 07/15/24 Unknown History pantoprazole 40 mg tablet,delayed 40 mg PO BID 30 days #60 tabs 08/01/24 10/07/24 Rx release amitriptyline 50 mg tablet 50 mg PO QHS 10/04/24 10/07/24 History Allergy/AdvReac Type Severity Reaction Status Date / Time Sulfa (Sulfonamide AdvReac PT UNSURE Verified 01/15/25 14:43 Antibiotics) OF REACTION Family History Father Heart disease CVA (cerebral vascular accident) Hypertension Dementia Mother Diabetes Sister Diabetes Fibromyalgia Other Alzheimer's dementia Breast cancer Colon cancer Surgical History Hx of colonoscopy History of esophagogastroduodenoscopy (EGD) History of cardiac catheterization History of colonoscopy History of excision of pilonidal cyst (~2004) Social History household members: family housing: house pets and animals: Yes Smoking Status: Never smoker alcohol intake: never substance use type: does not use caffeine: Yes Audit: Pertinent Findings Pertinent Findings EKG Perinent findings: 07/01/2024. Normal sinus rhythm [address] and T wave abnormality, consider inferior ischemia Echo (EF%) pertinent findings: 05/13/2024. EF 55%. Small VSD with pressure gradient of 80 to 85 mmHg. Left to right shunt Consult pertinent findings: Cardiology 04/16/2024. VSD. Continue current medical therapy. Pulmonic stenosis. Mild pulmonic valve regurgitation. Recommendation Anesthesia Recommendation Anesthesia recommendation: OPTIMIZED for anesthesia
[2025-01-21 12:28] VITALS: BP 131/62; PULSE 85; RESP 18; TEMP 37.1; O2SAT 99; BMI 33.9
[2025-01-21 12:42] LABS: Internal QC Validated? YES +Cl - CLEAR BKGD; Pregnancy, Urine Negative Negative; Record Kit Lot#,Urine Preg 899023
--- NOTE | 2025-01-21 12:59 | PRE.ANES_ITS ---
ASA Classification* ASA Classification ASA Classification: 2 Assessment & Plan Anesthesia* Anesthesia Assessment Anesthesia Assessment: Discussed sedation and/or anesthesia options, risks, benefits, and alternatives with patient/parents/legal guardian/POA. Questions invited. The patient/parents/legal guardian/POA seems to understand and agrees to proceed with anesthesia plan. Reviewed the physical assessment, medical history, allergy history and patient home medications list prior to surgery/procedure/anesthetic and documented any changes. Performed airway and anesthesia risk assessments. Anesthesia Type Anesthesia Type: MAC History Source History Obtained from:: Patient and Chart Anesthesia Focused Assessment* Temperature: 98.8 F Pulse Rate: 85 Blood Pressure: 131/62 Respiratory Rate: 18 Pulse Ox: 99 Oxygen Delivery Method: Room Air Airway Assessment Mouth opens: 2 cm Mallampati Score: IV Teeth Condition: Intact Neck Range of motion (ROM): Limited ROM (Slight decrease in extension) Focused Labs Anesthesia Preop lab: CBC WBC 9.1 K/mm3 (4.4-11.0) 12/02/24 07:15 12/02/24 RBC 4.38 M/mm3 (4.2-5.4) 12/02/24 07:15 12/02/24 Hgb 12.3 g/dL (12.0-15.0) 12/02/24 07:15 12/02/24 Hct 39.1 % (37-47) 12/02/24 07:15 12/02/24 Plt Count 302 K/mm3 (150-450) 12/02/24 07:15 12/02/24 CHEMISTRY Potassium 4.3 mmol/L (3.5-5.1) 12/02/24 07:15 12/02/24 Sodium 139 mmol/L (136-145) 12/02/24 07:15 12/02/24 Magnesium 2.4 mg/dL (1.6-2.6) 07/03/24 06:31 07/03/24 Phosphorus 2.3 mg/dL (2.5-4.9) L 07/03/24 06:31 07/03/24 BUN 23 mg/dL (7-18) H 12/02/24 07:15 12/02/24 Creatinine 0.92 mg/dL (0.55-1.02) 12/02/24 07:15 12/02/24 Glucose 144 mg/dL (74-106) H 12/02/24 07:15 12/02/24 POC Glucose 95 mg/dL (74-106) 01/21/25 12:32 01/21/25 TSH 3.970 uIU/mL (0.358-3.740) H 07/02/24 07:55 COAG PT 12.7 SECONDS (11.7-14.9) 02/14/23 17:15 Urine Test Negative Negative 01/21/25 12:10 01/21/25 Pre-Assessment Diagnosis/Proposed Procedure Planned Operative Procedure(s): EGD Anesthesia History 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 When Was Last Pacemaker Check QUESTION #4 FULL TEXT: You/Your Family Experience fever (hyperthermia) with Anesthesia Last Oral Intake Last Oral intake: Last Oral Intake NPO since 21:00 01/21/25 12:28 Meds taken in AM with sips of Yes 01/21/25 12:28 water? 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 - electrical hardware engineer: PONV - electrical hardware engineer Female Yes 01/15/25 14:45 HX of Motion Sickness No 01/15/25 14:45 HX of N/V After Surgery No 01/15/25 14:45 Non-Smoker Yes 01/15/25 14:45 Duration of Surgery greater No 01/15/25 14:45 than 60 minutes Number of Risk Factors 2 01/15/25 14:45 PONV Score Moderate Risk 01/15/25 14:45 Height & Weight Height & Weight: Anesthesia: Height & Weight Height 5 ft 1 in 01/21/25 12:28 Weight: 81.374 kg 01/21/25 12:28 Body Mass Index (BMI) 33.9 01/21/25 12:28 Respiratory Assessment Respiratory Assessment - electrical hardware engineer: Respiratory Tract Infection Hx - electrical hardware engineer Hx Respiratory Tract Infection No 01/15/25 14:45 Any additional information?: Yes Hx Respiratory Tract Infection: Yes (Patient had a head cold 2 to 3 weeks ago. Still has some residual today) STOP Sleep Apnea STOP Sleep Apnea - electrical hardware engineer: STOP Sleep Apnea - electrical hardware engineer Hx Hypertension No 01/15/25 14:45 Hx Sleep Apnea No 01/15/25 14:45 CPAP BIPAP Do you snore loudly (louder No 01/15/25 14:45 than talking or can be heard Do you often feel tired/ No 01/15/25 14:45 fatigued/ sleepy during daytime? Has anyone observed you stop No 01/15/25 14:45 breathing during sleep? STOP Results Negative 01/15/25 14:45 QUESTION #5 FULL TEXT : Do you snore loudly (louder than talking or can be heard through closed doors)? 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 Specify any problems Hx of Preganancy in last 3 N/A 01/15/25 14:45 Months Nurse Filling Out Transfusion NBUCHER 01/15/25 14:45 & Questions: Date: 01/15/25 01/15/25 14:45 Time: 14:46 01/15/25 14:45 Patient unable to answer at this time (ie. 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 - electrical hardware engineer: /Reproductive Hx- electrical hardware engineer Hx Now Gestational Age (in weeks): EDC: Hx Hx Para Hx Section SAB No 01/15/25 14:45 PFSH Medical History Loss of hearing Wears glasses Anxiety Diabetes Bladder disease High cholesterol Anemia History of ulceration GERD (gastroesophageal reflux disease) Non-smoker History of echocardiogram Cardiology follow-up encounter Neurogenic bladder Type 2 diabetes mellitus without complication Pulmonic stenosis Iron deficiency anemia VSD (ventricular septal defect) Georges syndrome Migraines Home Medications ?Medication ?Instructions ?Recorded ?Last Taken ?Type loratadine 10 mg tablet (Claritin) 10 mg PO DAILY PRN SEASONAL 02/14/23 01/20/25 History ALLERGIES metformin 500 mg tablet,extended 500 mg PO QHS diabete s 02/14/23 01/19/25 History release 24 hr atorvastatin 40 mg tablet 20 mg PO DAILY 07/01/2412/23 History sumatriptan succinate 100 mg tablet See Rx Instruction s PO .COMPLEX 07/15/24 01/19/25 History pantoprazole 40 mg tablet,delayed 40 mg PO BID 30 days #60 tabs 08/01/24 01/21/25 07:00 Rx release amitriptyline 50 mg tablet 50 mg PO QHS 10/04/2401/19 History Allergy/AdvReac Type Severity Reaction Status Date / Time Sulfa (Sulfonamide AdvReac PT UNSURE Verified 01/21/25 12:23 Antibiotics) OF REACTION Family History Father Heart disease CVA (cerebral vascular accident) Hypertension Dementia Mother Diabetes Sister Diabetes Fibromyalgia Other Alzheimer's dementia Breast cancer Colon cancer Surgical History Hx of colonoscopy History of esophagogastroduodenoscopy (EGD) History of cardiac catheterization History of colonoscopy History of excision of pilonidal cyst (~2004) Social History household members: family housing: house pets and animals: Yes Smoking Status: Never smoker alcohol intake: never substance use type: does not use caffeine: Yes Review of Systems (Anesthesia) ROS Narrative System reviewed and no additional complaints, except as documented.
[2025-01-21 13:06] VITALS: BP 131/62; PULSE 85; RESP 18; TEMP 37.1; O2SAT 99
--- NOTE | 2025-01-21 13:15 | COLBX_PTH ---
PATIENT: FRIDA LEBRON LOC: EN U#:[id number] AGE/SX: 44/F ROOM: RE01/21/[address]: Dr. Anthony Dolan DO : 1980 BED: DIS: 01/21/2025 SPEC #: [id number] RECD: 01/22/25 11:00 STATUS: CHAPARRITA JENNY #: [id number] FLAKITO: 01/21/25 13:[address]: Anthony Dolan DEPT: SURGICAL PATHOLOGY RECD BY: Lazarus King ENTERED: 01/22/25 11:00 SP TYPE: COLON BX OTHR DR: Dr. Marie Ritter MD Tissues: A - Gastric mucous membrane Procedures: Immunohistochemical Stains Surgery Specimen Level IV HEADER OPERATION: EGD, biopsy PRE-OP DIAGNOSIS: Anemia, history of peptic ulcer disease TISSUE SUBMITTED: A- Gastric ulcer biopsy MICROSCOPIC DIAGNOSIS A. Stomach, Gastric Ulcer, Biopsy: - Active chronic gastritis with reactive/reparative change. - IHC is negative for H pylori organisms. MICROSCOPIC DESCRIPTION Slides are reviewed. These tests were developed and their performance characteristics determined by [facility]. They may not have been cleared or approved by the U.S. Food and Drug Administration. The FDA has determined that such clearance or approval is not necessary. The above immunohistochemical/dualISH markers are ordered and reviewed by the Pathologist. GROSS DESCRIPTION A. Received in formalin in a container labeled with the patient's name, date of , and gastric ulcer biopsy are multiple hair-pink and friable fragments of mucosal tissue measuring 0.7 x 0.6 x 0.3 cm in aggregate. Submitted in toto in A1. SB 01/22/2025 CPT:17241, 12511
--- NOTE | 2025-01-21 13:25 | HP.PCM_ITS ---
HPI - General General Date of Admission: 01/21/25 Date of Service: 01/21/25 Chief Complaint: Gastric ulcer HPI Narrative FRIDA LEBRON, is a 44 F who presents surviallence of gastric ulcer *BGI established 02.14.23-02.16.23 for management of GIB with ABLA and chronic DMII?EGD and colonoscopy 02.16.23?EGD one oozing cratered gastric ulcer, heater probe; duodenitis.? Colonoscopy poor prep; two sessile hyperplastic polyps? OV 04.07.23 as f/u ?Biochemical 04.07.23?CBC (hgb12.3), iron, TIBC, ferritin?EGD and Colonoscopy 08.07.23?EGD irregular Zline; one non- bleeding cratered gastric ulcer, 8mm. HPylori and metaplasia neg? Colonoscopy diverticulosis; 5mm rectal hyperplastic polyp, 15mm descending TA polyp.? ?OV 10.2623 Pt continues to have HB. Is very diligent with her diet. Takes Pantoprazole 40mg QD. Bowels are normal now. Was having constipation previously. No dark or bloddy stools. OV 02.16.24 Pt reports that she is doing well and has minimal symptoms to report. Pt states that she has occasionally heartburn if she's been running around doing a lot of things. Pt reports that she continues Pantoprazole 40mg. Pt states that she has at least 1 formed bm per day with no blood in the stool. OV 07.15.24 Pt was hospitalized in early June 2024 for bleeding gastric ulcer. She underwent EGD with Dr. Dolan. Since her discharge she has been doing well. She has some weakness and lightheadedness. She denies abdominal; pain, n/v, constipation, diarrhea or melena. She continues to take pantoprazole 40 mg BID and sucralfate. EGD 07.02.24 Normal esophagus. - Spurting gastric ulcers with a visible vessel. Treated with a monopolar probe. - A single bleeding angiodysplastic lesion in the stomach. Treated with a heater probe. - No gross lesions in the first portion of the duodenum. - No specimens collected. [facility] Medical History Loss of hearing Wears glasses Anxiety Diabetes Bladder disease High cholesterol Anemia History of ulceration GERD (gastroesophageal reflux disease) Non-smoker History of echocardiogram Cardiology follow-up encounter Neurogenic bladder Type 2 diabetes mellitus without complication Pulmonic stenosis Iron deficiency anemia VSD (ventricular septal defect) Georges syndrome Migraines Home Medications ?Medication ?Instructions ?Recorded ?Last Taken ?Type loratadine 10 mg tablet (Claritin) 10 mg PO DAILY PRN SEASONAL 02/14/23 01/20/25 History ALLERGIES metformin 500 mg tablet,extended 500 mg PO QHS diabete s 02/14/23 01/19/25 History release 24 hr atorvastatin 40 mg tablet 20 mg PO DAILY 07/01/2412/23 History sumatriptan succinate 100 mg tablet See Rx Instruction s PO .COMPLEX 07/15/24 01/19/25 History pantoprazole 40 mg tablet,delayed 40 mg PO BID 30 days #60 tabs 08/01/24 01/21/25 07:00 Rx release amitriptyline 50 mg tablet 50 mg PO QHS 10/04/2401/19 History Allergy/AdvReac Type Severity Reaction Status Date / Time Sulfa (Sulfonamide AdvReac PT UNSURE Verified 01/21/25 12:23 Antibiotics) OF REACTION Family History Father Heart disease CVA (cerebral vascular accident) Hypertension Dementia Mother Diabetes Sister Diabetes Fibromyalgia Other Alzheimer's dementia Breast cancer Colon cancer Surgical History Hx of colonoscopy History of esophagogastroduodenoscopy (EGD) History of cardiac catheterization History of colonoscopy History of excision of pilonidal cyst (~2004) Social History household members: family housing: house pets and animals: Yes Smoking Status: Never smoker alcohol intake: never substance use type: does not use caffeine: Yes ROS Constitutional Constitutional: Denies fatigue, fever(s), poor appetite, weight gain or weight loss Gastrointestinal Gastrointestinal: Denies belching, bloating, change in bowel habits, change in stool character, chewing difficulty, coffee ground emesis, constipation, cramping, diarrhea, dyspepsia, dysphagia, early satiety, excessive flatus, fecal incontinence, heartburn, hematemesis, hematochezia, hemorrhoids, loose stools, melena, nausea, odynophagia, rectal bleeding, tenesmus, vomiting or weight changes Vital Signs Vital Signs Vital Signs: 01/21/25 12:26 01/21/25 12:28 01/21/25 13:06 Temperature 98.8 F 98.8 F Temperature Source Temporal Pulse Rate 85 85 Respiratory Rate 18 18 Respiratory Pattern Normal Blood Pressure 131/62 H 131/62 H Blood Pressure Mean 85 Blood Pressure Source Monitor Blood Pressure Position Semi-Fowlers Blood Pressure Location Right Arm Pulse Ox 99 99 Oxygen Delivery Method Room Air Room Air Weight Weight: 179 lb 6.4 oz Body Mass Index (BMI) 33.9 Physical Exam Const alert, oriented x3, no apparent distress and healthy appearing General Appearance: cooperative GI normal to inspection, nondistended, normoactive bowel sounds, soft to palpation, non-tender and non-distended Percussion: normal to percussion Rectal Exam: deferred Results Lab / Micro Data Labs: Laboratory Results - last 24 hr 01/21/25 12:10: Urine Test Negative Assessment & Plan Assessment/Plan (1) Gastric ulcer due to nonsteroidal antiinflammatory drug (NSAID) therapy: (2) Anemia: (3) ABLA (acute blood loss anemia): PLAN: ROS Const Constitutional: Positive for fatigue and headache(s); No fever(s) or weight change ENT ENT: Positive for headache(s); No difficulty swallowing Gastro GI: No abdominal pain, belching, bloating, change in bowel habits, change in stool character, coffee ground emesis, constipation, cramping, diarrhea, heartburn, difficulty swallowing, feeling full early, excessive flatus, incontinent of stools, Vomiting blood/hematemesis, Blood in stool, loose stools, Black,tarry stools, nausea/dyspepsia, pain with swallowing, vomiting or other Musc Musculoskeletal: Positive for back pain, muscle weakness and stiffness; No joint pain Skin Skin: No yellowing of the eye or itchy eyes Neuro Neurology: Positive for headache(s) Psych Psychiatric: No anxiety and No depression Endo Endocrine: Positive for fatigue; No weight change Aller/Imm Allergy/Immunologic: No itchy eyes Mo/Lymp Hematologic/Lymphatic: No easy bleeding or easy bruising Exam Const General: cooperative and comfortable Nutritional Appearance: average body habitus and well nourished [facility] Head: normal to inspection Ears: hearing grossly normal bilaterally Nose: external nose normal Face and sinus: normal facial exam Eyes General: appearance normal, both eyes and all related structures Neck Neck: normal visual inspection Chest Chest palpation & inspection: normal inspection of the chest Resp Effort & Inspection: normal respiratory effort GI Inspection: normal to inspection Palpation: no hepatosplenomegaly Skin General: no rashes or lesions noted Neuro General: patient alert Extrem General: normal to inspection Psych Affect: normal affect Assessment and Plan Assessment and Plan (1) Anemia: Status: Acute (2) History of peptic ulcer disease: Status: Acute Plan: Pt is a 44 yo female here today for f/u after hospitalization for bleeding gastric ulcer in early June 2024. Since he discharge she has been doing well. She does have some weakness and lightheadedness still. Her last hemoglobin 9.12.24 was 7.7 which is slowly up trending. I will order CBC to continue monito ring this. We will schedule her for repeat EGD in 3 months to ensure healing of the gastric ulcer. She will continue PPI BID and sucralfate. She will f/u in 6 months -EGD in 3 months -CBC ordered -Refilled pantoprazole and sucralfate -f/u in 6 months Orders: Orders CBC W/Diff, Automated Today D64.9 - Anemia, unspecified
[2025-01-21 13:50] VITALS: BP 131/62; BP 95/58; PULSE 90; RESP 14; RESP 18; TEMP 36.1; TEMP 36.7; O2SAT 100; O2SAT 98
--- NOTE | 2025-01-21 13:50 | PCM.POST.ANE ---
Anesthesia: Postop Eval I Current Vital Signs Temperature: 97 F Pulse Rate: 90 Blood Pressure: 95/58 Respiratory Rate: 14 Pulse Ox: 98 Oxygen Delivery Method: Room Air Assessment Airway patent: Yes Spontaneous unlabored respirations: Yes Mental status: Awake nausea: No Vomiting: No Anesthesia Complication: No Fluid Hydration Crystalloid volume administer (ml): 10 Total IV fluid infused: 10 Progress Note Anesthesia document: Postop Eval 1 completed: Yes
--- NOTE | 2025-01-21 13:53 | OP.EGD_ITS ---
Patient Name: Sophia Wolfe Procedure Date: 01/21/2025 1:31 PM Date of : 1980 Age: 44 Procedure: Upper GI endoscopy Indications: Epigastric abdominal pain, Peptic ulcer Providers: Anthony Dolan DO Referring MD: Marie Ritter Medicines: Monitored Anesthesia Care Patient Profile: This is a 44 year old female. Refer to note in patient chart for documentation of history and physical. Patient has symptoms of chronic epigastric abdominal pain. Complications: No immediate complications. Procedure: Pre-Anesthesia Assessment: - Prior to the procedure, a History and Physical was performed, and patient medications and allergies were reviewed. The patient is competent. The risks and benefits of the procedure and the sedation options and risks were discussed with the patient. All questions were answered and informed consent was obtained. Patient identification and proposed procedure were verified by the physician in the pre-procedure area. Mental Status Examination: alert and oriented. Airway Examination: normal oropharyngeal airway and neck mobility. Respiratory Examination: clear to auscultation. CV Examination: normal. ASA Grade Assessment: II - A patient with mild systemic disease. After reviewing the risks and benefits, the patient was deemed in satisfactory condition to undergo the procedure. The anesthesia plan was to use monitored anesthesia care (MAC). Immediately prior to administration of medications, the patient was re-assessed for adequacy to receive sedatives. The heart rate, respiratory rate, oxygen saturations, blood pressure, adequacy of pulmonary ventilation, and response to care were monitored throughout the procedure. The physical status of the patient was re-assessed after the procedure. After obtaining informed consent, the endoscope was passed under direct vision. Throughout the procedure, the patient's blood pressure, pulse, and oxygen saturations were monitored continuously. The Endoscope was introduced through the mouth, and advanced to the second part of duodenum. The upper GI endoscopy was accomplished without difficulty. The patient tolerated the procedure well. Scope In: 1:38:35 PM Scope Out: 1:44:43 PM Total Procedure Duration Time 0 hours 6 minutes 8 seconds Findings: The examined esophagus was normal. One non-bleeding gastric ulcer with no stigmata of bleeding was found in the gastric antrum. The lesion was 4 mm in largest dimension. Biopsies were taken with a cold forceps for histology. Verification of patient identification for the specimen was done. Estimated blood loss was minimal. Biopsies were taken with a cold forceps for Helicobacter pylori testing. Verification of patient identification for the specimen was done. Estimated blood loss was minimal. The second portion of the duodenum was normal. Impression: - Normal esophagus. - Non-bleeding gastric ulcer with no stigmata of bleeding. Biopsied. - Normal second portion of the duodenum. Recommendation: - Discharge patient to home. - Resume previous diet. - Continue present medications. - Await pathology results. Procedure Code(s): --- Professional --- 57378, Esophagogastroduodenoscopy, flexible, transoral; with biopsy, single or multiple CPT copyright 2021 [employer]. All rights reserved. The codes documented in this report are preliminary and upon [email or web address] java developer review may be revised to meet current compliance requirements. Anthony Dolan DO 01/21/2025 1:53:23 PM This report has been signed electronically. Number of Addenda: 0 Note Initiated On: 01/21/2025 1:31 PM
--- NOTE | 2025-01-21 13:54 | OP.CCLET_ITS ---
01/21/2025 Marie Ritter Re : Upper GI endoscopy procedure for Sophia Wolfe Dear Stone This procedure was performed on Tuesday, January 21, 2025. My impressions and recommendations are as follows: Impressions : - Normal esophagus. - Non-bleeding gastric ulcer with no stigmata of bleeding. Biopsied. - Normal second portion of the duodenum. Recommendations : - Discharge patient to home. - Resume previous diet. - Continue present medications. - Await pathology results. My findings are described in the full procedure note, which is enclosed. If I can be of further assistance, please feel free to contact me at . Sincerely, Anthony Dolan, 01/21/2025 1:53:23 PM This report has been signed electronically.
[2025-01-21 13:55] VITALS: BP 131/62; BP 92/62; PULSE 93; RESP 16; O2SAT 98
[2025-01-21 14:00] VITALS: BP 105/72; BP 131/62; PULSE 83; RESP 16; TEMP 36.8; O2SAT 100
[2025-01-21 14:31] VITALS: BP 131/62
[2025-01-21 15:48] LABS: Bedside Glucose 95 mg/dL (74-106)
--- NOTE | 2025-01-21 20:03 | POSTOPAN2_ITS ---
Anesthesia Postop Eval I Sum Postop Eval Completion status Anesthesia document: Postop Eval 1 completed: Yes Anesthesia Postop Eval I Summary Anesthesia Postop Eval I Summary: Anesthesia Postop Eval I: Assessment Summary Airway patent Yes 01/21/25 13:50 TIGHT [email or web address] Spontaneous unlabored Yes 01/21/25 13:50 TIGHT COOPER.HBARR respirations Mental status Awake 01/21/25 13:50 TIGHT COOPER.HBARR nausea No 01/21/25 13:50 TIGHT COOPER.HBARR Vomiting No 01/21/25 13:50 TIGHT COOPER.HBARR Anesthesia Postop Eval I: Fluid Summary Crystalloid volume administer 10 01/21/25 13:50 TIGHT COOPER.HBARR (ml) Colloids volume administered ( ml) Blood Product volume administered (ml) Total IV fluid infused 10 01/21/25 13:50 TIGHT COOPER.HBARR Anesthesia Postop Eval I: Summary Notes Anesthesia Complication No 01/21/25 13:50 TIGHT COOPER.HBARR Anesthesia Complication Comment: Post-operative progress note Anesthesia: Postop Eval II Evaluation Mental status: Awake and Calm Pain Level: 0 nausea: No Vomiting: No Complications Anesthesia Complication: No
--- NOTE | 2025-01-21 20:03 | PCM.POSTANE2 ---
Anesthesia Postop Eval I Sum Postop Eval Completion status Anesthesia document: Postop Eval 1 completed: Yes Anesthesia Postop Eval I Summary Anesthesia Postop Eval I Summary: Anesthesia Postop Eval I: Assessment Summary Airway patent Yes 01/21/25 13:50 SAMPLE [email or web address].HBARR Spontaneous unlabored Yes 01/21/25 13:50 SAMPLE FINISHER.HBARR respirations Mental status Awake 01/21/25 13:50 SAMPLE FINISHER.HBARR nausea No 01/21/25 13:50 SAMPLE FINISHER.HBARR Vomiting No 01/21/25 13:50 SAMPLE FINISHER.HBARR Anesthesia Postop Eval I: Fluid Summary Crystalloid volume administer 10 01/21/25 13:50 SAMPLE FINISHER.HBARR (ml) Colloids volume administered ( ml) Blood Product volume administered (ml) Total IV fluid infused 10 01/21/25 13:50 SAMPLE FINISHER.HBARR Anesthesia Postop Eval I: Summary Notes Anesthesia Complication No 01/21/25 13:50 SAMPLE FINISHER.HBARR Anesthesia Complication Comment: Post-operative progress note Anesthesia: Postop Eval II Evaluation Mental status: Awake and Calm Pain Level: 0 nausea: No Vomiting: No Complications Anesthesia Complication: No
== END 2025-01-21 14:33 | disposition home or self-care (01) ==
LOC: EN 11:51 → AC 11:52
PROVIDERS: Anesthesiology; PCP Internal Medicine; Referring Provider Internal Medicine; Visit Provider Internal Medicine Gastroenterology
PROC: 0DJ08ZZ Inspection of Upper Intestinal Tract, Via Natural or Artificial Opening Endoscopic (ICD-10-PCS; CPT 43235; principal; 2025-01-21 13:10)
DX: K25.9 Gastric ulcer, unspecified as acute or chronic, without hemorrhage or perforation (principal); E11.9 Type 2 diabetes mellitus without complications; K29.50 Unspecified chronic gastritis without bleeding; F41.9 Anxiety disorder, unspecified; K21.9 Gastro-esophageal reflux disease without esophagitis; D50.9 Iron deficiency anemia, unspecified; E78.00 Pure hypercholesterolemia, unspecified; G43.909 Migraine, unspecified, not intractable, without status migrainosus; Z87.11 Personal history of peptic ulcer disease; Z79.84 Long term (current) use of oral hypoglycemic drugs; Z79.899 Other long term (current) drug therapy
CPT/HCPCS: 43239; 81025; 82962; 88305; 88342; A4216

== ENCOUNTER 2025-03-04 20:03 | Emergency (ER) | payer MEDICARE, OTHER, SELFPAY ==
[2025-03-04 20:04] VITALS: BP 141/90; PULSE 88; RESP 18; TEMP 36.1; O2SAT 97; BMI 34.1
[2025-03-04] MEDS: Pantoprazole Sodium 40 MG in 0.9% Normal Saline (100mL MB+) 100 ML 330 MG IV (20:40)
[2025-03-04 20:47] LABS: Absolute Lymphocyte Count 2.21 X10^3/uL (0.83-4.51); Absolute Neutrophil Count 5.7 X10^3/uL (2.0-7.7); Basophil# 0.03 X10^3/uL; Basophil% 0.3 % (0-1); Eosinophil# 0.11 X10^3/uL; Eosinophils% 1.3 % (0-5); Hematocrit 36.9 % (37-47); Hemoglobin 12.4 g/dL (12.0-15.0); Lymphocyte # 2.21 X10^3/ul (0.83-4.51); Lymphocyte % 25.2 % (19-41); Mean Corp Hgb Conc 33.6 g/dL (32-36); Mean Corpuscular Hgb 30.2 pg (27.0-32.0); Mean Platelet Vol. 11.2 fl (6.2-12.0); Monocyte# 0.68 X10^3/uL; Monocyte% 7.8 % (0-10); NRBC Flagged by Analyzer 0 % (0-5); Neutrophil # 5.71 X10^3/uL (2.7-7.7); Neutrophil % 65.1 % (47-70); Platelet Count 300 K/mm3 (150-450); RBC Distribution Width CV 13.8 % (11.6-14.6); White Blood Count 8.8 K/mm3 (4.4-11.0)
[2025-03-04 20:51] LABS: International Normalized Ratio 0.9; Prothrombin Time (Protime)PT. 12.4 SECONDS (11.7-14.9)
[2025-03-04 20:52] LABS: Partial Thromboplast Time 27.8 Seconds (24.1-36.2)
--- NOTE | 2025-03-04 20:54 | EDS_ITS ---
HPI HPI - GI History of Present Illness Chief Complaint: GI Bleed Informant: patient and parent Narrative Narrative: Here with mother after calling discussed with on-call for GI for epigastric abdominal pain started at 2 PM since then for black stools. Last time was 45 minutes. She has history of peptic ulcer disease followed by Dr. Dolan. She was given 3 units of blood last year she is currently on iron. She takes it daily. She does not take NSAIDs only uses Tylenol. No anticoagulants. Last upper endoscopy with January 21 of this year outpatient reported nonbleeding ulcers per mother. She is on Protonix twice daily along with Carafate 3 times a day. There was plans for repeat upper endoscopy this April. Denies any nausea or vomiting. Prior similar symptoms: Yes PFSH PFSH Medical History Loss of hearing Wears glasses Anxiety Diabetes Bladder disease High cholesterol Anemia History of ulceration GERD (gastroesophageal reflux disease) Non-smoker History of echocardiogram Cardiology follow-up encounter Neurogenic bladder Type 2 diabetes mellitus without complication Pulmonic stenosis Iron deficiency anemia VSD (ventricular septal defect) Brawley syndrome Migraines Home Medications ?Medication ?Instructions ?Recorded ?Last Taken ?Type loratadine 10 mg tablet (Claritin) 10 mg PO DAILY PRN SEASONAL 02/14/23 01/20/25 History ALLERGIES metformin 500 mg tablet,extended 500 mg PO QHS diabete s 02/14/23 01/19/25 History release 24 hr atorvastatin 40 mg tablet 20 mg PO DAILY 07/01/2412/23 History sumatriptan succinate 100 mg tablet See Rx Instruction s PO .COMPLEX 07/15/24 01/19/25 History amitriptyline 50 mg tablet 50 mg PO QHS 10/04/2401/19 History pantoprazole 40 mg tablet,delayed 40 mg PO BID #180 ta bs 01/30/25 Unknown Rx release MAGIC MOUTH WASH (BMX) 180 mL 10 ml PO Q8H PRN PRN abd ominal 03/04/25 Unknown Rx suspension pain #180 mL Allergy/AdvReac Type Severity Reaction Status Date / Time Sulfa (Sulfonamide AdvReac PT UNSURE Verified 03/04/25 20:04 Antibiotics) OF REACTION Family History Father Heart disease CVA (cerebral vascular accident) Hypertension Dementia Mother Diabetes Sister Diabetes Fibromyalgia Other Alzheimer's dementia Breast cancer Colon cancer Surgical History Hx of colonoscopy History of esophagogastroduodenoscopy (EGD) History of cardiac catheterization History of colonoscopy History of excision of pilonidal cyst (~2004) Social History household members: family housing: house pets and animals: Yes Smoking Status: Never smoker alcohol intake: never substance use type: does not use caffeine: Yes ROS ROS ED Constitutional Constitutional ED: Denies chills, fever(s) or sweats ENT ENT ED: Denies sore throat Cardiovascular Cardiovascular: Denies chest pain, leg edema, palpitations or racing heartbeat Respiratory/Chest Respiratory/Chest: Denies cough, dyspnea or dyspnea on exertion Gastrointestinal Gastrointestinal: Reports abdominal pain and melena; Denies diarrhea, nausea or vomiting Genitourinary Genitourinary ED: Denies dysuria, hematuria or urinary frequency Musculoskeletal Musculoskeletal: Denies back pain, extremity pain or neck pain Integumentary Denies rash or wounds Neurologic Neurologic: Denies headache(s), paresthesias or weakness EXAM Physical Exam Const Vital Signs: 03/04/25 20:04 03/04/25 22:04 03/04/25 23:03 Temperature 96.9 F L 98.9 F Temperature Source Temporal Pulse Rate 88 75 75 Respiratory Rate 18 18 Blood Pressure 141/90 H 120/78 130/78 H Blood Pressure Mean 107 92 95 Pulse Ox 97 98 98 Oxygen Delivery Method Room Air Positive well nourished and well developed General Appearance ED: well developed and NAD HEENT Reports moist mucous membranes normocephalic and atraumatic Eyes General Eye ED: Yes normal appearance of both eyes; Negative for pale conjunctiva Neck full ROM Chest Wall Chest: Negative for tenderness Resp normal respiratory effort and normal air movement Effort and Inspection: symmetric chest movement; Negative for respiratory distress Cardio regular rate, regular rhythm and no murmurs Peripheral Pulses: pulses 2+ throughout GI normal to inspection, nondistended, normoactive bowel sounds GI Narrative: Epigastric tenderness. Negative Munguia's or McBurney's tenderness. Nursing senior data mining analyst for digital rectal exam: Liquid brown stools, guaiac returning positive. Palpation: Negative for guarding or rebound tenderness present Extremity normal to inspection General Extremety ED: Negative for edema or tenderness General Extremity: Negative for edema Neuro oriented x3 and no sensory deficits noted Sensorium / Orientation: awake and alert Skin no rashes or lesions noted and no wounds MDM MDM MDM Narrative Medical decision making narrative: Interventions / MDM: Differential diagnosis: Peptic ulcer disease, gastritis, upper GI bleed Diagnosis considered but do not suspect: N/A My EKG interpretation: N/A Imaging independently reviewed and interpreted by myself: N/A External documents reviewed: N/A Test considered but not ordered:N/A ED course: Patient nontoxic vital signs stable. Epigastric tenderness on exam there is no guarding or rebound. History of peptic ulcer disease. She is not on any anticoagulants. No clinical pallor. Abdominal labs were checked. She is given a dose of IV Protonix. Results hemoglobin 12.4. White count 8.8. BUN 14 creatinine 0.88. Noticed no bowel movement in ED. Rectal exam was performed with nursing senior data mining analyst liquid brown stools were guaiac returned positive. She was treated with GI cocktail with improvement of symptoms. I discussed with GI Dr. Dolan, clear liquid diet for next 2 days, she will continue Protonix and Carafate. She will be written for Magic mouthwash to help with symptoms. She will follow-up closely in the office with strict return precautions. Discussed this with patient and mother who understands and agrees with plan. All questions were answered. Re-evaluation: stable Disposition discussed with patient/family/significant other: Patient and mother Case discussed with consulting clinician: Gastroenterology This note was generated with [employer] dictation software. It may contain incorrect words, spelling, and punctuation that were not noted in checking the note before signing. Lab Data Attestation: I reviewed the patient's lab results. Labs: Laboratory Results - last 24 hr 03/04/25 20:34 WBC 8.8 RBC 4.10 L Hgb 12.4 Hct 36.9 L MCV 90.0 MCH 30.2 MCHC 33.6 RDW Std Deviation 45.0 H RDW Coeff of Dana 13.8 Plt Count 300 MPV 11.2 Immature Gran % (Auto) 0.300 Neut % (Auto) 65.1 Lymph % (Auto) 25.2 [place] % (Auto) 7.8 Eos % (Auto) 1.3 Baso % (Auto) 0.3 Absolute Neuts (auto) 5.7 Absolute Lymphs (auto) 2.21 Nucleated RBC % 0 PT 12.4 INR 0.9 APTT 27.8 Sodium 140 Potassium 4.1 Chloride 102 Carbon Dioxide 27.3 Anion Gap 11 BUN 14 Creatinine 0.88 Estim Creat Clear Calc 77.53 Est GFR (MDRD) Non-Af 82 BUN/Creatinine Ratio 16.3 Glucose 117 H Calcium 9.7 Total Bilirubin 0.26 Direct Bilirubin 0.13 AST 32 ALT 49 H Alkaline Phosphatase 84 Total Protein 7.6 Albumin 4.2 Globulin 3.4 Lipase 20 Blood Type O POSITIVE Antibody Screen NEGATIVE Discharge Plan Triage Chief Complaint: GI Bleed ED Provider: Elver Walton Dx/Rx/DC Orders Clinical Impression: Gastritis, History of peptic ulcer disease, Guaiac positive stools Instructions: ED Peptic Ulcer, ED Gastritis Ulcer No Abx Prescriptions: New MAGIC MOUTH WASH (BMX) 180 mL suspension 10 ml PO Q8H PRN PRN (Reason: abdominal pain) Qty: 180 0RF Rx Instructions: diphenhydramine 12.5 mg/5 mL oral liquid 60 mL; aluminum-mag hydroxide- simethicone 400 mg-400 mg-40 mg/5 mL oral susp 60 mL; Lidocaine Viscous 2 % mucosal solution 60 mL; Per 180 mL No Action sumatriptan succinate 100 mg tablet See Rx Instructions PO .COMPLEX Rx Instructions: take 1 tab at onset of headache; if no relief, may repeat 1 tab after at least 2 hrs; max = 2 tabs/24 hrs PO metformin 500 mg tablet extended release 24 hr 500 mg PO QHS Patient Comments: take 1 tablet by mouth every evening loratadine [Claritin] 10 mg Tablet 10 mg PO DAILY PRN (Reason: SEASONAL ALLERGIES) atorvastatin 40 mg tablet 20 mg PO DAILY amitriptyline 50 mg tablet 50 mg PO QHS pantoprazole 40 mg tablet,delayed release (DR/EC) 40 mg PO BID Qty: 180 1RF Primary Care Provider: Marie Ritter Referrals: Marie Ritter MD [Primary Care Provider] - Anthony Dolan DO [Med Staff - Active Staff] - 3-5 Days Activity Restrictions/Additional Instructions: Hemoglobin 12.4 in the lab. Lipase normal. Stool guaiac positive. Discussed with Dr. Dolan in the ED. Continue current medicine of your Protonix and your Carafate. Use Magic mouthwash as needed. Follow-up in the office for reevaluation. If you have worsening symptoms, return to the ED for reevaluation. Print Language: Latvian Disposition Disposition: Home, Self Care Discharge Date/Time: 03/04/25 23:08
[2025-03-04 21:10] LABS: AST(SGOT) 32 U/L (<=31); Alanine Aminotransfer ALT/SGPT 49 U/L (<=34); Albumin, Serum 4.2 g/dL (3.5-5.0); Alkaline Phosphatase 84 U/L (35-104); Anion Gap 11 (5-15); BUN 14 mg/dL (4-19); BUN/Creat Ratio 16.3 RATIO (10-20); Bilirubin, Direct 0.13 mg/dL (0.00-0.30); Calcium,Total 9.7 mg/dL (7.6-11.0); Carbon Dioxide 27.3 mmol/L (21.0-32.0); Chloride 102 mmol/L (98-108); Creatinine, Serum 0.88 mg/dL (0.70-1.20); EST Glomerular Filtration Rate 82 (>60); Estimated Creatinine Clearance 77.53 ml/min (50-250); Globulin 3.4 g/dL (2.2-4.2); Glucose 117 mg/dL (70-99); Lipase 20 U/L (13-75); Potassium 4.1 mmol/L (3.3-5.1); Protein, Total 7.6 g/dL (5.9-8.4); Sodium Level 140 mmol/L (133-145); Total Bilirubin 0.26 mg/dL (0.00-1.30)
[2025-03-04 22:04] VITALS: BP 120/78; PULSE 75; O2SAT 98
[2025-03-04 23:03] VITALS: BP 130/78; PULSE 75; RESP 18; TEMP 37.2; O2SAT 98
== END 2025-03-04 23:08 | disposition home or self-care (01) ==
PROVIDERS: Emergency Provider Emergency Medicine; PCP Internal Medicine; Visit Provider Emergency Medicine
DX: K29.70 Gastritis, unspecified, without bleeding (principal); E11.9 Type 2 diabetes mellitus without complications; R19.5 Other fecal abnormalities; F41.9 Anxiety disorder, unspecified; K21.9 Gastro-esophageal reflux disease without esophagitis; D50.9 Iron deficiency anemia, unspecified; E78.00 Pure hypercholesterolemia, unspecified; G43.909 Migraine, unspecified, not intractable, without status migrainosus; Z87.11 Personal history of peptic ulcer disease; Z79.84 Long term (current) use of oral hypoglycemic drugs; Z79.899 Other long term (current) drug therapy
CPT/HCPCS: 80048; 80076; 82274; 83690; 85025; 85610; 85730; 86850; 86900; 86901; 96365; 99283; A4216

== ENCOUNTER → 2025-03-11 | Outpatient (CLI) | payer MEDICARE, OTHER, SELFPAY ==
[2025-03-11 16:30] LABS: Absolute Lymphocyte Count 1.87 X10^3/uL (0.83-4.51); Absolute Neutrophil Count 6.9 X10^3/uL (2.0-7.7); Basophil# 0.04 X10^3/uL; Basophil% 0.4 % (0-1); Hematocrit 38.4 % (37-47); Hemoglobin 12.8 g/dL (12.0-15.0); Lymphocyte # 1.87 X10^3/ul (0.83-4.51); Lymphocyte % 19.5 % (19-41); Mean Corp Hgb Conc 33.3 g/dL (32-36); Mean Corpuscular Volume 89.9 fL (81-99); Mean Platelet Vol. 11.3 fl (6.2-12.0); Monocyte# 0.64 X10^3/uL; Monocyte% 6.7 % (0-10); NRBC Flagged by Analyzer 0 % (0-5); Neutrophil # 6.91 X10^3/uL (2.7-7.7); Platelet Count 304 K/mm3 (150-450); RBC Distribution Width CV 13.5 % (11.6-14.6); RBC Distribution Width SD 44.4 fl (35.1-43.9); Red Blood Count 4.27 M/mm3 (4.2-5.4); White Blood Count 9.6 K/mm3 (4.4-11.0)
== END | disposition home or self-care (01) ==
LOC: LAB 15:41
PROVIDERS: PCP Internal Medicine; Referring Provider Student in an Organized Health Care Education/Training Program; Visit Provider Student in an Organized Health Care Education/Training Program
DX: K29.70 Gastritis, unspecified, without bleeding (principal)
CPT/HCPCS: 36415; 85025

== ENCOUNTER → 2025-03-21 | Outpatient (CLI) | payer MEDICARE, OTHER, SELFPAY ==
[2025-03-21 09:22] LABS: Absolute Neutrophil Count 6.1 X10^3/uL (2.0-7.7); Basophil# 0.03 X10^3/uL; Basophil% 0.3 % (0-1); Eosinophil# 0.18 X10^3/uL; Hemoglobin 12.5 g/dL (12.0-15.0); Lymphocyte % 22.3 % (19-41); Mean Corp Hgb Conc 32.9 g/dL (32-36); Mean Corpuscular Hgb 29.8 pg (27.0-32.0); Mean Corpuscular Volume 90.5 fL (81-99); Mean Platelet Vol. 11.1 fl (6.2-12.0); Monocyte# 0.65 X10^3/uL; Monocyte% 7.3 % (0-10); NRBC Flagged by Analyzer 0 % (0-5); Neutrophil # 6.06 X10^3/uL (2.7-7.7); Neutrophil % 67.8 % (47-70); Platelet Count 293 K/mm3 (150-450); RBC Distribution Width CV 13.8 % (11.6-14.6); RBC Distribution Width SD 46.2 fl (35.1-43.9)
[2025-03-21 09:38] LABS: Hemoglobin A1c 6.6 % (<=5.6)
[2025-03-21 09:39] LABS: Microalbumin,Random Urine < 12.0 mg/L (NO RANGE EST.); Microalbumin:Creatinine Ratio UNABLE TO CALCULATE mg/g CRE
[2025-03-21 10:00] LABS: ALB/GLOB Ratio 1.2 RATIO (0.9-2.4); AST(SGOT) 22 U/L (<=31); Alanine Aminotransfer ALT/SGPT 25 U/L (<=34); Alkaline Phosphatase 81 U/L (35-104); Anion Gap 10 (5-15); BUN 15 mg/dL (4-19); BUN/Creat Ratio 16.2 RATIO (10-20); Calcium,Total 8.5 mg/dL (7.6-11.0); Carbon Dioxide 22.4 mmol/L (21.0-32.0); Chloride 99 mmol/L (98-108); Cholesterol 130 mg/dL (<=200); Creatinine, Serum 0.94 mg/dL (0.70-1.20); EST Glomerular Filtration Rate 76 (>60); Globulin 3.4 g/dL (2.2-4.2); Glucose 134 mg/dL (70-99); High Density Lipoprotein 40 mg/dL; Low Density Lipoprotein Calc. 71 mg/dL; Potassium 3.7 mmol/L (3.3-5.1); Protein, Total 7.4 g/dL (5.9-8.4); Sodium Level 131 mmol/L (133-145); Total Bilirubin 0.26 mg/dL (0.00-1.30); Triglycerides 95 mg/dL; Very Low Density Lipoprotein 19 mg/dL (5-40); cholesterol:hdl ratio screen 3.27
[2025-03-21 10:30] LABS: Iron 54 ug/dL (50-170); Iron Binding Capacity,Total 268 ug/dL (250-450); Iron Binding Capacity,Unsat 214 ug/dL (228-428)
== END | disposition home or self-care (01) ==
LOC: LAB 08:32
PROVIDERS: PCP Internal Medicine; Referring Provider Internal Medicine; Visit Provider Internal Medicine
DX: D50.9 Iron deficiency anemia, unspecified (principal); E11.9 Type 2 diabetes mellitus without complications; E78.00 Pure hypercholesterolemia, unspecified
CPT/HCPCS: 36415; 80053; 80061; 82043; 82570; 83036; 83540; 83550; 85025

== ENCOUNTER 2025-07-09 05:18 | Day surgery (SDC) | payer MEDICARE, OTHER, SELFPAY ==
--- NOTE | 2025-05-12 14:36 | PAT.ANESEVAL ---
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 When Was Last Pacemaker Check QUESTION #4 FULL TEXT: You/Your Family Experience fever (hyperthermia) with Anesthesia Last Oral Intake Last Oral intake: Last Oral Intake NPO since Meds taken in AM with sips of water? 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 Female Yes 05/12/25 09:20 HX of Motion Sickness No 05/12/25 09:20 HX of N/V After Surgery No 05/12/25 09:20 Non-Smoker Yes 05/12/25 09:20 Duration of Surgery greater No 05/12/25 09:20 than 60 minutes Number of Risk Factors 2 05/12/25 09:20 PONV Score Moderate Risk 05/12/25 09:20 Height & Weight Height & Weight: Anesthesia: Height & Weight Height 5 ft 1 in 01/21/25 12:28 Respiratory Assessment Respiratory Assessment - superintendent job: Respiratory Tract Infection Hx - superintendent job Hx Respiratory Tract Infection No 05/12/25 09:20 STOP Sleep Apnea STOP Sleep Apnea - superintendent job: STOP Sleep Apnea - superintendent job Hx Hypertension No 05/12/25 09:20 Hx Sleep Apnea No 05/12/25 09:20 CPAP BIPAP Do you snore loudly (louder No 05/12/25 09:20 than talking or can be heard Do you often feel tired/ No 05/12/25 09:20 fatigued/ sleepy during daytime? Has anyone observed you stop No 05/12/25 09:20 breathing during sleep? STOP Results Negative 05/12/25 09:20 QUESTION #5 FULL TEXT : Do you snore loudly (louder than talking or can be heard through closed doors)? 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 Specify any problems Hx of Preganancy in last 3 N/A 05/12/25 09:20 Months Nurse Filling Out Transfusion [facility] 05/12/25 09:20 & Questions: Date: 05/12/25 05/12/25 09:20 Time: 09:05/12/25 09:20 Patient unable to answer at this time (ie. 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 - superintendent job: /Reproductive Hx- superintendent job Hx Now Gestational Age (in weeks): EDC: Hx Hx Para Hx Section SAB No 05/12/25 09:20 PFSH Medical History Loss of hearing Wears glasses Anxiety Diabetes Bladder disease High cholesterol Anemia History of ulceration GERD (gastroesophageal reflux disease) Non-smoker History of echocardiogram Cardiology follow-up encounter Neurogenic bladder Type 2 diabetes mellitus without complication Pulmonic stenosis Iron deficiency anemia VSD (ventricular septal defect) [place] syndrome Migraines Home Medications ?Medication ?Instructions ?Recorded ?Last Taken ?Type loratadine 10 mg tablet (Claritin) 10 mg PO DAILY PRN SEASONAL 02/14/23 01/20/25 History ALLERGIES metformin 500 mg tablet,extended 500 mg PO QHS diabetes 02/14/23 01/19/25 History release 24 hr atorvastatin 40 mg tablet 20 mg PO DAILY 07/01/24 01/19/25 History sumatriptan succinate 100 mg tablet See Rx Instructions PO .COMPLEX 07/15/24 01/19/25 History amitriptyline 50 mg tablet 50 mg PO QHS 10/04/24 01/19/25 History pantoprazole 40 mg tablet,delayed 40 mg PO BID #180 tabs 01/30/25 Unknown Rx release MAGIC MOUTH WASH (BMX) 180 mL 10 ml PO Q8H PRN PRN abdominal 03/11/25 Unknown Rx suspension pain #180 mL sucralfate 1 gram tablet 1 g PO TID 05/12/25 Unknown History Allergy/AdvReac Type Severity Reaction Status Date / Time Sulfa (Sulfonamide AdvReac PT UNSURE Verified 05/12/25 09:18 Antibiotics) OF REACTION Family History Father Heart disease CVA (cerebral vascular accident) Hypertension Dementia Mother Diabetes Sister Diabetes Fibromyalgia Other Alzheimer's dementia Breast cancer Colon cancer Surgical History (Updated 05/12/25 @ 09:22 by Gladis Grant) Hx of colonoscopy History of esophagogastroduodenoscopy (EGD) History of cardiac catheterization History of colonoscopy History of excision of pilonidal cyst (~2004) Social History household members: family housing: house pets and animals: Yes Smoking Status: Never smoker alcohol intake: never substance use type: does not use caffeine: Yes Audit: Pertinent Findings Pertinent Findings EKG Perinent findings: July 01, 2024. Normal sinus rhythm. ST and T wave abnormality, consider inferior ischemia. Echo (EF%) pertinent findings: May 13, 2024. EF of 55%. No aortic stenosis noted. Consult pertinent findings: April 16, 2024. Dr. Whitt. 1. VSD?acute-small perimembranous ventricular septal defect. Asymptomatic. Continue current medical therapy. Repeat echo to reassess ventricular function. (See above) 2. Pulmonary stenosis?acute-mild pulmonary valve regurgitation. Reevaluate with echo. (See above) Recommendation Anesthesia Recommendation Anesthesia recommendation: F/U recommended (Latest EKG 07/02/2024 Shows inferior ischemia. This was done after her last echo and her last consult. Please have cardiology address the possible new change on her EKG.)
--- NOTE | 2025-07-03 16:45 | PAT.ANE_ITS ---
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 When Was Last Pacemaker Check QUESTION #4 FULL TEXT: You/Your Family Experience fever (hyperthermia) with Anesthesia Last Oral Intake Last Oral intake: Last Oral Intake NPO since Meds taken in AM with sips of water? 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 Female Yes 07/03/25 12:48 HX of Motion Sickness No 07/03/25 12:48 HX of N/V After Surgery No 07/03/25 12:48 Non-Smoker Yes 07/03/25 12:48 Duration of Surgery greater No 07/03/25 12:48 than 60 minutes Number of Risk Factors 2 07/03/25 12:48 PONV Score Moderate Risk 07/03/25 12:48 Height & Weight Height & Weight: Anesthesia: Height & Weight Height 5 ft 1 in 03/04/25 20:04 Respiratory Assessment Respiratory Assessment - laundry machine mechanic: Respiratory Tract Infection Hx - laundry machine mechanic Hx Respiratory Tract Infection No 07/03/25 12:48 STOP Sleep Apnea STOP Sleep Apnea - laundry machine mechanic: STOP Sleep Apnea - laundry machine mechanic Hx Hypertension No 07/03/25 12:48 Hx Sleep Apnea No 07/03/25 12:48 CPAP BIPAP Do you snore loudly (louder No 07/03/25 12:48 than talking or can be heard Do you often feel tired/ No 07/03/25 12:48 fatigued/ sleepy during daytime? Has anyone observed you stop No 07/03/25 12:48 breathing during sleep? STOP Results Negative 07/03/25 12:48 QUESTION #5 FULL TEXT : Do you snore loudly (louder than talking or can be heard through closed doors)? 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 Specify any problems Hx of Preganancy in last 3 N/A 07/03/25 12:48 Months Nurse Filling Out Transfusion [facility] 07/03/25 12:48 & Questions: Date: 07/03/25 07/03/25 12:48 Time: 12:48 07/03/25 12:48 Patient unable to answer at this time (ie. 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: /Reproductive Hx- laundry machine mechanic Hx Now No 07/03/25 12:48 Gestational Age (in weeks): EDC: Hx Hx Para Hx Section SAB No 07/03/25 12:48 PFSH Medical History Loss of hearing Wears glasses Anxiety Diabetes Bladder disease High cholesterol Anemia History of ulceration GERD (gastroesophageal reflux disease) Non-smoker History of echocardiogram Cardiology follow-up encounter Neurogenic bladder Type 2 diabetes mellitus without complication Pulmonic stenosis Iron deficiency anemia VSD (ventricular septal defect) Georges syndrome Migraines Home Medications ?Medication ?Instructions ?Recorded ?Last Taken ?Type loratadine 10 mg tablet (Claritin) 10 mg PO DAILY PRN SEASONAL 02/14/23 01/20/25 History ALLERGIES metformin 500 mg tablet,extended 500 mg PO QHS diabete s 02/14/23 01/19/25 History release 24 hr sumatriptan succinate 100 mg tablet See Rx Instruction s PO .COMPLEX 07/15/24 01/19/25 History amitriptyline 50 mg tablet 50 mg PO QHS 10/04/2401/19 History pantoprazole 40 mg tablet,delayed 40 mg PO BID #180 ta bs 01/30/25 Unknown Rx release atorvastatin 40 mg tablet 40 mg PO DAILY 05/27/25 Unkn own History sucralfate 1 gram tablet 1 g PO TID #360 TABLETS 06/16 Unknown Rx topiramate 50 mg tablet (Topamax) 50 mg PO DAILY 07/03 Unknown History Allergy/AdvReac Type Severity Reaction Status Date / Time Sulfa (Sulfonamide AdvReac PT UNSURE Verified 07/03/25 12:47 Antibiotics) OF REACTION Family History Father Heart disease CVA (cerebral vascular accident) Hypertension Dementia Mother Diabetes Sister Diabetes Fibromyalgia Other Alzheimer's dementia Breast cancer Colon cancer Surgical History Hx of colonoscopy History of esophagogastroduodenoscopy (EGD) History of cardiac catheterization History of colonoscopy History of excision of pilonidal cyst (~2004) Social History household members: family housing: house pets and animals: Yes Smoking Status: Never smoker alcohol intake: never substance use type: does not use caffeine: Yes Audit: Pertinent Findings HISTORY of Pertinent Findings History of Pertinent Findings: EKG Pertinent Findings EKG Perinent findings July 01, 2024. Normal 05/12/25 14:[address] and T wave abnormality, consider inferior ischemia. Echo Pertinent Findings Echo (EF%) pertinent findings May 13, 2024. EF of 55%. 05/12/25 14:47 No aortic stenosis noted. Consult Pertinent Findings Consult pertinent findings April 16, 2024. Dr. Whitt. 05/12/25 14:47 1. VSD?acute-small perimembranous ventricular septal defect. Asymptomatic . Continue current medical therapy. Repeat echo to reassess ventricular function. (See above) 2. Pulmonary stenosis?acute -mild pulmonary valve regurgitation. Reevaluate with echo. (See above) Pertinent Findings Consult pertinent findings: May 27, 2025. Dr. Whitt. 1. VSD-small perimembranous ventricular septal defect. Asymptomatic. Continue current medical therapy. Repeat echocardiogram. 2. Pulmonary stenosis-mild pulmonic valve regurgitation. Will reevaluate with above echo. 3. Clearance for EGD-no contraindications for upcoming EGD. Recommendation Anesthesia Recommendation Anesthesia recommendation: OPTIMIZED for anesthesia
[2025-07-09] VITALS (9 sets, daily range): BP systolic 82–116; BP diastolic 54–74; PULSE 83–105; RESP 16–20; TEMP 36.3–36.7; O2SAT 95–99; BMI 33.7
--- OUTSIDE RECORDS SUMMARY | 2025-07-09 05:22 | XMS RPT_ITS | CCD ---
Author Organization [facility] CliniSyut Care Team Providers Care Carpet Cleaning Technician Name Role Phone Dr. Debbi Ritter Primary Care Provider Dr. Kelley Farmer Emergency Provider Dr. Jean-Pierre Antonio Attending Provider Dr. Jean-Pierre Antonio Admit Provider Dr. Jean-Pierre Antonio Other Provider Dr. Charly Diaz Other Provider Dr. Anthony Dolan Attending Provider Dr. Charly Diaz Attending Provider Dr. Charly Diaz Referring Provider Dr. Debbi Ritter Referring Provider Dante GOODE, CITY ASSESSOR-C Rosanne Vogel Attending Provider Dr. Ammon Whitt Attending Provider Dr. Debbi Ritter Primary Care Provider Dr. Debbi Ritter Referring Provider [phone] Dr. Anthony Dolan Attending Provider [phone] Anthony Dolan Other Provider Dr. Debbi Ritter Primary Care Provider Dr. Debbi Ritter Referring Provider Dr. Anthony Dolan Attending Provider Dr. Anthony Dolan Other Provider Stone BOLIVAR Dr. Salazar Primary Care Provider Stone BOLIVAR, Dr. Salazar Referring Provider Kelsi ALONZO, Dr. Cruz Attending Provider Friend , Dr. Cruz Other Provider Stone BOLIVAR, Dr. Salazar Attending Provider Rafael BOLIVAR, Dr. Rhoades Attending Provider Rafael BOLIVAR, Dr. Rhoades Referring Provider Stone BOLIVAR, Dr. Salazar Primary Care Provider Stone BOLIVAR, Dr. Salazar Referring Provider Kelsi ALONZO, Dr. Cruz Attending Provider Kelsi ALONZO, Dr. Cruz Other Provider Stone BOLIVAR, Dr. Salazar Attending Provider Rafael BOLIVAR, Dr. Rhoades Attending Provider Rafael BOLIVAR, Dr. Rhoades Referring Provider Stone BOLIVAR, Dr. Salazar Primary Care Provider Stone BOLIVAR, Dr. Salazar Referring Provider Kelsi ALONZO, Dr. Cruz Attending Provider Friend , Dr. Cruz Other Provider Isabelle ALONZO, Dr. Raya Emergency Provider Isabelle ALONZO, Dr. Raya Attending Provider Ary Kaiser Attending Provider Ary Kaiser Referring Provider Stone BOLIVAR, Dr. Salazar Primary Care Provider Stone BOLIVAR, Dr. Salazar Referring Provider Stone BOLIVAR, Dr. Salazar Attending Provider Peri BOLIVAR, Dr. Verde Attending Provider [phone] Dr. Mulugeta Olivo MD Primary Care Provider Kiran Olivo MD Primary Care Provider KIRAN OLIVO Attending Unavailab le KIRAN OLIVO Primary Care Unavailab le STONE, DEBBI BOLIVAR Consulting Unavailable LATOUF, DEBBI BOLIVAR Attending Unavailable LATOUF, DEBBI BOLIVRA Admitting Unavailable LATOUF, DEBBI BOLIVAR Primary Care Unavailable PROVIDER, UNKNOWN Consulting Unavailable PROVIDER, UNKNOWN Consulting Unavailable PROVIDER, UNKNOWN Consulting Unavailable LATOUF, DEBBI BOLIVAR Admitting Unavailable LATOUF, DEBBI BOLIVAR Attending Unavailable LATOUF, DEBBI BOLIVAR Primary Care Unavailable LATOUF, DEBBI BOLIVAR Consulting Unavailable PROVIDER, UNKNOWN Consulting Unavailable PROVIDER, UNKNOWN Consulting Unavailable PROVIDER, UNKNOWN Consulting Unavailable LATOUF, DEBBI BOLIVAR Primary Care Unavailable LATOUF, DEBBI BOLIVAR Attending Unavailable LATOUF, DEBBI BOLIVAR Admitting Unavailable LATOUF, DEBBI BOLIVAR Consulting Unavailable PROVIDER, UNKNOWN Consulting Unavailable PROVIDER, UNKNOWN Consulting Unavailable PROVIDER, UNKNOWN Consulting Unavailable LATOUF, DEBBI BOLIVAR Primary Care Unavailable LATOUF, DEBBI BOLIVAR Consulting Unavailable LATOUF, DEBBI BOLIVAR Attending Unavailable LATOUF, DEBBI BOLIVAR Admitting Unavailable PROVIDER, UNKNOWN Consulting Unavailable PROVIDER, UNKNOWN Consulting Unavailable PROVIDER, UNKNOWN Consulting Unavailable LATOUF, DEBBI BOLIVAR Consulting Unavailable LATOUF, DEBBI BOLIVAR Attending Unavailable LATOUF, DEBBI BOLIVAR Admitting Unavailable LATOUF, DEBBI BOLIVAR Primary Care Unavailable PROVIDER, UNKNOWN Consulting Unavailable PROVIDER, UNKNOWN Consulting Unavailable PROVIDER, UNKNOWN Consulting Unavailable LATOUF, DEBBI BOLIVAR Consulting Unavailable LATOUF, DEBBI BOLIVAR Attending Unavailable LATOUF, DEBBI BOLIVAR Admitting Unavailable LATOUF, DEBBI BOLIVAR Primary Care Unavailable PROVIDER, UNKNOWN Consulting Unavailable PROVIDER, UNKNOWN Consulting Unavailable PROVIDER, UNKNOWN Consulting Unavailable Latouf, Butros Primary Care Unavailable Latouf, Butros Referring Unavailable Friend, Anthony Attending Unavailable Friend, Anthony Consulting Unavailable Friend, Anthony Attending Unavailable Friend, Anthony Consulting Unavailable Latouf, Butros Referring Unavailable Latouf, Butros Primary Care Unavailable Latouf, Butros Referring Unavailable Ary Holguin Attending Unavailable Latouf, Butros Referring Unavailable Mulugeta Olivo Primary Care Unavailable Ammon Whitt Attending Unavailable Latouf, Butros Primary Care Unavailable Latouf, Butros Referring Unavailable Atanasov, Ary Attending Unavailable Friend, Anthony Attending Unavailable Bursley, Mulugeta Primary Care Unavailable Ericaley, Mulugeta Referring Unavailable Latouf, Butros Primary Care Unavailable Atanasov, Ary Referring Unavailable Atanasov, Ary Attending Unavailable Latouf, Butros Attending Unavailable Latouf, Butros Referring Unavailable Latouf, Butros Primary Care Unavailable Elver Walton Attending Unavailable Latouf, Butros Primary Care Unavailable Latouf, Butros Primary Care Unavailable Latouf, Butros Attending Unavailable Latouf, Butros Referring Unavailable Latouf, Butros Primary Care Unavailable Friend, Anthony Attending Unavailable Latouf, Butros Referring Unavailable Latouf, Butros Primary Care Unavailable Latouf, Butros Referring Unavailable Friend, Anthony Attending Unavailable Latouf, Butros Primary Care Unavailable Atanasov, Ary Referring Unavailable Atanasov, Ary Attending Unavailable Latouf, Butros Primary Care Unavailable Estevan, Young Referring Unavailable Estevan, Young Attending Unavailable Latouf, Butros Primary Care Unavailable Latouf, Butros Referring Unavailable Latouf, Butros Attending Unavailable Latouf, Butros Primary Care Unavailable Rafael, Jf Referring Unavailable RafaelJf Attending Unavailable Latouf, Butros Attending Unavailable Latouf, Butros Primary Care Unavailable Latouf, Butros Referring Unavailable Allergies Allergy Classification Reported Allergen(s) Allergy Type Date of Onset Reaction(s) Facility (17 sources) Sulfonamides (Antibiotic); Translations: [SULFA (SULFONAMIDE ANTIBIOTICS)] Propensity to adverse reactions 3 PT UNSURE OF REACTION [facility] (1 source) Sulfonamides (Antibiotic) Drug Allergy 5 Other: See Comments [facility] (1 source) Sulfonamides (Antibiotic) Drug allergy (disorder) [facility] (1 source) Sulfonamides (Antibiotic) Drug allergy (disorder) 5 [facility] Medications Current Medications Medication Drug Class(es) Dates Sig (Normalized) Sig (Original) amitriptyline hydrochloride 50 mg oral tablet (13 sources) Tricyclic Antidepressant Start: 06-17-2025 take 1 tablet by mouth once daily at bedtime amitriptyline (ELAVIL) 50 mg tablet Take 50 mg by mouth daily at bedtime. 06/17/2025 Active Start: 10-04-2024 take 1 tablet by zuly th at bedtime Amitriptyline 50 mg tablet Active 50 mg PO AT BEDTIME October 04, 2024 1:00am Start: 07-15-2024 End: 10-04-2024 take 1 tablet by mouth at bedtime Amitriptyline 10 mg tablet Discontinued 10 mg PO AT BEDTIME July 15, 2024 12:00am October 04, 2024 1:18pm atorvastatin 40 mg oral tablet (14 sources) HMG-CoA Reductase Inhibitor Start: 05-23-2025 take 1 tablet by mouth once daily Atorvastatin 40 mg tablet Active 40 mg PO DAILY May 27, 2025 9:34am Start: 07-01-2024 End: 05-27-2025 Atorvastatin 40 mg tablet Discontinued 20 mg PO DAILY July 01, 2024 12:00am May 27, 2025 9:34am Start: 08-02-2023 take 20 mg by mouth once daily Atorvastatin Active 20 MG PO DAILY August 02, 2023 12:00am ferrous sulfate 325 mg oral tablet (1 source) Start: 06-19-2025 take 1 tablet by mouth once daily ferrous sulfate (IRON) 325 mg (65 mg iron) tablet Take 1 tablet by mouth once daily. 06/19/2025 Active loratadine 10 mg oral tablet (17 sources) Start: 02-14-2023 take 1 tablet by mouth once daily as needed Loratadine (Claritin) 10 mg Tablet Active 10 mg PO DAILY as needed for SEASONAL ALLERGIES February 14, 2023 12:00am take 1 capsule by mouth once maria t ly loratadine 10 mg cap Take 10 mg by mouth once daily. Active 24 hr metFORMIN hydrochloride 500 mg extended release oral tablet (17 sources) Biguanide Start: 02-14-2023 take 1 tablet by mouth every twenty-four hours at bedtime Metformin 500 mg tablet extended release 24 hr Active 500 mg PO AT BEDTIME February 14, 2023 12:00am diabetes Start: 02-14-2023 take 500 mg by mouth once daily in the evening Metformin Active 500 MG PO EVERY EVENING February 14, 2023 12:00am take 1 tablet by zuly th once daily at breakfast metFORMIN (GLUCOPHAGE) 500 mg tablet Take 500 mg by mouth daily with breakfast. Active methylPREDNISolone 4 mg oral tablet (1 source) Corticosteroid Start: 06-18-2025 methylPREDNISolone (MEDROL DOSE-PACK) 4 mg Dose-Pack Take by mouth. 06/18/2025 Active pantoprazole 40 mg delayed release oral tablet (20 sources) Proton Pump Inhibitor Start: 05-23-2025 take 1 tablet by mouth once daily pantoprazole DR (PROTONIX) 40 mg tablet Take 40 mg by mouth once daily. 05/23/2025 Active Start: 07-04-2024 End: 01-30-2025 take 1 tablet by mouth twice daily Pantoprazole 40 mg tablet,delayed release (DR/EC) Discontinued 40 mg PO TWICE A DAY 60 30 3 August 01, 2024 10:23am January 30, 2025 9:28am Start: 08-02-2023 End: 07-01-2024 take 1 tablet by mouth once daily Pantoprazole 40 mg tablet,delayed release (DR/EC) Discontinued 40 mg PO DAILY August 02, 2023 12:00am July 01, 2024 6:36pm Start: 04-10-2023 End: 04-10-2023 take 1 tablet by mouth twice daily Pantoprazole 40 mg tablet,delayed release (DR/EC) Discontinued 40 mg PO TWICE A DAY April 10, 2023 9:36am April 10, 2023 2:45pm acid reflux Start: 2023 End: 04-10-2023 take 1 tablet by mouth once daily in the morning Pantoprazole 40 mg tablet,delayed release (DR/EC) Discontinued 40 mg PO EVERY MORNING 90 1 2023 9:32am April 10, 2023 9:37am acid reflux Start: 02-16-2023 End: 2023 take 1 tablet by mouth twice daily Pantoprazole 40 mg tablet,delayed release (DR/EC) Discontinued 40 mg PO TWICE A DAY 120 60 0 February 16, 2023 3:17pm 2023 9:32am acid reflux Start: 02-14-2023 End: 02-16-2023 take 1 tablet by mouth once daily Pantoprazole 40 mg tablet,delayed release (DR/EC) Discontinued 40 mg PO DAILY February 14, 2023 12:00am February 16, 2023 3:17pm acid reflux sucralfate 1000 mg oral tablet (20 sources) Aluminum Complex Start: 05-27-2025 take 1 tablet by mouth twice daily Sucralfate 1 gram tablet Active 1 g PO TWICE A DAY May 27, 2025 9:33am Start: 05-12-2025 End: 05-27-2025 take 1 tablet by mouth three times daily Sucralfate 1 gram tablet Discontinued 1 g PO THREE TIMES A DAY May 12, 2025 12:00am May 27, 2025 9:34am Start: 01-30-2025 End: 03-01-2025 take 1 tablet by mouth three times daily Sucralfate 1 gram tablet Discontinued 1 g PO THREE TIMES A DAY 90 30 0 January 30, 2025 9:27am February 28, 2025 12:00am March 01, 2025 12:09am Start: 07-04-2024 End: 10-04-2024 take 1 tablet by mouth at bedtime Sucralfate 1 gram tablet Discontinued 1 g PO BEFORE MEALS AND AT BEDTIME 120 30 0 July 15, 2024 2:03pm October 04, 2024 1:17pm Start: 10-10-2023 End: 04-16-2024 take 1 tablet by mouth three times daily at bedtime Sucralfate (Carafate) 1 gram tablet Discontinued 1 g PO THREE TIMES A DAY 30 10 0 October 10, 2023 1:00am April 16, 2024 2:23pm Please take before meals, may also take at bedtime if needed Start: 02-16-2023 take 1 g by mouth 1 hour(s) before mealtime Sucralfate Active 1 GM PO ONE HOURS BEFORE MEALS & BED 90 February 16, 2023 12:00am SUMAtriptan 100 mg oral tablet (20 sources) Serotonin-1b and Serotonin-1d Receptor Agonist Start: 07-15-2024 SUMAtriptan (IMITREX ) 100 mg tablet Take 100 mg by mouth as needed for migraine headache (see administration instructions). 05/23/2025 Active Start: 02-14-2023 End: 07-04-2024 take 1 tablet by mouth once daily as needed for headache Sumatriptan Succinate 25 mg tablet Discontinued 25 mg PO DAILY as needed for Migraine Headache February 14, 2023 12:00am July 04, 2024 3:13pm Completed/Discontinued Medications Medication Drug Class(es) Dates Sig (Normalized) Sig (Original) Magic Mouth Wash (Bmx) 180 mL suspension (7 sources) Start: 03-11-2025 End: 05-27-2025 Magic Mouth Wash (Bmx) 180 mL suspension Discontinued 10 mL PO EVERY 8 HOURS NEEDED as needed for abdominal pain 180 0 March 11, 2025 3:36pm May 27, 2025 9:34am diphenhydramine 12.5 mg/5 mL oral liquid 60 mL; aluminum-mag hydroxide-simethicone 400 mg-400 mg-40 mg/5 mL oral susp 60 mL; Lidocaine Viscous 2 % mucosal solution 60 mL; Per 180 mL Start: 03-11-2025 Magic Mouth Wa sh (Bmx) 180 mL suspension Active 10 mL PO EVERY 8 HOURS NEEDED as needed for abdominal pain 180 March 11, 2025 3:36pm diphenhydramine 12.5 mg/5 mL oral liquid 60 mL; aluminum-mag hydroxide-simethicone 400 mg-400 mg-40 mg/5 mL oral susp 60 mL; Lidocaine Viscous 2 % mucosal solution 60 mL; Per 180 mL Start: 03-04-2025 End: 03-11-2025 Magic Mouth Wash (Bmx) 180 m L suspension Discontinued 10 mL PO EVERY 8 HOURS NEEDED as needed for abdominal pain 180 0 March 04, 2025 10:59pm March 11, 2025 3:36pm diphenhydramine 12.5 mg/5 mL oral liquid 60 mL; aluminum-mag hydroxide-simethicone 400 mg-400 mg-40 mg/5 mL oral susp 60 mL; Lidocaine Viscous 2 % mucosal solution 60 mL; Per 180 mL Start: 03-04-2025 End: 03-11-2025 Magic Mouth Wash (Bmx) 180 m L suspension Discontinued 10 mL PO EVERY 8 HOURS NEEDED as needed for abdominal pain 180 March 04, 2025 10:59pm March 11, 2025 3:36pm diphenhydramine 12.5 mg/5 mL oral liquid 60 mL; aluminum-mag hydroxide-simethicone 400 mg-400 mg-40 mg/5 mL oral susp 60 mL; Lidocaine Viscous 2 % mucosal solution 60 mL; Per 180 mL Start: 03-04-2025 Magic Mouth Wa sh (Bmx) 180 mL suspension Active 10 mL PO EVERY 8 HOURS NEEDED as needed for abdominal pain 180 March 04, 2025 10:59pm diphenhydramine 12.5 mg/5 mL oral liquid 60 mL; aluminum-mag hydroxide-simethicone 400 mg-400 mg-40 mg/5 mL oral susp 60 mL; Lidocaine Viscous 2 % mucosal solution 60 mL; Per 180 mL Multivitamin preparation (10 sources) Start: 02-14-2023 End: 04-10-2023 take 1 tablet by mouth once daily Multivitamin Discontinued 1 TABLET PO DAILY February 13, 2023 11:00pm April 10, 2023 1:44pm Start: 02-14-2023 End: 04-10-2023 take 1 tablet by mouth once daily Multivitamin Discontinued 1 TABLET PO DAILY February 14, 2023 12:00am April 10, 2023 2:44pm Start: 02-14-2023 take 1 tablet by zuly th once daily Multivitamin Active 1 TABLET PO DAILY February 14, 2023 12:00am Multivitamin Tablet (6 sources) Start: 02-14-2023 End: 04-10-2023 Multivitamin Tablet Disconti nued 1 {tbl} PO DAILY February 14, 2023 12:00am April 10, 2023 2:44pm health maintenance Start: 02-14-2023 End: 04-10-2023 Multivitamin Tablet Disconti nued 1 {tbl} PO DAILY February 14, 2023 12:00am April 10, 2023 2:44pm Start: 02-14-2023 End: 04-10-2023 Multivitamin Tablet Disconti nued 1 {tbl} PO DAILY February 13, 2023 11:00pm April 10, 2023 1:44pm Problems Active Problems Problem Classification Problem Date Documented Da te Episodic/Chronic Administrative/social admission (2 sources) First encounter by subject; Translations: [Persons encountering health services in other specified circumstances] Onset: 06-19-2025 06-19-2025 Episodic Cardiac and circulatory congenital anomalies (18 sources) Ventricular septal defect; Translations: [Ventricular septal defect] Onset: 06-19-2025 04-10-2023 Chronic Conditions associated with dizziness or vertigo (1 source) Dizziness and giddiness; Translations: [Dizziness and giddiness] Onset: 07-01-2025 Episodic Deficiency and other anemia (12 sources) Anemia; Translations: [Anemia, unspecified] 02-14-2023 Episodic Deficiency and other anemia (2 sources) Iron deficiency anemia; Translations: [Iron deficiency anemia, unspecified] 06-19-2025 Episodic Developmental disorders (3 sources) Intellectual disability; Translations: [Unspecified intellectual disabilities] Onset: 06-19-2025 06-19-2025 Chronic Diabetes mellitus without complication (5 sources) Type 2 diabetes mellitus; Translations: [Type 2 diabetes mellitus without complications] Onset: 07-15-2024 06-19-2025 Chronic Disorders of lipid metabolism (2 sources) Pure hypercholesterolemi a, unspecified; Translations: [Pure hypercholesterolemi a, unspecified] Onset: 07-01-2025 Chronic Gastroduodenal ulcer (except hemorrhage) (20 sources) Gastric ulcer caused by non-steroidal anti-inflammatory drug in therapeutic use; Translations: [Gastric ulcer, unspecified as acute or chronic, without hemorrhage or perforation] Onset: 01-30-2025 2023 Chronic Gastrointestinal hemorrhage (1 source) Chronic or unspecified peptic ulcer, site unspecified, with hemorrhage; Translations: [Chronic or unspecified peptic ulcer, site unspecified, with hemorrhage] Onset: 11-11-2024 Chronic Headache; including migraine (4 sources) Migraine without aura, not refractory ; Translations: [Chronic migraine without aura, not intractable, without status migrainosus] Onset: 08-27-2024 06-19-2025 Chronic Heart valve disorders (18 sources) Pulmonic valve stenosis; Translations: [Nonrheumatic pulmonary valve stenosis] Onset: 06-19-2025 04-10-2023 Chronic Malaise and fatigue (1 source) Weakness; Translations: [Weakness] Onset: 07-01-2025 Episodic Other and unspecified benign neoplasm (13 sources) Polyp of colon; Translations: [Polyp of colon] 2023 Episodic Other and unspecified benign neoplasm (5 sources) Polyp of colon; Translations: [Benign neoplasm of colon] 2023 Episodic Other congenital anomalies (8 sources) Ksenia's syndrome; 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] 07-02-2024 Chronic Other diseases of bladder and urethra (2 sources) Neurogenic bladder; Translations: [Neuromuscular dysfunction of bladder, unspecified] 06-19-2025 Chronic Other diseases of bladder and urethra (1 source) Neuromuscular dysfunction of bladder, unspecified; Translations: [Neurogenic bladder] Onset: 06-19-2025 Chronic Other ear and sense organ disorders (1 source) Deafness of right ear; Translations: [Unspecified hearing loss, right ear] 06-19-2025 Chronic Other ear and sense organ disorders (1 source) Hearing loss; Translations: [Unspecified hearing loss, unspecified ear] 06-19-2025 Chronic Other ear and sense organ disorders (1 source) Unspecified hearing loss, right ear; Translations: [Deafness in right ear] Onset: 06-19-2025 Chronic Other gastrointestinal disorders (7 sources) Occult blood in stools; Translations: [Other fecal abnormalities] 03-04-2025 Episodic Other nervous system disorders (1 source) Other chronic pain; Translations: [Chronic low back pain, unspecified back pain laterality, unspecified whether sciatica present] Onset: 06-19-2025 Chronic Other nutritional; endocrine; and metabolic disorders (1 source) Obesity; Translations: [Obesity, unspecified] 06-19-2025 Chronic Other screening for suspected conditions (not mental disorders or infectious disease) (4 sources) Patient encounter status; Translations: [Encounter for screening mammogram for malignant neoplasm of breast] Onset: 06-19-2025 06-19-2025 Episodic Unclassified (1 source) Cancer cervix screening status 06-19-2025 Unclassified (1 source) Patient encounter status 06-19-2025 Unclassified (1 source) 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; 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)] Onset: 06-19-2025 Unclassified (1 source) Chronic low back pain, unspecified back pain laterality, unspecified whether sciatica present; Translations: [Chronic low back pain, unspecified back pain laterality, unspecified whether sciatica present] Onset: 06-19-2025 Past or Other Problems Problem Classification Problem Date Documented Da te Episodic/Chronic Abdominal pain (1 source) Epigastric pain; Translations: [Epigastric pain] Onset: Episodic Acute posthemorrhagic anemia (20 sources) Acute posthemorrhagic anemia; Translations: [Acute posthemorrhagic anemia] Onset: 5 02-14-2023 Episodic Deficiency and other anemia (5 sources) Anemia, unspecified; Translations: [Anemia, unspecified] Onset: 4 02-14-2023 Episodic Deficiency and other anemia (3 sources) Iron deficiency anemia, unspecified; Translations: [Iron deficiency anemia, unspecified iron deficiency anemia type] Onset: 5 Episodic E Codes: Adverse effects of medical drugs (1 source) Adverse effect of other nonsteroidal anti-inflammatory drugs [NSAID], initial encounter; Translations: [Adverse effect of other nonsteroidal anti-inflammatory drugs [NSAID], initial encounter] Onset: 5 Episodic Gastritis and duodenitis (17 sources) Gastritis; Translations: [Gastritis, unspecified, without bleeding] Onset: 5 10-18-2023 Episodic Gastroduodenal ulcer (except hemorrhage) (10 sources) H/O: peptic ulcer; Translations: [Personal history of peptic ulcer disease] Onset: 5 07-02-2024 Episodic Gastrointestinal hemorrhage (20 sources) Gastrointestinal hemorrhage; Translations: [Gastrointestinal hemorrhage, unspecified] Onset: 5 02-14-2023 Episodic Other gastrointestinal disorders (1 source) Other fecal abnormalities; Translations: [Other fecal abnormalities] Onset: 5 Episodic Spondylosis; intervertebral disc disorders; other back problems (3 sources) Chronic low back pain; Translations: [Chronic low back pain, unspecified back pain laterality, unspecified whether sciatica present] Onset: 5 06-19-2025 Episodic Results Test Name Value Interpretation Reference Range Facility MR/PATKENNETHon 07-03-2025 MR/PAT.[facility] Medical Records Department [address] [place] [address] PAT - Anesthesia 07/03/25 1645 MR#: [id number] Acct: [id number] Name: SOPHIA LEBRON Rep #: [id number] : 1980 45 From: Keven Sheehan MD PCP: Dr. 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 When Was Last Pacemaker Check QUESTION #4 FULL TEXT: You/Your Family Experience fever (hyperthermia) with Anesthesia Last Oral Intake Last Oral intake: Last Oral Intake NPO since Meds taken in AM with sips of water? 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 Female Yes 07/03/25 12:48 HX of Motion Sickness No 07/03/25 12:48 HX of N/V After Surgery No 07/03/25 12:48 Non-Smoker Yes 07/03/25 12:48 Duration of Surgery greater No 07/03/25 12:48 than 60 minutes Number of Risk Factors 2 07/03/25 12:48 PONV Score Moderate Risk 07/03/25 12:48 Height Weight Height Weight: Anesthesia: Height Weight Height 5 ft 1 in 03/04/25 20:04 Respiratory Assessment Respiratory Assessment - substitute crossing guard: Respiratory Tract Infection Hx - substitute crossing guard Hx Respiratory Tract Infection No 07/03/25 12:48 STOP Sleep Apnea STOP Sleep Apnea - substitute crossing guard: STOP Sleep Apnea - substitute crossing guard Hx Hypertension No 07/03/25 12:48 Hx Sleep Apnea No 07/03/25 12:48 CPAP BIPAP Do you snore loudly (louder No 07/03/25 12:48 than talking or can be heard Do you often feel tired/ No 07/03/25 12:48 fatigued/ sleepy during daytime? Has anyone observed you stop No 07/03/25 12:48 breathing during sleep? STOP Results Negative 07/03/25 12:48 QUESTION #5 FULL TEXT : Do you snore loudly (louder than talking or can be heard through closed doors)? 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 Specify any problems Hx of Preganancy in last 3 N/A 07/03/25 12:48 Months Nurse Filling Out Transfusion [facility]BUCH[facility] 07/03/25 12:48 Questions: Date: 07/03/25 07/03/25 12:48 Time: 12:48 07/03/25 12:48 Patient unable to answer at this time (ie. 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 Hx Now No 07/03/25 12:48 Gestational Age (in weeks): EDC: Hx Hx Para Hx Section SAB No 07/03/25 12:48 PFSH Medical History Loss of hearing Wears glasses Anxiety Diabetes Bladder disease High cholesterol Anemia History of ulceration GERD (gastroesophageal reflux disease) Non-smoker History of echocardiogram Cardiology follow-up encounter Neurogenic bladder Type 2 diabetes mellitus without complication Pulmonic stenosis Iron deficiency anemia VSD (ventricular septal defect) Ksenia syndrome Migraines Home Medications ???Medication ???Instructions ???Recorded ???Last Taken ???Type loratadine 10 mg tablet (Claritin) 10 mg PO DAILY PRN SEASONAL 01/2201/20/25 History ALLERGIES metformin 500 mg tablet,extended 500 mg PO QHS diabetes 02/14/23 History release 24 hr sumatriptan succinate 100 mg tablet See Rx Instructions PO .COMPLEX 07/15/24 01/19/25 History amitriptyline 50 mg tablet 50 mg PO QHS 10/04/24 01/19/25 His tory pantoprazole 40 mg tab (more content not included)... [facility] [facility] Office Visit (FAMPWS ) ----- SOPHIA LEBRON ([id number]) 1980 F Date Time Provider Department 06/19/25 1:00 PM [facility] During your visit today, we recorded the following information about you: Pulse Blood pressure Weight Height 81/minute 118/72 81.7 kg 1.562 m Last Period 06/18/25 Kiran Olivo MD 06/19/2025 1:50 PM Signed Chief Complaint Patient presents with: New Patient: Est care Recording using [employer] software for draft documentation of the visit was discussed with the patient/authorized customer account representative; all questions welcomed and answered. Patient/authorized customer account representative agreed to proceed HPI Sophia Lebron is a 45 year old female who presents here today for Above Complaints. Accompanied today by mother who is also her legal guardian. Previous PCP Dr. Ritter with last OV 2 months ago. Establish Care: - Last visit with previous PCP, Dr. Ritter, was on April 08. 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 - Sophia is on social security disability; mother manages finances and assists with decision-making. 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 - No other related conditions being monitored. Neurogenic Bladder: - Present since infancy; managed by a pediatric urologist. - Unable to achieve continence; uses adult pads and voids frequently to prevent accidents. - Denies dysuria, increased urinary frequency, or urgency. Ventricular Septal Defect and Pulmonic Stenosis: - Managed by Dr. Whitt at [facility]. - Last OV 05/27 with recommendation to repeat echo. Will f/u results and recommendations. No new cardiac concerns today. Migraines: - Chronic migraines, occurring almost daily with varying intensity. Managed by [facility]. - Light and sound are aggravating factors. - Weather changes identified as a trigger. - No visual auras reported. - Managed with amitriptyline at night and Imitrex PRN (used approximately twice a week). - Follow-up with [facility] scheduled next week. Iron Deficiency Anemia: - Takes an OTC iron supplement daily in the morning. Peptic Ulcer Disease: - Managed by Dr. Dolan. - Recent EGD scheduled for July 09 due to ongoing symptoms. - Previous EGD and colonoscopy performed two years ago; colonoscopy was normal. - Takes Protonix daily and Carafate BID. Type 2 Diabetes Mellitus: - Diagnosed a couple of years ago. - Managed with metformin 500 mg daily. - Last A1c was 6.7% two months ago. - Checks blood glucose levels at home approximately once a month; does not recall recent readings. - Adheres to a diabetic diet most of the time, with occasional deviations. - Denies polyuria, polydipsia, polyphagia, or vision changes. - Last eye exam was six months ago with Dr. Quiles at [facility]. Chronic Low Back Pain: - Managed by Dr. Meléndez at [facility]. - Recent flare-up; prescribed a Medrol Dosepak but has not yet picked it up. - X-ray showed moderate changes at L4-L5. Lifestyle: - Never smoked, used tobacco, or vaped. - Consumes alcohol monthly or less, 1-2 drinks at a time, never more than 6. - Denies drug use. - Never sexually active; has a bifurcated hymen, causing issues with Pap smears. - Lives with her mother and a Papillon dog. Past medical history, appointments, medications, allergies reviewed. Previous Medical History PAST MEDICAL HISTORY Diagnosis Date Chronic lower back pain Dr. Meléndez Deaf right ear Diabetes type II ([facility]) Intellectual disability Iron deficiency anemia Migraines [facility] [place] Neurogenic bladder Ksenia syndrome ([facility]) Obesity Peptic ulcer disease Pilonidal cyst 2008 Pulmonic stenosis VSD (ventricular septal defect) ([facility]) [facility] cardiology Previous Surgical History PAST SURGICAL HISTORY Procedure Laterality Date COLONOSCOPY 2022 repeat in 10 years-Dr. Dolan EGD W/O [facility] SPEC VARICIES INJ 2022 PAST SURGICAL HISTORY OF 2008 pilonidal cyst removal Family History FAMILY HISTORY Problem Relation Age of Onset Glaucoma Mother Diabetes Mother other (osteoarthritis) Mother Dementia Father Heart disease Father Diabetes Sister Fibromyalgia Sister Heart disease Maternal Grandmother Breast Cancer Maternal Grandmother Heart disease Maternal Grandfather Colon Cancer Maternal Grandfather Hypertension Maternal Grandfather Dementia Paternal Grandmother Lymphoma Paternal Grandmother Heart disease Paternal Grandfather age 50's Patient Allergies ALLERGIES Allergen Reactions Sulfa (Sulfonamide * Other: See Comments Burning with urination Current Medications Current Outpatient Medications on File Prior to Visit Medication (more content not included)... [facility] Visit Reporton Cardiology Visit Report [facility] [address] [place] [address] OFFICE VISIT Date of Service: 05/27/25 MR#: [id number] Acct: [id number] Name: SOPHIA LEBRON Rep #: [id number] : 1980 Provider: Dr. Ammon Whitt MD Age/Sex: 45/F Location: [facility] Status: Signed HPI HPI History of Present Illness Details: Pleasant 45-year-old lady with a history of iron deficiency anemia, perimembranous ventricular septal defect, pulmonic stenosis and regurgitation, Ksenia's syndrome who presents for a follow-up visit. She denies any chest pain or shortness of breath or paroxysmal nocturnal dyspnea or pedal edema no neck arm or jaw discomfort suggest angina no dizziness or diaphoresis no near syncope or syncope. She has been compliant with her medications. She is not on any cardiac medications. Her most recent echocardiogram performed in April 2024 demonstrated an ejection fraction of 55% a small membranous VSD with a pressure gradient of 80 to 85 mmHg across with a [id number] shunt. Global longitudinal strain was normal at 17.3. She tells me that she had a GI bleed and may be needing an EGD. Otherwise she denies any chest pain or shortness of breath or paroxysmal nocturnal dyspnea or pedal edema. He remembered that previous that she had undergone a colonoscopy without incident. Her most recent lipid profile demonstrated total cholesterol 130 HDL of 40 and LDL of 71. Intake Vital Signs 04/16/24 14:21 03/04/25 20:04 05/27/25 09:27 Height 5 ft 5 ft 1 in 5 ft 1 in Weight: 177 lb BMI 33.4 BP 113/77 Blood Pressure Location Lt brachial Position Sitting Respiration 16 Pulse 89 Pulse Source Monitor Intake Visit Reasons: 1 Y FU Physical Education Aide Required: No Accompanied by: Mother Is patient in pain?: No Allergies Sulfa (Sulfonamide Antibiotics) Adverse Reaction (Verified 05/27/25 09:33) PT UNSURE OF REACTION Medications ???Medication ???Instructions ???Recorded ???Confirmed ???Type loratadine 10 mg tablet (Claritin) 10 mg PO DAILY PRN SEASONAL 01/2205/27/25 History ALLERGIES metformin 500 mg tablet,extended 500 mg PO QHS diabetes 02/14/23 History release 24 hr sumatriptan succinate 100 mg tablet See Rx Instructions PO .COMPLEX 07/15/24 05/27/25 History amitriptyline 50 mg tablet 50 mg PO QHS 10/04/24 05/27/25 His tory pantoprazole 40 mg tablet,delayed 40 mg PO BID #180 tabs 01/30/25 0 05/27/25 Rx release atorvastatin 40 mg tablet 40 mg PO DAILY 05/27/25 05/27/25 H istory sucralfate 1 gram tablet 1 g PO BID 05/27/25 05/27/25 Histo ry PFSH Medical History Loss of hearing Wears glasses Anxiety Diabetes Bladder disease High cholesterol Anemia History of ulceration GERD (gastroesophageal reflux disease) Non-smoker History of echocardiogram Cardiology follow-up encounter Neurogenic bladder Type 2 diabetes mellitus without complication Pulmonic stenosis Iron deficiency anemia VSD (ventricular septal defect) [place] syndrome Migraines Surgical History Hx of colonoscopy History of esophagogastroduodenoscop y (EGD) History of cardiac catheterization History of colonoscopy History of excision of pilonidal cyst ( 2004) Family History Father Heart disease CVA (cerebral vascular accident) Hypertension Dementia Mother Diabetes Sister Diabetes Fibromyalgia Other Alzheimer's dementia Breast cancer Colon cancer Social History household members: family housing: house pets and animals: Yes Smoking Status: Never smoker alcohol intake: never substance use type: does not use caffeine: Yes ROS Const Const: Positive for fatigue; Negative for weakness, headache(s), daytime sleepiness or difficulty sleeping ENT ENT: Negative for headache(s), dizziness or Nosebleed/epistaxis Cardio Chest Pain: No Palpitations: No Edema: None Resp Respiratory: Negative for SOB with activity, SOB at rest, SOB orthopnea SOB lying down or Cough GI GI: Negative nausea, vomiting or heartburn Neuro Neuro: Negative for dizziness, lightheadedness, near syncope, headache(s) or weakness Endo Endo: Positive for fatigue Cardiology Exam Const Appearance: cooperative, healthy appearing, no acute distress, well developed and well groomed Nutritional Appearance: average body habitus and well nourished Orientation: alert, awake and oriented x3 Head Head: normal to inspection, normocephalic and atraumatic Ears: hearing grossly normal bilaterally and external ears normal Nose: external nose normal, nares normal, nasal mucous membranes and turbin (more content not included)... [facility] MR/PAT.MARIA Lon 05-12-2025 MR/PAT.[facility] Medical Records Department [address] [place] [address] PAT - Anesthesia 05/12/25 1436 MR#: [id number] Acct: [id number] Name: SOPHIA LEBRON Rep #: [id number] : 1980 45 From: Keven Sheehan MD PCP: Dr. 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 When Was Last Pacemaker Check QUESTION #4 FULL TEXT: You/Your Family Experience fever (hyperthermia) with Anesthesia Last Oral Intake Last Oral intake: Last Oral Intake NPO since Meds taken in AM with sips of water? 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 Female Yes 05/12/25 09:20 HX of Motion Sickness No 05/12/25 09:20 HX of N/V After Surgery No 05/12/25 09:20 Non-Smoker Yes 05/12/25 09:20 Duration of Surgery greater No 05/12/25 09:20 than 60 minutes Number of Risk Factors 2 05/12/25 09:20 PONV Score Moderate Risk 05/12/25 09:20 Height Weight Height Weight: Anesthesia: Height Weight Height 5 ft 1 in 01/21/25 12:28 Respiratory Assessment Respiratory Assessment - substitute crossing guard: Respiratory Tract Infection Hx - substitute crossing guard Hx Respiratory Tract Infection No 05/12/25 09:20 STOP Sleep Apnea STOP Sleep Apnea - substitute crossing guard: STOP Sleep Apnea - substitute crossing guard Hx Hypertension No 05/12/25 09:20 Hx Sleep Apnea No 05/12/25 09:20 CPAP BIPAP Do you snore loudly (louder No 05/12/25 09:20 than talking or can be heard Do you often feel tired/ No 05/12/25 09:20 fatigued/ sleepy during daytime? Has anyone observed you stop No 05/12/25 09:20 breathing during sleep? STOP Results Negative 05/12/25 09:20 QUESTION #5 FULL TEXT : Do you snore loudly (louder than talking or can be heard through closed doors)? 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 Specify any problems Hx of Preganancy in last 3 N/A 05/12/25 09:20 Months Nurse Filling Out Transfusion NBUCHER 05/12/25 09:20 Questions: Date: 05/12/25 05/12/25 09:20 Time: :05/12/25 09:20 Patient unable to answer at this time (ie. 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?Recorded ???Last Taken ???Type loratadine 10 mg tablet (Claritin) 10 mg PO DAILY PRN SEASONAL 01/2201/20/25 History ALLERGIES metformin 500 mg tablet,extended 500 mg PO QHS diabetes 02/14/23 History release 24 hr atorvastatin 40 mg tablet 20 mg PO DAILY 07/01/24 01/19/25 H istory sumatriptan succinate 100 mg tablet See Rx Instructions PO .COMPLEX 07/15/24 01/19/25 History amitriptyline 50 mg tablet 50 mg PO QHS (more content not included)... [facility] Absolute lymphocyte countOrd ered By: Debbi Ritter on 03-21-2025 Lymphocytes Auto (Unsp spec) [#/Vol] 2.00 10*3/uL 0.83-4.51 [facility] Absolute neutrophil countOrd ered By: Debbi Ritter on 03-21-2025 Neutrophils (Bld) [#/Vol] 6.1 10*3/uL 2.0-7.7 [facility] Anion gap in Serum or Plasma Ordered By: Debbi Ritter on 03-21-2025 Anion gap [Moles/Vol] 10 mmol/L 5-15 [facility] Automated lymphocyte count a s percentage of total leukocytesOrdered By: [facility] on 03-21-2025 Lymphocytes/100 WBC Auto (Unsp spec) 22.3 % 19- [facility] BUN/creatinine ratioOrdered By: [facility] on 03-21-2025 Urea nitrogen/Creatinine [Mass ratio] 16.2 mg/mg 10-20 [facility] Basophil percentageOrdered B y: Debbi [facility] on 03-21-2025 Basophils/100 WBC (Bld) 0.3 % 0-1 [facility] Bilirubin, totalOrdered By: [facility] on 03-21-2025 Bilirubin [Mass/Vol] 0.26 mg/dL Normal 0.00-1.30 [facility] Comment on above: Performed By: #### L 501.080 #### [facility] [address] [place], [address] CBC W/Diff, Automatedon - 0-2024 Absolute Lymph 2.00 X10 3/uL Normal 0.83-4.51 [facility] Comment on above: Performed By: #### L 400.7600 #### [facility] [address] [place], [address] Absolute Neut 6.1 X10 3/uL Normal 2.0-7.7 [facility] Comment on above: Performed By: #### L 400.7600 #### [facility] [address] [place], [address] Basophils/100 WBC (Bld) 0.3 % Normal 0-1 [facility] Comment on above: Performed By: #### L 400.7600 #### [facility] [address] [place], [address] Eosinophils/100 WBC (Bld) 2.0 % Normal 0-5 [facility] Comment on above: Performed By: #### L 400.7600 #### [facility] [address] [place], [address] Erythrocyte distribution width (RBC) [Ratio] 13.8 % Normal 11.6-14.6 [facility] Comment on above: Performed By: #### L 400.7600 #### [facility] [address] [place], [address] Hematocrit (Bld) [Volume fraction] 38.0 % Normal 37-47 [facility] Comment on above: Performed By: #### L 400.7600 #### [facility] [address] [place], [address] Hemoglobin (Bld) [Mass/Vol] 12.5 g/dL Normal 12.0-15.0 [facility] Comment on above: Performed By: #### L 400.7600 #### [facility] [address] [facility] [place], [address] IG% 0.300 Normal 0.0-0.9 [facility] Comment on above: Result Comment: IG% - Immature Granulocytes (promyelocytes, myelocytes and metamyelocytes) > 1% indicates that a LEFT SHIFT is Present. Performed By: #### L 400.7600 #### [facility] [address] [facility] [place], [address] Lymphocytes/100 WBC (Bld) 22.3 % Normal 19-41 [facility] Comment on above: Performed By: #### L 400.7600 #### [facility] [address], [address] MCH (RBC) [Entitic mass] 29.8 pg Normal 27.0-32.0 [facility] Comment on above: Performed By: #### L 400.7600 #### [facility] [address], [address] MCHC (RBC) [Mass/Vol] 32.9 g/dL Normal 32-36 [facility] Comment on above: Performed By: #### L 400.7600 #### [facility] [address] [place], [address] MCV (RBC) [Entitic vol] 90.5 fL Normal 81-99 [facility] Comment on above: Performed By: #### L 400.7600 #### [facility] [address] [place], [address] Monocytes/100 WBC (Bld) 7.3 % Normal 0-10 [facility] Comment on above: Performed By: #### L 400.7600 #### [facility] [address] [place], [address] Neutrophils/100 WBC (Bld) 67.8 % Normal 47-70 [facility] Comment on above: Performed By: #### L 400.7600 #### [facility] [address] [place], [address] Nucleated RBC (Bld) [#/Vol] 0 10*3/uL Normal 0-5 [facility] Comment on above: Performed By: #### L 400.7600 #### [facility] [address] [place], [address] Platelet mean volume (Bld) [Entitic vol] 11.1 fL Normal 6.2-12.0 [facility] Comment on above: Performed By: #### L 400.7600 #### [facility] [address] [place], [address] Platelets (Bld) [#/Vol] 293 10*3/uL Normal 150-450 [facility] Comment on above: Performed By: #### L 400.7600 #### [facility] [address] [place], [address] RBC (Bld) [#/Vol] 4.20 10*6/uL Normal 4.2-5.4 [facility] Comment on above: Performed By: #### L 400.7600 #### [facility] [address] [place], [address] RDW SD 46.2 fl High 35.1-43.9 [facility] Comment on above: Performed By: #### L 400.7600 #### [facility] [address] [place], [address] WBC (Bld) [#/Vol] 9.0 10*3/uL Normal 4.4-11.0 [facility] Comment on above: Performed By: #### L 400.7600 #### [facility] [address] [place], [address] Calculated very low density lipoprotein (VLDL) cholesterol measurementOrdered By: Debbi Ritter on 03-21-2025 Calculated very low density lipoprotein (VLDL) cholesterol measurement 19 mg/dL 5-40 [facility] Carbon dioxide, total [Moles /volume] in Central venous bloodOrdered By: Debbi Ritter on 03-21-2025 CO2 [Moles/Vol] 22.4 mmol/L Normal 21.0-32.0 [facility] Comment on above: Performed By: #### L 501.080 #### [facility] [address] [place], [address] Chloride assayOrdered By: Mukul Ritter on 03-21-2025 Chloride [Moles/Vol] 99 mmol/L Normal 98-108 [facility] Comment on above: Performed By: #### L 501.080 #### [facility] [address] [place], [address] Comprehensive Metabolic Prof ilon 03-21-2025 ALK PHOS 81 U/L Normal 35-104 [facility] Comment on above: Performed By: #### L 501.080 #### [facility] [address] [place], [place], [address] BUN/CRE 16.2 RATIO Normal 10-20 [facility] Comment on above: Performed By: #### L 501.080 #### [facility] [address] [place], [address] GAP 10 Normal 5-15 [facility] Comment on above: Performed By: #### L [id number] #### [facility] [address] [place], [address] Potassium [Moles/Vol] 3.7 mmol/L Normal 3.3-5.1 [facility] Comment on above: Performed By: #### L 501.080 #### [facility] [address] [place], [place], [id number] T PROT 7.4 g/dL Normal 5.9-8.4 [facility] Comment on above: Performed By: #### L 501.080 #### [facility] [address] [place], [address] Comprehensive Metabolic Prof ilOrdered By: Debbi Ritter on 03-21-2025 AST [Catalytic activity/Vol] 22 U/L Normal <=31 [facility] Comment on above: Performed By: #### L 501.080 #### [facility] [address] [place], [address] Eosinophil percentageOrdered By: Debbi Ritter on 03-21-2025 Eosinophils/100 WBC (Bld) 2.0 % 0-5 [facility] Erythrocyte distribution wid th ratioOrdered By: Debbi Ritter on 03-21-2025 Erythrocyte distribution width (RBC) [Ratio] 13.8 % 11.6-14.6 [facility] Erythrocyte distribution wid th standard deviationOrdered By: Debbi Ritter on 03-21-2025 Erythrocyte distribution width (RBC) [Ratio] 46.2 fl High 35.1-43.9 [facility] Glomerular filtration rate ( GFR) estimation/1.73 sq m using serum, plasma, or whole bOrdered By: Debbi Ritter on 03-21-2025 GFR/1.73 sq M.predicted among non-blacks MDRD (S/P/Bld) [Vol rate/Area] 76 mL/min/{1.73_m2} Normal >60 [facility] Comment on above: mL/min/1.73m2 CKD-EP I Creatinine Equation (2020) Result Comment: mL/m in/1.73m2 CKD-EPI Creatinine Equation (2020) Performed By: #### L 501.080 #### [facility] [address] [facility] [place], [address] Hematocrit Auto (Bld) [Volum e fraction]Ordered By: Debbi Ritter on 03-21-2025 Hematocrit (Bld) [Volume fraction] 38.0 % 37-47 [facility] Hemoglobin A1con 03-21-2025 HbA1c (Bld) [Mass fraction] 6.6 % High <=5.6 [facility] Comment on above: Result Comment: Norm al < 5.7 % Prediabetic 5.7 - 6.4 % Diabetic >or= 6.5 % Please note range changes. Performed By: #### L 400.7603 #### [facility] [address] [place], [address] Hemoglobin A1c percentageOrd ered By: Debbi Ritter on 03-21-2025 HbA1c (Bld) [Mass fraction] 6.6 % High <5.7 [facility] Comment on above: Normal < 5.7 % Predi abetic 5.7 - 6.4 % Diabetic >or= 6.5 % Please note range changes. Hemoglobin measurementOrdere d By: Debbi Ritter on 03-21-2025 Hemoglobin (Bld) [Mass/Vol] 12.5 g/dL 12.0-15.0 [facility] Immature granulocytes/100 WB C Auto (Bld)Ordered By: Debbi Ritter on 03-21-2025 Immature granulocytes/100 WBC (Bld) 0.300 % 0.0-0.9 [facility] Comment on above: IG% - Immature Granu locytes (promyelocytes, myelocytes and metamyelocytes) > 1% indicates that a LEFT SHIFT is Present. Iron measurement (mass/mass) Ordered By: Debbi Ritter on 03-21-2025 Iron (Unsp spec) [Mass/Mass] 54 ug/dL 50-170 [facility] Iron+Iron Binding Capacityon 03-21-2025 Iron [Mass/Vol] 54 ug/dL Normal 50-170 [facility] Comment on above: Performed By: #### L 501.080 #### [facility] [address] [place], [address] IRON SATURATION 20.0 Normal 13-59 [facility] Comment on above: Performed By: #### L 501.080 #### [facility] [address] [place], [address] TIBC 268 ug/dL Normal 250-450 [facility] Comment on above: Performed By: #### L 501.080 #### [facility] [address] [place], [address] UIBC 214 ug/dL Low 228-428 [facility] Comment on above: Performed By: #### L 501.080 #### [facility] [address] [place], [address] LDL calc ser/plasOrdered By: Debbi Ritter on 03-21-2025 Cholesterol in LDL [Mass/Vol] 71 mg/dL Normal [facility] Comment on above: Xjbqyhwczt=933-249 m g/dL & Higher Lfwy=108 mg/dL or greater Result Comment: Bord rxgozn=771-696 mg/dL Higher Qach=203 mg/dL or greater Performed By: #### L 501.080 #### [facility] [address] [place], [address] Lipid Profileon 03-21-2025 CHOL:HDL 3.27 Normal [facility] Comment on above: Performed By: #### L 501.080 #### [facility] [address] [place], [address] Cholesterol in VLDL [Mass/Vol] 19 mg/dL Normal 5-40 [facility] Comment on above: Performed By: #### L 501.080 #### [facility] [address] [place], [address] MCV (mean corpuscular volume ) determinationOrdered By: Debbi Ritter on 03-21-2025 MCV (RBC) [Entitic vol] 90.5 fL 81-99 [facility] Mean corpuscular hemoglobin (MCH) determinationOrdered By: Debbi Ritter on 03-21-2025 MCH (RBC) [Entitic mass] 29.8 pg 27.0-32.0 [facility] Mean corpuscular hemoglobin concentration (MCHC) determinationOrdered By: [facility] on 03-21-2025 MCHC (RBC) [Mass/Vol] 32.9 g/dL 32-36 [facility] Mean platelet volume determi nationOrdered By: Debbi Ritter on 03-21-2025 Platelet mean volume (Bld) [Entitic vol] 11.1 fL 6.2-12.0 [facility] Microalb:Creat Ratio,Random URon 03-21-2025 Creatinine [Mass/Vol] 78.10 mg/dL Normal 28.00- 217. 00 [facility] Comment on above: Performed By: #### L 501.080 #### [facility] [address] [place], [address] MALB:CREAT UNABLE TO CALCULATE Normal [facility] Comment on above: Performed By: #### L 501.080 #### [facility] [address] [place], [address] MICROALBUMIN,UR < 12.0 Normal NO RANGE EST. [facility] Comment on above: Performed By: #### L 501.080 #### [facility] [address] [place], [address] Microalbumin/creat ratio urO rdered By: Debbi Ritter on 03-21-2025 Urine microalbumin/creatinine ratio measurement UNABLE TO CALCULATE mg/g CRE [facility] Monocyte percentageOrdered B y: Debbi Ritter on 03-21-2025 Monocytes/100 WBC (Bld) 7.3 % 0-10 [facility] Neutrophil percentageOrdered By: Debib Ritter on 03-21-2025 Neutrophils/100 WBC (Bld) 67.8 % 47-70 [facility] No Panel InformationOrdered By: Debbi Torreskaran on 03-21-2025 Unsaturated Iron Binding Capacity 214 ug/dL Low 228-428 [facility] Nucleated red blood cell per centageOrdered By: Debbi Ritter on 03-21-2025 Nucleated RBC/100 WBC (Bld) [Ratio] 0 % 0-5 [facility] Platelet countOrdered By: Mukul Ritter on 03-21-2025 Platelets (Bld) [#/Vol] 293 10*3/uL 150-450 [facility] Potassium measurement (mass/ volume)Ordered By: Debbi Ritter on 03-21-2025 Potassium (Unsp spec) [Mass/Vol] 3.7 mmol/L 3.3-5.1 [facility] RBC Auto (Bld) [#/Vol]Ordere d By: Debbi Ritter on 03-21-2025 RBC (Bld) [#/Vol] 4.20 10*6/uL 4.2-5.4 [facility] Random urine creatinine bonita urement (mass/volume)Ordered By: Debbi Ritter on 03-21-2025 Creatinine Unsp time (U) [Mass/Vol] 78.10 mg/dL 28.00-217. 00 [facility] Screening total cholesterol/ high density lipoprotein (HDL) cholesterol ratioOrdered By: Debbi Ritter on 03-21-2025 Cholesterol.total/Cholest zeyad in HDL [Mass ratio] 3.27 {ratio} [facility] Serum creatinine measurement (mass/volume)Ordered By: Debbi Ritter on 03-21-2025 Creatinine [Mass/Vol] 0.94 mg/dL Normal 0.70-1.20 [facility] Comment on above: Performed By: #### L 501.080 #### [facility] [address] [place], [address] Serum globulin measurementOr dered By: Debbi Ritter on 03-21-2025 Globulin (S) [Mass/Vol] 3.4 g/dL Normal 2.2-4.2 [facility] Comment on above: Performed By: #### L 501.080 #### [facility] [address] [place], [address] Serum glucose measurement (m ass/volume)Ordered By: Debbi Ritter on 03-21-2025 Glucose [Mass/Vol] 134 mg/dL High 70-99 [facility] Comment on above: Performed By: #### L 501.080 #### [facility] [address] [place], [address] Serum or plasma alanine larson otransferase (ALT) measurementOrdered By: Monicasravan Ritter on 03-21-2025 ALT [Catalytic activity/Vol] 25 U/L Normal <=34 [facility] Comment on above: Performed By: #### L 501.080 #### [facility] [address] [place], [address] Serum or plasma albumin bonita urement (mass/volume)Ordered By: Debbi Ritter on 03-21-2025 Albumin [Mass/Vol] 4.0 g/dL Normal 3.5-5.0 [facility] Comment on above: Performed By: #### L 501.080 #### [facility] [address] [place], [address] Serum or plasma albumin/glob ulin mass ratioOrdered By: [facility] R[facility] on 03-21-2025 Albumin/Globulin [Mass ratio] 1.2 {ratio} Normal 0.9-2.4 [facility] Comment on above: Performed By: #### L 501.080 #### [facility] [address] [place], [address] Serum or plasma alkaline sony sphatase measurementOrdered By: Debbi Garciaf on 03-21-2025 ALP [Catalytic activity/Vol] 81 U/L 35-104 [facility] Serum or plasma calcium bonita urement (mass/volume)Ordered By: Debbi Ritter on 03-21-2025 Calcium [Mass/Vol] 8.5 mg/dL Normal 7.6-11.0 [facility] Comment on above: Performed By: #### L 501.080 #### [facility] [address] [place], [place], [address] Serum or plasma cholesterol in HDL measurement (mass/volume)Ordered By: [facility] on 03-21-2025 Cholesterol in HDL [Mass/Vol] 40 mg/dL Normal [facility] Comment on above: National Cholesterol Education Program (NCEP) guidelines:<40 mg/dL: Low HDL-cholesterol (major risk factor for CHD)>= 60 mg/dL: High HDL-cholesterol (negative risk factor for CHD)HDL-cholesterol is affected by a number of factors, e.g. smoking, exercise, hormones, sex and age. Result Comment: [employer] [employer] Cholesterol Education Program (NCEP) guidelines: <40 mg/dL: Low HDL-cholesterol (major risk factor for CHD) >= 60 mg/dL: High HDL-cholesterol (negative risk factor for CHD) HDL-cholesterol is affected by a number of factors, e.g. smoking, exercise, hormones, sex and age. Performed By: #### L 501.080 #### [facility] [address] [place], [place], [address] Serum or plasma cholesterol measurement (mass/volume)Ordered By: Debbi Ritter on 03-21-2025 Cholesterol [Mass/Vol] 130 mg/dL Normal <=200 [facility] Comment on above: Cholesterol level, D esirable <200 mg/dLBorderline high cholesterol 200-239 mg/dLHigh cholesterol >=240 mg/dLRecommendations of the NCEP Adult Treatment Panel for the following risk-cutoff thresholds for the [place] population. Result Comment: Chol esterol level, Desirable <200 mg/dL Borderline high cholesterol 200-239 mg/dL High cholesterol >=240 mg/dL Recommendations of the NCEP Adult Treatment Panel for the following risk-cutoff thresholds for the [place] population. Performed By: #### L 501.080 #### [facility] [address] [place], [place], [address] Serum or plasma iron saturat ion measurement (mass fraction)Ordered By: Debbi Ritter on 03-21-2025 Iron saturation [Mass fraction] 20.0 % 13-59 [facility] Serum or plasma urea nitroge n measurement (mass/volume)Ordered By: Debbi Ritter on 03-21-2025 Urea nitrogen [Mass/Vol] 15 mg/dL Normal 4-19 [facility] Comment on above: Performed By: #### L 501.080 #### [facility] [address] [place], [address] Sodium levelOrdered By: Raoul Ritter on 03-21-2025 Sodium [Moles/Vol] 131 mmol/L Low 133-145 [facility] Comment on above: Performed By: #### L 501.080 #### [facility] [address] [place], [place], [address] Total proteinOrdered By: Monica Ritter on 03-21-2025 Protein [Mass/Vol] 7.4 g/dL 5.9-8.4 [facility] Triglycerides measurementOrd ered By: Debbi Ritter on 03-21-2025 Triglyceride [Mass/Vol] 95 mg/dL Normal [facility] Comment on above: The drugs N-Acetylcy steine and Metamizole may falsely depress this assay. Normal range: <150 mg/dLBorderline High: 150-199 mg/dLHigh: 200-499 mg/dLVery High: >500 mg/dL Result Comment: The drugs N-Acetylcysteine and Metamizole may falsely depress this assay. Normal range: <150 mg/dL Borderline High: 150-199 mg/dL High: 200-499 mg/dL Very High: >500 mg/dL Performed By: #### L 501.080 #### [facility] [address] [place], [address] Urine albumin measurement [facility] detection limit of 20 mg/L or less (mass/volume)Ordered By: Debbi Ritter on 03-21-2025 Albumin DL <= 20 mg/L (U) [Mass/Vol] < 12.0 mg/L NO RANGE EST. [facility] White blood cell (WBC) count Ordered By: Debbi Ritter on 03-21-2025 WBC (Bld) [#/Vol] 9.0 10*3/uL 4.4-11.0 [facility] Absolute lymphocyte countOrd ered By: Ary Holguin on 03-11-2025 Lymphocytes Auto (Unsp spec) [#/Vol] 1.87 10*3/uL 0.83-4.51 [facility] Absolute neutrophil countOrd ered By: Ary Holguin on 03-11-2025 Neutrophils (Bld) [#/Vol] 6.9 10*3/uL 2.0-7.7 [facility] Automated lymphocyte count a s percentage of total leukocytesOrdered By: Ary Holguin on 03-11-2025 Lymphocytes/100 WBC Auto (Unsp spec) 19.5 % 19-41 [facility] Basophil percentageOrdered B y: Ary Holguin on 03-11-2025 Basophils/100 WBC (Bld) 0.4 % 0-1 [facility] CBC W/Diff, Automatedon 02-21 Absolute Lymph 1.87 X10 3/uL Normal 0.83-4.51 [facility] Comment on above: Performed By: #### L 100.0100 #### [facility] [address] [place], [address] Absolute Neut 6.9 X10 3/uL Normal 2.0-7.7 [facility] Comment on above: Performed By: #### L 100.0100 #### [facility] [address] [place], [address] Basophils/100 WBC (Bld) 0.4 % Normal 0-1 [facility] Comment on above: Performed By: #### L 100.0100 #### [facility] [address] [place], [address] Eosinophils/100 WBC (Bld) 1.0 % Normal 0-5 [facility] Comment on above: Performed By: #### L 100.0100 #### [facility] [address] [place], [address] Erythrocyte distribution width (RBC) [Ratio] 13.5 % Normal 11.6-14.6 [facility] Comment on above: Performed By: #### L 100.0100 #### [facility] [address] [place], [address] Hematocrit (Bld) [Volume fraction] 38.4 % Normal 37-47 [facility] Comment on above: Performed By: #### L 100.0100 #### [facility] [address] [place], [address] Hemoglobin (Bld) [Mass/Vol] 12.8 g/dL Normal 12.0-15.0 [facility] Comment on above: Performed By: #### L 100.0100 #### [facility] [address] [place], [address] IG% 0.400 Normal 0.0-0.9 [facility] Comment on above: Result Comment: IG% - Immature Granulocytes (promyelocytes, myelocytes and metamyelocytes) > 1% indicates that a LEFT SHIFT is Present. Performed By: #### L 100.0100 #### [facility] [address] [place], [address] Lymphocytes/100 WBC (Bld) 19.5 % Normal 19-41 [facility] Comment on above: Performed By: #### L 100.0100 #### [facility] [address] [place], [address] MCH (RBC) [Entitic mass] 30.0 pg Normal 27.0-32.0 [facility] Comment on above: Performed By: #### L 100.0100 #### [facility] [address] [place], [address] MCHC (RBC) [Mass/Vol] 33.3 g/dL Normal 32-36 [facility] Comment on above: Performed By: #### L 100.0100 #### [facility] [address] [place], [address] MCV (RBC) [Entitic vol] 89.9 fL Normal 81-99 [facility] Comment on above: Performed By: #### L 100.0100 #### [facility] [address] [place], [address] Monocytes/100 WBC (Bld) 6.7 % Normal 0-10 [facility] Comment on above: Performed By: #### L 100.0100 #### [facility] [address] [place], [address] Neutrophils/100 WBC (Bld) 72.0 % High 47-70 [facility] Comment on above: Performed By: #### L 100.0100 #### [facility] [address] [place], [address] Nucleated RBC (Bld) [#/Vol] 0 10*3/uL Normal 0-5 [facility] Comment on above: Performed By: #### L 100.0100 #### [facility] [address] [place], [address] Platelet mean volume (Bld) [Entitic vol] 11.3 fL Normal 6.2-12.0 [facility] Comment on above: Performed By: #### L 100.0100 #### [facility] [address] [place], [address] Platelets (Bld) [#/Vol] 304 10*3/uL Normal 150-450 [facility] Comment on above: Performed By: #### L 100.0100 #### [facility] [address] [place], [address] RBC (Bld) [#/Vol] 4.27 10*6/uL Normal 4.2-5.4 [facility] Comment on above: Performed By: #### L 100.0100 #### [facility] [address] [place], [address] RDW SD 44.4 fl High 35.1-43.9 [facility] Comment on above: Performed By: #### L 100.0100 #### [facility] [address] [place], [address] WBC (Bld) [#/Vol] 9.6 10*3/uL Normal 4.4-11.0 [facility] Comment on above: Performed By: #### L 100.0100 #### [facility] [address] [place], [address] Eosinophil percentageOrdered By: Ary Holguin on 03-11-2025 Eosinophils/100 WBC (Bld) 1.0 % 0-5 [facility] Erythrocyte distribution wid th ratioOrdered By: Ary Holguin on 03-11-2025 Erythrocyte distribution width (RBC) [Ratio] 13.5 % 11.6-14.6 [facility] Erythrocyte distribution wid th standard deviationOrdered By: Ary Holguin on 03-11-2025 Erythrocyte distribution width (RBC) [Ratio] 44.4 fl High 35.1-43.9 [facility] Gastroenterology Visit Repor ton 03-11-2025 Gastroenterology Visit Report [facility] [address] [place] [address] OFFICE VISIT Date of Service: 03/11/25 MR#: [id number] Acct: [id number] Name: SOPHIA LEBRON Rep #: [id number] : 1980 Provider: RATNA Borges Age/Sex: 44/F Location: [facility] Status: Signed Intake Vital Signs 03/04/25 20:04 Height 5 ft 1 in Intake Visit Reasons: ER FU Chief Complaint: epigastric pain Allergies Sulfa (Sulfonamide Antibiotics) Adverse Reaction (Verified 03/04/25 20:04) PT UNSURE OF REACTION Nurse's Note: OV 03/11/25 Pt her for f/u and reports constipation, abdominal pain, blood in stool, gas, and bloating. Pt continues pantoprazole and Carafate. PFSH Medical History Loss of hearing Wears glasses Anxiety Diabetes Bladder disease High cholesterol Anemia History of ulceration GERD (gastroesophageal reflux disease) Non-smoker History of echocardiogram Cardiology follow-up encounter Neurogenic bladder Type 2 diabetes mellitus without complication Pulmonic stenosis Iron deficiency anemia VSD (ventricular septal defect) [place] syndrome Migraines Surgical History Hx of colonoscopy History of esophagogastroduodenoscop y (EGD) History of cardiac catheterization History of colonoscopy History of excision of pilonidal cyst ( 2004) Family History Father Heart disease CVA (cerebral vascular accident) Hypertension Dementia Mother Diabetes Sister Diabetes Fibromyalgia Other Alzheimer's dementia Breast cancer Colon cancer Social History household members: family housing: house pets and animals: Yes Smoking Status: Never smoker alcohol intake: never substance use type: does not use caffeine: Yes HPI HPI Chief Complaint: epigastric pain Details: SOPHIA LEBRON, is a 44 F who presents to the office today for f/u. [facility] established in 2022 for GIB sanam GUAJARDO. EGD and colonoscopy 02.16.23 EGD one oozing cratered gastric ulcer, heater probe; duodenitis. Colonoscopy poor prep; two sessile hyperplastic polyps OV 6. as f/u Biochemical 6. CBC (hgb12.3), iron, TIBC, ferritin EGD and Colonoscopy 08.07.23 EGD irregular Zline; one non-bleeding cratered gastric ulcer, 8mm. HPylori and metaplasia neg Colonoscopy diverticulosis; 5mm rectal hyperplastic polyp, 15mm descending TA polyp EGD 07.02.24 Normal esophagus. - Spurting gastric ulcers with a visible vessel. Treated with a monopolar probe. - A single bleeding angiodysplastic lesion in the stomach. Treated with a heater probe. - No gross lesions in the first portion of the duodenum. - No specimens collected. Last OV 07.15.24 Pt recently hospitalized in beginning of Jun for bleeding gastric ulcer. Since then she has been doing well. SHe continues with pantoprazole 40 mg BID and sucralfate. [facility] ED 03.04.25 with epigastric abd pain and black stool. Work up was unremarkable. Rectal exam with brown stool but positive for blood. Given GI cocktail. Dr. Dolan consulted and recommend clear diet for 2 days and continue PPI and Carafate. OV 03.11.25 Pt continues to have epigastric pain off and on. Magic mouthwash has been helpful. SHe continues with Carafate and PPI. She has not had any further black stools. She does endorse specks of black in her stool but denies melena. ROS Const Constitutional: Positive for fatigue and headache(s); No fever(s) or weight change ENT ENT: Positive for headache(s); No difficulty swallowing Gastro GI: Positive for abdominal pain, bloating, constipation, excessive flatus and Blood in stool; No belching, change in bowel habits, change in stool character, coffee ground emesis, cramping, diarrhea, heartburn, difficulty swallowing, feeling full early, incontinent of stools, Vomiting blood/hematemesis, loose stools, Black,tarry stools, nausea/dyspepsia, pain with swallowing, vomiting or other Musc Musculoskeletal: Positive for back pain and stiffness; No joint pain Skin Skin: No yellowing of the eye or itchy eyes Neuro Neurology: Positive for headache(s) Psych Psychiatric: No anxiety and No depression Endo Endocrine: Positive for fatigue; No weight change Aller/Imm Allergy/Immunologic: No itchy eyes Mo/Lymp Hematologic/Lymphatic: No easy bleeding or easy bruising Exam Const General: cooperative and healthy appearing Nutritional Appearance: average body habitus Orientation: alert and awake [facility] Head: normal to inspection Eyes General: appearance normal, both eyes and all related structures Neck Neck: normal visual inspection Chest Chest palpation inspection: normal inspection of the chest (more content not included)... Normal [facility] Hematocrit Auto (Bld) [Volum e fraction]Ordered By: Ary Holguin on 03-11-2025 Hematocrit (Bld) [Volume fraction] 38.4 % 37-47 [facility] Hemoglobin measurementOrdere d By: Ary Holguin on 03-11-2025 Hemoglobin (Bld) [Mass/Vol] 12.8 g/dL 12.0-15.0 [facility] Immature granulocytes/100 WB C Auto (Bld)Ordered By: Ary Holguin on 03-11-2025 Immature granulocytes/100 WBC (Bld) 0.400 % 0.0-0.9 [facility] Comment on above: IG% - Immature Granu locytes (promyelocytes, myelocytes and metamyelocytes) > 1% indicates that a LEFT SHIFT is Present. MCV (mean corpuscular volume ) determinationOrdered By: Ary Holguin on 03-11-2025 MCV (RBC) [Entitic vol] 89.9 fL 81-99 [facility] Mean corpuscular hemoglobin (MCH) determinationOrdered By: Ary Holguin on 03-11-2025 MCH (RBC) [Entitic mass] 30.0 pg 27.0-32.0 [facility] Mean corpuscular hemoglobin concentration (MCHC) determinationOrdered By: Ary Holguin on 03-11-2025 MCHC (RBC) [Mass/Vol] 33.3 g/dL 32-36 [facility] Mean platelet volume determi nationOrdered By: Ary Holguin on 03-11-2025 Platelet mean volume (Bld) [Entitic vol] 11.3 fL 6.2-12.0 [facility] Monocyte percentageOrdered B y: Ary Holguin on 03-11-2025 Monocytes/100 WBC (Bld) 6.7 % 0-10 [facility] Neutrophil percentageOrdered By: Ary Holguin on 03-11-2025 Neutrophils/100 WBC (Bld) 72.0 % High 47-70 [facility] Nucleated red blood cell per centageOrdered By: Ary Holguin on 03-11-2025 Nucleated RBC/100 WBC (Bld) [Ratio] 0 % 0-5 [facility] Platelet countOrdered By: Mariel Holguin on 03-11-2025 Platelets (Bld) [#/Vol] 304 10*3/uL 150-450 [facility] RBC Auto (Bld) [#/Vol]Ordere d By: Ary Holguin on 03-11-2025 RBC (Bld) [#/Vol] 4.27 10*6/uL 4.2-5.4 [facility] White blood cell (WBC) count Ordered By: Ary Holguin on 03-11-2025 WBC (Bld) [#/Vol] 9.6 10*3/uL 4.4-11.0 [facility] Absolute lymphocyte countOrd ered By: Elver Walton on 03-04-2025 Lymphocytes Auto (Unsp spec) [#/Vol] 2.21 10*3/uL 0.83-4.51 [facility] Absolute neutrophil countOrd ered By: Elver Walton on 03-04-2025 Neutrophils (Bld) [#/Vol] 5.7 10*3/uL 2.0-7.7 [facility] Activated partial thrombopla stin time (aPTT) in platelet poor plasma by coagulation aOrdered By: Elver Walton on 03-04-2025 aPTT Coag (PPP) [Time] 27.8 s 24.1-36.2 [facility] Anion gap in Serum or Plasma Ordered By: Elver Walton on 03-04-2025 Anion gap [Moles/Vol] 11 mmol/L 5-15 [facility] Automated lymphocyte count a s percentage of total leukocytesOrdered By: Elver Walton on 03-04-2025 Lymphocytes/100 WBC Auto (Unsp spec) 25.2 % 19-41 [facility] BUN/creatinine ratioOrdered By: Elver Walton on 03-04-2025 Urea nitrogen/Creatinine [Mass ratio] 16.3 mg/mg - [facility] Basic Metabolic Profile (BMP )on 03-04-2025 BUN/CRE 16.3 RATIO Normal 08-11 [facility] Comment on above: Performed By: #### L 501.080 #### [facility] [address] [place], [address] Calcium [Mass/Vol] 9.7 mg/dL Normal 7.6-11.0 [facility] Comment on above: Performed By: #### L 501.080 #### [facility] [address] [place], [address] Chloride [Moles/Vol] 102 mmol/L Normal 98-108 [facility] Comment on above: Performed By: #### L 501.080 #### [facility] [address] [place], [address] CO2 [Moles/Vol] 27.3 mmol/L Normal 21.0-32.0 [facility] Comment on above: Performed By: #### L 501.080 #### [facility] [address] [place], [address] Creatinine [Mass/Vol] 0.88 mg/dL Normal 0.70-1.20 [facility] Comment on above: Performed By: #### L 501.080 #### [facility] [address] [place], [address] ECRCL 77.53 ml/min Normal 50-250 [facility] Comment on above: Performed By: #### L 501.080 #### [facility] [address] [place], [address] GAP 11 Normal 5-15 [facility] Comment on above: Performed By: #### L 501.080 #### [facility] [address] [place], [address] GFR/1.73 sq M.predicted among non-blacks MDRD (S/P/Bld) [Vol rate/Area] 82 mL/min/{1.73_m2} Normal >60 [facility] Comment on above: Result Comment: mL/m in/1.73m2 CKD-EPI Creatinine Equation (2020) Performed By: #### L 501.080 #### [facility] [address] [place], [address] Glucose [Mass/Vol] 117 mg/dL High 70-99 [facility] Comment on above: Performed By: #### L 501.080 #### [facility] [address] [place], [address] Potassium [Moles/Vol] 4.1 mmol/L Normal 3.3-5.1 [facility] Comment on above: Performed By: #### L 501.080 #### [facility] [address] [place], [address] Sodium [Moles/Vol] 140 mmol/L Normal 133-145 [facility] Comment on above: Performed By: #### L 501.080 #### [facility] [address] [place], [address] Urea nitrogen [Mass/Vol] 14 mg/dL Normal 4-19 [facility] Comment on above: Performed By: #### L 501.080 #### [facility] [address] [place], [address] Basophil percentageOrdered B y: Elver Walton on 03-04-2025 Basophils/100 WBC (Bld) 0.3 % 0-1 [facility] Bilirubin directOrdered By: Elver Walton on 03-04-2025 Bilirubin.direct [Mass/Vol] 0.13 mg/dL 0.00-0.30 [facility] Bilirubin, totalOrdered By: Elver Walton on 03-04-2025 Bilirubin [Mass/Vol] 0.26 mg/dL 0.00-1.30 [facility] CBC W/Diff, Automatedon 02-20 Absolute Lymph 2.21 X10 3/uL Normal 0.83-4.51 [facility] Comment on above: Performed By: #### L 501.080 #### [facility] [address] [place], [address] Absolute Neut 5.7 X10 3/uL Normal 2.0-7.7 [facility] Comment on above: Performed By: #### L 501.080 #### [facility] [address] [place], [address] Basophils/100 WBC (Bld) 0.3 % Normal 0-1 [facility] Comment on above: Performed By: #### L 501.080 #### [facility] [address] [place], [address] Eosinophils/100 WBC (Bld) 1.3 % Normal 0-5 [facility] Comment on above: Performed By: #### L 501.080 #### [facility] [address] [place], [address] Erythrocyte distribution width (RBC) [Ratio] 13.8 % Normal 11.6-14.6 [facility] Comment on above: Performed By: #### L 501.080 #### [facility] [address] [place], [address] Hematocrit (Bld) [Volume fraction] 36.9 % Low 37-47 [facility] Comment on above: Performed By: #### L 501.080 #### [facility] [address] [place], [address] Hemoglobin (Bld) [Mass/Vol] 12.4 g/dL Normal 12.0-15.0 [facility] Comment on above: Performed By: #### L 501.080 #### [facility] [address] [place], [address] IG% 0.300 Normal 0.0-0.9 [facility] Comment on above: Result Comment: IG% - Immature Granulocytes (promyelocytes, myelocytes and metamyelocytes) > 1% indicates that a LEFT SHIFT is Present. Performed By: #### L 501.080 #### [facility] [address] [place], [address] Lymphocytes/100 WBC (Bld) 25.2 % Normal 19-41 [facility] Comment on above: Performed By: #### L 501.080 #### [facility] [address] [place], [address] MCH (RBC) [Entitic mass] 30.2 pg Normal 27.0-32.0 [facility] Comment on above: Performed By: #### L 501.080 #### [facility] [address] [place], [address] MCHC (RBC) [Mass/Vol] 33.6 g/dL Normal 32-36 [facility] Comment on above: Performed By: #### L 501.080 #### [facility] [address] [place], [address] MCV (RBC) [Entitic vol] 90.0 fL Normal 81-99 [facility] Comment on above: Performed By: #### L 501.080 #### [facility] [address] [place], [address] Monocytes/100 WBC (Bld) 7.8 % Normal 0-10 [facility] Comment on above: Performed By: #### L 501.080 #### [facility] [address] [place], [address] Neutrophils/100 WBC (Bld) 65.1 % Normal 47-70 [facility] Comment on above: Performed By: #### L 501.080 #### [facility] [address] [place], [address] Nucleated RBC (Bld) [#/Vol] 0 10*3/uL Normal 0-5 [facility] Comment on above: Performed By: #### L 501.080 #### [facility] [address] [place], [address] Platelet mean volume (Bld) [Entitic vol] 11.2 fL Normal 6.2-12.0 [facility] Comment on above: Performed By: #### L 501.080 #### [facility] [address] [place], [address] Platelets (Bld) [#/Vol] 300 10*3/uL Normal 150-450 [facility] Comment on above: Performed By: #### L 501.080 #### [facility] [address] [place], [address] RBC (Bld) [#/Vol] 4.10 10*6/uL Low 4.2-5.4 [facility] Comment on above: Performed By: #### L 501.080 #### [facility] [address] [place], [address] RDW SD 45.0 fl High 35.1-43.9 [facility] Comment on above: Performed By: #### L 501.080 #### [facility] [address] [place], [address] WBC (Bld) [#/Vol] 8.8 10*3/uL Normal 4.4-11.0 [facility] Comment on above: Performed By: #### L 501.080 #### [facility] [address] [place], [address] Carbon dioxide, total [Moles /volume] in Central venous bloodOrdered By: Elver Walton on 03-04-2025 CO2 [Moles/Vol] 27.3 mmol/L 21.0-32.0 [facility] Chloride assayOrdered By: Gage Walton on 03-04-2025 Chloride [Moles/Vol] 102 mmol/L 98-108 [facility] Emergency Department Summary on 03-04-2025 Emergency Department Summary [facility] Medical Records Department [address] [place] [address] Emergency Department Summary 03/04/25 MR#: [id number] Acct: [id number] Name: SOPHIA LEBRON Rep #: [id number] : 1980 44 From: Elver Potts PCP: Dr. Debbi Ritter MD Status:DEP ER Location: ED HPI HPI - GI History of Present Illness Chief Complaint: GI Bleed Informant: patient and parent Narrative Narrative: Here with mother after calling discussed with on-call for GI for epigastric abdominal pain started at 2 PM since then for black stools. Last time was 45 minutes. She has history of peptic ulcer disease followed by Dr. Dolan. She was given 3 units of blood last year she is currently on iron. She takes it daily. She does not take NSAIDs only uses Tylenol. No anticoagulants. Last upper endoscopy with January 21 of this year outpatient reported nonbleeding ulcers per mother. She is on Protonix twice daily along with Carafate 3 times a day. There was plans for repeat upper endoscopy this April. Denies any nausea or vomiting. Prior similar symptoms: Yes PFSH PFSH Medical History Loss of hearing Wears glasses Anxiety Diabetes Bladder disease High cholesterol Anemia History of ulceration GERD (gastroesophageal reflux disease) Non-smoker History of echocardiogram Cardiology follow-up encounter Neurogenic bladder Type 2 diabetes mellitus without complication Pulmonic stenosis Iron deficiency anemia VSD (ventricular septal defect) [place] syndrome Migraines Home Medications ???Medication ???Instructions ???Recorded ???Last Taken ???Type loratadine 10 mg tablet (Claritin) 10 mg PO DAILY PRN SEASONAL 01/2201/20/25 History ALLERGIES metformin 500 mg tablet,extended 500 mg PO QHS diabetes 02/14/23 History release 24 hr atorvastatin 40 mg tablet 20 mg PO DAILY 07/01/24 01/19/25 H istory sumatriptan succinate 100 mg tablet See Rx Instructions PO .COMPLEX 07/15/24 01/19/25 History amitriptyline 50 mg tablet 50 mg PO QHS 10/04/24 01/19/25 His tory pantoprazole 40 mg tablet,delayed 40 mg PO BID #180 tabs 01/30/25 U nknown Rx release MAGIC MOUTH WASH (BMX) 180 mL 10 ml PO Q8H PRN PRN abdominal Unknown Rx suspension pain #180 mL Allergy/AdvReac Type Severity Reaction Status Date / Time Sulfa (Sulfonamide AdvReac PT UNSURE Verified 03/04/25 20:04 Antibiotics) OF REACTION Family History Father Heart disease CVA (cerebral vascular accident) Hypertension Dementia Mother Diabetes Sister Diabetes Fibromyalgia Other Alzheimer's dementia Breast cancer Colon cancer Surgical History Hx of colonoscopy History of esophagogastroduodenoscop y (EGD) History of cardiac catheterization History of colonoscopy History of excision of pilonidal cyst ( 2004) Social History household members: family housing: house pets and animals: Yes Smoking Status: Never smoker alcohol intake: never substance use type: does not use caffeine: Yes ROS ROS ED Constitutional Constitutional ED: Denies chills, fever(s) or sweats ENT ENT ED: Denies sore throat Cardiovascular Cardiovascular: Denies chest pain, leg edema, palpitations or racing heartbeat Respiratory/Chest Respiratory/Chest: Denies cough, dyspnea or dyspnea on exertion Gastrointestinal Gastrointestinal: Reports abdominal pain and melena; Denies diarrhea, nausea or vomiting Genitourinary Genitourinary ED: Denies dysuria, hematuria or urinary frequency Musculoskeletal Musculoskeletal: Denies back pain, extremity pain or neck pain Integumentary Denies rash or wounds Neurologic Neurologic: Denies headache(s), paresthesias or weakness EXAM Physical Exam Const Vital Signs: 03/04/25 20:04 03/04/25 22:04 03/04/25 23:03 Temperature 96.9 F L 98.9 F Temperature Source Temporal Pulse Rate 88 75 75 Respiratory Rate 18 18 Blood Pressure 141/90 H 120/78 130/78 H Blood Pressure Mean 107 92 95 Pulse Ox 97 98 98 Oxygen Delivery Method Room Air Positive well nourished and well developed General Appearance ED: well developed and NAD HEENT Reports moist mucous membranes normocephalic and atraumatic Eyes General Eye ED: Yes normal appearance of both eyes; Negative for pale conjunctiva Neck full ROM Chest Wall Chest: Negative for tenderness Resp normal respiratory effort and normal air movement Effort and Inspection: symmetric chest movement; Negative for respiratory distress Cardio regular rate, regular rhythm and no murmurs Peripheral Pulses: pulses 2+ throughout GI normal to inspection, nondis (more content not included)... Normal [facility] Eosinophil percentageOrdered By: Elver Walton on 03-04-2025 Eosinophils/100 WBC (Bld) 1.3 % 0-5 [facility] Erythrocyte distribution wid th ratioOrdered By: Elver Walton on 03-04-2025 Erythrocyte distribution width (RBC) [Ratio] 13.8 % 11.6-14.6 [facility] Erythrocyte distribution wid th standard deviationOrdered By: Elver Walton on 03-04-2025 Erythrocyte distribution width (RBC) [Ratio] 45.0 fl High 35.1-43.9 [facility] Glomerular filtration rate ( GFR) estimation/1.73 sq m using serum, plasma, or whole bOrdered By: Elver Walton on 03-04-2025 GFR/1.73 sq M.predicted among non-blacks MDRD (S/P/Bld) [Vol rate/Area] 82 mL/min/{1.73_m2} >60 [facility] Comment on above: mL/min/1.73m2 CKD-EP I Creatinine Equation (2020) Hematocrit Auto (Bld) [Volum e fraction]Ordered By: Elver Walton on 03-04-2025 Hematocrit (Bld) [Volume fraction] 36.9 % Low 37-47 [facility] Hemoglobin measurementOrdere d By: Elver Walton on 03-04-2025 Hemoglobin (Bld) [Mass/Vol] 12.4 g/dL 12.0-15.0 [facility] Immature granulocytes/100 WB C Auto (Bld)Ordered By: Elver Walton on 03-04-2025 Immature granulocytes/100 WBC (Bld) 0.300 % 0.0-0.9 [facility] Comment on above: IG% - Immature Granu locytes (promyelocytes, myelocytes and metamyelocytes) > 1% indicates that a LEFT SHIFT is Present. International normalized rat io (INR) calculationOrdered By: Elver Walton on 03-04-2025 INR Coag (Bld) [Relative time] 0.9 {INR} [facility] - Chemistry and C hemistry - challengeOrdered By: Elver Walton on 03-04-2025 AST [Catalytic activity/Vol] 32 U/L <32 [facility] Lipaseon 03-04-2025 Lipase [Catalytic activity/Vol] 20 U/L Normal 13-75 [facility] Comment on above: Result Comment: Lupe horton note: LIPASE revised reference range effective 23. New Lipase methodology. Expected to produce lower values than the previous assay method. NEW Reference Range: 13 - 75 U/L Performed By: #### L 501.080 #### [facility] [address] [place], [address] Lipase measurementOrdered By : Elver Walton on 03-04-2025 Lipase [Catalytic activity/Vol] 20 U/L 13-75 [facility] Comment on above: Please note:LIPASE r evised reference range effective 23. New Lipase methodology. Expected to produce lower values than the previous assay method. NEW Reference Range: 13 - 75 U/L Liver Profileon 03-04-2025 Albumin [Mass/Vol] 4.2 g/dL Normal 3.5-5.0 [facility] Comment on above: Performed By: #### L 501.080 #### [facility] [address] [place], [address] ALK PHOS 84 U/L Normal 35-104 [facility] Comment on above: Performed By: #### L 501.080 #### [facility] [address] [place], [address] ALT [Catalytic activity/Vol] 49 U/L High <=34 [facility] Comment on above: Performed By: #### L 501.080 #### [facility] [address] [place], [address] AST [Catalytic activity/Vol] 32 U/L Normal <=31 [facility] Comment on above: Performed By: #### L 501.080 #### [facility] [address] [place], [address] Bilirubin [Mass/Vol] 0.26 mg/dL Normal 0.00-1.30 [facility] Comment on above: Performed By: #### L 501.080 #### [facility] [address] [place], [address] Bilirubin.direct [Mass/Vol] 0.13 mg/dL Normal 0.00-0.30 [facility] Comment on above: Performed By: #### L 501.080 #### [facility] [address] [place], [address] Globulin (S) [Mass/Vol] 3.4 g/dL Normal 2.2-4.2 [facility] Comment on above: Performed By: #### L 501.080 #### [facility] [address] [place], [address] T PROT 7.6 g/dL Normal 5.9-8.4 [facility] Comment on above: Performed By: #### L 501.080 #### [facility] [address] [place], [address] MCV (mean corpuscular volume ) determinationOrdered By: Elver Walton on 03-04-2025 MCV (RBC) [Entitic vol] 90.0 fL 81-99 [facility] Mean corpuscular hemoglobin (MCH) determinationOrdered By: Elver Walton on 03-04-2025 MCH (RBC) [Entitic mass] 30.2 pg 27.0-32.0 [facility] Mean corpuscular hemoglobin concentration (MCHC) determinationOrdered By: Elver Walton on 03-04-2025 MCHC (RBC) [Mass/Vol] 33.6 g/dL 32-36 [facility] Mean platelet volume determi nationOrdered By: Elver Walton on 03-04-2025 Platelet mean volume (Bld) [Entitic vol] 11.2 fL 6.2-12.0 [facility] Monocyte percentageOrdered B y: Elver Le on 03-04-2025 Monocytes/100 WBC (Bld) 7.8 % 0-10 [facility] Neutrophil percentageOrdered By: Elver Le on 03-04-2025 Neutrophils/100 WBC (Bld) 65.1 % 47-70 [facility] Nucleated red blood cell per centageOrdered By: Elver Walton on 03-04-2025 Nucleated RBC/100 WBC (Bld) [Ratio] 0 % 0-5 [facility] Partial Thromboplast Timeon 03-04-2025 aPTT Coag (Bld) [Time] 27.8 s Normal 24.1-36.2 [facility] Comment on above: Performed By: #### L 501.080 #### [facility] [address] [place], [address] Platelet countOrdered By: Gage Walton on 03-04-2025 Platelets (Bld) [#/Vol] 300 10*3/uL 150-450 [facility] Potassium measurement (mass/ volume)Ordered By: Elver Walton on 03-04-2025 Potassium (Unsp spec) [Mass/Vol] 4.1 mmol/L 3.3-5.1 [facility] Prothrombin Time w/INRon INR Coag (PPP) [Relative time] 0.9 {INR} Normal [facility] Comment on above: Performed By: #### L 501.080 #### [facility] [address] [place], [address] PT Coag (PPP) [Time] 12.4 s Normal 11.7-14.9 [facility] Comment on above: Performed By: #### L 501.080 #### [facility] [address] [place], [address] Prothrombin timeOrdered By: Elver Walton on 03-04-2025 PT Coag (PPP) [Time] 12.4 s 11.7-14.9 [facility] RBC Auto (Bld) [#/Vol]Ordere d By: Elver Walton on 03-04-2025 RBC (Bld) [#/Vol] 4.10 10*6/uL Low 4.2-5.4 [facility] Serum creatinine measurement (mass/volume)Ordered By: Elver Walotn on 03-04-2025 Creatinine [Mass/Vol] 0.88 mg/dL 0.70-1.20 [facility] Serum globulin measurementOr dered By: Elver Walton on 03-04-2025 Globulin (S) [Mass/Vol] 3.4 g/dL 2.2-4.2 [facility] Serum glucose measurement (m ass/volume)Ordered By: Elver Walton on 03-04-2025 Glucose [Mass/Vol] 117 mg/dL High 70-99 [facility] Serum or plasma alanine larson otransferase (ALT) measurementOrdered By: Elver Walton on 03-04-2025 ALT [Catalytic activity/Vol] 49 U/L High <35 [facility] Serum or plasma albumin bonita urement (mass/volume)Ordered By: Elver Walton on 03-04-2025 Albumin [Mass/Vol] 4.2 g/dL 3.5-5.0 [facility] Serum or plasma alkaline sony sphatase measurementOrdered By: Elver Walton on 03-04-2025 ALP [Catalytic activity/Vol] 84 U/L 35-104 [facility] Serum or plasma calcium bonita urement (mass/volume)Ordered By: Elver Walton on 03-04-2025 Calcium [Mass/Vol] 9.7 mg/dL 7.6-11.0 [facility] Serum or plasma urea nitroge n measurement (mass/volume)Ordered By: Elver Walton on 03-04-2025 Urea nitrogen [Mass/Vol] 14 mg/dL 4-19 [facility] Sodium levelOrdered By: Elver Walton on 03-04-2025 Sodium [Moles/Vol] 140 mmol/L 133-145 [facility] Stool Occult Blood iFOBon STOB Positive Normal [facility] Comment on above: Performed By: #### L 788.5894 #### [facility] [place], [address] Stool gastrointestinal hemog lobin detection by immunologic methodOrdered By: Elver Walton on 03-04-2025 Lower GI hemoglobin IA Ql (Stl) Positive Abnormal [facility] Total proteinOrdered By: Tim Walton on 03-04-2025 Protein [Mass/Vol] 7.6 g/dL 5.9-8.4 [facility] Type AND Screenon 03-04-2025 Ab SCREEN GEL Negative Normal [facility] Comment on above: Order Comment: HGI Performed By: #### L 400.7600 #### [facility] [address] [facility] [facility] [id number] White blood cell (WBC) count Ordered By: Elver Walton on 03-04-2025 WBC (Bld) [#/Vol] 8.8 10*3/uL 4.4-11.0 [facility] Bedside Glucoseon 01-21-2025 FINGERSTICK GLU 95 mg/dL Normal 74-106 [facility] Comment on above: Result Comment: GUEVARA SANCHEZ OF PATIENT CARE PER NURSING PROTOCOL Performed By: #### L 501.080 #### [facility] [address] [place], [place], [id number] EGD Reporton 01-21-2025 EGD Report [facility] Medical Records Department [address] [place] [address] EGD Report MR#: [id number] Acct: [id number] Name: SOPHIA LEBRON Rep #: [id number] : 1980 44 From: Anthony Dolan DO PCP: Dr. Debbi Ritter MD Status:[facility] Patient Name: Sophia Lebron Procedure Date: 01/21/2025 1:31 PM Date of : 1980 Age: 44 Procedure: Upper GI endoscopy Indications: Epigastric abdominal pain, Peptic ulcer Providers: Anthony Dolan DO Referring MD: Debbi Ritter Medicines: Monitored Anesthesia Care Patient Profile: This is a 44 year old female. Refer to note in patient chart for documentation of history and physical. Patient has symptoms of chronic epigastric abdominal pain. Complications: No immediate complications. Procedure: Pre-Anesthesia Assessment: - Prior to the procedure, a History and Physical was performed, and patient medications and allergies were reviewed. The patient is competent. The risks and benefits of the procedure and the sedation options and risks were discussed with the patient. All questions were answered and informed consent was obtained. Patient identification and proposed procedure were verified by the physician in the pre-procedure area. Mental Status Examination: alert and oriented. Airway Examination: normal oropharyngeal airway and neck mobility. Respiratory Examination: clear to auscultation. CV Examination: normal. ASA Grade Assessment: II - A patient with mild systemic disease. After reviewing the risks and benefits, the patient was deemed in satisfactory condition to undergo the procedure. The anesthesia plan was to use monitored anesthesia care (MAC). Immediately prior to administration of medications, the patient was re-assessed for adequacy to receive sedatives. The heart rate, respiratory rate, oxygen saturations, blood pressure, adequacy of pulmonary ventilation, and response to care were monitored throughout the procedure. The physical status of the patient was re-assessed after the procedure. After obtaining informed consent, the endoscope was passed under direct vision. Throughout the procedure, the patient's blood pressure, pulse, and oxygen saturations were monitored continuously. The Endoscope was introduced through the mouth, and advanced to the second part of duodenum. The upper GI endoscopy was accomplished without difficulty. The patient tolerated the procedure well. Scope In: 1:38:35 PM Scope Out: 1:44:43 PM Total Procedure Duration Time 0 hours 6 minutes 8 seconds Findings: The examined esophagus was normal. One non-bleeding gastric ulcer with no stigmata of bleeding was found in the gastric antrum. The lesion was 4 mm in largest dimension. Biopsies were taken with a cold forceps for histology. Verification of patient identification for the specimen was done. Estimated blood loss was minimal. Biopsies were taken with a cold forceps for Helicobacter pylori testing. Verification of patient identification for the specimen was done. Estimated blood loss was minimal. The second portion of the duodenum was normal. Impression: - Normal esophagus. - Non-bleeding gastric ulcer with no stigmata of bleeding. Biopsied. - Normal second portion of the duodenum. Recommendation: - Discharge patient to home. - Resume previous diet. - Continue present medications. - Await pathology results. Procedure Code(s): --- Professional --- 51272, Esophagogastroduodenoscop y, flexible, transoral; with biopsy, single or multiple CPT copyright 2021 [employer]. All rights reserved. The codes documented in this report are preliminary and upon bulk driver review may be revised to meet current compliance requirements. Anthony Dolan DO 01/21/2025 1:53:23 PM This report has been signed electronically. Number of Addenda: 0 Note Initiated On: 01/21/2025 1:31 PM 01/21/25 1353 Date Anthony Dolan DO Cosigner Signature: Date (if indicated) CC: Dr. Debbi Ritter MD; Anthony Dolan DO Date Dictated: 01/21/25 1331 Date Transcribed: Monotype Machinist: [place] Signed Normal [facility] deOrdered By: Anthony Dolan on 01-21-2025 Glucose [Mass/Vol] 95 mg/dL 74-106 [facility] Comment on above: MANAGEMENT OF PATIEN T CARE PER NURSING PROTOCOL Immunohistochemical Stainson 01-21-2025 Immunohistochemical Stains Patient Age/Sex Location Account Attending Physician SOPHIA LEBRON Laura 44/F EN [id number] Anthony Dolan DO Specimen: [id number] Received: 01/22/25 Status: [facility] Parker Num: [id number] Spec Type: COLON BX Subm Dr: DO AFSHIN Storm OPERATION: EGD, biopsy PRE-OP DIAGNOSIS: Anemia, history of peptic ulcer disease TISSUE SUBMITTED: A- Gastric ulcer biopsy MICROSCOPIC DIAGNOSIS A. Stomach, Gastric Ulcer, Biopsy: - Active chronic gastritis with reactive/reparative change. - IHC is negative for H pylori organisms. MICROSCOPIC DESCRIPTION Slides are reviewed. Matched control reacted appropriately. GROSS DESCRIPTION A. Received in formalin in a container labeled with the patient's name, date of , and gastric ulcer biopsy are multiple hair-pink and friable fragments of mucosal tissue measuring 0.7 x 0.6 x 0.3 cm in aggregate. Submitted in toto in A1. SB 01/22/2025 CPT:49530, 13549 Patient Age/Sex Location Account Attending Physician SOPHIA LEBRON 44/F EN [id number] Anthony Dolan DO Signed (signature on file) Dr. Fanny Storey MD 01/29/2504 [facility] Comment on above: Performed By: #### L 100.0100, L500.4050, L500.4100, L501.9985, L503.6550, L503.6030, L502.0250 #### [facility] [address] [place], [address] MR/POSTOP.Yuko 01-21-2025 MR/POSTOP.[facility] Medical Records Department [address] [place] [address] Anesthesia Postop Eval I 01/21/25 1350 MR#: [id number] Acct: [id number] Name: SOPHIA LEBRON Rep #: [id number] : 1980 44 From: [place] Bah CRNA PCP: Dr. 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 Debbi Ritter MD Status:[facility] Y Race: C Location: EN Anesthesia Postop Eval I Sum Postop Eval Completion status Anesthesia document: Postop Eval 1 completed: Yes Anesthesia Postop Eval I Summary Anesthesia Postop Eval I Summary: Anesthesia Postop Eval I: Assessment Summary Airway patent Yes 01/21/25 13:50 STEREO MAP PLOTTER OPERATOR.HBARR Spontaneous unlabored Yes 01/21/25 13:50 STEREO MAP PLOTTER OPERATOR.HBARR respirations Mental status Awake 01/21/25 13:50 STEREO MAP PLOTTER OPERATOR.HBARR nausea No 01/21/25 13:50 STEREO MAP PLOTTER OPERATOR.HBARR Vomiting No 01/21/25 13:50 STEREO MAP PLOTTER OPERATOR.HBARR Anesthesia Postop Eval I: Fluid Summary Crystalloid volume administer 10 01/21/25 13:50 STEREO MAP PLOTTER OPERATOR.HBARR (ml) Colloids volume administered ( ml) Blood Product volume administered (ml) Total IV fluid infused 10 01/21/25 13:50 STEREO MAP PLOTTER OPERATOR.HBARR Anesthesia Postop Eval I: Summary Notes Anesthesia Complication No 01/21/25 13:50 STEREO MAP PLOTTER OPERATOR.HBARR Anesthesia Complication Comment: Post-operative progress note Anesthesia: Postop Eval II Evaluation Mental status: Awake and Calm Pain Level: 0 nausea: No Vomiting: No Complications Anesthesia Complication: No 01/21/252002 Date Keven Sheehan MD Cosigner Signature: Date CC: Signed [facility] ,Urineon 01-21-2025 Beta HCG ( test) Ql (U) Negative [facility] Comment on above: Result Comment: Very dilute urine specimens, as indicated by a low specific gravity, may not contain customer account representative levels of hCG. If is still suspected, a first morning urine specimen should be collected 48 hours later and tested. Performed By: #### L 400.7600 #### [facility] [address] [place] [address]. [place], [address] Urine testOrdered By: Charlie Esquivel on 01-21-2025 HCG ( test) Ql (U) Negative [facility] Comment on above: Very dilute urine sp ecimens, as indicated by a low specificgravity, may not contain customer account representative levels of hCG. If is still suspected, a first morning urinespecimen should be collected 48 hours later and tested. /Deon 01-15-2025 MR/ALFONSO [facility] Medical Records Department [address] [place] [address] PAT - Anesthesia 01/15/25 1520 MR#: [id number] Acct: [id number] Name: SOPHIA LEBRON Rep #: [id number] : 1980 44 From: Charlie Esquivel MD PCP: Dr. 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 When Was Last Pacemaker Check QUESTION #4 FULL TEXT: You/Your Family Experience fever (hyperthermia) with Anesthesia Last Oral Intake Last Oral intake: Last Oral Intake NPO since Meds taken in AM with sips of water? 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 Female Yes 01/15/25 14:45 HX of Motion Sickness No 01/15/25 14:45 HX of N/V After Surgery No 01/15/25 14:45 Non-Smoker Yes 01/15/25 14:45 Duration of Surgery greater No 01/15/25 14:45 than 60 minutes Number of Risk Factors 2 01/15/25 14:45 PONV Score Moderate Risk 01/15/25 14:45 Height Weight Height Weight: Anesthesia: Height Weight Height 5 ft 1 in 10/08/24 11:00 Respiratory Assessment Respiratory Assessment - substitute crossing guard: Respiratory Tract Infection Hx - substitute crossing guard Hx Respiratory Tract Infection No 01/15/25 14:45 STOP Sleep Apnea STOP Sleep Apnea - substitute crossing guard: STOP Sleep Apnea - substitute crossing guard Hx Hypertension No 01/15/25 14:45 Hx Sleep Apnea No 01/15/25 14:45 CPAP BIPAP Do you snore loudly (louder No 01/15/25 14:45 than talking or can be heard Do you often feel tired/ No 01/15/25 14:45 fatigued/ sleepy during daytime? Has anyone observed you stop No 01/15/25 14:45 breathing during sleep? STOP Results Negative 01/15/25 14:45 QUESTION #5 FULL TEXT : Do you snore loudly (louder than talking or can be heard through closed doors)? 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 Specify any problems Hx of Preganancy in last 3 N/A 01/15/25 14:45 Months Nurse Filling Out Transfusion NBUCHER 01/15/25 14:45 Questions: Date: 01/15/25 01/15/25 14:45 Time: 14:46 01/15/25 14:45 Patient unable to answer at this time (ie. 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 Hx Now Gestational Age (in weeks): EDC: Hx Hx Para Hx Section SAB No 01/15/25 14:45 PFSH Medical History Loss of hearing Wears glasses Anxiety Diabetes Bladder disease High cholesterol Anemia History of ulceration GERD (gastroesophageal reflux disease) Non-smoker History of echocardiogram Cardiology follow-up encounter Neurogenic bladder Type 2 diabetes mellitus without complication Pulmonic stenosis Iron deficiency anemia VSD (ventricular septal defect) Ksenia syndrome Migraines Home Medications ???Medication ???Instructions ???Recorded ???Last Taken ???Type loratadine 10 mg tablet (Claritin) 10 mg PO DAILY PRN SEASONAL 01/2202/14/23 History ALLERGIES metformin 500 mg tablet,extended 500 mg PO QHS diabetes 02/14/23 History release 24 hr atorvastatin 40 mg tablet 20 mg PO DAILY 07/01/24 10/07/24 H istory sumatriptan succinate 100 mg tablet See Rx Instructions PO .COMPLEX 07/15/24 Unknown History pantoprazole 40 mg tablet,delayed 40 mg PO BID 30 (more content not included)... [facility] L/S Spine Comp/w Bending Vie wson 12-13-2024 L/S Spine Comp/w Bending Views [facility] Imaging Services [address] [place], [place] [address] L/S Spine Comp/w Bending Views MR#: [id number] Acct: [id number] Name: SOPHIA LEBRON Rep #: [id number] : 1980 F 44 From: Oscar Perla PCP: Dr. Debbi Ritter MD Status: REG CLI Study: L/S Spine Comp/w Bending Views Date of Exam: 0 12/13/24 Exam# [id number] Ordering Dr: Jf Hall MD PROCEDURE: Lumbar spine radiographs REASON FOR EXAM: Pain, radiculopathy TECHNIQUE: 6 views of the lumbar spine COMPARISON: None. FINDINGS: See impression RAD/L/S Spine Comp/w Bending Views IMPRESSION: Vertebral body heights are within normal limits. Trace retrolisthesis of L1-2 and L4-5. Trace anterolisthesis of L5-S1. No gross pars defects. Moderate disc space narrowing at L1-2. Mild disc space narrowing elsewhere. Negative for abnormal motion. Sacroiliac joints are intact. Reading Location: [facility] CC: Dr. Debbi Ritter MD; Dr. 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 [facility] Comment on above: Performed By: #### L 400.7600 #### [facility] [address] [place], [address] MALB:CRE 12.8 mg/g CRE Normal <30 mg/g CRE [facility] Comment on above: Performed By: #### L 400.7600 #### [facility] [address], [address] MICROALBUMIN,UR 17.5 mg/L Normal NO RANGE EST. [facility] Comment on above: Performed By: #### L 400.7600 #### [facility] [address] [place], [address] Random urine microalbumin me asurementOrdered By: [facility] on 12-04-2024 Urine Random Microalbumin 17.5 mg/L NO RANGE EST. [facility] Urine albumin/creatinine rat io for detection of microalbuminuriaOrdered By: Debbi Ritter on 12-04-2024 Urine Microalbumin/Creatinine Ratio 12.8 mg/g CRE <30 [facility] Urine creatinine measurement (mass/volume)Ordered By: Debbi Ritter on 12-04-2024 Creatinine (U) [Mass/Vol] 137.00 mg/dL NO RANGE EST. [facility] Absolute lymphocyte countOrd ered By: Debbi Ritter on 12-02-2024 Lymphocytes Auto (Unsp spec) [#/Vol] 2.05 10*3/uL 0.83-4.51 [facility] Absolute neutrophil countOrd ered By: [facility] on 12-02-2024 Neutrophils (Bld) [#/Vol] 6.2 10*3/uL 2.0-7.7 [facility] Albumin to globulin ratioOrd ered By: [facility] on 12-02-2024 Albumin/Globulin [Mass ratio] 0.8 {ratio} Low 0.9-2.4 [facility] Automated lymphocyte count a s percentage of total leukocytesOrdered By: Debbi Ritter on 12-02-2024 Lymphocytes/100 WBC Auto (Unsp spec) 22.5 % 19-41 [facility] Basophil percentageOrdered B y: Debbi Ritter on 12-02-2024 Basophils/100 WBC (Bld) 0.3 % 0-1 [facility] Bilirubin, totalOrdered By: Debbi Ritter on 12-02-2024 Bilirubin [Mass/Vol] 0.20 mg/dL 0.20-1.00 [facility] Comment on above: For patients on eltr ombopag therapy, use of Dimension Perry TBIL is not recommended. Blood urea nitrogen (BUN)/cr eatinine ratioOrdered By: Debbi Ritter on 12-02-2024 Urea nitrogen/Creatinine [Mass ratio] 25.0 mg/mg High 08-11 [facility] CBC W/Diff, Automatedon 11-23 Absolute Lymph 2.05 X10 3/uL Normal 0.83-4.51 [facility] Comment on above: Performed By: #### L 100.0100, L500.4050, L500.4100, L501.9985, L503.6550, L503.6030, L502.0250 #### [facility] [address] [place], [address] Absolute Neut 6.2 X10 3/uL Normal 2.0-7.7 [facility] Comment on above: Performed By: #### L 100.0100, L500.4050, L500.4100, L501.9985, L503.6550, L503.6030, L502.0250 #### [facility] [address] [place], [address] Basophils/100 WBC (Bld) 0.3 % Normal 0-1 [facility] Comment on above: Performed By: #### L 100.0100, L500.4050, L500.4100, L501.9985, L503.6550, L503.6030, L502.0250 #### [facility] [address] [place], [address] Eosinophils/100 WBC (Bld) 1.6 % Normal 0-5 [facility] Comment on above: Performed By: #### L 100.0100, L500.4050, L500.4100, L501.9985, L503.6550, L503.6030, L502.0250 #### [facility] [address] [place], [address] Erythrocyte distribution width (RBC) [Ratio] 15.9 % High 11.6-14.6 [facility] Comment on above: Performed By: #### L 100.0100, L500.4050, L500.4100, L501.9985, L503.6550, L503.6030, L502.0250 #### [facility] [address] [place], [address] Hematocrit (Bld) [Volume fraction] 39.1 % Normal 37-47 [facility] Comment on above: Performed By: #### L 100.0100, L500.4050, L500.4100, L501.9985, L503.6550, L503.6030, L502.0250 #### [facility] [address] [place], [address] Hemoglobin (Bld) [Mass/Vol] 12.3 g/dL Normal 12.0-15.0 [facility] Comment on above: Performed By: #### L 100.0100, L500.4050, L500.4100, L501.9985, L503.6550, L503.6030, L502.0250 #### [facility] [address] [place], [address] IG% 0.200 Normal 0.0-0.9 [facility] Comment on above: Result Comment: IG% - Immature Granulocytes (promyelocytes, myelocytes and metamyelocytes) > 1% indicates that a LEFT SHIFT is Present. Performed By: #### L 100.0100, L500.4050, L500.4100, L501.9985, L503.6550, L503.6030, L502.0250 #### [facility] [address] [place], [address] Lymphocytes/100 WBC (Bld) 22.5 % Normal 19-41 [facility] Comment on above: Performed By: #### L 100.0100, L500.4050, L500.4100, L501.9985, L503.6550, L503.6030, L502.0250 #### [facility] [address] [place], [address] MCH (RBC) [Entitic mass] 28.1 pg Normal 27.0-32.0 [facility] Comment on above: Performed By: #### L 100.0100, L500.4050, L500.4100, L501.9985, L503.6550, L503.6030, L502.0250 #### [facility] [address] [place], [address] MCHC (RBC) [Mass/Vol] 31.5 g/dL Low 32-36 [facility] Comment on above: Performed By: #### L 100.0100, L500.4050, L500.4100, L501.9985, L503.6550, L503.6030, L502.0250 #### [facility] [address] [place], [address] MCV (RBC) [Entitic vol] 89.3 fL Normal 81-99 [facility] Comment on above: Performed By: #### L 100.0100, L500.4050, L500.4100, L501.9985, L503.6550, L503.6030, L502.0250 #### [facility] [address] [place], [address] Monocytes/100 WBC (Bld) 7.7 % Normal 0-10 [facility] Comment on above: Performed By: #### L 100.0100, L500.4050, L500.4100, L501.9985, L503.6550, L503.6030, L502.0250 #### [facility] [address] [place], [address] Neutrophils/100 WBC (Bld) 67.7 % Normal 47-70 [facility] Comment on above: Performed By: #### L 100.0100, L500.4050, L500.4100, L501.9985, L503.6550, L503.6030, L502.0250 #### [facility] [address] [place], [address] Nucleated RBC (Bld) [#/Vol] 0 10*3/uL Normal 0-5 [facility] Comment on above: Performed By: #### L 100.0100, L500.4050, L500.4100, L501.9985, L503.6550, L503.6030, L502.0250 #### [facility] [address] [place], [address] Platelet mean volume (Bld) [Entitic vol] 11.3 fL Normal 6.2-12.0 [facility] Comment on above: Performed By: #### L 100.0100, L500.4050, L500.4100, L501.9985, L503.6550, L503.6030, L502.0250 #### [facility] [address] [place], [address] Platelets (Bld) [#/Vol] 302 10*3/uL Normal 150-450 [facility] Comment on above: Performed By: #### L 100.0100, L500.4050, L500.4100, L501.9985, L503.6550, L503.6030, L502.0250 #### [facility] [address] [place], [address] RBC (Bld) [#/Vol] 4.38 10*6/uL Normal 4.2-5.4 [facility] Comment on above: Performed By: #### L 100.0100, L500.4050, L500.4100, L501.9985, L503.6550, L503.6030, L502.0250 #### [facility] [address], [address] RDW SD 52.3 fl High 35.1-43.9 [facility] Comment on above: Performed By: #### L 100.0100, L500.4050, L500.4100, L501.9985, L503.6550, L503.6030, L502.0250 #### [facility] [address] [place], [place], [id number] [phone] WBC (Bld) [#/Vol] 9.1 10*3/uL Normal 4.4-11.0 [facility] Comment on above: Performed By: #### L 100.0100, L500.4050, L500.4100, L501.9985, L503.6550, L503.6030, L502.0250 #### [facility] [address] [place], [place], [id number] Carbon dioxide measurementOr dered By: Debbi Ritter on 12-02-2024 CO2 [Moles/Vol] 29.0 mmol/L 21.0-32.0 [facility] Chloride measurementOrdered By: Debbi Ritter on 12-02-2024 Chloride [Moles/Vol] 104 mmol/L 98-107 [facility] Comprehensive Metabolic Prof ilon 12-02-2024 Albumin [Mass/Vol] 3.5 g/dL Normal 3.2-5.0 [facility] Comment on above: Performed By: #### L 100.0100, L500.4050, L500.4100, L501.9985, L503.6550, L503.6030, L502.0250 #### [facility] [address] [place], [address] Albumin/Globulin [Mass ratio] 0.8 {ratio} Low 0.9-2.4 [facility] Comment on above: Performed By: #### L 100.0100, L500.4050, L500.4100, L501.9985, L503.6550, L503.6030, L502.0250 #### [facility] [address] [place], [address] ALK P 84 U/L Normal 45-117 [facility] Comment on above: Performed By: #### L 100.0100, L500.4050, L500.4100, L501.9985, L503.6550, L503.6030, L502.0250 #### [facility] [address] [place], [address] ALT [Catalytic activity/Vol] 31 U/L Normal 13-56 [facility] Comment on above: Performed By: #### L 100.0100, L500.4050, L500.4100, L501.9985, L503.6550, L503.6030, L502.0250 #### [facility] [address] [place], [address] AST [Catalytic activity/Vol] 17 U/L Normal 15-37 [facility] Comment on above: Performed By: #### L 100.0100, L500.4050, L500.4100, L501.9985, L503.6550, L503.6030, L502.0250 #### [facility] [address] [place], [address] Bilirubin [Mass/Vol] 0.20 mg/dL Normal 0.20-1.00 [facility] Comment on above: Result Comment: For patients on eltrombopag therapy, use of Dimension Perry TBIL is not recommended. Performed By: #### L 100.0100, L500.4050, L500.4100, L501.9985, L503.6550, L503.6030, L502.0250 #### [facility] [address] [place], [address] BUN/CRE 25.0 RATIO High 10-20 [facility] Comment on above: Performed By: #### L 100.0100, L500.4050, L500.4100, L501.9985, L503.6550, L503.6030, L502.0250 #### [facility] [address] [place], [address] CA,Total 9.4 mg/dL Normal 8.5-10.1 [facility] Comment on above: Performed By: #### L 100.0100, L500.4050, L500.4100, L501.9985, L503.6550, L503.6030, L502.0250 #### [facility] [address] [place], [address] Chloride [Moles/Vol] 104 mmol/L Normal 98-107 [facility] Comment on above: Performed By: #### L 100.0100, L500.4050, L500.4100, L501.9985, L503.6550, L503.6030, L502.0250 #### [facility] [address] [place], [address] CO2 [Moles/Vol] 29.0 mmol/L Normal 21.0-32.0 [facility] Comment on above: Performed By: #### L 100.0100, L500.4050, L500.4100, L501.9985, L503.6550, L503.6030, L502.0250 #### [facility] [address] [place], [address] Creatinine [Mass/Vol] 0.92 mg/dL Normal 0.55-1.02 [facility] Comment on above: Result Comment: The validity of the calculated GFR GFRAA in patients over 70 years has not been determined. Clinical correlation is essential. Performed By: #### L 100.0100, L500.4050, L500.4100, L501.9985, L503.6550, L503.6030, L502.0250 #### [facility] [address] [place], [address] EST GFR - AA 84 mL/min Normal >60 [facility] Comment on above: Result Comment: Afri can Greenlandic GFR Calc Performed By: #### L 100.0100, L500.4050, L500.4100, L501.9985, L503.6550, L503.6030, L502.0250 #### [facility] [address] [place], [address] GAP 6 Normal 5-15 [facility] Comment on above: Performed By: #### L 100.0100, L500.4050, L500.4100, L501.9985, L503.6550, L503.6030, L502.0250 #### [facility] [address] [place], [place], [id number] (137) GFR/1.73 sq M.predicted among non-blacks MDRD (S/P/Bld) [Vol rate/Area] 70 mL/min/{1.73_m2} Normal >60 [facility] Comment on above: Result Comment: Non- GFR Calc Performed By: #### L 100.0100, L500.4050, L500.4100, L501.9985, L503.6550, L503.6030, L502.0250 #### [facility] [address] [place], [place], [id number] (106) Globulin (S) [Mass/Vol] 4.2 g/dL Normal 2.2-4.2 [facility] Comment on above: Performed By: #### L 100.0100, L500.4050, L500.4100, L501.9985, L503.6550, L503.6030, L502.0250 #### [facility] [address] [place], [address] Glucose [Mass/Vol] 144 mg/dL High 74-106 [facility] Comment on above: Result Comment: Fast ing Glucose result greater than or equal to 126 mg/dL suggests DIABETES MELLITUS per A.D.A. criteria. Performed By: #### L 100.0100, L500.4050, L500.4100, L501.9985, L503.6550, L503.6030, L502.0250 #### [facility] [address] [place], [address] Potassium [Moles/Vol] 4.3 mmol/L Normal 3.5-5.1 [facility] Comment on above: Performed By: #### L 100.0100, L500.4050, L500.4100, L501.9985, L503.6550, L503.6030, L502.0250 #### [facility] [address] [place], [address] Sodium [Moles/Vol] 139 mmol/L Normal 136-145 [facility] Comment on above: Performed By: #### L 100.0100, L500.4050, L500.4100, L501.9985, L503.6550, L503.6030, L502.0250 #### [facility] [address] [place], [address] T PROT 7.7 g/dL Normal 6.4-8.2 [facility] Comment on above: Performed By: #### L 100.0100, L500.4050, L500.4100, L501.9985, L503.6550, L503.6030, L502.0250 #### [facility] [address] [place], [address] Urea nitrogen [Mass/Vol] 23 mg/dL High 7-18 [facility] Comment on above: Performed By: #### L 100.0100, L500.4050, L500.4100, L501.9985, L503.6550, L503.6030, L502.0250 #### [facility] [address] [place], [place], [address] Eosinophil percentageOrdered By: [facility] on 12-02-2024 Eosinophils/100 WBC (Bld) 1.6 % 0-5 [facility] Erythrocyte distribution wid th ratioOrdered By: [facility] on 12-02-2024 Erythrocyte distribution width (RBC) [Ratio] 15.9 % High 11.6-14.6 [facility] Erythrocyte distribution wid th standard deviationOrdered By: [facility] on 12-02-2024 Erythrocyte distribution width (RBC) [Entitic vol] 52.3 fL High 35.1-43.9 [facility] Erythrocyte distribution width (RBC) [Ratio] 52.3 fl High 35.1-43.9 [facility] Estimated glomerular filtrat ion rate (GFR) AmericanOrdered By: Debbi Ritter on 12-02-2024 Estimated GFR (MDRD) Amer 84 mL/min >60 [facility] Comment on above: GFR Calc Ferritinon 12-02-2024 Ferritin [Mass/Vol] 18 ng/mL Normal [facility] Comment on above: Performed By: #### L 100.0100, L500.4050, L500.4100, L501.9985, L503.6550, L503.6030, L502.0250 #### [facility] [address] [place], [place], [id number] Ferritin measurementOrdered By: Debbi Ritter on 12-02-2024 Ferritin [Mass/Vol] 18 ng/mL 252 [facility] Glomerular filtration rate ( GFR) estimationOrdered By: Debbi Ritter on 12-02-2024 Estimated GFR (MDRD) Non-Af Amer 70 mL/min >60 [facility] Comment on above: Non- GFR Calc GFR/1.73 sq M.predicted among non-blacks MDRD (S/P/Bld) [Vol rate/Area] 70 mL/min/{1.73_m2} >60 [facility] Comment on above: Non- GFR Calc Glucose measurementOrdered B y: Debbi Ritter on 12-02-2024 Glucose [Mass/Vol] 144 mg/dL High 74-106 [facility] Comment on above: Fasting Glucose resu lt greater than or equal to 126 mg/dL suggests DIABETES MELLITUS per A.D.A. criteria. Hematocrit Auto (Bld) [Volum e fraction]Ordered By: Debbi Ritter on 12-02-2024 Hematocrit (Bld) [Volume fraction] 39.1 % 37-47 [facility] Hemoglobin A1con 12-02-2024 HbA1c (Bld) [Mass fraction] 6.7 % High 3.8-5.6 [facility] Comment on above: Result Comment: Norm al < 5.7 % Prediabetic 5.7 - 6.4 % Diabetic >or= 6.5 % Please note range changes. Performed By: #### L 400.7125 #### [facility] [address] [place], [place] [address]all [facility], [address] Hemoglobin A1c percentageOrd ered By: Debbi Ritter on 12-02-2024 HbA1c (Bld) [Mass fraction] 6.7 % High 3.8-5.6 [facility] Comment on above: Normal < 5.7 % Predi abetic 5.7 - 6.4 % Diabetic >or= 6.5 % Please note range changes. Hemoglobin measurementOrdere d By: Debbi Ritter on 12-02-2024 Hemoglobin (Bld) [Mass/Vol] 12.3 g/dL 12.0-15.0 [facility] High density lipoprotein (HD L) measurementOrdered By: Debbi Torreskaran on 12-02-2024 Cholesterol in HDL [Mass/Vol] 45 mg/dL >40 [facility] Comment on above: The drugs N-Acetylcy steine and Metamizole may falsely depress this assay. Reference Range HDL <40 mg/dL Low HDL Cholesterol HDL >or= 60 mg/dL High HDL Cholesterol Immature granulocytes/100 WB C Auto (Bld)Ordered By: Debbi Ritter on 12-02-2024 Immature granulocytes/100 WBC (Bld) 0.200 % 0.0-0.9 [facility] Comment on above: IG% - Immature Granu locytes (promyelocytes, myelocytes and metamyelocytes) > 1% indicates that a LEFT SHIFT is Present. Iron (Unsp spec) [Mass/Mass] Ordered By: Debbi Ritter on 12-02-2024 Iron [Mass/Vol] 52 ug/dL 50-170 [facility] Iron measurement (mass/mass) Ordered By: [facility] on 12-02-2024 Iron (Unsp spec) [Mass/Mass] 52 ug/dL 50-170 [facility] Iron saturation [Mass fracti on]Ordered By: Debbi Ritter on 12-02-2024 Iron Saturation 19.7 % 15.0-55.0 [facility] Iron+Iron Binding Capacityon 12-02-2024 Iron [Mass/Vol] 52 ug/dL Normal 50-170 [facility] Comment on above: Performed By: #### L 100.0100, L500.4050, L500.4100, L501.9985, L503.6550, L503.6030, L502.0250 #### [facility] [address] [id number] IRON SATURATION 19.7 Normal 15.0-55.0 [facility] Comment on above: Performed By: #### L 100.0100, L500.4050, L500.4100, L501.9985, L503.6550, L503.6030, L502.0250 #### [facility] [address] [place], [address] TIBC 264 ug/dL Normal 250-450 [facility] Comment on above: Performed By: #### L 100.0100, L500.4050, L500.4100, L501.9985, L503.6550, L503.6030, L502.0250 #### [facility] [address] [facility] [place], [address] Laboratory - Chemistry and C hemistry - challengeOrdered By: Debbi Ritter on 12-02-2024 AST [Catalytic activity/Vol] 17 U/L 15-37 [facility] Lipid Profileon 12-02-2024 Cholesterol [Mass/Vol] 111 mg/dL Normal 200 [facility] Comment on above: Result Comment: <200 mg/dL Desirable 200-240 mg/dL Borderline >240 mg/dL High Risk Performed By: #### L 100.0100, L500.4050, L500.4100, L501.9985, L503.6550, L503.6030, L502.0250 #### [facility] [address], [address] Cholesterol in HDL [Mass/Vol] 45 mg/dL Normal [facility] Comment on above: Result Comment: The drugs N-Acetylcysteine and Metamizole may falsely depress this assay. Reference Range HDL <40 mg/dL Low HDL Cholesterol HDL >or= 60 mg/dL High HDL Cholesterol Performed By: #### L 100.0100, L500.4050, L500.4100, L501.9985, L503.6550, L503.6030, L502.0250 #### [facility] [address] [place], [address] Cholesterol in LDL [Mass/Vol] 37 mg/dL Normal 0-130 [facility] Comment on above: Performed By: #### L 100.0100, L500.4050, L500.4100, L501.9985, L503.6550, L503.6030, L502.0250 #### [facility] [address] [place], [address] Cholesterol in VLDL [Mass/Vol] 29 mg/dL Normal 5-40 [facility] Comment on above: Performed By: #### L 100.0100, L500.4050, L500.4100, L501.9985, L503.6550, L503.6030, L502.0250 #### [facility] [address] [place], [place], [id number] Triglyceride [Mass/Vol] 144 mg/dL Normal [facility] Comment on above: Result Comment: The drugs N-Acetylcysteine and Metamizole may falsely depress this assay. Serum Triglycerides Reference Interval Normal <150 mg/dL Borderline high 150 - 199 mg/dL High 200 - 499 mg/dL Very High > or = 500 mg/dL Performed By: #### L 100.0100, L500.4050, L500.4100, L501.9985, L503.6550, L503.6030, L502.0250 #### [facility] [address] [facility] [place], [address] Low density lipoprotein (LDL ) cholesterol measurementOrdered By: Debbi Ritter on 12-02-2024 Cholesterol in LDL [Mass/Vol] 37 mg/dL 0-130 [facility] Lymphocytes Auto (Unsp spec) [#/Vol]Ordered By: Debbi Ritter on 12-02-2024 Lymphocytes (Bld) [#/Vol] 2.05 10*3/uL 0.83-4.5 1 [facility] Lymphocytes/100 WBC Auto (Un sp spec)Ordered By: Debbi Ritter on 12-02-2024 Lymphocytes/100 WBC (Bld) 22.5 % 19-41 [facility] MCV (mean corpuscular volume ) determinationOrdered By: Debbi Ritter on 12-02-2024 MCV (RBC) [Entitic vol] 89.3 fL 81-99 [facility] Mean corpuscular hemoglobin (MCH) determinationOrdered By: Debbi Ritter on 12-02-2024 MCH (RBC) [Entitic mass] 28.1 pg 27.0-32.0 [facility] Mean corpuscular hemoglobin concentration (MCHC) determinationOrdered By: Debbi Ritter on 12-02-2024 MCHC (RBC) [Mass/Vol] 31.5 g/dL Low 32-36 [facility] Mean platelet volume determi nationOrdered By: Debbi Ritter on 12-02-2024 Platelet mean volume (Bld) [Entitic vol] 11.3 fL 6.2-12.0 [facility] Microalb:Creat Ratio,Random URon 12-02-2024 MALB:CRE Normal <30 mg/g CRE [facility] Comment on above: Result Comment: QNS Performed By: #### L 100.0100, L500.4050, L500.4100, L501.9985, L503.6550, L503.6030, L502.0250 #### [facility] [address] [place], [place], [id number] (141) MICROALBUMIN,UR Normal NO RANGE EST. [facility] Comment on above: Result Comment: QNS Performed By: #### L 100.0100, L500.4050, L500.4100, L501.9985, L503.6550, L503.6030, L502.0250 #### [facility] [address] [place], [place], [address] (545) UR CREAT Normal NO RANGE EST. [facility] Comment on above: Result Comment: QNS Performed By: #### L 100.0100, L500.4050, L500.4100, L501.9985, L503.6550, L503.6030, L502.0250 #### [facility] [address] [place], [place], [id number] Monocyte percentageOrdered B y: Debbi Ritter on 12-02-2024 Monocytes/100 WBC (Bld) 7.7 % 0-10 [facility] Neutrophil percentageOrdered By: Debbi Ritter on 12-02-2024 Neutrophils/100 WBC (Bld) 67.7 % 47-70 [facility] Nucleated red blood cell per centageOrdered By: Debbi Ritter on 12-02-2024 Nucleated RBC/100 WBC (Bld) [Ratio] 0 % 0-5 [facility] Platelet countOrdered By: Mukul Ritter on 12-02-2024 Platelets (Bld) [#/Vol] 302 10*3/uL 150-450 [facility] Potassium measurementOrdered By: Debbi Ritter on 12-02-2024 Potassium [Moles/Vol] 4.3 mmol/L 3.5-5.1 [facility] RBC Auto (Bld) [#/Vol]Ordere d By: Debbi Ritter on 12-02-2024 RBC (Bld) [#/Vol] 4.38 10*6/uL 4.2-5.4 [facility] Serum anion gap measurementO rdered By: Debbi Ritter on 12-02-2024 Anion gap [Moles/Vol] 6 mmol/L 5-15 [facility] Serum globulin measurementOr dered By: Debbi Ritter on 12-02-2024 Globulin (S) [Mass/Vol] 4.2 g/dL 2.2-4.2 [facility] Serum or plasma alanine larson otransferase (ALT) measurementOrdered By: Debbi Ritter on 12-02-2024 ALT [Catalytic activity/Vol] 31 U/L 13-56 [facility] Serum or plasma albumin bonita urement (mass/volume)Ordered By: Debbi Ritter on 12-02-2024 Albumin [Mass/Vol] 3.5 g/dL 3.2-5.0 [facility] Serum or plasma alkaline sony sphatase measurementOrdered By: Debbi Ritter on 12-02-2024 ALP [Catalytic activity/Vol] 84 U/L 45-117 [facility] Serum or plasma calcium bonita urement (mass/volume)Ordered By: Debbi Ritter on 12-02-2024 Calcium [Mass/Vol] 9.4 mg/dL 8.5-10.1 [facility] Serum or plasma cholesterol measurement (mass/volume)Ordered By: Debbi Ritter on 12-02-2024 Cholesterol [Mass/Vol] 111 mg/dL <200 [facility] Comment on above: <200 mg/dL Desirable 200-240 mg/dL Borderline >240 mg/dL High Risk Serum or plasma creatinine m easurement (mass/volume)Ordered By: Debbi Ritter on 12-02-2024 Creatinine [Mass/Vol] 0.92 mg/dL 0.55-1.02 [facility] Comment on above: The validity of the calculated GFR & GFRAA in patients over 70 years has not been determined. Clinical correlation is essential. Serum or plasma iron saturat ion measurement (mass fraction)Ordered By: Debbi Ritter on 12-02-2024 Iron saturation [Mass fraction] 19.7 % 15.0-55.0 [facility] Serum or plasma urea nitroge n measurement (mass/volume)Ordered By: Debbi Ritter on 12-02-2024 Urea nitrogen [Mass/Vol] 23 mg/dL High 7-18 [facility] Sodium levelOrdered By: Raoul Ritter on 12-02-2024 Sodium [Moles/Vol] 139 mmol/L 136-145 [facility] TIBCOrdered By: Debbi russo on 12-02-2024 Total Iron Binding Capacity 264 ug/dL 250-450 [facility] Total proteinOrdered By: Monica Ritter on 12-02-2024 Protein [Mass/Vol] 7.7 g/dL 6.4-8.2 [facility] Triglycerides measurementOrd ered By: Debbi Ritter on 12-02-2024 Triglyceride [Mass/Vol] 144 mg/dL <199 [facility] Comment on above: The drugs N-Acetylcy steine and Metamizole may falsely depress this assay.Serum Triglycerides Reference Interval Normal <150 mg/dL Borderline high 150 - 199 mg/dL High 200 - 499 mg/dL Very High > or = 500 mg/dL Very low density lipoprotein (VLDL) cholesterol measurementOrdered By: Debbi Ritter on 12-02-2024 Very low density lipoprotein (VLDL) cholesterol measurement 29 mg/dL 5-40 [facility] VLDL Cholesterol 29 mg/dL 5-40 [facility] White blood cell (WBC) count Ordered By: Debbi Ritter on 12-02-2024 WBC (Bld) [#/Vol] 9.1 10*3/uL 4.4-11.0 [facility] Bedside Glucoseon 10-08-2024 FINGERSTICK GLU 127 mg/dL High 74-106 [facility] Comment on above: Result Comment: GUEVARA SANCHEZ OF PATIENT CARE PER NURSING PROTOCOL Performed By: #### L 400.7600 #### [facility] [address] [facility] [place], [address] EGD Reporton 10-08-2024 EGD Report [facility] Medical Records Department [address] [place] [address] EGD Report MR#: [id number] Acct: [id number] Name: SOPHIA LEBRON Rep #: [id number] : 1980 44 From: Anthony Dolan DO PCP: Dr. Debbi Ritter MD Status:[facility] Patient Name: Sophia Lebron Procedure Date: 10/08/2024 12:20 PM Date of : 1980 Age: 44 Procedure: Upper GI endoscopy Indications: Peptic ulcer Providers: Anthony Dolan DO Referring MD: Debbi Ritter Medicines: Monitored Anesthesia Care Patient Profile: This is a 44 year old female. Refer to note in patient chart for documentation of history and physical. Patient has symptoms. Her most recent EGD for biopsy and EGD for treatment of bleeding was within the past three months. Complications: No immediate complications. Procedure: Pre-Anesthesia Assessment: - Prior to the procedure, a History and Physical was performed, and patient medications and allergies were reviewed. The patient is competent. The risks and benefits of the procedure and the sedation options and risks were discussed with the patient. All questions were answered and informed consent was obtained. Patient identification and proposed procedure were verified by the physician in the pre-procedure area. Mental Status Examination: alert and oriented. Airway Examination: normal oropharyngeal airway and neck mobility. Respiratory Examination: clear to auscultation. CV Examination: normal. Prophylactic Antibiotics: The patient does not require prophylactic antibiotics. Prior Anticoagulants: The patient has taken no anticoagulant or antiplatelet agents except for NSAID medication. ASA Grade Assessment: II - A patient with mild systemic disease. After reviewing the risks and benefits, the patient was deemed in satisfactory condition to undergo the procedure. The anesthesia plan was to use monitored anesthesia care (MAC). Immediately prior to administration of medications, the patient was re-assessed for adequacy to receive sedatives. The heart rate, respiratory rate, oxygen saturations, blood pressure, adequacy of pulmonary ventilation, and response to care were monitored throughout the procedure. The physical status of the patient was re-assessed after the procedure. After obtaining informed consent, the endoscope was passed under direct vision. Throughout the procedure, the patient's blood pressure, pulse, and oxygen saturations were monitored continuously. The Endoscope was introduced through the mouth, and advanced to the second part of duodenum. The upper GI endoscopy was accomplished without difficulty. The patient tolerated the procedure well. Scope In: 12:30:52 PM Scope Out: 12:34:59 PM Total Procedure Duration Time 0 hours 4 minutes 7 seconds Findings: The examined esophagus was normal. One non-bleeding cratered gastric ulcer with no stigmata of bleeding was found in the gastric antrum. The lesion was 9 mm in largest dimension. Biopsies were taken with a cold forceps for histology. Biopsies were taken with a cold forceps for histology. Verification of patient identification for the specimen was done. Estimated blood loss was minimal. No gross lesions were noted in the first portion of the duodenum. Impression: - Normal esophagus. - Non-bleeding gastric ulcer with no stigmata of bleeding. Biopsied. - No gross lesions in the first portion of the duodenum. Recommendation: - Discharge patient to home. - Resume previous diet. - Continue present medications. - Await pathology results. Procedure Code(s): --- Professional --- 14190, Esophagogastroduodenoscop y, flexible, transoral; with biopsy, single or multiple CPT copyright 2021 [employer]. All rights reserved. The codes documented in this report are preliminary and upon bulk driver review may be revised to meet current compliance requirements. Anthony Dolan DO 10/08/2024 12:38:13 PM This report has been signed electronically. Number of Addenda: 0 Note Initiated On: 10/08/2024 12:20 PM 10/08/24 1238 Date Anthony Ponce Signature: Date (if indicated) CC: Dr. Debbi Ritter MD; Anthony Dolan DO Date Dictated: 10/08/24 1220 Date Transcribed: Monotype Machinist: [place] Signed Normal [facility] deOrdered By: Anthony Dolan on 10-08-2024 Bedside Glucose (Misc Panel) 127 mg/dL High 74-106 [facility] Comment on above: MANAGEMENT OF PATIEN T CARE PER NURSING PROTOCOL H Pylori (initial)on 024 H Pylori (initial) ----- Patient Age/Sex Location Account Attending Physician SOPHIA LEBRON 44/F EN [id number] Anthony Dolan DO Specimen: [id number] Received: 10/09/24 Status: CHAP[facility] Parker Num: [id number] Spec Type: IMMUNO Subm Dr: Anthony Dolan DO PHYSICIAN INSTITUTION [place] [address] SPECIMEN INFORMATION: Tissue Source: Gastric antrum biopsy Clinical Info: Upper gastrointestinal bleed Specimen Number: [id number] CPT code: 27093 METHODOLOGY: Deparaffinized sections of prefer/formalin-fixed tissue or PAP/DQ stained slides are incubated with monoclonal/polyclonal antibodies/oligonucleotid e probes. Localization is made via biotin free immunoperoxidase method. Appropriate controls are performed and reacted as expected. Results on target cell population are indicated in the following table: RESULTS: ANTIBODY / CLONE RESULT H Pylori (polyclonal) negative These tests were developed and their performance characteristics determined by [facility]. They may not have been cleared or approved by the U.S. Food and Drug Administration. The FDA has determined that such clearance or approval is not necessary. The above immunohistochemical/dualI SH markers are ordered and reviewed by the Pathologist. INTERPRETATION: Gastric antrum, biopsy: Negative for Helicobacter pylori organisms. 10/10/2024 Signed (signature on file) Dr. Alex Ledezma MD 10/10/24 1418 Normal [facility] Comment on above: Performed By: #### L 100.0100, L500.4050, L500.4100, L501.9985, L503.6550, L503.6030, L502.0250 #### [facility] [address] [facility] [place], [address] MR/POSTOP.Yuko 10-08-2024 MR/POSTOP.[facility] Medical Records Department [address] [place] [address] Anesthesia Postop Eval I 10/08/24 1244 MR#: [id number] Acct: [id number] Name: SOPHIA LEBRON Laura Rep #: [id number] : 1980 44 From: Raoul Elizabeth PCP: Dr. Debbi Ritter MD Status:REG [facility] Y Race: C Location: [place] [address] Anesthesia: Postop Eval I Current Vital Signs Temperature: 97.7 F Pulse Rate: 72 Blood Pressure: 120/77 Respiratory Rate: 16 Pulse Ox: 97 Oxygen Delivery Method: Room Air Assessment Airway patent: Yes Spontaneous unlabored respirations: Yes Mental status: Awake and Calm nausea: No Vomiting: No Anesthesia Complication: No Fluid Hydration Crystalloid volume administer (ml): 30 Total IV fluid infused: 30 Progress Note Anesthesia document: Postop Eval 1 completed: Yes 10/08/24 1244 Date Raoul Salmon Signature: Date CC: Signed [facility] MR/[id number] 10-08-2024 [facility] Medical Records Department [address] [place] [address] Anesthesia Postop Eval II 10/08/24 1246 MR#: [id number] Acct: [id number] Name: SOPHIA LEBRON Rep #: [id number] : 1980 44 From: Ramírez Womack MD PCP: Dr. Debbi Ritter MD Status:REG [facility] Y Race: C Location: [place] [address] Anesthesia Postop Eval I Sum Postop Eval Completion status Anesthesia document: Postop Eval 1 completed: Yes Anesthesia Postop Eval I Summary Anesthesia Postop Eval I Summary: Anesthesia Postop Eval I: Assessment Summary Airway patent Yes 10/08/24 12:44 [email or web address] Spontaneous unlabored Yes 10/08/24 12:44 [email or web address] respirations Mental status Awake,Calm 10/08/24 12:44 [email or web address] nausea No 10/08/24 12:44 [email or web address] Vomiting No 10/08/24 12:44 [email or web address] Anesthesia Postop Eval I: Fluid Summary Crystalloid volume administer 30 12/17/24 12:44 [email or web address] (ml) Colloids volume administered ( ml) Blood Product volume administered (ml) Total IV fluid infused 30 10/08/24 12:44 [email or web address] Anesthesia Postop Eval I: Summary Notes Anesthesia Complication No 10/08/24 12:44 [email or web address] Anesthesia Complication Comment: Post-operative progress note Anesthesia: Postop Eval II Evaluation Mental status: Awake Pain Level: 0 nausea: No Vomiting: No 10/08/24 1247 Date Ramírez Salmon Signature: Date CC: Signed [facility] ,Urineon 10-08-2024 Beta HCG ( test) Ql (U) Negative [facility] Comment on above: Result Comment: Very dilute urine specimens, as indicated by a low specific gravity, may not contain customer account representative levels of hCG. If is still suspected, a first morning urine specimen should be collected 48 hours later and tested. Performed By: #### L 400.7600 #### [facility] [place], [address] Surgery Specimen Level Ar 10-08-2024 Surgery Specimen Level IV Patient Age/Sex Location Account Attending Physician SOPHIA LEBRON 44/F EN [id number] Anthony Dolan DO Specimen: [id number] Received: 10/09/24 Status: [facility] Faulknerjong Num: [id number] Spec Type: EGD BIOPSY Subm Dr: Anthony Dolan DO HEADER OPERATION: EGD with biopsy PRE-OP DIAGNOSIS: Upper gastrointestinal bleed TISSUE SUBMITTED: Gastric antrum ulcer biopsy x2 MICROSCOPIC DIAGNOSIS Gastric antrum ulcer, biopsy: Fragments of gastric mucosa with ulceration, acute and chronic inflammation. See comment. Pavan 10/10/2024 COMMENT The results of immunohistochemistry for Helicobacter pylori will be reported separately ([id number]). MICROSCOPIC DESCRIPTION Slides are reviewed. GROSS DESCRIPTION Received in fixative is one container labeled with the patient's name and designated Gastric antrum ulcer biopsy x2. The specimen consists of multiple irregular fragments of light hair soft tissue that in aggregate measure 1.0 x 0.3 x 0.1 cm. The specimen is totally submitted in one cassette. 10/09/2024 TC:2 CPT:11279 Patient Age/Sex Location Account Attending Physician SOPHIA LEBRON 44/F EN [id number] Anthony Dolan DO Signed (signature on file) Dr. Alex Ledezma MD 10/10/24 1439 [facility] Comment on above: Performed By: #### L 400.7600 #### [facility] [place], [address] Urine testOrdered By: Charlie Esquivel on 10-08-2024 HCG ( test) Ql (U) Negative [facility] Comment on above: Very dilute urine sp ecimens, as indicated by a low specificgravity, may not contain customer account representative levels of hCG. If is still suspected, a first morning urinespecimen should be collected 48 hours later and tested. /Deon 10-04-2024 MR/ALFONSO [facility] Medical Records Department [address] [place] [address] PAT - Anesthesia 10/04/24 1343 MR#: [id number] Acct: [id number] Name: SOPHIA LEBRON Rep #: [id number] : 1980 44 From: Charlie Esquivel MD PCP: Dr. 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 When Was Last Pacemaker Check QUESTION #4 FULL TEXT: You/Your Family Experience fever (hyperthermia) with Anesthesia Last Oral Intake Last Oral intake: Last Oral Intake NPO since Meds taken in AM with sips of water? 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 Female Yes 10/04/24 12:21 HX of Motion Sickness No 10/04/24 12:21 HX of N/V After Surgery No 10/04/24 12:21 Non-Smoker Yes 10/04/24 12:21 Duration of Surgery greater No 10/04/24 12:21 than 60 minutes Number of Risk Factors 2 10/04/24 12:21 PONV Score Moderate Risk 10/04/24 12:21 Height Weight Height Weight: Anesthesia: Height Weight Height 5 ft 1 in 07/02/24 14:12 Respiratory Assessment Respiratory Assessment - substitute crossing guard: Respiratory Tract Infection Hx - substitute crossing guard Hx Respiratory Tract Infection No 10/04/24 12:21 STOP Sleep Apnea STOP Sleep Apnea - substitute crossing guard: STOP Sleep Apnea - substitute crossing guard Hx Hypertension No 10/04/24 12:21 Hx Sleep Apnea No 10/04/24 12:21 CPAP BIPAP Do you snore loudly (louder No 10/04/24 12:21 than talking or can be heard Do you often feel tired/ No 10/04/24 12:21 fatigued/ sleepy during daytime? Has anyone observed you stop No 10/04/24 12:21 breathing during sleep? STOP Results Negative 10/04/24 12:21 QUESTION #5 FULL TEXT : Do you snore loudly (louder than talking or can be heard through closed doors)? 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 Specify any problems Hx of Preganancy in last 3 No 10/04/24 12:21 Months Nurse Filling Out Transfusion VCHRISTIN 10/04/24 12:21 Questions: Date: 10/04/24 10/04/24 12:21 Time: 12:22 10/04/24 12:21 Patient unable to answer at this time (ie. 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 Hx Now No 10/04/24 12:21 Gestational Age (in weeks): EDC: Hx Hx Para Hx Section SAB No 10/04/24 12:21 PFSH Medical History (Updated 10/04/24 @ 12:21 by Mariluz Palacios) Loss of hearing Wears glasses Anxiety Diabetes Bladder disease High cholesterol Anemia History of ulceration GERD (gastroesophageal reflux disease) Non-smoker History of echocardiogram Cardiology follow-up encounter Neurogenic bladder Type 2 diabetes mellitus without complication Pulmonic stenosis Iron deficiency anemia VSD (ventricular septal defect) Ksenia syndrome Migraines Home Medications ???Medication ???Instructions ???Recorded ???Last Taken ???Type loratadine 10 mg tablet (Claritin) 10 mg PO DAILY PRN SEASONAL 02/14/23 02/14/23 History ALLERGIES metformin 500 mg tablet,extended 500 mg PO QHS diabetes 02/14/23 02/13/23 History release 24 hr atorvastatin 40 mg tablet 20 mg PO DAILY 07/01/24 Unknown History sumatriptan succinate 100 mg tablet See Rx Instructions PO .COMPLEX 07/15/24 Unknown History pantoprazole 40 mg tablet,delaye (more content not included)... Normal [facility] CBC W/Diff, Automatedon 10-3 -2023 Absolute Lymph 2.08 X10 3/uL Normal 0.83-4.51 [facility] Comment on above: Performed By: #### L 400.7600 #### [facility] [address] [place], [address] Absolute Neut 5.2 X10 3/uL Normal 2.0-7.7 [facility] Comment on above: Performed By: #### L 400.7600 #### [facility] [address] [place], [address] Basophils/100 WBC (Bld) 0.5 % Normal 0-1 [facility] Comment on above: Performed By: #### L 400.7600 #### [facility] [address] [place], [address] Eosinophils/100 WBC (Bld) 1.2 % Normal 0-5 [facility] Comment on above: Performed By: #### L 400.7600 #### [facility] [address] [place], [address] Erythrocyte distribution width (RBC) [Ratio] 15.4 % High 11.6-14.6 [facility] Comment on above: Performed By: #### L 400.7600 #### [facility] [address] [place], [address] Hematocrit (Bld) [Volume fraction] 33.9 % Low 37-47 [facility] Comment on above: Performed By: #### L 400.7600 #### [facility] [address] [place], [address] Hemoglobin (Bld) [Mass/Vol] 10.5 g/dL Low 12.0-15.0 [facility] Comment on above: Performed By: #### L 400.7600 #### [facility] [address] [place], [address] IG% 0.400 Normal 0.0-0.9 [facility] Comment on above: Result Comment: IG% - Immature Granulocytes (promyelocytes, myelocytes and metamyelocytes) > 1% indicates that a LEFT SHIFT is Present. Performed By: #### L 400.7600 #### [facility] [address] [place], [address] Lymphocytes/100 WBC (Bld) 25.6 % Normal 19-41 [facility] Comment on above: Performed By: #### L 400.7600 #### [facility] [address] [place], [address] MCH (RBC) [Entitic mass] 27.5 pg Normal 27.0-32.0 [facility] Comment on above: Performed By: #### L 400.7600 #### [facility] [address] [place], [address] MCHC (RBC) [Mass/Vol] 31.0 g/dL Low 32-36 [facility] Comment on above: Performed By: #### L 400.7600 #### [facility] [address] [place], [address] MCV (RBC) [Entitic vol] 88.7 fL Normal 81-99 [facility] Comment on above: Performed By: #### L 400.7600 #### [facility] [address] [place], [address] Monocytes/100 WBC (Bld) 8.2 % Normal 0-10 [facility] Comment on above: Performed By: #### L 400.7600 #### [facility] [address] [place], [address] Neutrophils/100 WBC (Bld) 64.1 % Normal 47-70 [facility] Comment on above: Performed By: #### L 400.7600 #### [facility] [address] [place], [address] Nucleated RBC (Bld) [#/Vol] 0 10*3/uL Normal 0-5 [facility] Comment on above: Performed By: #### L 400.7600 #### [facility] [address] [place], [address] Platelet mean volume (Bld) [Entitic vol] 11.3 fL Normal 6.2-12.0 [facility] Comment on above: Performed By: #### L 400.7600 #### [facility] [address] [place], [address] Platelets (Bld) [#/Vol] 308 10*3/uL Normal 150-450 [facility] Comment on above: Performed By: #### L 400.7600 #### [facility] [address] [place], [address] RBC (Bld) [#/Vol] 3.82 10*6/uL Low 4.2-5.4 [facility] Comment on above: Performed By: #### L 400.7600 #### [facility] [address] [place], [address] RDW SD 49.9 fl High 35.1-43.9 [facility] Comment on above: Performed By: #### L 400.7600 #### [facility] [address] [place], [address] WBC (Bld) [#/Vol] 8.1 10*3/uL Normal 4.4-11.0 [facility] Comment on above: Performed By: #### L 400.7600 #### [facility] [address] [place], [address] Ferritinon 08-22-2024 Ferritin [Mass/Vol] 4 ng/mL Low 8-252 [facility] Comment on above: Performed By: #### L 400.7600 #### [facility] [address] [place], [address] Iron+Iron Binding Capacityon 08-22-2024 Iron [Mass/Vol] 56 ug/dL Normal 50-170 [facility] Comment on above: Performed By: #### L 400.7600 #### [facility] [address] [place], [address] IRON SATURATION 16.9 Normal 15.0-55.0 [facility] Comment on above: Performed By: #### L 400.7600 #### [facility] [address] [place], [address] TIBC 331 ug/dL Normal 250-450 [facility] Comment on above: Performed By: #### L 400.7600 #### [facility] [address] [place], [address] Lipid Profileon 08-22-2024 Cholesterol [Mass/Vol] 119 mg/dL Normal 200 [facility] Comment on above: Result Comment: <200 mg/dL Desirable 200-240 mg/dL Borderline >240 mg/dL High Risk Performed By: #### L 400.7600 #### [facility] [address] [place], [address] Cholesterol in HDL [Mass/Vol] 42 mg/dL Normal [facility] Comment on above: Result Comment: The drugs N-Acetylcysteine and Metamizole may falsely depress this assay. Reference Range HDL <40 mg/dL Low HDL Cholesterol HDL >or= 60 mg/dL High HDL Cholesterol Performed By: #### L 400.7600 #### [facility] [address] [place], [address] Cholesterol in LDL [Mass/Vol] 35 mg/dL Normal 0-130 [facility] Comment on above: Performed By: #### L 400.7600 #### [facility] [address] [place], [address] Cholesterol in VLDL [Mass/Vol] 42 mg/dL High 5-40 [facility] Comment on above: Performed By: #### L 400.7600 #### [facility] [address] [place], [address] Triglyceride [Mass/Vol] 211 mg/dL High [facility] Comment on above: Result Comment: The drugs N-Acetylcysteine and Metamizole may falsely depress this assay. Serum Triglycerides Reference Interval Normal <150 mg/dL Borderline high 150 - 199 mg/dL High 200 - 499 mg/dL Very High > or = 500 mg/dL Performed By: #### L 400.7600 #### [facility] [address] [place], [address] Liver Profileon 08-22-2024 Albumin [Mass/Vol] 3.5 g/dL Normal 3.2-5.0 [facility] Comment on above: Performed By: #### L 400.7600 #### [facility] [address] [place], [address] ALK P 98 U/L Normal 45-117 [facility] Comment on above: Performed By: #### L 400.7600 #### [facility] [address] [place], [address] ALT [Catalytic activity/Vol] 44 U/L Normal 13-56 [facility] Comment on above: Performed By: #### L 400.7600 #### [facility] [address] [place], [address] AST [Catalytic activity/Vol] 15 U/L Normal 15-37 [facility] Comment on above: Performed By: #### L 400.7600 #### [facility] [address] [place], [address] Bilirubin [Mass/Vol] 0.20 mg/dL Normal 0.20-1.00 [facility] Comment on above: Result Comment: For patients on eltrombopag therapy, use of Dimension [place] TBIL is not recommended. Performed By: #### L 400.7600 #### [facility] [address] [place], [address] Bilirubin.direct [Mass/Vol] 0.06 mg/dL Normal 0.00-0.30 [facility] Comment on above: Performed By: #### L 400.7600 #### [facility] [address] [place], [address] Globulin (S) [Mass/Vol] 3.7 g/dL Normal 2.2-4.2 [facility] Comment on above: Performed By: #### L 400.7600 #### [facility] [address] [place], [address] T PROT 7.2 g/dL Normal 6.4-8.2 [facility] Comment on above: Performed By: #### L 400.7600 #### [facility] [address] [place], [address] Brain W/WO Contraston 2023 Brain W/WO Contrast [facility] Services [address] [place] [address] Brain W/WO Contrast MR#: [id number] Acct: [id number] Name: SOPHIA LEBRON Rep #: [id number] : 1980 F 44 From: Jf Baugh MD PCP: Dr. Debbi Ritter MD Status: REG CLI Study: Brain W/WO Contrast Date of Exam: 08/05/24 Exam# [id number] Ordering Dr: Young Barreto MD [id number] STUDY: MRI BRAIN WITH AND WITHOUT CONTRAST REASON FOR EXAM: Female, 44 years old. MIGRAINE WITHOUT AURA TECHNIQUE: Standardized multiplanar fat and water weighted pulse sequences were obtained. IV 15CC CLARISCAN was administered for the contrast portion of the examination. COMPARISON: None. FINDINGS: Normal size of the ventricles and extra-axial spaces for the patient''s age. There are a couple of tiny punctate white matter lesions in the cerebral hemispheres bilaterally without mass effect or restricted diffusion . Normal bilateral basal ganglia. Normal thalami. There is no extra-axial fluid accumulation. Normal flow voids within the major intracranial circulation suggesting patency by spin echo criteria. Normal venous enhancement. There is no enhancing intra-axial or extra-axial abnormality. Normal sella turcica, pituitary gland, infundibular stalk, optic chiasm and hypothalamus. Normal tectal plate and pineal gland. Normal midbrain, jazz and medulla. Normal cerebellum. Normal basal cisterns. Normal bilateral temporal bones. Normal bilateral internal auditory canals. No demonstrated orbital abnormality, within the constraints of a routine brain study. Small mucous retention cyst or polyp in left maxillary sinus. Normal calvarium and skull base. Normal visualized soft tissue structures. Normal visualized upper cervical spine. MRI/Brain W/WO Contrast IMPRESSION: Minor nonspecific white matter lesions most likely representing chronic small vessel ischemic changes in patient of this age without evidence for acute infarct. No evidence for obstructive hydrocephalus mass or enhancing lesion following contrast administration Electronically Signed: Jf Baugh MD at 23:01 EDT , CC: Dr. Debbi Ritter MD; Dr. 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, [address] Absolute Neut 6.0 X10 3/uL Normal 2.0-7.7 [facility] Comment on above: Performed By: #### L 400.7600 #### [facility] [address] [place], [address] Basophils/100 WBC (Bld) 0.2 % Normal 0-1 [facility] Comment on above: Performed By: #### L 400.7600 #### [facility] [address] [place], [address] Eosinophils/100 WBC (Bld) 1.4 % Normal 0-5 [facility] Comment on above: Performed By: #### L 400.7600 #### [facility] [address] [place], [address] Erythrocyte distribution width (RBC) [Ratio] 14.6 % Normal 11.6-14.6 [facility] Comment on above: Performed By: #### L 400.7600 #### [facility] [address] [place], [address] Hematocrit (Bld) [Volume fraction] 29.4 % Low 37-47 [facility] Comment on above: Performed By: #### L 400.7600 #### [facility] [address] [place], [address] Hemoglobin (Bld) [Mass/Vol] 9.2 g/dL Low 12.0-15.0 [facility] Comment on above: Performed By: #### L 400.7600 #### [facility] [address] [place], [address] IG% 0.300 Normal 0.0-0.9 [facility] Comment on above: Result Comment: IG% - Immature Granulocytes (promyelocytes, myelocytes and metamyelocytes) > 1% indicates that a LEFT SHIFT is Present. Performed By: #### L 400.7600 #### [facility] [address] [place], [address] Lymphocytes/100 WBC (Bld) 26.8 % Normal 19-41 [facility] Comment on above: Performed By: #### L 400.7600 #### [facility] [address] [place], [address] MCH (RBC) [Entitic mass] 29.1 pg Normal 27.0-32.0 [facility] Comment on above: Performed By: #### L 400.7600 #### [facility] [address] [place], [address] MCHC (RBC) [Mass/Vol] 31.3 g/dL Low 32-36 [facility] Comment on above: Performed By: #### L 400.7600 #### [facility] [address] [place], [address] MCV (RBC) [Entitic vol] 93.0 fL Normal 81-99 [facility] Comment on above: Performed By: #### L 400.7600 #### [facility] [address] [place], [address] Monocytes/100 WBC (Bld) 6.8 % Normal 0-10 [facility] Comment on above: Performed By: #### L 400.7600 #### [facility] [address] [place], [address] Neutrophils/100 WBC (Bld) 64.5 % Normal 47-70 [facility] Comment on above: Performed By: #### L 400.7600 #### [facility] [address] [place], [address] Nucleated RBC (Bld) [#/Vol] 0 10*3/uL Normal 0-5 [facility] Comment on above: Performed By: #### L 400.7600 #### [facility] [address] [place], [address] Platelet mean volume (Bld) [Entitic vol] 10.8 fL Normal 6.2-12.0 [facility] Comment on above: Performed By: #### L 400.7600 #### [facility] [address] [place], [address] Platelets (Bld) [#/Vol] 421 10*3/uL Normal 150-450 [facility] Comment on above: Performed By: #### L 400.7600 #### [facility] [address] [place], [address] RBC (Bld) [#/Vol] 3.16 10*6/uL Low 4.2-5.4 [facility] Comment on above: Performed By: #### L 400.7600 #### [facility] [address] [place], [address] RDW SD 49.4 fl High 35.1-43.9 [facility] Comment on above: Performed By: #### L 400.7600 #### [facility] [address] [place], [address] WBC (Bld) [#/Vol] 9.3 10*3/uL Normal 4.4-11.0 [facility] Comment on above: Performed By: #### L 400.7600 #### [facility] [address] [place], [address] Gastroenterology Visit Repor ton 07-15-2024 Gastroenterology Visit Report [facility] [address] [place] [address] OFFICE VISIT Date of Service: 07/15/24 MR#: [id number] Acct: [id number] Name: SOPHIA LEBRON Rep #: [id number] : 1980 Provider: RATNA Borges Age/Sex: 44/F [place] [facility] [place]: Signed Intake Vital Signs 07/02/24 14:12 Height 5 ft 1 in Intake Visit Reasons: Hospital FU Chief Complaint: GI bleed Allergies Sulfa (Sulfonamide Antibiotics) Adverse Reaction (Verified 07/01/24 17:51) PT UNSURE OF REACTION Medications ???Medication ???Instructions ???Recorded ???Confirmed ???Type loratadine 10 mg tablet (Claritin) 10 mg PO DAILY PRN SEASONAL 02/14/23 07/15/24 History ALLERGIES metformin 500 mg tablet,extended 500 mg PO QHS diabetes 02/14/23 07/15/24 History release 24 hr atorvastatin 40 mg tablet 40 mg PO DAILY 07/01/24 07/15/24 History amitriptyline 10 mg tablet 10 mg PO QHS 07/15/24 07/15/24 History pantoprazole 40 mg tablet,delayed 40 mg PO BID 30 days #60 tabs 07/15/24 07/15/24 Rx release sucralfate 1 gram tablet 1 g PO ACHS 30 days #120 tabs 07/15/24 07/15/24 Rx sumatriptan succinate 100 mg tablet See Rx Instructions PO .COMPLEX 07/15/24 07/15/24 History PFSH Medical History Loss of hearing Wears glasses Anxiety Diabetes Bladder disease High cholesterol Anemia History of ulceration GERD (gastroesophageal reflux disease) Non-smoker History of echocardiogram Cardiology follow-up encounter Neurogenic bladder Type 2 diabetes mellitus without complication Pulmonic stenosis Iron deficiency anemia VSD (ventricular septal defect) [place] syndrome Migraines Surgical History History of cardiac catheterization History of colonoscopy History of excision of pilonidal cyst ( 2004) Family History Father Heart disease CVA (cerebral vascular accident) Hypertension Dementia Mother Diabetes Sister Diabetes Fibromyalgia Other Alzheimer's dementia Breast cancer Colon cancer Social History household members: family housing: house pets and animals: Yes Smoking Status: Never smoker alcohol intake: never substance use type: does not use caffeine: Yes HPI HPI Chief Complaint: GI bleed Details: SOPHIA LEBRON, is a 44 F who presents to the office today for f/u *BGI established 02.14.23-02.16.23 for management of GIB with ABLA and chronic DMII?EGD and colonoscopy 02.16.23???EGD one oozing cratered gastric ulcer, heater probe; duodenitis.? Colonoscopy poor prep; two sessile hyperplastic polyps??? OV 04.07.23 as f/u ?[employer] emical 04.07.23???CBC (hgb12.3), iron, TIBC, ferritin?EGD and Colonoscopy 08.07.23???EGD irregular Zline; one non-bleeding cratered gastric ulcer, 8mm. HPylori and metaplasia neg? Colonoscopy diverticulosis; 5mm rectal hyperplastic polyp, 15mm descending TA polyp.?OV 10.4783 Pt continues to have HB. Is very diligent with her diet. Takes Pantoprazole 40mg QD. Bowels are normal now. Was having constipation previously. No dark or bloddy stools. OV 4..24 Pt reports that she is doing well and has minimal symptoms to report. Pt states that she has occasionally heartburn if she's been running around doing a lot of things. Pt reports that she continues Pantoprazole 40mg. Pt states that she has at least 1 formed bm per day with no blood in the stool. OV 9..24 Pt was hospitalized in early June 2024 for bleeding gastric ulcer. She underwent EGD with Dr. oDlan. Since her discharge she has been doing well. She has some weakness and lightheadedness. She denies abdominal; pain, n/v, constipation, diarrhea or melena. She continues to take pantoprazole 40 mg BID and sucralfate. EGD 07.02.24 Normal esophagus. - Spurting gastric ulcers with a visible vessel. Treated with a monopolar probe. - A single bleeding angiodysplastic lesion in the stomach. Treated with a heater probe. - No gross lesions in the first portion of the duodenum. - No specimens collected. ROS Const Constitutional: Positive for fatigue and headache(s); No fever(s) or weight change ENT ENT: Positive for headache(s); No difficulty swallowing Gastro GI: No abdominal pain, belching, bloating, change in bowel habits, change in stool character, coffee ground emesis, constipation, cramping, diarrhea, heartburn, difficulty swallowing, feeling full early, excessi (more content not included)... Normal [facility] Absolute lymphocyte countOrd ered By: Debbi Ritter on 11-28-2023 Lymphocytes Auto (Unsp spec) [#/Vol] 2.30 10*3/uL 0.83-4.51 [facility] Automated lymphocyte count a s percentage of total leukocytesOrdered By: Debbi Ritter on 11-28-2023 Lymphocytes/100 WBC Auto (Unsp spec) 25.4 % 19-41 [facility] Basophil percentageOrdered B y: Debbi Ritter on 11-28-2023 Basophils/100 WBC (Bld) 0.3 % 0-1 [facility] Eosinophils/100 WBC (Bld) 2.2 % 0-5 [facility] Hemoglobin (Bld) [Mass/Vol] 13.0 g/dL 12.0-15.0 [facility] Monocytes/100 WBC (Bld) 7.5 % 0-10 [facility] Neutrophils (Bld) [#/Vol] 5.8 10*3/uL 2.0-7.7 [facility] Neutrophils/100 WBC (Bld) 64.2 % 47-70 [facility] WBC (Bld) [#/Vol] 9.1 10*3/uL 4.4-11.0 [facility] Determination of erythrocyte mean corpuscular volume (MCV)Ordered By: Debbi Ritter on 11-28-2023 MCV (RBC) [Entitic vol] 91.1 fL 81-99 [facility] Erythrocyte distribution wid th ratioOrdered By: [facility] on 11-28-2023 Erythrocyte distribution width (RBC) [Ratio] 14.6 % 11.6-14.6 [facility] Erythrocyte distribution wid th standard deviationOrdered By: [facility] on 11-28-2023 Erythrocyte distribution width (RBC) [Entitic vol] 49.4 fL 35.1-43.9 [facility] Hematocrit Auto (Bld) [Volum e fraction]Ordered By: Debbi Torreskaran on 11-28-2023 Hematocrit (Bld) [Volume fraction] 39.8 % 37-47 [facility] Immature granulocytes/100 WB C Auto (Bld)Ordered By: Debbi Ritter on 11-28-2023 Immature granulocytes/100 WBC (Bld) 0.400 % 0.0-0.9 [facility] Comment on above: IG% - Immature Granu locytes (promyelocytes, myelocytes and metamyelocytes) > 1% indicates that a LEFT SHIFT is Present. Iron measurement (mass/mass) Ordered By: Debbi Ritter on 11-28-2023 Iron (Unsp spec) [Mass/Mass] 49 ug/dL 50-170 [facility] - Hematology and Cell countsOrdered By: Debbi Ritter on 11-28-2023 MCH (RBC) [Entitic mass] 29.7 pg 27.0-32.0 [facility] MCHC (RBC) [Mass/Vol] 32.7 g/dL 32-36 [facility] Nucleated RBC/100 WBC (Bld) [Ratio] 0 % 0-5 [facility] Platelet mean volume (Bld) [Entitic vol] 11.4 fL 6.2-12.0 [facility] Platelets (Bld) [#/Vol] 336 10*3/uL 150-450 [facility] No Panel InformationOrdered By: Debbi Ritter on 11-28-2023 Total Iron Binding Capacity 304 ug/dL 250-450 [facility] RBC Auto (Bld) [#/Vol]Ordere d By: Debbi Ritter on 11-28-2023 RBC (Bld) [#/Vol] 4.37 10*6/uL 4.2-5.4 [facility] Serum or plasma iron saturat ion measurement (mass fraction)Ordered By: Debbi Ritter on 11-28-2023 Iron saturation [Mass fraction] 16.1 % 15.0-55.0 [facility] Whole blood hemoglobin A1c/t otal hemoglobin ratio (mass fraction)Ordered By: Debbi Ritter on 11-28-2023 HbA1c (Bld) [Mass fraction] 6.4 % 3.8-5.6 [facility] Comment on above: Normal < 5.7 % Predi abetic 5.7 - 6.4 % Diabetic >or= 6.5 % Please note range changes. Absolute lymphocyte countOrd ered By: Michael Fritz on 10-10-2023 Lymphocytes Auto (Unsp spec) [#/Vol] 2.19 10*3/uL 0.83-4.51 [facility] Basophil percentageOrdered B y: Michael Fritz on 10-10-2023 Basophils/100 WBC (Bld) 0.4 % 0-1 [facility] Bilirubin [Mass/Vol] 0.30 mg/dL 0.20-1.00 [facility] Comment on above: For patients on eltr ombopag therapy, use of Dimension [place] TBIL is not recommended. Chloride [Moles/Vol] 102 mmol/L 98-107 [facility] Eosinophils/100 WBC (Bld) 1.5 % 0-5 [facility] Glucose [Mass/Vol] 114 mg/dL 74-106 [facility] Comment on above: Fasting Glucose resu lt from 100 to 125 mg/dL suggests IMPAIRED HOMEOSTASIS per A.D.A. criteria. Neutrophils (Bld) [#/Vol] 6.3 10*3/uL 2.0-7.7 [facility] Neutrophils/100 WBC (Bld) 66.4 % 47-70 [facility] Potassium [Moles/Vol] 3.9 mmol/L 3.5-5.1 [facility] Protein [Mass/Vol] 8.4 g/dL 6.4-8.2 [facility] Sodium [Moles/Vol] 141 mmol/L 136-145 [facility] WBC (Bld) [#/Vol] 9.5 10*3/uL 4.4-11.0 [facility] Blood erythrocytes count (nu mber/volume)Ordered By: Michael Fritz on 10-10-2023 RBC (Bld) [#/Vol] 4.55 10*6/uL 4.2-5.4 [facility] Blood hemoglobin measurement (mass/volume)Ordered By: Michael Fritz on 10-10-2023 Hemoglobin (Bld) [Mass/Vol] 13.0 g/dL 12.0-15.0 [facility] Blood lymphocytes/100 leukoc ytesOrdered By: Michael Fritz on 10-10-2023 Lymphocytes/100 WBC (Bld) 23.1 % 19-41 [facility] Blood monocytes/100 leukocyt esOrdered By: Michael Fritz on 10-10-2023 Monocytes/100 WBC (Bld) 8.1 % 0-10 [facility] Blood platelet mean volumeOr dered By: Michael Fritz on 10-10-2023 Platelet mean volume (Bld) [Entitic vol] 11.8 fL 6.2-12.0 [facility] Determination of erythrocyte mean corpuscular volume (MCV)Ordered By: Michael Fritz on 10-10-2023 MCV (RBC) [Entitic vol] 89.7 fL 81-99 [facility] Hematocrit Auto (Bld) [Volum e fraction]Ordered By: Michael Fritz on 10-10-2023 Hematocrit (Bld) [Volume fraction] 40.8 % 37-47 [facility] Laboratory - Chemistry and C hemistry - challengeOrdered By: Michael Fritz on 10-10-2023 ALP [Catalytic activity/Vol] 79 U/L 45-117 [facility] ALT [Catalytic activity/Vol] 28 U/L 13-56 [facility] CO2 [Moles/Vol] 33.0 mmol/L 21.0-32.0 [facility] Globulin (S) [Mass/Vol] 4.6 g/dL 2.2-4.2 [facility] Lipase [Catalytic activity/Vol] 24 U/L 13-75 [facility] Comment on above: Please note:LIPASE r evised reference range effective 23. New Lipase methodology. Expected to produce lower values than the previous assay method. NEW Reference Range: 13 - 75 U/L Urea nitrogen/Creatinine [Mass ratio] 15.7 mg/mg 10-20 [facility] - Hematology and Cell countsOrdered By: Michael Fritz on 10-10-2023 Erythrocyte distribution width (RBC) [Entitic vol] 46.2 fL 35.1-43.9 [facility] width (RBC) [Ratio] 14.1 % 11.6-14.6 [facility] Immature granulocytes/100 WBC (Bld) 0.500 % 0.0-0.9 [facility] Comment on above: IG% - Immature Granu locytes (promyelocytes, myelocytes and metamyelocytes) > 1% indicates that a LEFT SHIFT is Present. MCH (RBC) [Entitic mass] 28.6 pg 27.0-32.0 [facility] Nucleated RBC/100 WBC (Bld) [Ratio] 0 % 0-5 [facility] MCHC Auto (RBC) [Mass/Vol]Or dered By: Michael Fritz on 10-10-2023 MCHC (RBC) [Mass/Vol] 31.9 g/dL 32-36 [facility] No Panel InformationOrdered By: Michael Fritz on 10-10-2023 Estimated Creatinine Clearance Calc 53.16 ml/min [facility] Estimated GFR (MDRD) Amer 81 mL/min >60 [facility] Comment on above: GFR Calc Estimated GFR (MDRD) Non-Af Amer 67 mL/min >60 [facility] Comment on above: Non- GFR Calc Platelets bldOrdered By: Keri Fritz on 10-10-2023 Platelets (Bld) [#/Vol] 293 10*3/uL 150-450 [facility] Serum or plasma albumin bonita urement (mass/volume)Ordered By: Michael Fritz on 10-10-2023 Albumin [Mass/Vol] 3.8 g/dL 3.2-5.0 [facility] Serum or plasma albumin/glob ulin mass ratioOrdered By: Michael Fritz on 10-10-2023 Albumin/Globulin [Mass ratio] 0.8 {ratio} 0.9-2.4 [facility] Serum or plasma calcium bonita urement (mass/volume)Ordered By: Michael Fritz on 10-10-2023 Calcium [Mass/Vol] 9.7 mg/dL 8.5-10.1 [facility] Serum or plasma creatinine m easurement (mass/volume)Ordered By: Michael Fritz on 10-10-2023 Creatinine [Mass/Vol] 0.96 mg/dL 0.55-1.02 [facility] Comment on above: The validity of the calculated GFR & GFRAA in patients over 70 years has not been determined. Clinical correlation is essential. Serum or plasma urea nitroge n measurement (mass/volume)Ordered By: Michael Fritz on 10-10-2023 Urea nitrogen [Mass/Vol] 15 mg/dL 7-18 [facility] Thin prep Papanicolaou smear with manual screeningOrdered By: Michael Fritz on 10-10-2023 Thin prep Papanicolaou smear with manual screening 20 U/L 15-37 [facility] Thin prep Papanicolaou smear with manual screening 6 5-15 [facility] Absolute lymphocyte countOrd ered By: Debbi Ritter on 08-24-2023 Lymphocytes Auto (Unsp spec) [#/Vol] 2.39 10*3/uL 0.83-4.51 [facility] Basophil percentageOrdered B y: Debbi Ritter on 08-24-2023 Basophils/100 WBC (Bld) 0.4 % 0-1 [facility] Bilirubin [Mass/Vol] 0.20 mg/dL 0.20-1.00 [facility] Comment on above: For patients on eltr ombopag therapy, use of Dimension [place] TBIL is not recommended. Chloride [Moles/Vol] 104 mmol/L 98-107 [facility] Cholesterol [Mass/Vol] 131 mg/dL <200 [facility] Comment on above: <200 mg/dL Desirable 200-240 mg/dL Borderline >240 mg/dL High Risk Eosinophils/100 WBC (Bld) 2.6 % 0-5 [facility] Glucose [Mass/Vol] 125 mg/dL 74-106 [facility] Comment on above: Fasting Glucose resu lt from 100 to 125 mg/dL suggests IMPAIRED HOMEOSTASIS per A.D.A. criteria. Neutrophils (Bld) [#/Vol] 5.2 10*3/uL 2.0-7.7 [facility] Neutrophils/100 WBC (Bld) 61.1 % 47-70 [facility] Potassium [Moles/Vol] 4.5 mmol/L 3.5-5.1 [facility] Protein [Mass/Vol] 7.9 g/dL 6.4-8.2 [facility] Sodium [Moles/Vol] 137 mmol/L 136-145 [facility] Triglyceride [Mass/Vol] 126 mg/dL <199 [facility] Comment on above: The drugs N-Acetylcy steine and Metamizole may falsely depress this assay.Serum Triglycerides Reference Interval Normal <150 mg/dL Borderline high 150 - 199 mg/dL High 200 - 499 mg/dL Very High > or = 500 mg/dL WBC (Bld) [#/Vol] 8.4 10*3/uL 4.4-11.0 [facility] Blood erythrocytes count (nu mber/volume)Ordered By: Debbi Ritter on 08-24-2023 RBC (Bld) [#/Vol] 4.36 10*6/uL 4.2-5.4 [facility] Blood hemoglobin measurement (mass/volume)Ordered By: Debbi Ritter on 08-24-2023 Hemoglobin (Bld) [Mass/Vol] 12.6 g/dL 12.0-15.0 [facility] Blood lymphocytes/100 leukoc ytesOrdered By: [facility] on 08-24-[facility]23 Lymphocytes/100 WBC (Bld) 28.3 % 19-41 [facility] Blood monocytes/100 leukocyt esOrdered By: [facility] on 08-24-2023 Monocytes/100 WBC (Bld) 7.2 % 0-10 [facility] Blood platelet mean volumeOr dered By: [facility] on 08-24-2023 Platelet mean volume (Bld) [Entitic vol] 10.9 fL 6.2-12.0 [facility] Determination of erythrocyte mean corpuscular volume (MCV)Ordered By: [facility] on 08-24-2023 MCV (RBC) [Entitic vol] 91.5 fL 81-99 [facility] Hematocrit Auto (Bld) [Volum e fraction]Ordered By: [facility] on 08-24-2023 Hematocrit (Bld) [Volume fraction] 39.9 % 37-47 [facility] Hemoglobin in reticulocytes (mass per reticulocyte)Ordered By: [facility] on 08-24-2023 Hemoglobin (Reticulocytes) [Entitic mass] 31.0 pg 30-35 [facility] Iron measurement (mass/mass) Ordered By: Debbi Torreskaran on 08-24-2023 Iron (Unsp spec) [Mass/Mass] 48 ug/dL 50-170 [facility] - Chemistry and C hemistry - challengeOrdered By: [facility] on 08-24-2023 ALP [Catalytic activity/Vol] 82 U/L 45-117 [facility] ALT [Catalytic activity/Vol] 35 U/L 13-56 [facility] CO2 [Moles/Vol] 29.0 mmol/L 21.0-32.0 [facility] Cobalamin (Vitamin B12) [Mass/Vol] 513 pg/mL 211-911 [facility] Globulin (S) [Mass/Vol] 4.3 g/dL 2.2-4.2 [facility] Urea nitrogen/Creatinine [Mass ratio] 19.8 mg/mg 10-20 [facility] - Hematology and Cell countsOrdered By: Debbi Ritter on 08-24-2023 Erythrocyte distribution width (RBC) [Entitic vol] 49.3 fL 35.1-43.9 [facility] Erythrocyte distribution width (RBC) [Ratio] 14.6 % 11.6-14.6 [facility] Immature granulocytes/100 WBC (Bld) 0.400 % 0.0-0.9 [facility] Comment on above: IG% - Immature Granu locytes (promyelocytes, myelocytes and metamyelocytes) > 1% indicates that a LEFT SHIFT is Present. MCH (RBC) [Entitic mass] 28.9 pg 27.0-32.0 [facility] Nucleated RBC/100 WBC (Bld) [Ratio] 0 % 0-5 [facility] MCHC Auto (RBC) [Mass/Vol]Or dered By: Debbi Ritter on 08-24-2023 MCHC (RBC) [Mass/Vol] 31.6 g/dL 32-36 [facility] No Panel InformationOrdered By: Debbi Ritter on 08-24-2023 Estimated GFR (MDRD) Amer 86 mL/min >60 [facility] Comment on above: GFR Calc Estimated GFR (MDRD) Non-Af Amer 71 mL/min >60 [facility] Comment on above: Non- GFR Calc Immature Reticulocyte Fraction 11.60 % 3.00-15.90 [facility] Reticulocyte Count 1.93 % 0.5-1.5 [facility] Thyroid Stimulating Hormone (TSH) 3.36 uIU/mL 0.358-3.74 [facility] Total Iron Binding Capacity 348 ug/dL 250-450 [facility] Urine Microalbumin/Creatinine Ratio 10.5 mg/g CRE <30 [facility] Platelets bldOrdered By: Monica Ritter on 08-24-2023 Platelets (Bld) [#/Vol] 334 10*3/uL 150-450 [facility] Serum or plasma albumin bonita urement (mass/volume)Ordered By: Debbi Ritter on 08-24-2023 Albumin [Mass/Vol] 3.6 g/dL 3.2-5.0 [facility] Serum or plasma albumin/glob ulin mass ratioOrdered By: Debbi Ritter on 08-24-2023 Albumin/Globulin [Mass ratio] 0.8 {ratio} 0.9-2.4 [facility] Serum or plasma calcium bonita urement (mass/volume)Ordered By: Debbi Ritter on 08-24-2023 Calcium [Mass/Vol] 8.9 mg/dL 8.5-10.1 [facility] Serum or plasma cholesterol in HDL measurement (mass/volume)Ordered By: [facility] on 08-24-2023 Cholesterol in HDL [Mass/Vol] 45 mg/dL >40 [facility] Comment on above: The drugs N-Acetylcy steine and Metamizole may falsely depress this assay. Reference Range HDL <40 mg/dL Low HDL Cholesterol HDL >or= 60 mg/dL High HDL Cholesterol Serum or plasma cholesterol in VLDL measurement (mass/volume)Ordered By: Debbi Ritter on 08-24-2023 Cholesterol in VLDL [Mass/Vol] 25 mg/dL 5-40 [facility] Serum or plasma creatinine m easurement (mass/volume)Ordered By: Debbi Ritter on 08-24-2023 Creatinine [Mass/Vol] 0.91 mg/dL 0.55-1.02 [facility] Comment on above: The validity of the calculated GFR & GFRAA in patients over 70 years has not been determined. Clinical correlation is essential. Serum or plasma ferritin marylin surement (mass/volume)Ordered By: Debbi Ritter on 08-24-2023 Ferritin [Mass/Vol] 11 ng/mL 8-252 [facility] Serum or plasma folate measu rement (mass/volume)Ordered By: Debbi Ritter 08-24-2023 Folate [Mass/Vol] 12.50 ng/mL 3.1-55.4 [facility] Serum or plasma iron saturat ion measurement (mass fraction)Ordered By: Debbi Torreskaran on 08-24-2023 Iron saturation [Mass fraction] 13.8 % 15.0-55.0 [facility] Serum or plasma low density lipoprotein (LDL) cholesterol measurement (mass/volume)Ordered By: Debbi Ritter on 08-24-2023 Cholesterol in LDL [Mass/Vol] 61 mg/dL 0-130 [facility] Serum or plasma urea nitroge n measurement (mass/volume)Ordered By: Debbi Ritter on 08-24-2023 Urea nitrogen [Mass/Vol] 18 mg/dL 7-18 [facility] Thin prep Papanicolaou smear with manual screeningOrdered By: Debbi Ritter on 08-24-2023 Thin prep Papanicolaou smear with manual screening 18 U/L 15-37 [facility] Thin prep Papanicolaou smear with manual screening 4 5-15 [facility] Thin prep Papanicolaou smear with manual screening 5.3 mg/L NO RANGE EST. [facility] Urine creatinine measurement (mass/volume)Ordered By: Debbi Ritter on 08-24-2023 Creatinine (U) [Mass/Vol] 50.30 mg/dL NO RANGE EST. [facility] Whole blood hemoglobin A1c/t otal hemoglobin ratio (mass fraction)Ordered By: Debbi Ritter on 08-24-2023 HbA1c (Bld) [Mass fraction] 5.9 % 3.8-5.6 [facility] Comment on above: Normal < 5.7 % Predi abetic 5.7 - 6.4 % Diabetic >or= 6.5 % Please note range changes. Beta hCG serum qualOrdered B y: Charlie Esquivel on 08-07-2023 Beta HCG ( test) Ql Negative [facility] Glucose Glucometer (BldC) [M ass/Vol]Ordered By: Anthony Dolan on 08-07-2023 Glucose [Mass/Vol] 95 mg/dL 74-106 [facility] Comment on above: MANAGEMENT OF PATIEN T CARE PER NURSING PROTOCOL Absolute lymphocyte countOrd ered By: Rosanne Howell on 2023 Lymphocytes Auto (Unsp spec) [#/Vol] 2.01 10*3/uL 0.83-4.51 [facility] Basophil percentageOrdered B y: Rosanne Howell on 2023 Basophils/100 WBC (Bld) 0.4 % 0-1 [facility] Eosinophils/100 WBC (Bld) 2.3 % 0-5 [facility] Neutrophils (Bld) [#/Vol] 6.3 10*3/uL 2.0-7.7 [facility] Neutrophils/100 WBC (Bld) 69.0 % 47-70 [facility] WBC (Bld) [#/Vol] 9.1 10*3/uL 4.4-11.0 [facility] Blood erythrocytes count (nu mber/volume)Ordered By: Rosanne Howell on 2023 RBC (Bld) [#/Vol] 4.44 10*6/uL 4.2-5.4 [facility] Blood hemoglobin measurement (mass/volume)Ordered By: Rosanne Howell on 2023 Hemoglobin (Bld) [Mass/Vol] 12.3 g/dL 12.0-15.0 [facility] Blood lymphocytes/100 leukoc ytesOrdered By: Rosanne Howell on 2023 Lymphocytes/100 WBC (Bld) 22.1 % 19-41 [facility] Blood monocytes/100 leukocyt esOrdered By: Rosanne Howell on 2023 Monocytes/100 WBC (Bld) 6.0 % 0-10 [facility] Blood platelet mean volumeOr dered By: Rosanne Howell on 2023 Platelet mean volume (Bld) [Entitic vol] 11.6 fL 6.2-12.0 [facility] Determination of erythrocyte mean corpuscular volume (MCV)Ordered By: Rosanne Howell on 2023 MCV (RBC) [Entitic vol] 88.5 fL 81-99 [facility] Hematocrit Auto (Bld) [Volum e fraction]Ordered By: Rosanne Howell on 2023 Hematocrit (Bld) [Volume fraction] 39.3 % 37-47 [facility] Iron measurement (mass/mass) Ordered By: Rosanne Howell on 2023 Iron (Unsp spec) [Mass/Mass] 91 ug/dL 50-170 [facility] - Hematology and Cell countsOrdered By: Rosanne Howell on 2023 Erythrocyte distribution width (RBC) [Entitic vol] 54.2 fL 35.1-43.9 [facility] Erythrocyte distribution width (RBC) [Ratio] 16.5 % 11.6-14.6 [facility] Immature granulocytes/100 WBC (Bld) 0.200 % 0.0-0.9 [facility] Comment on above: IG% - Immature Granu locytes (promyelocytes, myelocytes and metamyelocytes) > 1% indicates that a LEFT SHIFT is Present. MCH (RBC) [Entitic mass] 27.7 pg 27.0-32.0 [facility] Nucleated RBC/100 WBC (Bld) [Ratio] 0 % 0-5 [facility] MCHC Auto (RBC) [Mass/Vol]Or dered By: Rosanne Howell on 2023 MCHC (RBC) [Mass/Vol] 31.3 g/dL 32-36 [facility] No Panel InformationOrdered By: Rosanne Howell on 2023 Total Iron Binding Capacity 346 ug/dL 250-450 [facility] Platelets bldOrdered By: Aziza Howell on 2023 Platelets (Bld) [#/Vol] 301 10*3/uL 150-450 [facility] Serum or plasma ferritin marylin surement (mass/volume)Ordered By: Rosanne Howell on 2023 Ferritin [Mass/Vol] 8 ng/mL 8-252 [facility] Serum or plasma iron saturat ion measurement (mass fraction)Ordered By: Rosanne Howell on 2023 Iron saturation [Mass fraction] 26.3 % 15.0-55.0 [facility] Absolute lymphocyte countOrd ered By: Dr. Ritter on 02-21-2023 Lymphocytes Auto (Unsp spec) [#/Vol] 1.96 10*3/uL 0.83-4.51 [facility] Basophil percentageOrdered B y: Dr. Ritter on 02-21-2023 Basophils/100 WBC (Bld) 0.5 % 0-1 [facility] Eosinophils/100 WBC (Bld) 2.9 % 0-5 [facility] Neutrophils (Bld) [#/Vol] 4.7 10*3/uL 2.0-7.7 [facility] Neutrophils/100 WBC (Bld) 62.9 % 47-70 [facility] WBC (Bld) [#/Vol] 7.5 10*3/uL 4.4-11.0 [facility] Blood erythrocytes count (nu mber/volume)Ordered By: Dr. Ritter on 02-21-2023 RBC (Bld) [#/Vol] 4.03 10*6/uL 4.2-5.4 [facility] Blood hemoglobin measurement (mass/volume)Ordered By: Dr. Ritter on 02-21-2023 Hemoglobin (Bld) [Mass/Vol] 10.8 g/dL 12.0-15.0 [facility] Blood lymphocytes/100 leukoc ytesOrdered By: Dr. Ritter on 02-21-2023 Lymphocytes/100 WBC (Bld) 26.0 % 19-41 [facility] Blood monocytes/100 leukocyt esOrdered By: Dr. Ritter on 02-21-2023 Monocytes/100 WBC (Bld) 7.3 % 0-10 [facility] Blood platelet mean volumeOr dered By: Dr. Ritter on 02-21-2023 Platelet mean volume (Bld) [Entitic vol] 10.9 fL 6.2-12.0 [facility] Determination of erythrocyte mean corpuscular volume (MCV)Ordered By: Dr. Ritter on 02-21-2023 MCV (RBC) [Entitic vol] 91.3 fL 81-99 [facility] Hematocrit Auto (Bld) [Volum e fraction]Ordered By: Dr. Ritter on 02-21-2023 Hematocrit (Bld) [Volume fraction] 36.8 % 37-47 [facility] - Hematology and Cell countsOrdered By: Dr. Ritter on 02-21-2023 Erythrocyte distribution width (RBC) [Entitic vol] 57.1 fL 35.1-43.9 [facility] Erythrocyte distribution width (RBC) [Ratio] 17.4 % 11.6-14.6 [facility] Immature granulocytes/100 WBC (Bld) 0.400 % 0.0-0.9 [facility] Comment on above: IG% - Immature Granu locytes (promyelocytes, myelocytes and metamyelocytes) > 1% indicates that a LEFT SHIFT is Present. MCH (RBC) [Entitic mass] 26.8 pg 27.0-32.0 [facility] Nucleated RBC/100 WBC (Bld) [Ratio] 0 % 0-5 [facility] MCHC Auto (RBC) [Mass/Vol]Or dered By: Dr. Ritter on 02-21-2023 MCHC (RBC) [Mass/Vol] 29.3 g/dL 32-36 [facility] Platelets bldOrdered By: Dr. Ritter on 02-21-2023 Platelets (Bld) [#/Vol] 313 10*3/uL 150-450 [facility] Absolute lymphocyte countOrd ered By: Dr. Diaz on 02-16-2023 Lymphocytes Auto (Unsp spec) [#/Vol] 1.75 10*3/uL 0.83-4.51 [facility] Basophil percentageOrdered B y: Dr. Diaz on 02-16-2023 Basophils/100 WBC (Bld) 0.5 % 0-1 [facility] Chloride [Moles/Vol] 111 mmol/L 98-107 [facility] Eosinophils/100 WBC (Bld) 3.4 % 0-5 [facility] Glucose [Mass/Vol] 100 mg/dL 74-106 [facility] Comment on above: Fasting Glucose resu lt from 100 to 125 mg/dL suggests IMPAIRED HOMEOSTASIS per A.D.A. criteria. Neutrophils (Bld) [#/Vol] 5.2 10*3/uL 2.0-7.7 [facility] Neutrophils/100 WBC (Bld) 65.6 % 47-70 [facility] Potassium [Moles/Vol] 3.6 mmol/L 3.5-5.1 [facility] Sodium [Moles/Vol] 139 mmol/L 136-145 [facility] WBC (Bld) [#/Vol] 8.0 10*3/uL 4.4-11.0 [facility] Blood erythrocytes count (nu mber/volume)Ordered By: Dr. Diaz on 02-16-2023 RBC (Bld) [#/Vol] 3.40 10*6/uL 4.2-5.4 [facility] Blood hemoglobin measurement (mass/volume)Ordered By: Dr. Diaz on 02-16-2023 Hemoglobin (Bld) [Mass/Vol] 9.2 g/dL 12.0-15.0 [facility] Blood lymphocytes/100 leukoc ytesOrdered By: Dr. Diaz on 02-16-2023 Lymphocytes/100 WBC (Bld) 22.0 % 19-41 [facility] Blood monocytes/100 leukocyt esOrdered By: Dr. Diaz on 02-16-2023 Monocytes/100 WBC (Bld) 7.9 % 0-10 [facility] Blood platelet mean volumeOr dered By: Dr. Diaz on 02-16-2023 Platelet mean volume (Bld) [Entitic vol] 10.8 fL 6.2-12.0 [facility] Determination of erythrocyte mean corpuscular volume (MCV)Ordered By: Dr. Diaz on 02-16-2023 MCV (RBC) [Entitic vol] 87.6 fL 81-99 [facility] Comment on above: Delta: 93.0 on 02/15-0337 Hematocrit Auto (Bld) [Volum e fraction]Ordered By: Dr. Diaz on 02-16-2023 Hematocrit (Bld) [Volume fraction] 29.8 % 37-47 [facility] - Chemistry and C hemistry - challengeOrdered By: Dr. Sheehan on 02-16-2023 HCG ( test) Ql (U) Negative [facility] Comment on above: Very dilute urine sp ecimens, as indicated by a low specificgravity, may not contain customer account representative levels of hCG. If is still suspected, a first morning urinespecimen should be collected 48 hours later and tested. Laboratory - Chemistry and C hemistry - challengeOrdered By: Dr. Diaz on 02-16-2023 CO2 [Moles/Vol] 25.0 mmol/L 21.0-32.0 [facility] Urea nitrogen/Creatinine [Mass ratio] 8.7 mg/mg 10-20 [facility] Laboratory - CoagulationOrde red By: Dr. Womack on 02-16-2023 aPTT Coag (Bld) [Time] 29.9 s 24.1-36.2 [facility] Laboratory - Hematology and Cell countsOrdered By: Dr. Diaz on 02-16-2023 Erythrocyte distribution width (RBC) [Entitic vol] 57.6 fL 35.1-43.9 [facility] Erythrocyte distribution width (RBC) [Ratio] 18.1 % 11.6-14.6 [facility] Immature granulocytes/100 WBC (Bld) 0.600 % 0.0-0.9 [facility] Comment on above: IG% - Immature Granu locytes (promyelocytes, myelocytes and metamyelocytes) > 1% indicates that a LEFT SHIFT is Present. MCH (RBC) [Entitic mass] 27.1 pg 27.0-32.0 [facility] Nucleated RBC/100 WBC (Bld) [Ratio] 0.3 % 0-5 [facility] MCHC Auto (RBC) [Mass/Vol]Or dered By: Dr. Diaz on 02-16-2023 MCHC (RBC) [Mass/Vol] 30.9 g/dL 32-36 [facility] Comment on above: Delta: 28.8 on 02/15 No Panel InformationOrdered By: Dr. Diaz on 02-16-2023 Estimated Creatinine Clearance Calc 63.66 ml/min [facility] Estimated GFR (MDRD) Amer 99 mL/min >60 [facility] Comment on above: GFR Calc Estimated GFR (MDRD) Non-Af Amer 82 mL/min >60 [facility] Comment on above: Non- GFR Calc Platelets bldOrdered By: Dr. Diaz on 02-16-2023 Platelets (Bld) [#/Vol] 268 10*3/uL 150-450 [facility] Serum or plasma calcium bonita urement (mass/volume)Ordered By: Dr. Diaz on 02-16-2023 Calcium [Mass/Vol] 8.2 mg/dL 8.5-10.1 [facility] Serum or plasma creatinine m easurement (mass/volume)Ordered By: Dr. Diaz on 02-16-2023 Creatinine [Mass/Vol] 0.81 mg/dL 0.55-1.02 [facility] Comment on above: The validity of the calculated GFR & GFRAA in patients over 70 years has not been determined. Clinical correlation is essential. Serum or plasma urea nitroge n measurement (mass/volume)Ordered By: Dr. Diaz on 02-16-2023 Urea nitrogen [Mass/Vol] 7 mg/dL 7-18 [facility] Thin prep Papanicolaou smear with manual screeningOrdered By: Dr. Diaz on 02-16-2023 Thin prep Papanicolaou smear with manual screening 3 5-15 [facility] Atypical perinuclear antineu trophil cytoplasmic antibodies measurementOrdered By: Anthony Dolan on 02-15-2023 Neutrophil cytoplasmic Ab.perinuclear.atypical IF (S) [Titer] <1:20 titer Neg:<1:20 [facility] Comment on above: The atypical pANCA p attern has been observed in asignificant percentage of patients with ulcerative colitis,primary sclerosing cholangitis and autoimmune hepatitis.Performed at: [email or web address] [address] [id number] Director: Codey Hernandez PhD, Phone: [phone] at: [facility] [address] [id number] Director: Anna Brown MD, Phone: [phone] Basophil percentageOrdered B y: Anthony Dolan on 02-15-2023 Basophil percentage < 0.2 AI 0.0-0.9 [facility] Erythrocyte sedimentation ra teOrdered By: Anthony Dolan on 02-15-2023 ESR (Bld) [Velocity] 5 mm/h 0-30 [facility] - Chemistry and C hemistry - challengeOrdered By: Anthony Dolan on 02-15-2023 Cobalamin (Vitamin B12) [Mass/Vol] 631 pg/mL 211-911 [facility] No Panel InformationOrdered By: Anthony Dolan on 02-15-2023 Anti-Gliadin IgA Antibody 5 units 0-19 [facility] Comment on above: Negative 0 - 19 Weak Positive 20 - 30 Moderate to Strong Positive >30 Anti-Gliadin IgG Antibody 5 units 0-19 [facility] Comment on above: Negative 0 - 19 Weak Positive 20 - 30 Moderate to Strong Positive >30 Centromere B Antibody <0.2 AI 0.0-0.9 [facility] Endomysial IgA Antibody Negative Negative [facility] Immunoglobulin E 26 IU/mL 6-495 [facility] GOLF CADDIE Antibody <0.2 AI 0.0-0.9 [facility] Tissue Transglutaminase IgG Ab 2 U/mL 0-5 [facility] Comment on above: Negative 0 - 5 Weak Positive 6 - 9 Positive >9 No Panel InformationOrdered By: Dr. Sheehan on 02-15-2023 Troponin I High Sensitivity 5 pg/mL 3.0-54.0 [facility] Comment on above: Please Note: New Alena t Units and Gender Specific Reference Ranges. For more information see Policy Stat Procedure [place] High Sensitivity Troponin (TNIH) and attachments. Serum DNA double strand anti body assay (units/volume)Ordered By: Anthony Dolan on 02-15-2023 DNA double strand Ab Qn (S) 1 [IU]/mL 0-9 [facility] Comment on above: Negative <5 Equivoca l 5 - 9 Positive >9 Serum Bre-1 antibody assay (u nits/volume)Ordered By: Anthony Dolan on 02-15-2023 Bre-1 extractable nuclear Ab Qn (S) <0.2 AI 0.0-0.9 [facility] Serum Scl-70 extractable nuc lear antibody assay (units/volume)Ordered By: Anthony Dolan on 02-15-2023 SCL-70 extractable nuclear Ab Qn (S) <0.2 AI 0.0-0.9 [facility] Serum Funes extractable nucl ear antibody detectionOrdered By: Anthony Dolan on 02-15-2023 Funes extractable nuclear Ab Ql (S) <0.2 AI 0.0-0.9 [facility] Serum classic neutrophil cyt oplasmic antibody assay (units/volume)Ordered By: Anthony Dolan on 02-15-2023 Neutrophil cytoplasmic Ab.classic Qn (S) <1:20 titer Neg:<1:20 [facility] Serum or plasma C reactive p rotein measurement (mass/volume)Ordered By: Anthony Dolan on 04-26-2023 CRP [Mass/Vol] 5.34 mg/L 0.0-3.0 [facility] Comment on above: C-Reactive Protein ( CRP) provides useful information for thediagnosis, therapy and monitoring of inflammatory processesand associated diseases. For the evaluation of Relative Riskfor Cardiovascular Disease, a High Sensitivity CRP (HSCRP)should be ordered. Serum or plasma IgA measurem ent (mass/volume)Ordered By: Anthony Dolan on 02-15-2023 IgA [Mass/Vol] 176 mg/dL 87-352 [facility] Serum or plasma IgG measurem ent (mass/volume)Ordered By: Anthonystephanie Dolan on 02-15-2023 IgG [Mass/Vol] 1160 mg/dL [phone] [facility] Serum or plasma IgM measurem ent (mass/volume)Ordered By: Anthonystephanie Dolan on 02-15-2023 IgM [Mass/Vol] 112 mg/dL 26-217 [facility] Serum or plasma folate measu rement (mass/volume)Ordered By: Anthony Dolan on 02-15-2023 Folate [Mass/Vol] 14.30 ng/mL 3.1-55.4 [facility] Serum perinuclear neutrophil cytoplasmic antibody titer by immunofluorescenceOrdered By: Anthony Dolan on 02-15-2023 Neutrophil cytoplasmic Ab.perinuclear IF (S) [Titer] <1:20 titer Neg:<1:20 [facility] Comment on above: The presence of posi tive fluorescence exhibiting P-ANCA orC-ANCA patterns alone is not specific for the diagnosis ofWegener's Granulomatosis (WG) or microscopic polyangiitis.Decisions about treatment should not be based solely onANCA IFA results. The International ANCA Group Consensusrecommends follow up testing of positive sera with both PA-3 and MPO-ANCA enzyme immunoassays. As many as 5% serumsamples are positive only by EIA. Ref. AM J Clin [id number];111:507-513. Serum tissue transglutaminas e IgA antibody assay (units/volume)Ordered By: Anthony Dolan on 02-15-2023 tTG IgA Qn (S) <2 U/mL 0-3 [facility] Comment on above: Negative 0 - 3 Weak Positive 4 - 10 Positive >10 Tissue Transglutaminase (tTG) has been identified as the endomysial antigen. Studies have demonstr- ated that endomysial IgA antibodies have over 99% specificity for gluten sensitive enteropathy. Whole blood hemoglobin A1c/t otal hemoglobin ratio (mass fraction)Ordered By: Dr. Sheehan on 02-15-2023 HbA1c (Bld) [Mass fraction] 5.1 % 3.8-5.6 [facility] Comment on above: Normal < 5.7 % Predi abetic 5.7 - 6.4 % Diabetic >or= 6.5 % Please note range changes. Absolute lymphocyte countOrd ered By: Dr. Ritter on 02-14-2023 Lymphocytes Auto (Unsp spec) [#/Vol] 1.57 10*3/uL 0.83-4.51 [facility] Basophil percentageOrdered B y: Dr. Farmer on 02-14-2023 Basophil percentage 0-5 SEEN /hpf 0-5 [facility] Basophil percentageOrdered B y: Dr. Ritter on 02-14-2023 Basophils/100 WBC (Bld) 0.3 % 0-1 [facility] Eosinophils/100 WBC (Bld) 1.8 % 0-5 [facility] Neutrophils (Bld) [#/Vol] 4.2 10*3/uL 2.0-7.7 [facility] Neutrophils/100 WBC (Bld) 65.1 % 47-70 [facility] WBC (Bld) [#/Vol] 6.5 10*3/uL 4.4-11.0 [facility] Bilirubin Test strip Ql (U)O rdered By: Dr. Farmer on 02-14-2023 Bilirubin Ql (U) Negative Negative [facility] Bilirubin Test strip Ql (U)O rdered By: Dr. Ritter on 02-14-2023 Bilirubin Ql (U) Negative Negative [facility] Blood erythrocytes count (nu mber/volume)Ordered By: Dr. Ritter on 02-14-2023 RBC (Bld) [#/Vol] 2.64 10*6/uL 4.2-5.4 [facility] Blood hemoglobin measurement (mass/volume)Ordered By: Dr. Ritter on 02-14-2023 Hemoglobin (Bld) [Mass/Vol] 7.1 g/dL 12.0-15.0 [facility] Blood lymphocytes/100 leukoc ytesOrdered By: Dr. Ritter on 02-14-2023 Lymphocytes/100 WBC (Bld) 24.2 % 19-41 [facility] Blood monocytes/100 leukocyt esOrdered By: Dr. Ritter on 02-14-2023 Monocytes/100 WBC (Bld) 8.0 % 0-10 [facility] Blood platelet mean volumeOr dered By: Dr. Ritter on 02-14-2023 Platelet mean volume (Bld) [Entitic vol] 10.6 fL 6.2-12.0 [facility] Determination of erythrocyte mean corpuscular volume (MCV)Ordered By: Dr. Ritter on 02-14-2023 MCV (RBC) [Entitic vol] 92.4 fL 81-99 [facility] Hematocrit Auto (Bld) [Volum e fraction]Ordered By: Dr. Ritter on 02-14-2023 Hematocrit (Bld) [Volume fraction] 24.4 % 37-47 [facility] INR in Blood by Coagulation assayOrdered By: Dr. Farmer on 02-14-2023 INR Coag (Bld) [Relative time] 1.0 {INR} [facility] Ketones Test strip Ql (U)Ord ered By: Dr. Farmer on 02-14-2023 Ketones Ql (U) Negative Negative [facility] Ketones Test strip Ql (U)Ord ered By: Dr. Ritter on 02-14-2023 Ketones Ql (U) Negative Negative [facility] Laboratory - Chemistry and C hemistry - challengeOrdered By: Dr. Ritter on 02-14-2023 Cobalamin (Vitamin B12) [Mass/Vol] 731 pg/mL 211-911 [facility] Laboratory - CoagulationOrde red By: Dr. Farmer on 02-14-2023 aPTT Coag (Bld) [Time] 27.8 s 24.1-36.2 [facility] PT Coag (PPP) [Time] 12.7 s 11.7-14.9 [facility] - Hematology and Cell countsOrdered By: Dr. Ritter on 02-14-2023 Erythrocyte distribution width (RBC) [Entitic vol] 53.6 fL 35.1-43.9 [facility] Erythrocyte distribution width (RBC) [Ratio] 15.9 % 11.6-14.6 [facility] Immature granulocytes/100 WBC (Bld) 0.600 % 0.0-0.9 [facility] Comment on above: IG% - Immature Granu locytes (promyelocytes, myelocytes and metamyelocytes) > 1% indicates that a LEFT SHIFT is Present. MCH (RBC) [Entitic mass] 26.9 pg 27.0-32.0 [facility] Nucleated RBC/100 WBC (Bld) [Ratio] 0 % 0-5 [facility] Lower GI hemoglobin IA Ql (S tl)Ordered By: Dr. Farmer on 02-14-2023 Stool Occult Blood (LEX) Positive [facility] MCHC Auto (RBC) [Mass/Vol]Or dered By: Dr. Ritter on 02-14-2023 MCHC (RBC) [Mass/Vol] 29.1 g/dL 32-36 [facility] Mucus LM Ql (Urine sed)Order ed By: Dr. Farmer on 02-14-2023 Mucus Ql (Urine sed) 0 SEEN /hpf [facility] Nitrite Test strip Ql (U)Ord ered By: Dr. Farmer on 02-14-2023 Nitrite Ql (U) Negative Negative [facility] Nitrite Test strip Ql (U)Ord ered By: Dr. Ritter on 02-14-2023 Nitrite Ql (U) Negative Negative [facility] No Panel InformationOrdered By: Dr. Ritter on 02-14-2023 Thyroid Stimulating Hormone (TSH) 2.43 uIU/mL 0.358-3.74 [facility] Vitamin D 25-Hydroxy 53.8 ng/mL [facility] Comment on above: Vitamin D 25(OH) Sta tus Range Deficiency <20 ng/mL (50nmol/L) Insufficiency 20 - 30 ng/mL (50 - 75 nmol/L) Sufficiency 30 - 100 ng/mL (75 - 250 nmol/L) Toxicity >100 ng/mL (>250 nmol/L) Platelets bldOrdered By: Dr. Ritter on 02-14-2023 Platelets (Bld) [#/Vol] 339 10*3/uL 150-450 [facility] Protein Test strip Ql (U)Ord ered By: Dr. Farmer on 02-14-2023 Protein Ql (U) Negative Negative [facility] Protein Test strip Ql (U)Ord ered By: Dr. Ritter on 02-14-2023 Protein Ql (U) 100 mg/dl Negative [facility] Squamous epithelial cells de tection in urine sediment by light microscopyOrdered By: Dr. Farmer on 02-14-2023 Epithelial cells.squamous LM Ql (Urine sed) 0-5 SEEN /hpf 5-10 [facility] Urine blood detectionOrdered By: Dr. Farmer on 02-14-2023 RBC Ql (U) 10 /ul Negative [facility] RBC Ql (U) 0 SEEN /hpf 0-5 [facility] Urine blood detectionOrdered By: Dr. Ritter on 02-14-2023 RBC Ql (U) 50 /ul Negative [facility] Urine clarityOrdered By: Dr. Farmer on 02-14-2023 Clarity (U) Clear Clear [facility] Urine clarityOrdered By: Dr. Ritter on 02-14-2023 Clarity (U) Sl. Cloudy Clear [facility] Urine color determinationOrd ered By: Dr. Farmer on 02-14-2023 Color (U) Yellow Yellow [facility] Urine color determinationOrd ered By: Dr. Ritter on 02-14-2023 Color (U) Yellow Yellow [facility] Urine glucose detectionOrder ed By: Dr. Farmer on 02-14-2023 Glucose Ql (U) Normal mg/dl Normal [facility] Urine glucose detectionOrder ed By: Dr. Ritter on 02-14-2023 Glucose Ql (U) Normal mg/dl Normal [facility] Urine leukocyte esterase det ection by dipstickOrdered By: Dr. Farmer on 02-14-2023 Leukocyte esterase Test strip Ql (U) 500 /ul Negative [facility] Urine leukocyte esterase det ection by dipstickOrdered By: Dr. Ritter on 02-14-2023 Leukocyte esterase Test strip Ql (U) 500 /ul Negative [facility] Urine pHOrdered By: Dr. Gloria sanchez on 02-14-2023 pH (U) 6.0 [pH] 5.0 - 8.0 [facility] Urine pHOrdered By: Dr. Jung uf on 02-14-2023 pH (U) 6.5 [pH] 5.0 - 8.0 [facility] Urine sediment bacteria coun t by microscopy (number/high power field)Ordered By: Dr. Farmer on 02-14-2023 Bacteria LM.HPF (Urine sed) [#/Area] RARE /hpf None Seen [facility] Urine specific gravity measu rementOrdered By: Dr. Farmer on 02-14-2023 Specific gravity (U) [Rel density] 1.015 1.002-1.03 0 [facility] Urine specific gravity measu rementOrdered By: Dr. Ritter on 02-14-2023 Specific gravity (U) [Rel density] 1.010 1.002-1.03 0 [facility] Urobilinogen Auto test strip Ql (U)Ordered By: Dr. Farmer on 02-14-2023 Urobilinogen Ql (U) Normal mg/dl Normal [facility] Urobilinogen Auto test strip Ql (U)Ordered By: Dr. Ritter on 02-14-2023 Urobilinogen Ql (U) Normal mg/dl Normal [facility] Absolute lymphocyte countOrd ered By: Dr. Ritter on 02-13-2023 Lymphocytes Auto (Unsp spec) [#/Vol] 1.56 10*3/uL 0.83-4.51 [facility] Basophil percentageOrdered B y: Dr. Ritter on 02-13-2023 Basophils/100 WBC (Bld) 0.5 % 0-1 [facility] Bilirubin [Mass/Vol] 0.20 mg/dL 0.20-1.00 [facility] Comment on above: For patients on eltr ombopag therapy, use of Dimension [place] TBIL is not recommended. Chloride [Moles/Vol] 110 mmol/L 98-107 [facility] Cholesterol [Mass/Vol] 158 mg/dL <200 [facility] Comment on above: <200 mg/dL Desirable 200-240 mg/dL Borderline >240 mg/dL High Risk Eosinophils/100 WBC (Bld) 2.0 % 0-5 [facility] Glucose [Mass/Vol] 108 mg/dL 74-106 [facility] Comment on above: Fasting Glucose resu lt from 100 to 125 mg/dL suggests IMPAIRED HOMEOSTASIS per A.D.A. criteria. Neutrophils (Bld) [#/Vol] 3.8 10*3/uL 2.0-7.7 [facility] Neutrophils/100 WBC (Bld) 62.7 % 47-70 [facility] Potassium [Moles/Vol] 4.6 mmol/L 3.5-5.1 [facility] Protein [Mass/Vol] 7.9 g/dL 6.4-8.2 [facility] Sodium [Moles/Vol] 137 mmol/L 136-145 [facility] Triglyceride [Mass/Vol] 88 mg/dL <199 [facility] Comment on above: The drugs N-Acetylcy steine and Metamizole may falsely depress this assay.Serum Triglycerides Reference Interval Normal <150 mg/dL Borderline high 150 - 199 mg/dL High 200 - 499 mg/dL Very High > or = 500 mg/dL WBC (Bld) [#/Vol] 6.1 10*3/uL 4.4-11.0 [facility] Blood erythrocytes count (nu mber/volume)Ordered By: Dr. Ritter on 02-13-2023 RBC (Bld) [#/Vol] 2.66 10*6/uL 4.2-5.4 [facility] Blood hemoglobin measurement (mass/volume)Ordered By: Dr. Ritter on 02-13-2023 Hemoglobin (Bld) [Mass/Vol] 7.2 g/dL 12.0-15.0 [facility] Blood lymphocytes/100 leukoc ytesOrdered By: Dr. Ritter on 02-13-2023 Lymphocytes/100 WBC (Bld) 25.7 % 19-41 [facility] Blood monocytes/100 leukocyt esOrdered By: Dr. Ritter on 02-13-2023 Monocytes/100 WBC (Bld) 8.6 % 0-10 [facility] Blood platelet mean volumeOr dered By: Dr. Ritter on 02-13-2023 Platelet mean volume (Bld) [Entitic vol] 10.8 fL 6.2-12.0 [facility] Determination of erythrocyte mean corpuscular volume (MCV)Ordered By: Dr. Ritter on 02-13-2023 MCV (RBC) [Entitic vol] 92.9 fL 81-99 [facility] Hematocrit Auto (Bld) [Volum e fraction]Ordered By: Dr. Ritter on 02-13-2023 Hematocrit (Bld) [Volume fraction] 24.7 % 37-47 [facility] Hemoglobin in reticulocytes (mass per reticulocyte)Ordered By: Dr. Ritter on 02-13-2023 Hemoglobin (Reticulocytes) [Entitic mass] 20.0 pg 30-35 [facility] Iron measurement (mass/mass) Ordered By: Dr. Ritter on 02-13-2023 Iron (Unsp spec) [Mass/Mass] 19 ug/dL 50-170 [facility] Laboratory - Chemistry and C hemistry - challengeOrdered By: Dr. Ritter on 02-13-2023 ALP [Catalytic activity/Vol] 80 U/L 45-117 [facility] ALT [Catalytic activity/Vol] 61 U/L 13-56 [facility] CO2 [Moles/Vol] 28.0 mmol/L 21.0-32.0 [facility] Globulin (S) [Mass/Vol] 4.3 g/dL 2.2-4.2 [facility] Urea nitrogen/Creatinine [Mass ratio] 16.9 mg/mg 10-20 [facility] Laboratory - Hematology and Cell countsOrdered By: Dr. Ritter on 02-13-2023 Erythrocyte distribution width (RBC) [Entitic vol] 54.3 fL 35.1-43.9 [facility] Erythrocyte distribution width (RBC) [Ratio] 16.1 % 11.6-14.6 [facility] Immature granulocytes/100 WBC (Bld) 0.500 % 0.0-0.9 [facility] Comment on above: IG% - Immature Granu locytes (promyelocytes, myelocytes and metamyelocytes) > 1% indicates that a LEFT SHIFT is Present. MCH (RBC) [Entitic mass] 27.1 pg 27.0-32.0 [facility] Nucleated RBC/100 WBC (Bld) [Ratio] 0 % 0-5 [facility] MCHC Auto (RBC) [Mass/Vol]Or dered By: Dr. Ritter on 02-13-2023 MCHC (RBC) [Mass/Vol] 29.1 g/dL 32-36 [facility] No Panel InformationOrdered By: Dr. Ritter on 02-13-2023 Urine Microalbumin/Creatinine Ratio 39.9 mg/g CRE <30 [facility] Estimated GFR (MDRD) Amer 82 mL/min >60 [facility] Comment on above: GFR Calc Estimated GFR (MDRD) Non-Af Amer 68 mL/min >60 [facility] Comment on above: Non- GFR Calc Immature Reticulocyte Fraction 29.40 % 3.00-15.90 [facility] Reticulocyte Count 4.31 % 0.5-1.5 [facility] Total Iron Binding Capacity 460 ug/dL 250-450 [facility] Platelets bldOrdered By: Dr. Ritter on 02-13-2023 Platelets (Bld) [#/Vol] 374 10*3/uL 150-450 [facility] Serum or plasma albumin bonita urement (mass/volume)Ordered By: Dr. Ritter on 02-13-2023 Albumin [Mass/Vol] 3.6 g/dL 3.2-5.0 [facility] Serum or plasma albumin/glob ulin mass ratioOrdered By: Dr. Ritter on 02-13-2023 Albumin/Globulin [Mass ratio] 0.8 {ratio} 0.9-2.4 [facility] Serum or plasma calcium bonita urement (mass/volume)Ordered By: Dr. Ritter on 02-13-2023 Calcium [Mass/Vol] 9.2 mg/dL 8.5-10.1 [facility] Serum or plasma cholesterol in HDL measurement (mass/volume)Ordered By: Dr. Ritter on 02-13-2023 Cholesterol in HDL [Mass/Vol] 41 mg/dL >40 [facility] Comment on above: The drugs N-Acetylcy steine and Metamizole may falsely depress this assay. Reference Range HDL <40 mg/dL Low HDL Cholesterol HDL >or= 60 mg/dL High HDL Cholesterol Serum or plasma cholesterol in VLDL measurement (mass/volume)Ordered By: Dr. Ritter on 02-13-2023 Cholesterol in VLDL [Mass/Vol] 18 mg/dL 5-40 [facility] Serum or plasma creatinine m easurement (mass/volume)Ordered By: Dr. Ritter on 02-13-2023 Creatinine [Mass/Vol] 0.95 mg/dL 0.55-1.02 [facility] Comment on above: The validity of the calculated GFR & GFRAA in patients over 70 years has not been determined. Clinical correlation is essential. Serum or plasma ferritin marylin surement (mass/volume)Ordered By: Dr. Ritter on 02-13-2023 Ferritin [Mass/Vol] 7 ng/mL 8-252 [facility] Serum or plasma folate measu rement (mass/volume)Ordered By: Dr. Ritter on 02-13-2023 Folate [Mass/Vol] 19.60 ng/mL 3.1-55.4 [facility] Serum or plasma iron saturat ion measurement (mass fraction)Ordered By: Dr. Ritter on 02-13-2023 Iron saturation [Mass fraction] 4.1 % 15.0-55.0 [facility] Serum or plasma low density lipoprotein (LDL) cholesterol measurement (mass/volume)Ordered By: Dr. Ritter on 02-13-2023 Cholesterol in LDL [Mass/Vol] 99 mg/dL 0-130 [facility] Serum or plasma urea nitroge n measurement (mass/volume)Ordered By: Dr. Ritter on 02-13-2023 Urea nitrogen [Mass/Vol] 16 mg/dL 7-18 [facility] Thin prep Papanicolaou smear with manual screeningOrdered By: Dr. Ritter on 02-13-2023 Thin prep Papanicolaou smear with manual screening 107.0 mg/L NO RANGE EST. [facility] Thin prep Papanicolaou smear with manual screening 24 U/L 15-37 [facility] Thin prep Papanicolaou smear with manual screening -1 5-15 [facility] Urine creatinine measurement (mass/volume)Ordered By: Dr. Ritter on 02-13-2023 Creatinine (U) [Mass/Vol] 268.00 mg/dL NO RANGE EST. [facility] Whole blood hemoglobin A1c/t otal hemoglobin ratio (mass fraction)Ordered By: Dr. Ritter on 02-13-2023 HbA1c (Bld) [Mass fraction] 5.3 % 3.8-5.6 [facility] Comment on above: Normal < 5.7 % Predi abetic 5.7 - 6.4 % Diabetic >or= 6.5 % Please note range changes. Absolute lymphocyte countOrd ered By: Dr. Ritter on 10-26-2022 Lymphocytes Auto (Unsp spec) [#/Vol] 2.23 10*3/uL 0.83-4.51 [facility] Basophil percentageOrdered B y: Dr. Ritter on 10-26-2022 Basophils/100 WBC (Bld) 0.3 % 0-1 [facility] Bilirubin [Mass/Vol] 0.20 mg/dL 0.20-1.00 [facility] Comment on above: For patients on eltr ombopag therapy, use of Dimension [place] TBIL is not recommended. Chloride [Moles/Vol] 106 mmol/L 98-107 [facility] Eosinophils/100 WBC (Bld) 2.5 % 0-5 [facility] Glucose [Mass/Vol] 149 mg/dL 74-106 [facility] Comment on above: Fasting Glucose resu lt greater than or equal to 126 mg/dL suggests DIABETES MELLITUS per A.D.A. criteria. Neutrophils (Bld) [#/Vol] 6.4 10*3/uL 2.0-7.7 [facility] Neutrophils/100 WBC (Bld) 66.8 % 47-70 [facility] Potassium [Moles/Vol] 4.2 mmol/L 3.5-5.1 [facility] Protein [Mass/Vol] 8.3 g/dL 6.4-8.2 [facility] Sodium [Moles/Vol] 139 mmol/L 136-145 [facility] WBC (Bld) [#/Vol] 9.6 10*3/uL 4.4-11.0 [facility] Blood erythrocytes count (nu mber/volume)Ordered By: Dr. Ritter on 10-26-2022 RBC (Bld) [#/Vol] 4.40 10*6/uL 4.2-5.4 [facility] Blood hemoglobin measurement (mass/volume)Ordered By: Dr. Ritter on 10-26-2022 Hemoglobin (Bld) [Mass/Vol] 12.9 g/dL 12.0-15.0 [facility] Blood lymphocytes/100 leukoc ytesOrdered By: Dr. Ritter on 10-26-2022 Lymphocytes/100 WBC (Bld) 23.3 % 19-41 [facility] Blood monocytes/100 leukocyt esOrdered By: Dr. Ritter on 10-26-2022 Monocytes/100 WBC (Bld) 6.8 % 0-10 [facility] Blood platelet mean volumeOr dered By: Dr. Ritter on 10-26-2022 Platelet mean volume (Bld) [Entitic vol] 11.0 fL 6.2-12.0 [facility] Determination of erythrocyte mean corpuscular volume (MCV)Ordered By: Dr. Ritter on 10-26-2022 MCV (RBC) [Entitic vol] 91.8 fL 81-99 [facility] Hematocrit Auto (Bld) [Volum e fraction]Ordered By: Dr. Ritter on 10-26-2022 Hematocrit (Bld) [Volume fraction] 40.4 % 37-47 [facility] Laboratory - Chemistry and C hemistry - challengeOrdered By: Dr. Ritter on 10-26-2022 ALP [Catalytic activity/Vol] 82 U/L 45-117 [facility] ALT [Catalytic activity/Vol] 58 U/L 13-56 [facility] CO2 [Moles/Vol] 31.0 mmol/L 21.0-32.0 [facility] Globulin (S) [Mass/Vol] 4.5 g/dL 2.2-4.2 [facility] Urea nitrogen/Creatinine [Mass ratio] 19.3 mg/mg 10-20 [facility] - Hematology and Cell countsOrdered By: Dr. Ritter on 10-26-2022 Erythrocyte distribution width (RBC) [Entitic vol] 46.3 fL 35.1-43.9 [facility] Erythrocyte distribution width (RBC) [Ratio] 13.6 % 11.6-14.6 [facility] Immature granulocytes/100 WBC (Bld) 0.300 % 0.0-0.9 [facility] Comment on above: IG% - Immature Granu locytes (promyelocytes, myelocytes and metamyelocytes) > 1% indicates that a LEFT SHIFT is Present. MCH (RBC) [Entitic mass] 29.3 pg 27.0-32.0 [facility] Nucleated RBC/100 WBC (Bld) [Ratio] 0 % 0-5 [facility] MCHC Auto (RBC) [Mass/Vol]Or dered By: Dr. Ritter on 10-26-2022 MCHC (RBC) [Mass/Vol] 31.9 g/dL 32-36 [facility] No Panel InformationOrdered By: Dr. Ritter on 10-26-2022 Estimated GFR (MDRD) Amer 89 mL/min >60 [facility] Comment on above: GFR Calc Estimated GFR (MDRD) Non-Af Amer 74 mL/min >60 [facility] Comment on above: Non- GFR Calc Platelets bldOrdered By: Dr. Ritter on 10-26-2022 Platelets (Bld) [#/Vol] 304 10*3/uL 150-450 [facility] Serum or plasma albumin bonita urement (mass/volume)Ordered By: Dr. Ritter on 10-26-2022 Albumin [Mass/Vol] 3.8 g/dL 3.2-5.0 [facility] Serum or plasma albumin/glob ulin mass ratioOrdered By: Dr. Ritter on 10-26-2022 Albumin/Globulin [Mass ratio] 0.8 {ratio} 0.9-2.4 [facility] Serum or plasma calcium bonita urement (mass/volume)Ordered By: Dr. Ritter on 10-26-2022 Calcium [Mass/Vol] 9.2 mg/dL 8.5-10.1 [facility] Serum or plasma creatinine m easurement (mass/volume)Ordered By: Dr. Ritter on 10-26-2022 Creatinine [Mass/Vol] 0.88 mg/dL 0.55-1.02 [facility] Comment on above: The validity of the calculated GFR & GFRAA in patients over 70 years has not been determined. Clinical correlation is essential. Serum or plasma urea nitroge n measurement (mass/volume)Ordered By: Dr. Ritter on 10-26-2022 Urea nitrogen [Mass/Vol] 17 mg/dL 7-18 [facility] Thin prep Papanicolaou smear with manual screeningOrdered By: Dr. Ritter on 10-26-2022 Thin prep Papanicolaou smear with manual screening 35 U/L 15-37 [facility] Thin prep Papanicolaou smear with manual screening 2 5-15 [facility] Whole blood hemoglobin A1c/t otal hemoglobin ratio (mass fraction)Ordered By: Dr. Ritter on 10-26-2022 HbA1c (Bld) [Mass fraction] 6.9 % 3.8-5.6 [facility] Comment on above: Normal < 5.7 % Predi abetic 5.7 - 6.4 % Diabetic >or= 6.5 % Please note range changes. Vital Signs Date Time Vital Sign Value Performing Clinician Katarzyna oliva 06-19-2025 12:55-0400 Body height 156.2 cm Kiran Olivo MD Work Phone: [facility] 06-19-2025 12:55-0400 Body mass index (BMI) [Ratio] 33.5 kg/m2 Kiran Olivo MD Work Phone: [facility] 06-19-2025 12:55-0400 Body weight 81.74 kg Kiran Olivo MD Work Phone: [facility] 06-19-2025 12:55-0400 Diastolic blood pressure 72 mm[Hg] Kiran Olivo MD Work Phone: [facility] 06-19-2025 12:55-0400 Heart rate 81 /min Kiran Olivo MD Work Phone: [facility] 06-19-2025 12:55-0400 SaO2% (BldA) [Mass fraction] 96 % Kiran Olivo MD Work Phone: [facility] 06-19-2025 12:55-0400 Systolic blood pressure 118 mm[Hg] Kiran Olivo MD Work Phone: [facility] 05-27-2025 09:27-0400 Body height 154.[address] Debbi Ritter MD Work Phone: [facility] 05-27-2025 09:27-0400 Body mass index (BMI) [Ratio] 33.4 kg/m2 Dr. Debbi Ritter MD Work Phone: [facility] 05-27-2025 09:27-0400 Body weight 80.[address] Debbi Ritter MD Work Phone: [facility] 05-27-2025 09:27-0400 Diastolic blood pressure 77 mm[Hg] Dr. Debbi Ritter MD Work Phone: [facility] 05-27-2025 09:27-0400 Heart rate 89 /min Dr. Debbi Ritter MD Work Phone: [facility] 05-27-2025 09:27-0400 Respiratory rate 16 /min Dr. Debbi Ritter MD Work Phone: [facility] 05-27-2025 09:27-0400 Systolic blood pressure 113 mm[Hg] Dr. Debbi Ritter MD Work Phone: [facility] 03-04-2025 23:03-0400 Body temperature 98.9 [degF] Dr. Debbi Ritter MD Work Phone: [facility] 03-04-2025 23:03-0400 Diastolic blood pressure 78 mm[Hg] Dr. Debbi Ritter MD Work Phone: [facility] 03-04-2025 23:03-0400 Heart rate 75 /min Dr. Debbi Ritter MD Work Phone: [facility] 03-04-2025 23:03-0400 Respiratory rate 18 /min Dr. Debbi Ritter MD Work Phone: [facility] 03-04-2025 23:03-0400 SaO2% (BldA) [Mass fraction] 98 % Dr. Debbi Ritter MD Work Phone: [facility] 03-04-2025 23:03-0400 Systolic blood pressure 130 mm[Hg] Dr. Debbi Ritter MD Work Phone: [facility] 03-04-2025 20:04-0400 Body height 154.[address] Debbi Ritter MD Work Phone: 4(813)526-412066 [place] [address] 03-04-2025 20:04-0400 Body mass index (BMI) [Ratio] 34.1 kg/m2 Dr. Debbi Ritter MD Work Phone: [facility] 03-04-2025 20:04-0400 Body weight [address] Debbi Ritter MD Work Phone: 1(718)431-808822 [address] 01-21-2025 14:00-0400 Body temperature 98.2 [degF] Dr. Debbi Ritter MD Work Phone: 1(231)890-928066 [place] [address] 01-21-2025 14:00-0400 Diastolic blood pressure 72 mm[Hg] Dr. Debbi Ritter MD Work Phone: 4(918)508-114666 [place] [address] 01-21-2025 14:00-0400 Heart rate 83 /min Dr. Debbi Ritter MD Work Phone: 1(534)719-948466 [place] [address] 01-21-2025 14:00-0400 Respiratory rate 16 /min Dr. Debbi Ritter MD Work Phone: 8(625)297-061766 [place] [address] 01-21-2025 14:00-0400 SaO2% (BldA) [Mass fraction] 100 % Dr. Debbi Ritter MD Work Phone: 3(263)116-302466 [place] [address] 01-21-2025 14:00-0400 Systolic blood pressure 105 mm[Hg] Dr. Debbi Ritter MD Work Phone: 1(727)646-722766 [place] [address] 01-21-2025 12:28-0400 Body height 154.[address] Debbi Ritter MD Work Phone: [facility] 01-21-2025 12:28-0400 Body mass index (BMI) [Ratio] 33.9 kg/m2 Dr. Debbi Ritter MD Work Phone: [facility] 01-21-2025 12:28-0400 Body weight 81.[address] Debbi Ritter MD Work Phone: [facility] 10-08-2024 12:55-0500 Body temperature 97.2 [degF] Dr. Debbi Ritter MD Work Phone: [facility] 10-08-2024 12:55-0500 Diastolic blood pressure 80 mm[Hg] Dr. Debbi Ritter MD Work Phone: 9(562)403-500966 [place] [address] 10-08-2024 12:55-0500 Heart rate 73 /min Dr. Debbi Ritter MD Work Phone: 9(456)922-955866 [place] [address] 10-08-2024 12:55-0500 Respiratory rate 16 /min Dr. Debbi Ritter MD Work Phone: 2(699)179-575122 [address] 10-08-2024 12:55-0500 SaO2% (BldA) [Mass fraction] 97 % Dr. Debbi Ritter MD Work Phone: [facility] 10-08-2024 12:55-0500 Systolic blood pressure 120 mm[Hg] Dr. Debbi Ritter MD Work Phone: [facility] 10-08-2024 11:00-0500 Body height 154.[address] Debbi Ritter MD Work Phone: [facility] 10-08-2024 11:00-0500 Body mass index (BMI) [Ratio] 32.9 kg/m2 Dr. Debbi Ritter MD Work Phone: [facility] 10-08-2024 11:00-0500 Body weight [address] Debbi Ritter MD Work Phone: [facility] 10-10-2023 12:42-0500 Body height 152.[address] Debbi Ritter Work Phone: [facility] 10-10-2023 12:42-0500 Body mass index (BMI) [Ratio] 34.2 kg/m2 Dr. Debbi Ritter Work Phone: [facility] 10-10-2023 12:42-0500 Body temperature 97.2 [degF] Dr. Debbi Ritter Work Phone: [facility] 10-10-2023 12:42-0500 Body weight 79.[address] Debbi Ritter Work Phone: 6(510)638-566666 [place] [address] 10-10-2023 12:42-0500 Diastolic blood pressure 69 mm[Hg] Dr. Debbi Ritter Work Phone: 3(392)536-874566 [place] [address] 10-10-2023 12:42-0500 Heart rate 71 /min Dr. Debbi Ritter Work Phone: [facility] 10-10-2023 12:42-0500 Respiratory rate 16 /min Dr. Debbi Ritter Work Phone: [facility] 10-10-2023 12:42-0500 SaO2% (BldA) [Mass fraction] 99 % Dr. Debbi Ritter Work Phone: [facility] 10-10-2023 12:42-0500 Systolic blood pressure 144 mm[Hg] Dr. Debbi Ritter Work Phone: [facility] 08-07-2023 07:30-0400 Body temperature 97.4 [degF] Dr. Debbi Ritter Work Phone: [facility] 08-07-2023 07:30-0400 Diastolic blood pressure 73 mm[Hg] Dr. Debbi Ritter Work Phone: [facility] 08-07-2023 07:30-0400 Heart rate 70 /min Dr. Debbi Ritter Work Phone: [facility] 08-07-2023 07:30-0400 Respiratory rate 18 /min Dr. Debbi Ritter Work Phone: [facility] 08-07-2023 07:30-0400 SaO2% (BldA) [Mass fraction] 100 % Dr. Debbi Ritter Work Phone: [facility] 08-07-2023 07:30-0400 Systolic blood pressure 107 mm[Hg] Dr. Debbi Ritter Work Phone: [facility] 08-07-2023 06:05-0400 Body height 152.[address] Debbi Ritter Work Phone: [facility] 08-07-2023 06:05-0400 Body mass index (BMI) [Ratio] 33.2 kg/m2 Dr. Debbi Ritter Work Phone: [facility] 08-07-2023 06:05-0400 Body weight 77.[address] Debbi Ritter Work Phone: [facility] 04-10-2023 14:45-0400 Body weight 81.[address] Debbi Ritter Work Phone: [facility] 04-10-2023 14:45-0400 Diastolic blood pressure 69 mm[Hg] Dr. Debbi Ritter Work Phone: [facility] 04-10-2023 14:45-0400 Heart rate 73 /min Dr. Debbi Ritter Work Phone: [facility] 04-10-2023 14:45-0400 Respiratory rate 20 /min Dr. Debbi Ritter Work Phone: [facility] 04-10-2023 14:45-0400 Systolic blood pressure 108 mm[Hg] Dr. Debbi Ritter Work Phone: [facility] 04-10-2023 10:46-0400 Body height 152.[address] Debbi Ritter Work Phone: [facility] 2023 09:19-0400 Body mass index (BMI) [Ratio] 34.7 kg/m2 Dr. Debbi Ritter Work Phone: [facility] 2023 09:19-0400 Body weight 80.[address] Debbi Ritter Work Phone: [facility] 2023 09:19-0400 Diastolic blood pressure 66 mm[Hg] Dr. Debbi Ritter Work Phone: [facility] 2023 09:19-0400 Heart rate 75 /min Dr. Debbi Ritter Work Phone: [facility] 2023 09:19-0400 SaO2% (BldA) [Mass fraction] 97 % Dr. Debbi Ritter Work Phone: [facility] 2023 09:19-0400 Systolic blood pressure 107 mm[Hg] Dr. Debbi Ritter Work Phone: [facility] 02-16-2023 14:15-0400 Body temperature 97.9 [degF] Dr. Debbi Ritter Work Phone: [facility] 02-16-2023 14:15-0400 Diastolic blood pressure 62 mm[Hg] Dr. Debbi Ritter Work Phone: [facility] 02-16-2023 14:15-0400 Heart rate 79 /min Dr. Debbi Ritter Work Phone: [facility] 02-16-2023 14:15-0400 Respiratory rate 18 /min Dr. Debbi Ritter Work Phone: [facility] 02-16-2023 14:15-0400 SaO2% (BldA) [Mass fraction] 94 % Dr. Debbi Ritter Work Phone: [facility] 02-16-2023 14:15-0400 Systolic blood pressure 116 mm[Hg] Dr. Debbi Ritter Work Phone: [facility] 02-16-2023 13:20-0400 Inhaled oxygen flow rate 2 L/min Dr. Debbi Ritter Work Phone: [facility] 02-15-2023 11:14-0400 Body height 152.[address] Debbi Ritter Work Phone: [facility] 02-15-2023 11:14-0400 Body weight 80.[address] Debbi Ritter Work Phone: [facility] 02-14-2023 20:56-0400 Body mass index (BMI) [Ratio] 34.7 kg/m2 Dr. Debbi Ritter Work Phone: [facility] 02-14-2023 19:51-0400 Body temperature 97.3 [degF] Dr. Debbi Ritter Work Phone: [facility] 02-14-2023 19:51-0400 Diastolic blood pressure 64 mm[Hg] Dr. Debbi Ritter Work Phone: [facility] 02-14-2023 19:51-0400 Heart rate 91 /min Dr. Debbi Ritter Work Phone: [facility] 02-14-2023 19:51-0400 Respiratory rate 16 /min Dr. Debbi Ritter Work Phone: [facility] 02-14-2023 19:51-0400 SaO2% (BldA) [Mass fraction] 99 % Dr. Debbi Ritter Work Phone: [facility] 02-14-2023 19:51-0400 Systolic blood pressure 118 mm[Hg] Dr. Debbi Ritter Work Phone: [facility] 02-14-2023 15:02-0400 Body height 152.[address] Debbi Ritter Work Phone: [facility] 02-14-2023 15:02040 Body mass index (BMI) [Ratio] 35 kg/m2 Dr. Debbi Ritter Work Phone: [facility] 02-14-2023 15:02040 Body weight 81.[address] Debbi Ritter Work Phone: [facility] Encounters Encounter Date Encounter Type Care Provider Facility Start: 07-09-2025 ambulatory [facility] Start: 07-07-2025 Encounter for other preprocedural examination [facility] Start: 07-01-2025 ambulatory DEBBI RITTER [facility] Start: 06-19-2025 End: 06-19-2025 Patient encounter procedure Kiran Olivo MD Work Phone: [facility] Medicine Lead Comment on above: Encounter to [facility] (Primary Dx); Diabetes type II (HCC); Ksenia syndrome (HCC); Chronic migraine without aura without status migrainosus, not intractable; Neurogenic bladder; Iron deficiency anemia, unspecified iron deficiency anemia type; Peptic ulcer disease; Pulmonary valve stenosis, unspecified etiology; VSD (ventricular septal defect) (HCC); Chronic low back pain, unspecified back pain laterality, unspecified whether sciatica present; Deafness in right ear; Intellectual disability; Encounter for screening mammogram for malignant neoplasm of breast; Screening for cervical cancer Start: 06-19-2025 End: 06-19-2025 ambulatory KIRAN OLIVO Facility:[facility] Start: 05-27-2025 End: 05-27-[address] Ammon Whitt MD -[facility] Work Phone: Start: 05-27-2025 End: 05-27-[address] Debbi Ritter MD Work Phone: -[facility] Start: 03-21-2025 End: 03-21-[address] Debbi Ritter MD Work Phone: [facility] Work Phone: Start: 03-21-2025 End: 03-21-[address] Debbi Ritter MD -Laboratory Work Phone: Start: 03-21-2025 End: 03-21-2025 ambulatory Debbi Ritter Facility:[facility] Start: 03-11-2025 End: 03-11-2025 Patient encounter procedure Ary SEGUNDO -[facility] Work Phone: Start: 03-11-2025 End: 03-11-[address] Debbi Ritter MD Work Phone: [facility] Work Phone: Start: 03-11-2025 End: 03-11-2025 ambulatory Debbi Ritter Facility:[facility] Start: 03-04-2025 End: 03-04-2025 Emergency department patient visit Dr. Debbi Ritter MD Work Phone: -Emergency Department Work Phone: Start: 01-21-2025 ambulatory Anthony Dolan Facility :[facility] Start: 01-21-2025 Non-patient / Non-visit Anthony Dolan DO -[facility] Start: 01-21-2025 End: 01-21-2025 Admission to same day surgery center Anthonybenito Dolan DO -Endoscopy Work Phone: Start: 01-21-2025 End: 01-21-[address] Debbi Ritter MD Work Phone: [facility] Work Phone: Start: 12-13-2024 End: 12-13-[address] Debbi Ritter MD Work Phone: [facility] Work Phone: Start: 12-13-2024 End: 12-13-[address] Jf Hall MD -Radiology, [facility] Work Phone: Start: 12-13-2024 End: 12-13-2024 ambulatory Butros Latouf Facility:[facility] Start: 12-04-2024 End: 12-04-[address] Debbi Ritter MD -Laboratory Work Phone: Start: 12-04-2024 End: 12-04-2024 ambulatory Butros Latouf Facility:[facility] Start: 12-02-2024 End: 12-02-[address] Debbi Ritter MD -Laboratory Work Phone: Start: 12-02-2024 End: 12-02-2024 ambulatory Butros Latouf Facility:[facility] Start: 10-08-2024 ambulatory Butros Latouf Facility: [facility] Start: 10-08-2024 Non-patient / Non-visit Anthony Dolan DO -[facility] Start: 10-08-2024 End: 10-08-2024 Admission to same day surgery center Anthony Dolan DO -Endoscopy Work Phone: Start: 10-08-2024 End: 10-08-2024 ambulatory Butros Latouf Facility:[facility] Start: 09-05-2024 ambulatory DEBBI RITTER [facility] Start: 08-22-2024 End: 08-22-2024 ambulatory Butros Latouf Facility:[facility] Start: 08-05-2024 End: 08-05-2024 ambulatory Butros Latouf Facility:[facility] Start: 07-15-2024 End: 07-15-2024 ambulatory Butros Latouf Facility:[facility] Start: 07-15-2024 ambulatory DEBBI RITTER [facility] Start: 07-15-2024 End: 07-15-2024 ambulatory Butros Latouf Facility:[facility] Start: 01-30-2024 End: 01-30-2024 ambulatory [facility] Work Phone: Start: 01-30-2024 End: 01-30-2024 Patient encounter procedure [facility] Work Phone: Start: 11-28-2023 End: 11-28-[address] Debbi Ritter Work Phone: [facility] Work Phone: Start: 11-28-2023 End: 11-28-[address] Debbi Ritter Work Phone: [facility]Labor[facility] Work Phone: Start: 10-25-2023 End: 10-25-[address] Debbi Ritter Work Phone: [facility] Work Phone: Start: 10-25-2023 End: 10-25-[address] Debbi Ritter Work Phone: [facility]Ul[facility]ound, [facility] Work Phone: Start: 10-10-2023 End: 10-10-2023 Emergency department patient visit Dr. Debbi Ritter Work Phone: [facility]Emergency [facility] Work Phone: Start: 08-25-2023 End: 08-25-[address] Debbi Ritter Work Phone: [facility] Work Phone: Start: 08-25-2023 End: 08-25-[address] Debbi Ritter Work Phone: [facility] Work Phone: Start: 08-24-2023 End: 08-24-[address] Debbi Ritter Work Phone: [facility] Work Phone: Start: 08-24-2023 End: 08-24-[address] Debbi Ritter Work Phone: [facility]Labor[facility] Work Phone: Start: 08-17-2023 End: 08-17-[address] Debbi Ritter Work Phone: [facility] Work Phone: Start: 08-07-2023 Non-patient / Non-visit Dr. Debbi Ritter Work Phone: [facility] Start: 08-07-2023 End: 08-07-2023 Admission to same day surgery center Dr. Debbi Ritter Work Phone: [facility]-Endoscopy Work Phone: Start: 08-07-2023 End: 08-07-[address] Debbi Ritter Work Phone: [facility] Work Phone: Start: 04-10-2023 End: 04-10-2023 Admission to same day surgery center Dr. Debbi Ritter Work Phone: [facility] Start: 04-10-2023 End: 04-10-[address] Debbi Ritter Work Phone: [facility] Start: 04-10-[address] Debbi Ritter Work Phone: [facility] Comment on above: Scheduled for EGD an d colonoscopy on 08/07/[address] Dolan. Start: 2023 End: [address] Debbi Ritter Work Phone: [facility] Work Phone: Start: 2023 End: [address] Debbi Ritter Work Phone: [facility] Gastroenter[facility] Start: 02-21-2023 End: 02-21-[address] Debbi Ritter Work Phone: [facility] Work Phone: Start: 02-21-2023 End: 02-21-[address] Debbi Ritter Work Phone: [facility]atory[facility] Start: 02-16-2023 Non-patient / Non-visit Dr. Debbi Ritter Work Phone: [facility] Start: 02-16-2023 Non-patient / Non-visit Dr. Debbi Ritter Work Phone: [facility] In[facility] Phys[facility] Start: 02-15-2023 Non-patient / Non-visit Dr. Debbi Ritter Work Phone: [facility] Start: 02-15-2023 Non-patient / Non-visit Dr. Debbi Ritter Work Phone: [facility] Start: 02-14-2023 Non-patient / Non-visit Dr. Debbi Ritter Work Phone: [facility] Start: 02-14-2023 End: 02-16-2023 Evaluation and management of inpatient Dr. Debbi Ritter Work Phone: [facility] 3 Start: 02-14-2023 End: 02-14-[address] Debbi Ritter Work Phone: [facility] Start: 02-13-2023 End: 02-13-[address] Debbi Ritter Work Phone: [facility] Start: 10-26-2022 End: 10-26-2022 ambulatory [facility] Work Phone: Start: 10-26-2022 End: 10-26-2022 Patient encounter procedure [facility] Procedures Date Procedure Procedure Detail Performing Clinician Start: 03-21-2025 Total iron binding capacity measurement Dr. Debbi Ritter MD Work Phone: Start: 03-04-[address] Gino Ritter MD Work Phone: Start: 03-04-2025 Measurement of occult blood in stool specimen using immunoassay Dr. Debbi Ritter MD Work Phone: Start: 01-21-[address] Debbi Xiao MD Work Phone: Start: 12-13-2024 Complete x-ray series of lumbosacral spine including bending views Dr. Debbi Ritter MD Work Phone: Start: 12-04-[address] Debbi Ritter MD Work Phone: Start: 12-04-2024 Urine microalbumin/creatinine ratio measurement Dr. Debbi Ritter MD Work Phone: Start: 12-02-2024 Measurement of renal function Dr. Debbi Ritter MD Work Phone: Comment on above: GFR Calc Start: 12-02-2024 Total iron binding capacity measurement Dr. Debbi Ritter MD Work Phone: Start: 10-25-2023 US scan of thyroid Dr. Debbi Ritter Work Phone: Start: 08-25-[address] Debbi Ritter Work Phone: Start: 08-07-[address] Debbi Ritter Work Phone: Start: 02-16-[address] Debbi Ritter Work Phone: Measurement of occul t blood in stool specimen using immunoassay Dr. Debbi Ritter Work Phone: Plan of Treatment Date Care Activity Detail Author Start: 06-19-2026 Annual PCP Team Roll Coverer dann Disease Visit Annual PCP Team Chronic Disease Visit [facility] Start: 06-19-2026 Diabetic foot examination Diabetic F oot Exam [facility] Start: 06-19-2026 Hepatitis B Vaccine (1 of 3 - 19+ 3-dose series) Hepatitis B Vaccine (1 of 3 - 19+ 3-dose series) [facility] Comment on above: Postponed from 04/07 (Declined at this time) Start: 06-19-2026 Urine microalbumin profile DTa P,Tdap,Td Vaccine (1 - Tdap) [facility] Comment on above: Postponed from 04/07 (Declined at this time) Start: 09-23-2025 End: 09-23-2025 Patient encounter procedure 09/23/2025 11:00 AM EST Office Visit Family [facility] [address] [place] [address] Spaphire Miranda APRN.MARKET SURVEY REPRESENTATIVE [address] [place] [address] 3 month follow up [facility] Comment on above: 3 month follow up Start: 08-18-2025 End: 08-18-2025 Patient encounter procedure 08/18/2025 10:30 AM EDT Office Visit OB/Gynecology [address] [address] Diana Sherwood APRN.MARKET SURVEY REPRESENTATIVE [address] [place] [address] Dx: Screening for cervical cancer [Z12.4] [facility]/Gynecology Comment on above: Dx: Screening for ce rvical cancer [Z12.4] Start: 07-17-2025 End: 07-17-2025 Patient encounter procedure 07/17/2025 11:30 AM EDT Appointment Mammogram [address] [address] Dx: Encounter for screening mammogram for malignant neoplasm of breast [Z12.31] Mammogram Comment on above: Dx: Encounter for sc reening mammogram for malignant neoplasm of breast [Z12.31] Start: 06-23-2025 Influenza vaccination Influenza Vacc ine (#1) [facility] Start: 03-11-2025 CBC W Auto Different ial panel - Blood [facility] Start: 03-04-2025 [facility] Start: 01-21-2025 Egd transoral biopsy single/multiple EGD BIOPSY SINGLE/MULTIPLE [facility] Start: 01-21-2025 Patient discharge [facility] Start: 10-08-2024 Egd transoral biopsy single/multiple EGD BIOPSY SINGLE/MULTIPLE [facility] Start: 10-08-2024 Patient discharge [facility] Start: 10-10-2023 [facility] Start: 10-10-2023 [facility] Start: 08-07-2023 Colonoscopy w/biopsy single/multiple COLONOSCOPY AND BIOPSY [facility] Start: 08-07-2023 Colsc flx w/rmvl of tumor polyp lesion snare tq COLONOSCOPY W/LESION REMOVAL [facility] Start: 08-07-2023 Egd transoral biopsy single/multiple EGD BIOPSY SINGLE/MULTIPLE [facility] Start: 08-07-2023 Patient discharge [facility] Start: 2023 Screening for malign ant neoplasm of colon [facility] Start: 02-16-2023 Patient discharge [facility] Start: 02-16-2023 [facility] Start: 02-15-2023 [facility] Start: 02-15-2023 Administration of bl ood product [facility] Start: 02-15-2023 [facility] Start: 02-15-2023 Application of intermittent pneumatic compression device [facility] Start: 02-15-2023 Patient referral to dietitian [facility] Start: 02-14-2023 End: 02-15-2023 [facility] Start: 02-14-2023 Following clinical p athway protocol [facility] Start: 02-14-2023 Assessment of risk o f venous thromboembolism [facility] Start: 02-14-2023 Insertion of cathete r into peripheral vein [facility] Start: 02-14-2023 Oxygen therapy [facility] Start: 02-14-2023 Providing care accor ding to standard [facility] Start: 02-14-2023 Referral to gastroenterology service [facility] Start: 02-14-2023 Verification routine [facility] Start: 02-14-2023 Admission procedure [facility] Start: 2018 Screening for malign ant neoplasm of breast Mammogram Screening [facility] Start: 10-23-2006 Medicare Annual Well ness Visit Medicare Annual Wellness Visit [facility] Start: 1999 Screening for malign ant neoplasm of cervix Cervical Cancer Screening [facility] Start: 1997 Pneumococcal vaccination Pneum ococcal Vaccine (1 of 2 - PCV) [facility] Start: 1996 Anxiety Screening Anxiety Screening [facility] Start: 1996 Depression Screening Depression Scre ening [facility] Start: 1996 Hepatitis B surface antibody level LDL Cholesterol [facility] Start: 1988 Glaucoma screening Dilated Retinal E xam [facility] Start: 1988 Hepatitis B screening Urine Albumin:Creatinine Ratio [facility] Start: 1983 Hemoglobin A1c measurement HbA1C [facility] Erythrocyte mean corpuscular volume determination [facility] Gliadin peptide IgA Ab [Units/volume] in [facility] Gliadin peptide IgG Ab [Units/volume] in [facility] Hematocrit [Volume Fraction] of [facility] Hemoglobin [Mass/vol ume] in [facility] IgA [Mass/volume] in Serum or [facility] IgE [Units/volume] i n Serum [facility] IgG [Mass/volume] in Serum [facility] IgM [Mass/volume] in Serum [facility] Leukocytes [#/volume ] in [facility] Mean corpuscular hemoglobin concentration determination [facility] Mean corpuscular hemoglobin determination [facility] Measurement of immunoglobulin A in serum specimen [facility] End: 07-19-2026 MG Breast Screening [facility] SCREENING Radiology Routine Encounter for screening mammogram for malignant neoplasm of breast 1 Occurrences starting 06/19/2025 until 07/19/2026 [facility] Work Phone: Comment on above: 1 Occurrences starti ng 06/19/2025 until 07/19/2026 Neutrophil count [facility] Neutrophil cytoplasm ic Ab.classic [Units/volume] in [facility] Neutrophil percent differential count [facility] P-ANCA measurement [facility] Patient Education [facility] Work Phone: Patient referral [facility] Work Phone: Platelets [#/volume] in [facility] Red blood cell count [facility] Red cell distributio n width determination [facility] Tissue transglutamin ase IgA Ab [Units/volume] in [facility] Tissue transglutamin ase IgG Ab [Units/volume] in [facility] Urine test [facility] Payers Date Payer Category Payer Self-pay 2024 [facility] of [facility] e ( and others) [id number] 2006 Medicare MEDICARE [id number] 2006 Medicare [id number] 1980 Unknown [id number] 2.840.1.906195.3.579.2. 1978 Unknown [id number] 1978 Unknown [id number] 2.840.1.651744.3.579.2 1978 Unknown [id number] 2.840.1.114111.3.579.2 1978 Unknown [id number] 2.16840.1.604489.3.579.2 1978 Unknown [id number] 2.16.840.1.264142.3.579.2 1978 Unknown [id number] 2.16.840.1.156460.3.579.2. 651 [employer] ( and others) [id number] [employer] ( and others) [facility] [id number] Medicaid [id number] Unknown [id number] 2.16.840.1.346207.3.579.2. 462 Unknown [id number] 2.16.840.1.849723.3.579.2. 462 Unknown [id number] 2.16.840.1.435952.3.579.2. 462 Unknown [id number] 2.16.840.1.058168.3.579.2. 462 Unknown [id number] 2.16.840.1.161353.3.579.2. 462 Unknown [id number] 2.16.840.1.353203.3.579.2. 462 Unknown [id number] 2.16.840.1.853379.3.579.2. 462 Unknown [id number] 2.16.840.1.754263.3.579.2. 462 Unknown [id number] 2.16.840.1.344033.3.579.2. 462 Unknown [id number] 2.16.840.1.506068.3.579.2. 462 Unknown [id number] 2.16.840.1.958097.3.579.2. 462 Unknown [id number] 2.16.840.1.594317.3.579.2. 462 Unknown [id number] 2.16.840.1.670108.3.579.2. 462 Unknown [id number] 2.16.840.1.816311.3.579.2. 462 Unknown [id number] 2..840.1.330015.3.579.2. 462 Unknown [id number] 2..840.1.808608.3.579.2. 462 Unknown [id number] 2..840.1.509632.3.579.2. 462 Social History Date Type Detail Facility Tobacco smoking stat us NVIS Unknown if ever smoked [facility] Work Phone: Start: 1980 Sex Assigned At Female W [facility] Start: 02-14-2023 End: 10-10-2023 Tobacco smoking status NVIS Unknown if ever smoked [facility] Start: 10-04-2024 End: 06-19-2025 Tobacco smoking status NHIS Never smoked tobacco (finding) [facility] Start: 12-26-2024 End: 01-21-2025 Sex Female (finding) [facility] Start: 06-19-2025 Tobacco use and exposure Smokeless tobacco non-user [facility] Start: 06-19-2025 Alcoholic beverage intake Current drinker of alcohol (finding) [facility] Start: 06-19-2025 History of Social function [facility] Start: 06-19-2025 Tobacco use panel [facility] How often to you hav e a drink containing alcohol? Monthly or less [facility] How many standard drinks containing alcohol do you have on a typical day? [address] [facility] How often do you hav e 6 or more drinks on 1 occasion? Never [facility] Start: 09-23-2012 National Score (1-100), lower number is lower risk 55 [facility] Start: 1980 Sex assigned at Not on file [facility] NEGATED: Highlighted row [facility] NEGATED: Highlighted row Not [facility] Goals Date Patient Goal Desired Activity /State Functional Status Date Assessment Result Facility 06-19-2025 Total score [AUDIT-C] 06/19/20 1:19 PM Kiran Burton MD [facility] 02-16-2023 Functional status Up ad soraya;Bath room [facility] Work Phone: 02-15-2023 Functional status None [facility] Work Phone: [facility] Mental Status Date Assessment Result Facility 01-21-2025 Cognitive function Level Of Cons ciousness Follows Commands;Drowsy [facility] Work Phone: 01-21-2025 Cognitive function Patient Nimesh carroll Person;Place;Time [facility] Work Phone: 10-08-2024 Cognitive function Voice/Name [facility] Work Phone: 08-07-2023 Cognitive function Voice/Name [facility] Work Phone: 02-16-2023 Cognitive function Voice/Name [facility] Work Phone: 02-14-2023 Cognitive function Level Of Cons ciousness Awake;Alert;Appropriate;Follow s Commands [facility] Work Phone: Clinical Notes 02-14-2023 to 06-19-2025 Patient InstructionsKiran Olivo MD - 06/19/2025 1:05 PM EDT Note Date & Type Note Facility 06-19-2025 Instructions Kiran Olivo MD - 06/19/2025 1:43 PM 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 Meléndez if your low-back pain flare persists - Check your fasting blood sugar at home each morning before eating for the next two weeks; aim for readings below 130 mg/dL and share your log so we can adjust your metformin dose if needed - Inspect the tops and bottoms of your feet daily for any cuts, sores, or changes to catch problems early - Keep your scheduled upper endoscopy (EGD) on July 09 to monitor your peptic ulcer disease - Arrange a mammogram for breast cancer screening - Schedule a gynecology referral to complete a Pap smear for cervical cancer screening - Return to this clinic in about three months for repeat blood work and review of your diabetes management - Continue with your neurology ([facility]) appointment next week for migraine care - Continue cardiology follow-up with Dr. Whitt for your Mccallsburg syndrome-related heart conditions documented in this encounter [facility] 06-19-2025 Note HNO ID: [id number] Author: KIRAN OLIVO MD Service: ? Author Type: Physician Type: Progress Notes Filed: 06/19/2025 13:50 Note Text: Chief Complaint Patient presents with: New Patient: Est care Recording using [employer] software for draft documentation of the visit was discussed with the patient/authorized customer account representative; all questions welcomed and answered. Patient/authorized customer account representative agreed to proceed HPI Sophia Lebron is a 45 year old female who presents here today for Above Complaints. Accompanied today by mother who is also her legal guardian. Previous PCP Dr. Ritter with last OV 2 months ago. Establish Care: - Last visit with previous PCP, Dr. Ritter, was on April 08. 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 - Sophia is on social security disability; mother manages finances and assists with decision-making. 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 - No other related conditions being monitored. Neurogenic Bladder: - Present since infancy; managed by a pediatric urologist. - Unable to achieve continence; uses adult pads and voids frequently to prevent accidents. - Denies dysuria, increased urinary frequency, or urgency. Ventricular Septal Defect and Pulmonic Stenosis: - Managed by Dr. Whitt at [facility]. - Last OV 05/27 with recommendation to repeat echo. Will f/u results and recommendations. No new cardiac concerns today. Migraines: - Chronic migraines, occurring almost daily with varying intensity. Managed by [facility]. - Light and sound are aggravating factors. - Weather changes identified as a trigger. - No visual auras reported. - Managed with amitriptyline at night and Imitrex PRN (used approximately twice a week). - Follow-up with [facility] scheduled next week. Iron Deficiency Anemia: - Takes an OTC iron supplement daily in the morning. Peptic Ulcer Disease: - Managed by Dr. Dolan. - Recent EGD scheduled for July 09 due to ongoing symptoms. - Previous EGD and colonoscopy performed two years ago; colonoscopy was normal. - Takes Protonix daily and Carafate BID. Type 2 Diabetes Mellitus: - Diagnosed a couple of years ago. - Managed with metformin 500 mg daily. - Last A1c was 6.7% two months ago. - Checks blood glucose levels at home approximately once a month; does not recall recent readings. - Adheres to a diabetic diet most of the time, with occasional deviations. - Denies polyuria, polydipsia, polyphagia, or vision changes. - Last eye exam was six months ago with Dr. Quiles at [facility]. Chronic Low Back Pain: - Man[facility] by [facility]. Meléndez at [facility]. - Recent flare-up; prescribed a Medrol Dosepak but has not yet picked it up. - X-ray showed moderate changes at L4-L5. Lifestyle: - Never smoked, used tobacco, or vaped. - Consumes alcohol monthly or less, 1-2 drinks at a time, never more than 6. - Denies drug use. - Never sexually active; has a bifurcated hymen, causing issues with Pap smears. - Lives with her mother and a Papillon dog. Past medical history, appointments, medications, allergies reviewed. Previous Medical History PAST MEDICAL HISTORY Diagnosis Date Chronic lower back pain Dr. Meléndez Deaf right ear Diabetes type II ([facility]) Intellectual disability Iron deficiency anemia Migraines [facility] [place] Neurogenic bladder Mccallsburg syndrome ([facility]) Obesity Peptic ulcer disease Pilonidal cyst 2008 Pulmonic stenosis VSD (ventricular septal defect) ([facility]) [facility] cardiology Previous Surgical History PAST SURGICAL HISTORY Procedure Laterality Date COLONOSCOPY 2022 repeat in 10 years-Dr. Dolan EGD W/O [facility] SPEC VARICIES INJ 2022 PAST SURGICAL HISTORY OF 2008 pilonidal cyst removal Family History FAMILY HISTORY Problem Relation Age of Onset Glaucoma Mother Diabetes Mother other (osteoarthritis) Mother Dementia Father Heart disease Father Diabetes Sister Fibromyalgia Sister Heart disease Maternal Grandmother Breast Cancer Maternal Grandmother Heart disease Maternal Grandfather Colon Cancer Maternal Grandfather Hypertension Maternal Grandfather Dementia Paternal Grandmother Lymphoma Paternal Grandmother Heart disease Paternal Grandfather age 50's Patient Allergies ALLERGIES Allergen Reactions Sulfa (Sulfonamide * Other: See Comments Burning with urination Current Medications Current Outpatient Medications on File Prior to Visit Medication Sig amitriptyline (ELAVIL) 50 mg tablet Take 50 mg by mouth daily at bedtime. atorvastatin (LIPITOR) 40 mg tablet Take 40 mg by mouth once daily. methylPREDNISolone (MEDROL DOSE-PACK) 4 mg Dose-Pack Take by mouth. pantoprazole DR (PROTONIX) 40 mg tablet Take 40 mg by mouth once daily. GARCIA (more content not included)... [facility] 06-19-2025 History of Presen t illness Narrative Chief Complaint Patient presents with: New Patient: Est care Recording using [facility] [employer] software for draft documentation of the visit was discussed with the patient/authorized customer account representative; all questions welcomed and answered. Patient/authorized customer account representative agreed to proceed HPI Sophia Lebron is a 45 year old female who presents here today for Above Complaints. Accompanied today by mother who is also her legal guardian. Previous PCP Dr. Ritter with last OV 2 months ago. Establish Care: - Last visit with previous PCP, Dr. Ritter, was on April 08. 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 - Sophia is on social security disability; mother manages finances and assists with decision-making. 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 - No other related conditions being monitored. Neurogenic Bladder: - Present since infancy; managed by a pediatric urologist. - Unable to achieve continence; uses adult pads and voids frequently to prevent accidents. - Denies dysuria, increased urinary frequency, or urgency. Ventricular Septal Defect and Pulmonic Stenosis: - Managed by Dr. Whitt at [facility]. - Last OV 05/27 with recommendation to repeat echo. Will f/u results and recommendations. No new cardiac concerns today. Migraines: - Chronic migraines, occurring almost daily with varying intensity. Managed by [facility]. - Light and sound are aggravating factors. - Weather changes identified as a trigger. - No visual auras reported. - Managed with amitriptyline at night and Imitrex PRN (used approximately twice a week). - Follow-up with [facility] scheduled next week. Iron Deficiency Anemia: - Takes an OTC iron supplement daily in the morning. Peptic Ulcer Disease: - Managed by Dr. Dolan. - Recent EGD scheduled for [address] due to ongoing symptoms. - Previous EGD and colonoscopy performed two years ago; colonoscopy was normal. - Takes Protonix daily and Carafate BID. Type 2 Diabetes Mellitus: - Diagnosed a couple of years ago. - Managed with metformin 500 mg daily. - Last A1c was 6.7% two months ago. - Checks blood glucose levels at home approximately once a month; does not recall recent readings. - Adheres to a diabetic diet most of the time, with occasional deviations. - Denies polyuria, polydipsia, polyphagia, or vision changes. - Last eye exam was six months ago with Dr. Quiles at [facility]. Chronic Low Back Pain: - Managed by Dr. Meléndez at [facility]. - Recent flare-up; prescribed a Medrol Dosepak but has not yet picked it up. - X-ray showed moderate changes at L4-L5. Lifestyle: - Never smoked, used tobacco, or vaped. - Consumes alcohol monthly or less, 1-2 drinks at a time, never more than 6. - Denies drug use. - Never sexually active; has a bifurcated hymen, causing issues with Pap smears. - Lives with her mother and a Papillon dog. Past medical history, appointments, medications, allergies reviewed. Previous Medical History PAST MEDICAL HISTORY Diagnosis Date Chronic lower back pain Dr. Meléndez Deaf right ear Diabetes type II ([facility]) Intellectual disability Iron deficiency anemia Migraines [facility] [place] Neurogenic bladder Mccallsburg syndrome ([facility]) Obesity Peptic ulcer disease Pilonidal cyst 2008 Pulmonic stenosis VSD (ventricular septal defect) ([facility]) [facility] cardiology Previous Surgical History PAST SURGICAL HISTORY Procedure Laterality Date COLONOSCOPY 2022 repeat in 10 years-Dr. Dolan EGD W/O [facility] SPEC VARICIES INJ 2022 PAST SURGICAL HISTORY OF 2008 pilonidal cyst removal Family History FAMILY HISTORY Problem Relation Age of Onset Glaucoma Mother Diabetes Mother other (osteoarthritis) Mother Dementia Father Heart disease Father Diabetes Sister Fibromyalgia Sister Heart disease Maternal Grandmother Breast Cancer Maternal Grandmother Heart disease Maternal Grandfather Colon Cancer Maternal Grandfather Hypertension Maternal Grandfather Dementia Paternal Grandmother Lymphoma Paternal Grandmother Heart disease Paternal Grandfather age 50's Patient Allergies ALLERGIES Allergen Reactions Sulfa (Sulfonamide * Other: See Comments Burning with urination Current Medications Current Outpatient Medications on File Prior to Visit Medication Sig amitriptyline (ELAVIL) 50 mg tablet Take 50 mg by mouth daily at bedtime. atorvastatin (LIPITOR) 40 mg tablet Take 40 mg by mouth once daily. methylPREDNISolone (MEDROL DOSE-PACK) 4 mg Dose-Pack Take by mouth. pantoprazole DR (PROTONIX) 40 mg tablet Take 40 mg by mouth once daily. SUMAtriptan (IMITREX) 100 mg tablet Take 100 mg by mouth as needed for migraine headache (see administration instructions). sucralfate (CARAFATE) 1 gram tablet Take 1 g by mouth two times a day. metFORMIN (GLUCOPHAGE) 500 mg tablet Take 500 mg by mouth daily with breakfast. loratadine 10 mg cap Take 10 mg by mouth once daily. No current facility-administered medications on file prior to visit. Social History SOCIAL HISTORY[1] Review of Symptoms REVIEW OF SYSTEMS GENERAL: No weight loss, malaise or fevers HEENT: Positive for migraines on a daily basis. NECK: Negative for lumps, goiter, pain and significant neck swelling RESPIRATORY: Negative for cough, hemoptysis, wheezing, COPD, dyspnea or shortness of breath CARDIOVASCULAR: Negative for chest pain, leg swelling, hypertension, CHF or palpitations GI: No nausea, vomiting, or diarrhea : No history of dysuria, frequency. Admits to incontinence for neurogenic bladder. HORSE RACER: Negative for abnormal vaginal bleeding, abnormal vaginal discharge MUSCULOSKELETAL: Negative for joint pain or swelling SKIN: Negative for lesions, rash, and itching PSYCH: Negative for sleep disturbance, mood disorder and recent psychosocial stressors HEMATOLOGY/LYMPHOLOGY: Negative for prolonged bleeding, bruising easily or swollen nodes ENDOCRINE: Negative for cold or heat intolerance, polyuria, polydipsia and goiter NEURO: No history of syncope, paralysis, seizures or tremors EXAM: BP 118/72 Pulse 81 Ht 156.2 cm (5' 1.5) Wt 81.7 kg (180 lb 3.2 oz) LMP 06/18/2025 (Exact Date) SpO2 96% BMI 33.50 kg/m General Appearance: Well appearing, alert, in no acute distress, well-hydrated, well nourished.. Skin: Skin color, texture, turgor normal, no suspicious rashes or lesions. Head: Normocephalic, no masses, lesions, tenderness or abnormalities. Eyes: Anicteric sclera. Pupils are equally round and reactive to light. Extraocular movements are intact. . Ears: External ears normal, canals clear. Nose/Sinuses: Nares normal, septum midline, mucosa normal, no drainage or sinus tenderness. Oropharynx: Lips, mucosa, and tongue normal, teeth and gums normal, oropharynx normal. Neck: Supple, no adenopathy; thyroid symmetric, normal size, no bruits. Lungs: Lungs clear to auscultation. No wheezing, rhonchi, rales.. Heart: RRR without murmur, gallop, or rubs. No ectopy. Abdomen: Normal abdominal exam, Abdomen soft, non-tender. Bowel sounds normal. No masses, organomegaly. Extremities: No deformities, edema, skin discoloration, clubbing or cyanosis. Good capillary refill. . Peripheral Pulses: Normal. Neurologic: CN II-XII grossly intact. Lymph Nodes: No cervical lymphadenopathy and No supraclavicular lymphadenopathy. Feet: Shoes and socks removed, No deformities, ulcers, calluses, normal distal pulses, and sensitive to 10 gm monofilament Health Maintenance List HbA1C Never done Urine Albumin:Creatinine Ratio Never done Dilated Retinal Exam Never done Diabetic Foot Exam Never done LDL Cholesterol Never done Depression Screening Never done Anxiety Screening Never done Pneumococcal Vaccine(1 of 2 - PCV) Never done Cervical Cancer Screening Never done Medicare Annual Wellness Visit Never done Mammogram Screening Never done Colorectal Cancer Screening Never done DTaP,Tdap,Td Vaccine(1 - Tdap) due on 06/19/2026 Hepatitis B Vaccine(1 of 3 - 19+ 3-dose series) due on 06/19/2026 Influenza Vaccine(1) due on 06/23/2025 Annual PCP Team Chronic Disease Visit due on 06/19/2026 Hepatitis C Screening Discontinued HIV Screening Discontinued 1. Encounter to establish care (Z76.89) - New patient visit to establish care following long-term of previous PCP, Dr. Ritter; last visit with Dr. Ritter was on April 08. - Reviewed and updated medical history, medications, and family history. - Will obtain records from previous providers and specialists. - Follow-up in 3 months to repeat blood work and reassess management. 2. Diabetes type II (HCC) (E11.9) - Last A1c 2 months ago was 6.7%; patient reports increased thirst but no vision changes. - Taking metformin 500 mg once daily; adherence to diabetic diet is variable. - Advised daily blood glucose monitoring before breakfast with target <130 mg/dL; instructed to report readings in 2 weeks. - Educated on importance of daily foot checks to prevent complications. - Follow-up in 3 months to reassess glycemic control and consider medication adjustment if needed. 3. 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 Neurogenic bladder (N31.9) 5. Pulmonary valve stenosis, unspecified etiology (I37.0) 6. VSD (ventricular septal defect) (HCC) (Q21.0) 7. Intellectual disability (F79) - History of Mccallsburg syndrome since with associated ventricular septal defect, pulmonic stenosis, neurogenic bladder, and intellectual disability. - Neurogenic bladder managed with frequent voiding and use of adult pads; no current medications. - Continues to follow with Dr. Whitt for cardiac issues. 8. Chronic migraine without aura without status migrainosus, not intractable (G43.709) - Chronic migraines occurring almost daily, varying from moderate to mild; light, sound, and weather changes are triggers. - Managed with amitriptyline at night and sumatriptan as needed (used 1-2 times per week). - Follow-up with [facility] next week; no changes to current regimen at this time. 9. Iron deficiency anemia, unspecified iron deficiency anemia type (D50.9) - Takes hpfo-[id number]-vglkwgi iron supplement once daily in the morning. 10. Peptic ulcer disease (K27.9) - Managed with Protonix once daily and Carafate BID. - Upper endoscopy (EGD) scheduled for July [address] Ocampo for ongoing symptoms. 11. Chronic low back pain, unspecified back pain laterality, unspecified whether sciatica present (M54.50) - Recent flare-up managed with Medrol Dosepak prescribed by Dr. Meléndez; patient has not yet started medication. - X-ray showed moderate changes at L4-L5; will obtain records for further review. 12. 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 Stable. 13. Encounter for screening mammogram for malignant neoplasm of breast (Z12.31) - No mammogram in the past year; order placed for screening mammogram. 14. Screening for cervical cancer (Z12.4) - No prior Pap smear due to anatomical challenges; referral to gynecology for cervical cancer screening. Kiran Olivo MD [1] Social History Tobacco Use Smoking status: Never Smokeless tobacco: Never Vaping Use Vaping status: Never Used Substance Use Topics Alcohol use: Yes Alcohol/week: 0.0 - 1.0 standard drinks of alcohol Drug use: Never documented in this encounter [facility] 03-11-2025 Evaluation note Diagnosis Onset Date Resolution History of peptic ulcer disease acute March 11, 2025 3 :14pm Gastritis inactive March 11, 2025 3:14pm Guaiac positive stools inactive Ma y 2024 3:14pm [facility] Work Phone: 1(669) 770-246305-20-2025 Progress [facility] [address] [place] [address] OFFICE VISIT Date of Service: 03/11/25 MR#: [id number] Acct: [id number] Name: SOPHIA LEBRON Rep #: [id number] : 1980 Provider: RATNA Borges Age/Sex: 44/F Location: [facility] Status: Signed Intake Vital Signs 03/04/25 20:04 Height 5 ft 1 in Intake Visit Reasons: ER FU Chief Complaint: epigastric pain Allergies Sulfa (Sulfonamide Antibiotics) Adverse Reaction (Verified 03/04/25 20:04) PT UNSURE OF REACTION Nurse's Note: OV 03/11/25 Pt her for f/u and reports constipation, abdominal pain, blood in stool, gas, and bloating. Pt continues pantoprazole and Carafate. PFSH Medical History Loss of hearing Wears glasses Anxiety Diabetes Bladder disease High cholesterol Anemia History of ulceration GERD (gastroesophageal reflux disease) Non-smoker History of echocardiogram Cardiology follow-up encounter Neurogenic bladder Type 2 diabetes mellitus without complication Pulmonic stenosis Iron deficiency anemia VSD (ventricular septal defect) Ksenia syndrome Migraines Surgical History Hx of colonoscopy History of esophagogastroduodenoscopy (EGD) History of cardiac catheterization History of colonoscopy History of excision of pilonidal cyst (~2004) Family History Father Heart disease CVA (cerebral vascular accident) Hypertension Dementia Mother Diabetes Sister Diabetes Fibromyalgia Other Alzheimer's dementia Breast cancer Colon cancer Social History household members: family housing: house pets and animals: Yes Smoking Status: Never smoker alcohol intake: never substance use type: does not use caffeine: Yes HPI HPI Chief Complaint: epigastric pain Details: SOPHIA LEBRON, is a 44 F who presents to the office today for f/u. BGI established in 2022 for GIB wiht ABLA. EGD and colonoscopy 02.16.23 EGD one oozing cratered gastric ulcer, heater probe; duodenitis. Colonoscopy poor prep; two sessile hyperplastic polyps OV 6. as f/u Biochemical . CBC (hgb12.3), iron, TIBC, ferritin EGD and Colonoscopy 08.07.23 EGD irregular Zline; one non-bleeding cratered gastric ulcer, 8mm. HPylori and metaplasia neg Colonoscopy diverticulosis; 5mm rectal hyperplastic polyp, 15mm descending TA polyp EGD 07.02.24 Normal esophagus. - Spurting gastric ulcers with a visible vessel. Treated with a monopolar probe. - A single bleeding angiodysplastic lesion in the stomach. Treated with a heater probe. - No gross lesions in the first portion of the duodenum. - No specimens collected. Last OV 07.15.24 Pt recently hospitalized in beginning of Jun for bleeding gastric ulcer. Since then she has been doing well. SHe continues with pantoprazole 40 mg BID and sucralfate. [facility] ED 03.04.25 with epigastric abd pain and black stool. Work up was unremarkable. Rectal exam withbrown stool but positive for blood. Given GI cocktail. Dr. Dolan consulted and recommend clear diet for 2 days and continue PPI and Carafate. OV 03.11. Pt continues to have epigastric pain off and on. Magic mouthwash has been helpful. SHe continues with Carafate and PPI. She has not had any further black stools. She does endorse specks of black in her stool but denies melena. ROS Const Constitutional: Positive for fatigue and headache(s); No fever(s) or weight change ENT ENT: Positive for headache(s); No difficulty swallowing Gastro GI: Positive for abdominal pain, bloating, constipation, excessive flatus and Blood in stool; No belching, change in bowel habits, change in stool character, coffee ground emesis, cramping, diarrhea, heartburn, difficulty swallowing, feeling full early, incontinent of stools, Vomiting blood/hematemesis, loose stools, Black,tarry stools, nausea/dyspepsia, pain with swallowing, vomiting or other Musc Musculoskeletal: Positive for back pain and stiffness; No joint pain Skin Skin: No yellowing of the eye or itchy eyes Neuro Neurology: Positive for headache(s) Psych Psychiatric: No anxiety and No depression Endo Endocrine: Positive for fatigue; No weight change Aller/Imm Allergy/Immunologic: No itchy eyes Mo/Lymp Hematologic/Lymphatic: No easy bleeding or easy bruising Exam Const General: cooperative and healthy appearing Nutritional Appearance: average body habitus Orientation: alert and awake HENMT Head: normal to inspection Eyes General: appearance normal, both eyes and all related structures Neck Neck: normal visual inspection Chest Chest palpation & inspection: normal inspection of the chest Resp Effort & Inspection: normal respiratory effort and able to speak in complete sentences Auscultation: Bilateral: Clear to Auscultation Cardio Rate: regular rate Rhythm: regular rhythm GI Inspection: normal to inspection Auscultation: normal bowel sounds Percussion: normal to percussion Palpation: soft and no hepatosplenomegaly Assessment and Plan Assessment and Plan (1) Gastritis: Status: Acute Plan: This is a 44 yo female pt here today for ED f/u regarding her epigastric pain and black stools. Pt recently seen in the ED in February 2025 for epigastric pain andwork up was without abnormalities besidesa positive FOBT. She was given GI cocktail with relief and sent home with PPI, Carafate and magic mouthwash. SHe continues to have intermittent epigastric pain. I have refilled the magic mouthwash itwas helpful to her. She is scheduled for an EGD in April 2025. I have ordered CBC to evaluate her Hgb. If it is down trending will attempt to gether in sooner for an EGD. I am not concerned for activeGI bleeding as Hgb was stable and she denies melena. -Continue PPI and Carafate -Continue magic mouthwash PRN -EGD -CBC -Consider moving up her EGD to a sooner time slot pending Hgb (2) Guaiac positive stools: Status: Acute (3) History of peptic ulcer disease: Status: Acute Orders: Orders CBC W/Diff, Automated Today K29.70 - Gastritis, unspecified, without bleeding Medications: Refilled MAGIC MOUTH WASH (BMX) diphenhydramine 12.5 mg/5 mL oral liquid 60 mL; aluminum-mag hydroxide- simethicone 400 mg-400 mg-40mg/5 mL oral susp 60 mL; Lidocaine Viscous 2 % mucosal solution 60 mL; Per 180 mL 10 mL PO Q8H PRN PRN 180 mL 0RF abdominal pain Coding Level of Care Code Off vis,est,level 3 Diagnoses Gastritis K29.70 Guaiac positive stools R19.5 History of peptic ulcer disease Z87.11 03/11/25 1548 sov PA> Date _ Ary SEGUNDO Cosigner Signature: Date (if applicable) CC: ~ [facility]05-20-2025 Progress note Author Ary Holguin [facility] Note Date/Time March 11, 2025 3:48p [facility] [address] [place] [address] OFFICE VISIT Date of Service: 03/11/25 MR#: [id number] Acct: [id number] Name: SOPHIA LEBRON Rep #: [id number] : 1980 Provider: RATNA Borges Age/Sex: 44/F Location: [facility] Status: Signed Intake Vital Signs 03/04/25 20:04 Height 5 ft 1 in Intake Visit Reasons: ER FU Chief Complaint: epigastric pain Allergies Sulfa (Sulfonamide Antibiotics) Adverse Reaction (Verified 03/04/25 20:04) PT UNSURE OF REACTION Nurse's Note: OV 03/11/25 Pt her for f/u and reports constipation, abdominal pain, blood in stool, gas, and bloating. Pt continues pantoprazole and Carafate. PFSH Medical History Loss of hearing Wears glasses Anxiety Diabetes Bladder disease High cholesterol Anemia History of ulceration GERD (gastroesophageal reflux disease) Non-smoker History of echocardiogram Cardiology follow-up encounter Neurogenic bladder Type 2 diabetes mellitus without complication Pulmonic stenosis Iron deficiency anemia VSD (ventricular septal defect) [place] syndrome Migraines Surgical History Hx of colonoscopy History of esophagogastroduodenoscopy (EGD) History of cardiac catheterization History of colonoscopy History of excision of pilonidal cyst (~2004) Family History Father Heart disease CVA (cerebral vascular accident) Hypertension Dementia Mother Diabetes Sister Diabetes Fibromyalgia Other Alzheimer's dementia Breast cancer Colon cancer Social History household members: family housing: house pets and animals: Yes Smoking Status: Never smoker alcohol intake: never substance use type: does not use caffeine: Yes HPI HPI Chief Complaint: epigastric pain Details: SOPHIA LEBRON, is a 44 F who presents to the office today for f/u. BGI established in 2022 for GIB wiht ABLA. EGD and colonoscopy 02.16.23 EGD one oozing cratered gastric ulcer, heater probe; duodenitis. Colonoscopy poor prep; two sessile hyperplastic polyps OV 6.. as f/u Biochemical 6.. CBC (hgb12.3), iron, TIBC, ferritin EGD and Colonoscopy 08.07.23 EGD irregular Zline; one non-bleeding cratered gastric ulcer, 8mm. HPylori and metaplasia neg Colonoscopy diverticulosis; 5mm rectal hyperplastic polyp, 15mm descending TA polyp EGD 07.02.24 Normal esophagus. - Spurting gastric ulcers with a visible vessel. Treated with a monopolar probe. - A single bleeding angiodysplastic lesion in the stomach. Treated with a heater probe. - No gross lesions in the first portion of the duodenum. - No specimens collected. Last OV 07.15.24 Pt recently hospitalized in beginning of Jun for bleeding gastric ulcer. Since then she has been doing well. SHe continues with pantoprazole 40 mg BID and sucralfate. [facility] ED 03.04.25 with epigastric abd pain and black stool. Work up was unremarkable. Rectal exam with brown stool but positive for blood. Given GI cocktail. Dr. Dolan consulted and recommend clear diet for 2 days and continue PPI and Carafate. OV 03.11.25 Pt continues to have epigastric pain off and on. Magic mouthwash has been helpful. SHe continues with Carafate and PPI. She has not had any further black stools. She does endorse specks of black in her stool but denies melena. ROS Const Constitutional: Positive for fatigue and headache(s); No fever(s) or weight change ENT ENT: Positive for headache(s); No difficulty swallowing Gastro GI: Positive for abdominal pain, bloating, constipation, excessive flatus and Blood in stool; No belching, change in bowel habits, change in stool character, coffee ground emesis, cramping, diarrhea, heartburn, difficulty swallowing, feeling full early, incontinent of stools, Vomiting blood/hematemesis, loose stools, Black,tarry stools, nausea/dyspepsia, pain with swallowing, vomiting or other Musc Musculoskeletal: Positive for back pain and stiffness; No joint pain Skin Skin: No yellowing of the eye or itchy eyes Neuro Neurology: Positive for headache(s) Psych Psychiatric: No anxiety and No depression Endo Endocrine: Positive for fatigue; No weight change Aller/Imm Allergy/Immunologic: No itchy eyes Mo/Lymp Hematologic/Lymphatic: No easy bleeding or easy bruising Exam Const General: cooperative and healthy appearing Nutritional Appearance: average body habitus Orientation: alert and awake [facility] Head: normal to inspection Eyes General: appearance normal, both eyes and all related structures Neck Neck: normal visual inspection Chest Chest palpation & inspection: normal inspection of the chest Resp Effort & Inspection: normal respiratory effort and able to speak in complete sentences Auscultation: Bilateral: Clear to Auscultation Cardio Rate: regular rate Rhythm: regular rhythm GI Inspection: normal to inspection Auscultation: normal bowel sounds Percussion: normal to percussion Palpation: soft and no hepatosplenomegaly Assessment and Plan Assessment and Plan (1) Gastritis: Status: Acute Plan: This is a 44 yo female pt here today for ED f/u regarding her epigastric pain and black stools. Pt recently seen in the ED in February 2025 for epigastric pain andwork up was without abnormalities besides a positive FOBT. She was given GI cocktail with relief and sent home with PPI, Carafate and magic mouthwash. SHe continues to have intermittent epigastric pain. I have refilled the magic mouthwash it was helpful to her. She is scheduled for an EGD in April 2025. I have ordered CBC to evaluate her Hgb. If it is down trending will attempt to gether in sooner for an EGD. I am not concerned for active GI bleeding as Hgb was stable and she denies melena. -Continue PPI and Carafate -Continue magic mouthwash PRN -EGD -CBC -Consider moving up her EGD to a sooner time slot pending Hgb (2) Guaiac positive stools: Status: Acute (3) History of peptic ulcer disease: Status: Acute Orders: Orders CBC W/Diff, Automated Today K29.70 - Gastritis, unspecified, without bleeding Medications: Refilled MAGIC MOUTH WASH (BMX) diphenhydramine 12.5 mg/5 mL oral liquid 60 mL; aluminum-mag hydroxide- simethicone 400 mg-400 mg-40 mg/5 mL oral susp 60 mL; Lidocaine Viscous 2 % mucosal solution 60 mL; Per 180 mL 10 mL PO Q8H PRN PRN 180 mL 0RF abdominal pain Coding Level of Care Code Off vis,est,level 3 Diagnoses Gastritis K29.70 Guaiac positive stools R19.5 History of peptic ulcer disease Z87.11 03/11/25 1548 <Electronically signed by Ary SEGUNDO> Date _ Ary SEGUNDO Cosigner Signature: Date (if applicable) CC: ~ [facility] Work Phone: 1(730) 971-281504-01-2025 Procedure note [facility] Medical Records Department [address] [place] [address] Operative Report - CC Letter MR#: [id number] Acct: [id number] Name: SOPHIA LEBRON Rep #:[id number] : 1980 44 From: Anthony Dolan DO PCP: Dr. Debbi Ritter MD Status:REG [facility] 01/21/2025 Debbi Ritter Re : Upper GI endoscopy procedure for Sophia Lebrno Dear Stone This procedure was performed on Tuesday, January 21, 2025. My impressions and recommendations are as follows: Impressions : - Normal esophagus. - Non-bleeding gastric ulcer with no stigmata of bleeding. Biopsied. - Normal second portion of the duodenum. Recommendations : - Discharge patient to home. - Resume previous diet. - Continue present medications. - Await pathology results. My findings are described in the full procedure note, which is enclosed. If I can be of further assistance, please feel free to contact me at . Sincerely, Anthony Dolan DO 01/21/2025 1:53:23 PM This report has been signed electronically. 01/21/25 1353 Date _ Anthony Ponce Signature: Date (if indicated) CC: Dr. Debbi Ritter MD; Anthony Dolan DO ~ Date Dictated: 01/21/25 1331 Date Transcribed: Monotype Machinist: RF Signed [facility]04-01-2025 Procedure note [facility] Medical Records Department [address] [place] [address] EGD Report MR#: [id number] Acct: [id number] Name: SOPHIA LEBRON Rep #:[id number] : 1980 44 From: Anthony Dolan DO PCP: Dr. Debbi Ritter MD Status:REG [facility] Patient Name: Sophia Lebron Procedure Date: 01/21/2025 1:31 PM Date of : 1980 Age: 44 Procedure: Upper GI endoscopy Indications: Epigastric abdominal pain, Peptic ulcer Providers: Anthony Dolan DO Referring MD: Debbi Ritter Medicines: Monitored Anesthesia Care Patient Profile: This is a 44 year old female. Refer to note in patient chart for documentation of history and physical. Patient has symptoms of chronic epigastric abdominal pain. Complications: No immediate complications. Procedure: Pre-Anesthesia Assessment: - Prior to the procedure, a History and Physical was performed, and patient medications and allergies were reviewed. The patient is competent. The risks and benefits of the procedure and the sedation options and risks were discussed with the patient. All questions were answered and informed consent was obtained. Patient identification and proposed procedure were verified by the physician in the pre-procedure area. Mental Status Examination: alert and oriented. Airway Examination: normal oropharyngeal airway and neck mobility. Respiratory Examination: clear to auscultation. CV Examination: normal. ASA Grade Assessment: II - A patient with mild systemic disease. After reviewing the risks and benefits, the patient was deemed in satisfactory condition to undergo the procedure. The anesthesia plan was to use monitored anesthesia care (MAC). Immediately prior to administration of medications, the patient was re-assessed for adequacy to receive sedatives. The heart rate, respiratory rate, oxygen saturations, blood pressure, adequacy of pulmonary ventilation, and response to care were monitored throughout the procedure. The physical status of the patient was re-assessed after the procedure. After obtaining informed consent, the endoscope was passed under direct vision. Throughout the procedure, the patient's blood pressure, pulse, and oxygen saturations were monitored continuously. The Endoscope was introduced through the mouth, and advanced to the second part of duodenum. The upper GI endoscopy was accomplished without difficulty. The patient tolerated the procedure well. Scope In: 1:38:35 PM Scope Out: 1:44:43 PM Total Procedure Duration Time 0 hours 6 minutes 8 seconds Findings: The examined esophagus was normal. One non-bleeding gastric ulcer with no stigmata of bleeding was found in the gastric antrum. The lesion was 4 mm in largest dimension. Biopsies were taken with a cold forceps for histology. Verification of patient identification for the specimen was done. Estimated blood loss was minimal. Biopsies were taken with a cold forceps for Helicobacter pylori testing. Verification of patient identification for the specimen was done. Estimated blood loss was minimal. The second portion of the duodenum was normal. Impression: - Normal esophagus. - Non-bleeding gastric ulcer with no stigmata of bleeding. Biopsied. - Normal second portion of the duodenum. Recommendation: - Discharge patient to home. - Resume previous diet. - Continue present medications. - Await pathology results. Procedure Code(s): --- Professional --- 60463, Esophagogastroduodenoscopy, flexible, transoral; with biopsy, single or multiple CPT copyright 2021 [employer]. All rights reserved. The codes documented in this report are preliminary and upon bulk driver review may be revised to meet current compliance requirements. Anthony Dolan DO 01/21/2025 1:53:23 PM This report has been signed electronically. Number of Addenda: 0 Note Initiated On: 01/21/2025 1:31 PM 01/21/25 1353 Date _ Anthony Dolan DO Cosigner Signature: Date (if indicated) CC: Dr. Debbi Ritter MD; Anthony Dolan DO ~ Date Dictated: 01/21/25 1331 Date Transcribed: Monotype Machinist: RF Signed [facility]04-01-2025 Evaluation note* Diagnosis Onset Date Resolution Status Admit Date ABLA (acute blood loss anemia) acute January 21, 2025 11:51am Anemia acute January 21 11:51am Gastric ulcer due to nonster oidal antiinflammatory drug (NSAID) therapy acute January 21, 2025 11:51am [facility] Work Phone: 1(461) 457-806804-01-2025 Evaluation note* Diagnosis Onset Date Resolution Status Admit Date ABLA (acute blood loss anemia) acute January 21, 2025 11:51am Anemia acute January 21 11:51am Gastric ulcer due to nonster oidal antiinflammatory drug (NSAID) therapy acute January 21, 2025 11:51am Gastritis acute March 11, 2025 3:14pm Guaiac positive stools acute Ma y 2024 3:14pm History of peptic ulcer disease acut e March 11, 2025 3:14pm [facility] Work Phone: 1(139) 316-284204-01-2025 Evaluation note* Diagnosis Onset Date Resolution Status Admit Date ABLA (acute blood loss anemia) acute January 21, 2025 11:51am Anemia acute January 21 11:51am Gastric ulcer due to nonster oidal antiinflammatory drug (NSAID) therapy acute January 21, 2025 11:51am History of peptic ulcer disease acut e March 11, 2025 3:14pm Gastritis inactive March 11, 2025 3:14pm Guaiac positive stools inactive Ma y 2024 3:14pm [facility] Work Phone: 1(769) 661-967704-01-2025 Consult note [facility] Medical Records Department [address] [place] [address] Anesthesia Postop Eval I 01/21/25 1350 MR#: [id number] Acct: [id number] Name: SOPHIA LEBRON Rep #:[id number] : 1980 44 From: Albania Bah CRNA PCP: Dr. Debbi Ritter MD Status:REG [facility] Y Race: C Location: [place] [address] Anesthesia: Postop Eval I Current Vital Signs Temperature: 97 F Pulse Rate: 90 Blood Pressure: 95/58 Respiratory Rate: 14 Pulse Ox: 98 Oxygen Delivery Method: Room Air Assessment Airway patent: Yes Spontaneous unlabored respirations: Yes Mental status: Awake nausea: No Vomiting: No Anesthesia Complication: No Fluid Hydration Crystalloid volume administer (ml): 10 Total IV fluid infused: 10 Progress Note Anesthesia document: Postop Eval 1 completed: Yes 01/21/25 1350 NA> Date _ Albania Bah CRNA Cosigner Signature: Date CC: ~ Signed [facility]04-01-2025 History and physical note [facility] Medical Records Department [address] [place] [address] History & Physical Exam 01/21/25 1325 MR#: [id number] Acct: [id number] Name: SOPHIA LEBRON Rep #:[id number] : 1980 44 From: Anthony Friend DO PCP: Dr. Debbi Ritter MD Status:[facility] Location: [place] [address] HPI - General General Date of Admission: 01/21/25 Date of Service: 01/21/25 Chief Complaint: Gastric ulcer HPI Narrative SOPHIA LEBRON, is a 44 F who presents surviallence of gastric ulcer *BGI established .-02.16.23 for management of GIB with ABLA and chronic DMII?EGD and colonoscopy 02.16.23?EGD one oozing cratered gastric ulcer, heater probe; duodenitis.? Colonoscopy poor prep; two sessile hyperplastic polyps? OV 04.07.23 as f/u ?Biochemical 04.07.23?CBC (hgb12.3), iron, TIBC, ferritin?EGD and Colonoscopy 08.07.23?EGD irregular Zline; one non- bleeding cratered gastric ulcer, 8mm. HPylori and metaplasia neg? Colonoscopy diverticulosis; 5mm rectal hyperplastic polyp, 15mm descending TA polyp.? ?OV 10.2623 Pt continues to have HB. Is very diligent with her diet. Takes Pantoprazole 40mg QD. Bowels are normal now. Was having constipation previously.No dark or bloddy stools. OV 02.16.24 Pt reports that she is doing well and has minimal symptoms to report.Pt states that she has occasionally heartburn if she's been running around doinga lot of things. Pt reports that she continues Pantoprazole 40mg. Pt states thatshe has at least 1 formed bm per day with no blood in the stool. OV 07.15.24 Pt was hospitalized in early June 2024 for bleeding gastric ulcer. She underwent EGD with Dr. Dolan. Since her discharge she has been doingwell. She has some weakness and lightheadedness. She denies abdominal; pain, n/v, constipation, diarrhea or melena. She continues to take pantoprazole 40 mg BID and sucralfate. EGD 07.02.24 Normal esophagus. - Spurting gastric ulcers with a visible vessel. Treated with a monopolar probe. - A single bleeding angiodysplastic lesion in the stomach. Treated with a heater probe. - No gross lesions in the first portion of the duodenum. - No specimens collected. [facility] Medical History Loss of hearing Wears glasses Anxiety Diabetes Bladder disease High cholesterol Anemia History of ulceration GERD (gastroesophageal reflux disease) Non-smoker History of echocardiogram Cardiology follow-up encounter Neurogenic bladder Type 2 diabetes mellitus without complication Pulmonic stenosis Iron deficiency anemia VSD (ventricular septal defect) Ksenia syndrome Migraines Home Medications ?Medication ?Instructions ?Recorded ?Last Taken ?Type loratadine 10 mg tablet (Claritin) 10 mg PO DAILY PRN SEASONAL 02/14/23 01/20/25 History ALLERGIES metformin 500 mg tablet,extended 500 mg PO QHS diabete s 02/14/23 01/19/25 History release 24 hr atorvastatin 40 mg tablet 20 mg PO DAILY 07/01/2412/23 History sumatriptan succinate 100 mg tablet See Rx Instruction s PO .COMPLEX 07/15/24 01/19/25 History pantoprazole 40 mg tablet,delayed 40 mg PO BID 30 days #60 tabs 08/01/24 01/21/25 07:00 Rx release amitriptyline 50 mg tablet 50 mg PO QHS 10/04/2401/19 History Allergy/AdvReac Type Severity Reaction Status Date / Time Sulfa (Sulfonamide AdvReac PT UNSURE Verified 01/21/25 12:23 Antibiotics) OF REACTION Family History Father Heart disease CVA (cerebral vascular accident) Hypertension Dementia Mother Diabetes Sister Diabetes Fibromyalgia Other Alzheimer's dementia Breast cancer Colon cancer Surgical History Hx of colonoscopy History of esophagogastroduodenoscopy (EGD) History of cardiac catheterization History of colonoscopy History of excision of pilonidal cyst (~2004) Social History household members: family housing: house pets and animals: Yes Smoking Status: Never smoker alcohol intake: never substance use type: does not use caffeine: Yes ROS Constitutional Constitutional: Denies fatigue, fever(s), poor appetite, weight gain or weight loss Gastrointestinal Gastrointestinal: Denies belching, bloating, change in bowel habits, change in stool character, chewing difficulty, coffee ground emesis, constipation, cramping, diarrhea, dyspepsia, dysphagia, earlysatiety, excessive flatus, fecalincontinence, heartburn, hematemesis, hematochezia, hemorrhoids, loose stools, melena, nausea, odynophagia, rectal bleeding, tenesmus, vomiting or weight changes Vital Signs Vital Signs Vital Signs: 01/21/25 12:26 01/21/25 12:28 01/21/25 13:06 Temperature 98.8 F 98.8 F Temperature Source Temporal Pulse Rate 85 85 Respiratory Rate 18 18 Respiratory Pattern Normal Blood Pressure 131/62 H 131/62 H Blood Pressure Mean 85 Blood Pressure Source Monitor Blood Pressure Position Semi-Fowlers Blood Pressure Location Right Arm Pulse Ox 99 99 Oxygen Delivery Method Room Air Room Air Weight Weight: 179 lb 6.4 oz Body Mass Index (BMI) 33.9 Physical Exam Const alert, oriented x3, no apparent distress and healthy appearing General Appearance: cooperative GI normal to inspection, nondistended, normoactive bowel sounds, soft to palpation,non-tender and non-distended Percussion: normal to percussion Rectal Exam: deferred Results Lab / Micro Data Labs: Laboratory Results - last 24 hr 01/21/25 12:10: Urine Test Negative Assessment & Plan Assessment/Plan (1) Gastric ulcer due to nonsteroidal antiinflammatory drug (NSAID) therapy: (2) Anemia: (3) ABLA (acute blood loss anemia): PLAN: ROS Const Constitutional: Positive for fatigue and headache(s); No fever(s) or weight change ENT ENT: Positive for headache(s); No difficulty swallowing Gastro GI: No abdominal pain, belching, bloating, change in bowel habits, change in stool character, coffee ground emesis, constipation, cramping, diarrhea, heartburn, difficulty swallowing, feeling full early, excessive flatus, incontinent of stools, Vomiting blood/hematemesis, Blood in stool, loose stool s,Black,tarry stools, nausea/dyspepsia, pain with swallowing, vomiting or other Musc Musculoskeletal: Positive for back pain, muscle weakness and stiffness; No joint pain Skin Skin: No yellowing of the eye or itchy eyes Neuro Neurology: Positive for headache(s) Psych Psychiatric: No anxiety and No depression Endo Endocrine: Positive for fatigue; No weight change Aller/Imm Allergy/Immunologic: No itchy eyes Mo/Lymp Hematologic/Lymphatic: No easy bleeding or easy bruising Exam Const General: cooperative and comfortable Nutritional Appearance: average body habitus and well nourished [facility] Head: normal to inspection Ears: hearing grossly normal bilaterally Nose: external nose normal Face and sinus: normal facial exam Eyes General: appearance normal, both eyes and all related structures Neck Neck: normal visual inspection Chest Chest palpation & inspection: normal inspection of the chest Resp Effort & Inspection: normal respiratory effort GI Inspection: normal to inspection Palpation: no hepatosplenomegaly Skin General: no rashes or lesions noted Neuro General: patient alert Extrem General: normal to inspection Psych Affect: normal affect Assessment and Plan Assessment and Plan (1) Anemia: Status: Acute (2) History of peptic ulcer disease: Status: Acute Plan: Pt is a 44 yo female here today for f/u after hospitalization for bleeding gastric ulcer in early June 2024. Since he discharge she has been doing well. She does have some weakness and lightheadedness still. Her last hemoglobin9.12.24 was 7.7 which is slowly up trending. I will order CBC to con tinue monitoring this. We will schedule her for repeat EGD in 3 months to ensure healing of the gastric ulcer. She will continue PPI BID and sucralfate. She willf/u in 6 months -EGD in 3 months -CBC ordered -Refilled pantoprazole and sucralfate -f/u in 6 months Orders: Orders CBC W/Diff, Automated Today D64.9 - Anemia, unspecified 01/21/25 1327 Cosigner Signature (if applicable): CC: Dr. Debbi Ritter MD; Anthony Dolan, DO~ [facility]igned [facility]04[facility]25 [facility] Medical Records Department [address] [place] [address] History Physical Exam 01/21/25 1325 MR#: [id number] Acct: [id number] Name: SOPHIA LEBRON Rep #: [id number] : 1980 44 From: Anthony Dolan DO PCP: Dr. Debbi Ritter MD Status:REG [facility] Location: [place] [address] HPI - General General Date of Admission: 01/21/25 Date of Service: 01/21/25 Chief Complaint: Gastric ulcer HPI Narrative SOPHIA LEBRON, is a 44 F who presents surviallence of gastric ulcer *BGI established 02.14.23-02.16.23 for management of GIB with ABLA and chronic DMII?EGD and colonoscopy 02.16.23???EGD one oozing cratered gastric ulcer, heater probe; duodenitis.? Colonoscopy poor prep; two sessile hyperplastic polyps??? OV 04.07.23 as f/u ?Biochemical 04.07.23???CBC (hgb12.3), iron, TIBC, ferritin?EGD and Colonoscopy 08.07.23???EGD irregular Zline; one non-bleeding cratered gastric ulcer, 8mm. HPylori and metaplasia neg? Colonoscopy diverticulosis; 5mm rectal hyperplastic polyp, 15mm descending TA polyp.?OV 10.2623 Pt continues to have HB. Is very diligent with her diet. Takes Pantoprazole 40mg QD. Bowels are normal now. Was having constipation previously. No dark or bloddy stools. OV 4.24 Pt reports that she is doing well and has minimal symptoms to report. Pt states that she has occasionally heartburn if she's been running around doing a lot of things. Pt reports that she continues Pantoprazole 40mg. Pt states that she has at least 1 formed bm per day with no blood in the stool. OV 07.15.24 Pt was hospitalized in early June 2024 for bleeding gastric ulcer. She underwent EGD with Dr. Dolan. Since her discharge she has been doing well. She has some weakness and lightheadedness. She denies abdominal; pain, n/v, constipation, diarrhea or melena. She continues to take pantoprazole 40 mg BID and sucralfate. EGD 07.02.24 Normal esophagus. - Spurting gastric ulcers with a visible vessel. Treated with a monopolar probe. - A single bleeding angiodysplastic lesion in the stomach. Treated with a heater probe. - No gross lesions in the first portion of the duodenum. - No specimens collected. [facility] Medical History Loss of hearing Wears glasses Anxiety Diabetes Bladder disease High cholesterol Anemia History of ulceration GERD (gastroesophageal reflux disease) Non-smoker History of echocardiogram Cardiology follow-up encounter Neurogenic bladder Type 2 diabetes mellitus without complication Pulmonic stenosis Iron deficiency anemia VSD (ventricular septal defect) [place] syndrome Migraines Home Medications ???Medication ???Instructions ???Recorded ???Last Taken ???Type loratadine 10 mg tablet (Claritin) 10 mg PO DAILY PRN SEASONAL 01/2201/20/25 History ALLERGIES metformin 500 mg tablet,extended 500 mg PO QHS diabetes 02/14/23 History release 24 hr atorvastatin 40 mg tablet 20 mg PO DAILY 07/01/24 01/19/25 H istory sumatriptan succinate 100 mg tablet See Rx Instructions PO .COMPLEX 07/15/24 01/19/25 History pantoprazole 40 mg tablet,delayed 40 mg PO BID 30 days #60 tabs 08/1501/21/25 07:00 Rx release amitriptyline 50 mg tablet 50 mg PO QHS 10/04/24 01/19/25 His tory Allergy/AdvReac Type Severity Reaction Status Date / Time Sulfa (Sulfonamide AdvReac PT UNSURE Verified 01/21/25 12:23 Antibiotics) OF REACTION Family History Father Heart disease CVA (cerebral vascular accident) Hypertension Dementia Mother Diabetes Sister Diabetes Fibromyalgia Other Alzheimer's dementia Breast cancer Colon cancer Surgical History Hx of colonoscopy History of esophagogastroduodenoscopy (EGD) History of cardiac catheterization History of colonoscopy History of excision of pilonidal cyst ( 2004) Social History household members: family housing: house pets and animals: Yes Smoking Status: Never smoker alcohol intake: never substance use type: does not use caffeine: Yes ROS Constitutional Constitutional: Denies fatigue, fever(s), poor appetite, weight gain or weight loss Gastrointestinal Gastrointestinal: Denies belching, bloating, change in bowel habits, change in stool character, chewing difficulty, coffee ground emesis, constipation, cramping, diarrhea, dyspepsia, dysphagia, early satiety, excessive flatus, fecal incontinence, heartbu (more content not included)...[facility] Radiology Diagnostic study note [facility] Imaging Services [address] [place], [place] [address] L/S Spine Comp/w Bending Views MR#: [id number] Acct: [id number] Name: SOPHIA LEBRON Rep #: [id number] : 1980 F 44 From: Johnny Molina DO PCP: Dr. Debbi Ritter MD Status: REG CLI Study:L/S Spine Comp/w Bending Views Date of Exam: 12/13/24 Exam# [id number] Ordering Dr: Jf Hall MD PROCEDURE: Lumbar spine radiographs REASON FOR EXAM: Pain, radiculopathy TECHNIQUE: 6 views of the lumbar spine COMPARISON: None. FINDINGS: See impression RAD/L/S Spine Comp/w Bending Views IMPRESSION: Vertebral body heights are within normal limits. Trace retrolisthesis of L1-2 and L4-5. Trace anterolisthesis of L5-S1. No gross pars defects. Moderate disc space narrowing at L1-2. Mild disc space narrowing elsewhere. Negative for abnormal motion. Sacroiliac joints are intact. Reading Location: [facility] CC: Dr. Debbi Ritter MD; Dr. 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 Evaluation note* Diagnosis Onset Date Resolution Status Admit Date Upper gastrointestinal bleed resolve d October 08, 2024 10:33am [facility] Work Phone: 1(349) 139-571612-17-2024 Evaluation note* Diagnosis Onset Date Resolution Status Admit Date Upper gastrointestinal bleed resolve d October 08, 2024 10:33am ABLA (acute blood loss anemia) acute January 21, 2025 11:51am Anemia acute January 21 11:51am Gastric ulcer due to nonsteroidal antiinflammatory drug (NSAID) therapy acute January 21, 2025 11:51am [facility] Work Phone: 1([phone]) 366-399712-17-2024 [facility] Medical Records Department [address] [place] [address] History Physical Exam 10/08/24 1213 MR#: [id number] Acct: [id number] Name: SOPHIA LEBRON Rep #: [id number] : 1980 44 From: Anthony Friend DO PCP: Dr. Debbi Ritter MD Status:REG [facility] Location: [place] [address] HPI - General General Date of Admission: 10/08/24 Date of Service: 10/08/24 Chief Complaint: Gastric ulcer surveillance HPI Narrative SOPHIA LEBRON, is a 44 F who presents to the office today for f/u *BGI established 02.14.23-02.16.23 for management of GIB with ABLA and chronic DMII?EGD and colonoscopy 02.16.23???EGD one oozing cratered gastric ulcer, heater probe; duodenitis.? Colonoscopy poor prep; two sessile hyperplastic polyps??? OV 04.07.23 as f/u ?Biochemical 04.07.23???CBC (hgb12.3), iron, TIBC, ferritin?EGD and Colonoscopy 08.07.23???EGD irregular Zline; one non-bleeding cratered gastric ulcer, 8mm. HPylori and metaplasia neg? Colonoscopy diverticulosis; 5mm rectal hyperplastic polyp, 15mm descending TA polyp.?OV 10.3203 Pt continues to have HB. Is very diligent with her diet. Takes Pantoprazole 40mg QD. Bowels are normal now. Was having constipation previously. No dark or bloddy stools. OV 4..24 Pt reports that she is doing well and has minimal symptoms to report. Pt states that she has occasionally heartburn if she's been running around doing a lot of things. Pt reports that she continues Pantoprazole 40mg. Pt states that she has at least 1 formed bm per day with no blood in the stool. OV 9..24 Pt was hospitalized in early June 2024 for bleeding gastric ulcer. She underwent EGD with Dr. Dolan. Since her discharge she has been doing well. She has some weakness and lightheadedness. She denies abdominal; pain, n/v, constipation, diarrhea or melena. She continues to take pantoprazole 40 mg BID and sucralfate. EGD 07.02.24 Normal esophagus. - Spurting gastric ulcers with a visible vessel. Treated with a monopolar probe. - A single bleeding angiodysplastic lesion in the stomach. Treated with a heater probe. - No gross lesions in the first portion of the duodenum. - No specimens collected. [facility] Medical History Loss of hearing Wears glasses Anxiety Diabetes Bladder disease High cholesterol Anemia History of ulceration GERD (gastroesophageal reflux disease) Non-smoker History of echocardiogram Cardiology follow-up encounter Neurogenic bladder Type 2 diabetes mellitus without complication Pulmonic stenosis Iron deficiency anemia VSD (ventricular septal defect) [place] syndrome Migraines Home Medications ???Medication ???Instructions ???Recorded ???Last Taken ???Type loratadine 10 mg tablet (Claritin) 10 mg PO DAILY PRN SEASONAL 02/14/23 02/14/23 History ALLERGIES metformin 500 mg tablet,extended 500 mg PO QHS diabetes 02/14/23 10/07/24 History release 24 hr atorvastatin 40 mg tablet 20 mg PO DAILY 07/01/24 10/07/24 History sumatriptan succinate 100 mg tablet See Rx Instructions PO .COMPLEX 07/15/24 Unknown History pantoprazole 40 mg tablet,delayed 40 mg PO BID 30 days #60 tabs 08/01/24 10/07/24 Rx release amitriptyline 50 mg tablet 50 mg PO QHS 10/04/24 10/07/24 History Allergy/AdvReac Type Severity Reaction Status Date / Time Sulfa (Sulfonamide AdvReac PT UNSURE Verified 10/08/24 10:59 Antibiotics) OF REACTION Family History Father Heart disease CVA (cerebral vascular accident) Hypertension Dementia Mother Diabetes Sister Diabetes Fibromyalgia Other Alzheimer's dementia Breast cancer Colon cancer Surgical History Hx of colonoscopy History of esophagogastroduodenoscopy (EGD) History of cardiac catheterization History of colonoscopy History of excision of pilonidal cyst ( 2004) Social History household members: family housing: house pets and animals: Yes Smoking Status: Never smoker alcohol intake: never substance use type: does not use caffeine: Yes Vital Signs Vital Signs Vital Signs: 10/08/24 11:00 10/08/24 11:00 10/08/24 11:23 Temperature 97.6 F L 97.6 F L Temperature Source Temporal Pulse Rate 85 85 Respiratory Rate 16 16 Respiratory Pattern Normal Blood Pressure 130/75 H 130/75 H Blood Pressure Mean 93 Blood Pressure Source Monitor Blood Pressure Position Semi-Fowlers Blood (more content not included)...[facility]10[facility]2023 Procedure [facility]10-16-2023 Procedure [facility]10-16-2023 Procedure [facility]04-27-2023 Procedure [facility]04-27-2023 Procedure [facility]04-27-2023 Procedure [facility]04-27-2023 Procedure [facility]04-27-[address] [facility] February 16, 2023 9:04am Note Date/Time February 16, 2023 9:0 4am [facility] Medical Records Department [address] [place] [address] Progress Note - Hospitalist 02/16/23900 MR#: [id number] Acct: [id number] Name: SOPHIA LEBRON Rep #:[id number] : 1980 42 From: Charly bailey MD PCP: Dr. Debbi Ritter MD Status:ADM IN Location: [facility] [id number] Subjective Subjective Doing well, no issues overnight. No chest pain Objective Data Objective Data Vital Signs: Vital Signs Temp Pulse Resp BP Pulse Ox O2 Del Method 98.8 F 74 15 132/72 H 96 Room Air 02/16/23 03:00 02/16/23 03:00 02/16/23 03:00 02/16/23 03:00 02/16/23 07:14 02/16/23 07:14 Oxygen Delivery Method Room Air Weight: 177 lb 14.609 oz Body Mass Index (BMI) 34.7 Intake & Output: Intake and Output for Last 24 Hours 02/15/23 02/16/23 02/17/23 03:59 03:59 03:59 Intake Total 985 / 985 5028.0 / 5028.0 1073.34 / 1073.34 Balance 985 / 985 5028.0 / 5028.0 1073.34 / 1073.34 Lab / Micro Data Result Diagrams: 02/16/23 05:15 02/16/23 05:15 Labs: Laboratory Results - last 24 hr 02/14/23 16:20: Blood Type O POSITIVE, Antibody Screen NEGATIVE, Crossmatch See Detail 02/15/23 09:15: Hgb 6.4 L, Hct 22.6 L 02/15/23 09:15: ESR 5 02/15/23 09:15: C-React Prot Ext Range 5.34 H, Folate 14.30 02/15/23 09:15: Vitamin B12 631 02/15/23 09:15: Troponin I High Sens 5 02/15/23 20:28: Hgb 9.5 L, Hct 31.6 L 02/16/23 05:15: WBC 8.0, RBC 3.40 L, Hgb 9.2 L, Hct 29.8 L, MCV 87.6 D, MCH 27.1, MCHC 30.9 L D, RDW Std Deviation 57.6 H, RDW Coeff of Dana 18.1 H, Plt Count 268, MPV 10.8, Immature Gran % (Auto) 0.600, Neut % (Auto) 65.6, Lymph % (Auto) 22.0, [place] % (Auto) 7.9, Eos % (Auto) 3.4, Baso % (Auto) 0.5, Absolute Neuts (auto) 5.2, Absolute Lymphs (auto) 1.75, Nucleated RBC % 0.3 02/16/23 05:15: Sodium 139, Potassium 3.6, Chloride 111 H, Carbon Dioxide 25.0, Anion Gap 3 L, BUN 7, Creatinine 0.81, Estim Creat Clear Calc 63.66, Est GFR (MDRD) Af Amer 99, Est GFR (MDRD) Non-Af 82, BUN/Creatinine Ratio 8.7 L, [id number], Calcium 8.2 L Micro: Microbiology 02/14/23 15:39 Stool Stool Occult Blood (LEX) - Final Occult Blood Positive Physical Exam Narrative General: Alert, Oriented x3, Cooperative, No apparent distress HEENT: Atraumatic, PERRLA, EOMI, Normocephalic Oral: Moist Mucosa Neck: Supple, No JVD Lungs: Diminished, Normal air movement, No rhonchi, No wheeze, No rales Cardiovascular: Regular rate, Regular Rhythm, Normal S1, Normal S2, No murmurs Abdomen: Soft, Non Tender, Non-Distended, No Hepato-splenomegaly Extremities: No edema, Capillary Refill Less than 3 Seconds Skin: No rashes, No breakdown Musculoskeletal: No Tenderness to Palpation of Joints or Extremities Neurological: Cranial nerves II-XII grossly intact, Motor Exam 5/5 strength throughout, Sensory exam intact to light touch and pain Psych/Mental Status: Normal Affect, Appropriate Assessment & Plan Assessment/Plan (1) ABLA (acute blood loss anemia): (2) GI bleed: PLAN: Plan 1. Acute blood loss anemia from likely GI bleed ? Plan was for EGD yesterday however this was canceled because of her anemia below 7 despite the appropriateness of intervention by EGD to fix the bleeding there was report of ST changes which are not evident on the EKG prior, troponin was normal and she continues to deny any chest pain. No further cardiac work-upat this time is indicated and EGD should proceed as planned ? Continue with PPI ? She transfused 2 unit and overcorrected to 9 indicating at the 6.4 yesterday that held up EGD was falsely low ? Appreciate GIs assistance, will continue with gentamicin and Vanc ? She did receive an iron infusion yesterday 2. DM2 ? Continue with sliding scale insulin when she is able to take p.o. ? Hold metformin ? A1c is improved to 5.3 ? We will make adjustments to her blood sugar interventions as necessary DVT: SCDs Charges/Coding Visit Charges Inpatient E&M: 56615 Subs Hosp L2 02/16/23 0904 <Electronically signed by Charly Diaz MD> Cosigner Signature (if applicable): CC: ~ Signed [facility] Work Phone: 1(530) 845-985904-26-[address] [facility] February 15, 2023 4:22pm Note Date/Time February 15, 2023 4:2 2pm [facility] Medical Records Department [address] [place] [address] Progress Note - Hospitalist 02/15/23 1616 MR#: [id number] Acct: [id number] Name: SOPHIA LEBRON Rep #:[id number] : 1980 42 From: Charly bailey MD PCP: Dr. Debbi Ritter MD Status:ADM IN Location: [place] [address]-1 Subjective Subjective Doing well, no issues overnight. She feels little bit better today she denies any chest pain or shortness of breath. She still is a little bit fatigued from her anemia Objective Data Objective Data Vital Signs: Vital Signs Temp Pulse Resp BP Pulse Ox O2 Del Method 98.0 F 81 18 117/61 98 Room Air 02/15/23 15:56 02/15/23 15:56 02/15/23 15:56 02/15/23 15:56 02/15/23 15:56 02/15/23 15:56 Oxygen Delivery Method Room Air Weight: 177 lb 14.609 oz Body Mass Index (BMI) 34.7 Intake & Output: Intake and Output for Last 24 Hours 02/14/23 02/15/23 02/16/23 03:59 03:59 03:59 Intake Total 985 / 985 2821.5 / 2821.5 Balance 985 / 985 2821.5 / 2821.5 Lab / Micro Data Result Diagrams: 02/15/23 09:15 02/15/23 02:55 Labs: Laboratory Results - last 24 hr 02/14/23 16:20: Blood Type O POSITIVE, Antibody Screen NEGATIVE, Crossmatch See Detail 02/14/23 17:15: PT 12.7, INR 1.0, APTT 27.8 02/14/23 17:15: Urine Color Yellow, Urine Clarity Clear, Urine pH 6.0, Ur Specific [place]arton 1.015, Urine Protein Negative, Urine Glucose (UA) Normal, UrineKetones Negative, Urine Occult Blood 10 H, Urine Nitrite Negative, Urine Bilirubin Negative, Urine Urobilinogen Normal, Ur Leukocyte Esterase 500 H, Urine RBC 0 SEEN, Urine WBC 0-5 SEEN, Ur Squamous Epith Cells 0-5 SEEN, Urine Bacteria RARE, Urine Mucus 0 SEEN 02/14/23 21:55: Hgb 7.1 L, Hct 24.0 L 02/15/23 02:55: Sodium 137, Potassium 3.8, Chloride 111 H, Carbon Dioxide 22.0, Anion Gap 4 L, BUN 10, Creatinine 0.88, Estim Creat Clear Calc 58.60, Est GFR (MDRD) Af Amer 90, Est GFR (MDRD) Non-Af 74, BUN/Creatinine Ratio 11.4, Glucose 131 H, Calcium 8.6 02/15/23 03:37: WBC 7.8, RBC 2.84 L, Hgb 7.6 L, Hct 26.4 L, MCV 93.0, MCH 26.8 L, MCHC 28.8 L, RDW Std Deviation 54.4 H, RDW Coeff of Dana 15.9 H, Plt Count 271,MPV 11.1, Immature Gran % (Auto) 0.500, Neut % (Auto) 60.9, Lymph % (Auto) 26.3,[place] % (Auto) 10.3 H, Eos % (Auto) 1.5, Baso % (Auto) 0.5, Absolute Neuts (auto)4.7, Absolute Lymphs (auto) 2.05, Nucleated RBC % 0 02/15/23 03:37: Hemoglobin A1c 5.1 02/15/23 09:15: Hgb 6.4 L, Hct 22.6 L 02/15/23 09:15: ESR 5 02/15/23 09:15: C-React Prot Ext Range 5.34 H, Folate 14.30 02/15/23 09:15: Vitamin B12 631 02/15/23 09:15: Troponin I High Sens 5 Micro: Microbiology 02/14/23 15:39 Stool Stool Occult Blood (LEX) - Final Occult Blood Positive Physical Exam Narrative General: Alert, Oriented x3, Cooperative, No apparent distress HEENT: Atraumatic, PERRLA, EOMI, Normocephalic Oral: Moist Mucosa Neck: Supple, No JVD Lungs:?, Normal air movement, No rhonchi, No wheeze, No rales Cardiovascular: Regular rate, Regular Rhythm, Normal S1, Normal S2, No murmurs Abdomen: Soft, Non Tender, Non-Distended, No Hepato-splenomegaly Extremities: No edema, Capillary Refill Less than 3 Seconds Skin: No rashes, No breakdown Musculoskeletal: No Tenderness to Palpation of Joints or Extremities Neurological: Cranial nerves II-XII grossly intact, Motor Exam 5/5 strength throughout, Sensory exam intact to light touch and pain Psych/Mental Status: Normal Affect, Appropriate Assessment & Plan Assessment/Plan (1) ABLA (acute blood loss anemia): (2) GI bleed: PLAN: Plan 1. Acute blood loss anemia from likely GI bleed ? Plan was for EGD today however this was canceled because of her anemia below 7despite the appropriateness of intervention by EGD to fix the bleeding there wasreport of ST changes which are not evident on the EKG prior, troponin was normaland she continues to deny any chest pain. No further cardiac work-up at this time is indicated and EGD should proceed as planned ? Continue with PPI ? Continue with 1 unit PRBCs as she does not have any cardiac history we need tomaintain her only above 7 ? Appreciate GIs assistance, will continue with gentamicin and Vanc ? She did receive an iron infusion yesterday 2. DM2 ? Continue with sliding scale insulin when she is able to take p.o. ? Hold metformin ? A1c is improved to 5.3 ? We will make adjustments to her blood sugar interventions as necessary DVT: SCDs Charges/Coding Visit Charges Inpatient E&M: 69128 Subs Hosp L2 02/15/23 1622 <Electronically signed by Charly Diaz MD> Cosigner Signature (if applicable): CC: ~ [facility]igned [facility] Work Phone: 1(188) 467-514504-26-2023 Consult note Author [facility] February 15, 2023 8:08am Note Date/Time February 15, 2023 8:0 2am [facility] Medical Records Department [address] [place] [address] Consultation - GI 02/15/23 0801 MR#: [id number] Acct: [id number] Name: SOPHIA LEBRON Rep #:[id number] : 1980 42 From: Anthony Dolan DO PCP: Dr. Debbi Ritter MD Status:ADM IN [facility] HPI Consult Data Date of Consult: 02/14/23 HPI Narrative Reason for Consultation: Anemia HPI Narrative: SOPHIA LEBRON, is a 42 F who presents for the evaluation of anemia. Patient sent in by primary care physician secondary to anemia.? She was recently diagnosed with diabetes and has an appointment to be seen by her doctor next week.? Yesterday she had some labs drawn in preparation for her upcoming appointment.? She was noted to be anemic with a hemoglobin of 7.2.? Last hemoglobin was in the 12 range in October of this year.? CBC was redrawn this morning and confirms hemoglobin of 7.1. Patient does report intermittent dark stools or bloody stools over the past couple of months.? No significant abdominal pain.? She does report feeling lightheaded and dizzy over the past 2 weeks. Also patient reports that in the past 2 days she noticed dark stools and a spot of blood.? She reports lightheadedness for the past 2 weeks. She reports fatigue.? She denies anorexia. Emergency department doctor reports guaiac positive exams on rectal examination. In regard to patient's VSD she reports that she is growing out of it and follow- up examination shows that the VSD is closing up.? She reported that her last symptoms in regard to the VSD was when she was a kid. [facility] Medical History Diabetes Migraines Ksenia syndrome VSD (ventricular septal defect) Home Medications loratadine 10 mg tablet (Claritin) 10 mg PO DAILY PRN SEASONAL ALLERGIES 02/14/23 [History Last Taken 02/14/23] metformin 500 mg tablet,extended release 24 hr 500 mg PO QPM diabetes 02/14/23 [History Last Taken 02/13/23] multivitamin 1 tab PO DAILY health maintenance 02/14/23 [History Last Taken 02/14/23] pantoprazole 40 mg tablet,delayed release 40 mg PO DAILY acid reflux 02/14/23 [History Last Taken Unknown] sumatriptan succinate 25 mg tablet 25 mg PO DAILY PRN Migraine Headache 02/14/23[History Last Taken 2 Days Ago ~02/12/23] Allergy/AdvReac Type Severity Reaction Status Date / Time Sulfa (Sulfonamide AdvReac PT UNSURE Verified 02/14/23 15:03 Antibiotics) OF REACTION Family History Other Alzheimer's dementia Breast cancer Colon cancer Diabetes Surgical History History of excision of pilonidal cyst Social History Smoking Status: Never smoker ROS ROS Narrative Pertinent positives and pertinent negatives as noted in HPI. All other systems were reviewed and are negative Physical Exam Narrative Physical exam: General: Well-nourished, well-developed. Head: Normocephalic, atraumatic, no tenderness Eyes: Vision is grossly intact. EOMI ENT, no trauma, moist mucous membranes, no rhinorrhea Neck: Nontender, No thyromegaly. CVS: Regular rate and rhythm. S1-S2 present. No murmur, gallop or rub. Respiratory : clear to auscultation bilaterally, chest wall nontender Abdomen: Soft, nontender, nondistended, normal bowel sounds, no masses : Deferred Back: Nontender, no CVA tenderness, no midline spinal tenderness, deformities, step-offs Extremities: Nontender full range of motion, no trauma Skin: Normal color, no trauma, abrasions Neuro: Alert, oriented, cranial nerves II through XII grossly intact. Psychiatry: Normal mood. Normal affect. Not depressed. Not anxious. Lab / Micro Data Result Diagrams: 02/15/23 03:37 02/15/23 02:55 Labs: Laboratory Results - last 24 hr 02/14/23 17:15: PT 12.7, INR 1.0, APTT 27.8 02/14/23 17:15: Urine Color Yellow, Urine Clarity Clear, Urine pH 6.0, Ur Specific Wharton 1.015, Urine Protein Negative, Urine Glucose (UA) Normal, UrineKetones Negative, Urine Occult Blood 10 H, Urine Nitrite Negative, Urine Bilirubin Negative, Urine Urobilinogen Normal, Ur Leukocyte Esterase 500 H, Urine RBC 0 SEEN, Urine WBC 0-5 SEEN, Ur Squamous Epith Cells 0-5 SEEN, Urine Bacteria RARE, Urine Mucus 0 SEEN 02/14/23 21:55: Hgb 7.1 L, Hct 24.0 L 02/15/23 02:55: Sodium 137, Potassium 3.8, Chloride 111 H, Carbon Dioxide 22.0, Anion Gap 4 L, BUN 10, Creatinine 0.88, Estim Creat Clear Calc 58.60, Est GFR (MDRD) Af Amer 90, Est GFR (MDRD) Non-Af 74, BUN/Creatinine Ratio 11.4, Glucose 131 H, Calcium 8.6 02/15/23 03:37: WBC 7.8, RBC 2.84 L, Hgb 7.6 L, Hct 26.4 L, MCV 93.0, MCH 26.8 L, MCHC 28.8 L, RDW Std Deviation 54.4 H, RDW Coeff of Dana 15.9 H, Plt Count 271,MPV 11.1, Immature Gran % (Auto) 0.500, Neut % (Auto) 60.9, Lymph % (Auto) 26.3,[place] % (Auto) 10.3 H, Eos % (Auto) 1.5, Baso % (Auto) 0.5, Absolute Neuts (auto)4.7, Absolute Lymphs (auto) 2.05, Nucleated RBC % 0 02/15/23 03:37: Hemoglobin A1c 5.1 Micro: Microbiology 02/14/23 15:39 Stool Stool Occult Blood (LEX) - Final Occult Blood Positive Assessment & Plan Assessment/Plan (1) ABLA (acute blood loss anemia): (2) GI bleed: PLAN: Plan 42-year-old presents with fatigue and weakness along with some dark stools discovered to have a profound iron deficiency anemia. She has a positive familyhistory of ovarian cancer and colon cancer in her grandfather and aunt respectively. Patient was prescribed Protonix p.o. on the same day of presentation. However she could not get to start the outpatient Protonix p.o. the differential diagnosis does include celiac disease, angiodysplasia, hereditary telangiectasia, neoplasia, gastric antral vascular ectasia. She will undergo an upper and lower endoscopy in order to evaluate upper and lower GI tract. If this test are negative. I discussed with the patient and her sister at the bedside she will need to undergo capsule endoscopy. DVT prophylaxis: SCDs ordered. Charges/Coding Visit Charges Inpatient E&M: 71423 Init Hosp L3 02/15/23 0808 <Electronically signed by Anthony Friend DO> Cosigner Signature (if applicable): CC: Dr. Debbi Ritter MD; Dr. Jean-Pierre Antonio MD~ Signed [facility] Work Phone: 1(952) 274-281004-26-[address] [facility] February 14, 2023 11:41pm Note Date/Time February 14, 2023 3:5 3pm [facility] Medical Records Department [address] [place] [address] Emergency Department Summary 02/14/23 MR#: [id number] Acct: [id number] Name: SOPHIA LEBRON Rep #:[id number] : 1980 42 From: Kelley Farmer MD PCP: Dr. Debbi Ritter MD Status:ADM IN Location: [facility] [id number] HPI History of Present Illness Chief Complaint: Abn Labs Detail of Chief Complaint: Anemia Informant: patient and parent Narrative Narrative: Patient sent in by primary care physician secondary to anemia. She was recentlydiagnosed with diabetes and has an appointment to be seen by her doctor next week. Yesterday she had some labs drawn in preparation for her upcoming appointment. She was noted to be anemic with a hemoglobin of 7.2. Last hemoglobin was in the 12 range in October of this year. CBC was redrawn this morning and confirms hemoglobin of 7.1. Patient does report intermittent dark stools or bloody stools over the past couple of months. No significant abdominal pain. She does report feeling lightheaded and dizzy over the past 2 weeks. [facility] Medical History Diabetes Migraines Ksenia syndrome VSD (ventricular septal defect) Allergy/AdvReac Type Severity Reaction Status Date / Time Sulfa (Sulfonamide AdvReac PT UNSURE Verified 02/14/23 15:03 Antibiotics) OF REACTION Social History Smoking Status: Never smoker ROS ROS ED Constitutional Constitutional ED: Denies chills or fever(s) Eyes Eyes: Denies change in vision or discharge from eye(s) ENT ENT ED: Denies discharge from eye(s), rhinorrhea or sore throat Cardiovascular Cardiovascular: Denies chest pain or palpitations Respiratory/Chest Respiratory/Chest: Denies cough or dyspnea Gastrointestinal Gastrointestinal: Reports melena and nausea; Denies abdominal pain, diarrhea or vomiting Genitourinary Genitourinary ED: Denies dysuria Musculoskeletal Musculoskeletal: Denies back pain or extremity pain Integumentary Denies Abrasions or rash Neurologic Neurologic: Reports weakness; Denies headache(s) Psychiatric Psychiatric: Denies anxiety or depression Allergic/Immunologic Allergic/Immunologic ED: Denies lip swelling or urticaria EXAM Physical Exam Const Vital Signs: 02/14/23 15:02 02/14/23 15:41 02/14/23 15:43 Temperature 98 F Temperature Source Temporal Pulse Rate 109 H 97 Respiratory Rate 16 13 Respiratory Effort Normal Non-Labored Respiratory Pattern Normal Blood Pressure 144/99 H 130/83 H Blood Pressure Mean 114 98 Pulse Ox 99 97 Oxygen Delivery Method Room Air Room Air 02/14/23 17:14 Temperature Temperature Source Pulse Rate 91 Respiratory Rate 14 Respiratory Effort Respiratory Pattern Blood Pressure 123/57 H Blood Pressure Mean 79 Pulse Ox 98 Oxygen Delivery Method Room Air Positive well nourished and well developed General Appearance ED: well developed HEENT Reports normocephalic and head/scalp atraumatic Eyes PERRL and EOMs intact bilaterally Neck supple Chest Wall inspection of chest normal and palpation of chest normal Resp normal respiratory effort and clear to auscultation bilaterally Cardio regular rate and regular rhythm GI normal to inspection, nondistended, normoactive bowel sounds GI Narrative: Rectal examination performed with brown-colored stool noted on gloved finger. No obvious hemorrhoids or source of bleeding noted Palpation: soft Back/Spine no CVA tenderness Extremity normal to inspection Neuro oriented x3 and no sensory deficits noted Sensorium / Orientation: alert Motor Exam: strength 5/5 throughout Psych mental status grossly normal Skin no rashes or lesions noted MDM MDM MDM Narrative Medical decision making narrative: Patient CBC from earlier today is reviewed. Hemoglobin is 7.1 and hematocrit is24.4. Platelet count is normal at 339,000. Coags are obtained. Microscopic urine from earlier today appears to show possible infection so full urinalysis is obtained. Stool guaiac obtained. Given the patient's recent dizziness she was placed on surveillance system monitor and EKG was obtained. Lab Data Attestation: I reviewed the patient's lab results. Labs: Laboratory Results - last 24 hr 02/14/23 02/14/23 17:15 17:15 PT 12.7 INR 1.0 APTT 27.8 Urine Color Yellow Urine Clarity Clear Urine pH 6.0 Ur Specific Wharton 1.015 Urine Protein Negative Urine Glucose (UA) Normal Urine Ketones Negative Urine Occult Blood 10 H Urine Nitrite Negative Urine Bilirubin Negative Urine Urobilinogen Normal Ur Leukocyte Esterase 500 H Urine RBC 0 SEEN Urine WBC 0-5 SEEN Ur Squamous Epith Cells 0-5 SEEN Urine Bacteria RARE Urine Mucus 0 SEEN EKG Initial EKG: Attestation: I personally reviewed and interpreted this EKG as follows: Interpretation: Sinus Rhythm (Sinus at 92 with anterior lateral minimal STdepression of 1/2 to 1 mm. No prior studies available for comparison.) Treatment and Re-Evaluation :: Stool guaiac test returned positive. Coags are unremarkable. Full urinalysis reveals no evidence of infection. I spoke with Dr. Dolan, on-call for GI. Patient's hemoglobin is 7.1 with no significant history of coronary artery disease. Her vital signs are stable. Rani recommend she come into the hospital for monitoring of her hemoglobin and scope. I will speak with the hospitalist. Discharge Plan Triage Chief Complaint: Abn Labs ED Provider: Kelley Farmer Dx/Rx/DC Orders Clinical Impression: GI bleed, Anemia Primary Care Provider: Debbi Ritter Referrals: Debbi Ritter MD [Primary Care Provider] - Disposition Disposition: Acute Care Hospital [facility] What to do if you have Problems For any increased pain, shortness of breath, bleeding, nausea or vomiting, chestpain, or any unexpected problems, contact your Primary Care Provider. Call [facility] ([phone]) or report to the closest Emergency Room. Call 911 if necessary. 02/14/23 2341 <Electronically signed by Kelley Farmer MD> Cosigner Signature (if applicable): CC: Dr. Debbi Ritter MD ~ Signed [facility] Work Phone: 1(595) 659-542004-25-2023 History and physical note Author Dr[facility] February 14, 2023 8:02pm Note Date/Time February 14, 2023 7:3 1pm [facility] Medical Records Department [address] [place] [address] H&P Exam - Hospitalist 02/14/231930 MR#: [id number] Acct: [id number] Name: SOPHIA LEBRON Rep #:[id number] : 1980 42 From: Jean-Pierre Antonio MD PCP: Dr. Debbi Ritter MD Status:REG ER Location: ED HPI - General General Date of Admission: 02/14/23 Date of Service: 02/14/23 Chief Complaint: Low hemoglobin on outpatient lab HPI Narrative SOPHIA LEBRON, is a 42 F with a significant history of diabetes mellitus; [place] syndrome and VSD who presents to the emergency department with low hemoglobin on outpatient lab. Patient was recently diagnosed with diabetes mellitus and was started on metformin. Because of upcoming follow-up doctor visits on her diabetes patient was requested to get some lab work done ahead of her visit. The lab work showedlow hemoglobin of 7.2. However in October this year her hemoglobin was 12.9. With patient's hemoglobin of 7.2 she was made to repeat the hemoglobin and the repeat hemoglobin turned out to be 7.1. Because of persistent low hemoglobin she was sent to emergency department for further evaluation and treatment. Also patient reports that in the past 2 days she noticed dark stools and a spot of blood. She reports lightheadedness for the past 2 weeks. She reports fatigue. She denies anorexia. Emergency department, discussed the case with gastroenterology who recommended that patient stays at the hospital for further evaluation and treatment. Emergency department doctor reports guaiac positive exams on rectal examination. In regard to patient's VSD she reports that she is growing out of it and follow- up examination shows that the VSD is closing up. She reported that her last symptoms in regard to the VSD was when she was a kid. [facility] Medical History Diabetes Migraines Ksenia syndrome VSD (ventricular septal defect) Home Medications loratadine 10 mg tablet (Claritin) 10 mg PO DAILY PRN SEASONAL ALLERGIES 02/14/23 [History Last Taken 02/14/23] metformin 500 mg tablet,extended release 24 hr 500 mg PO QPM diabetes 02/14/23 [History Last Taken 02/13/23] multivitamin 1 tab PO DAILY health maintenance 02/14/23 [History Last Taken 02/14/23] pantoprazole 40 mg tablet,delayed release 40 mg PO DAILY acid reflux 02/14/23 [History Last Taken Unknown] sumatriptan succinate 25 mg tablet 25 mg PO DAILY PRN Migraine Headache 02/14/23[History Last Taken 2 Days Ago ~02/12/23] Allergy/AdvReac Type Severity Reaction Status Date / Time Sulfa (Sulfonamide AdvReac PT UNSURE Verified 02/14/23 15:03 Antibiotics) OF REACTION Family History Other Alzheimer's dementia Breast cancer Colon cancer Diabetes Surgical History History of excision of pilonidal cyst Social History Smoking Status: Never smoker ROS ROS Narrative Pertinent positives and pertinent negatives as noted in HPI. All other systems were reviewed and are negative Vital Signs Vital Signs Vital Signs: 02/14/23 15:02 02/14/23 15:41 02/14/23 15:43 Temperature 98 F Temperature Source Temporal Pulse Rate 109 H 97 Respiratory Rate 16 13 Respiratory Effort Normal Non-Labored Respiratory Pattern Normal Blood Pressure 144/99 H 130/83 H Blood Pressure Mean 114 98 Pulse Ox 99 97 Oxygen Delivery Method Room Air Room Air 02/14/23 17:14 02/14/23 19:05 Temperature Temperature Source Pulse Rate 91 84 Respiratory Rate 14 14 Respiratory Effort Respiratory Pattern Blood Pressure 123/57 H 112/73 Blood Pressure Mean 79 86 Pulse Ox 98 99 Oxygen Delivery Method Room Air Room Air Weight Weight: 81.335 kg Body Mass Index (BMI) 35.0 Physical Exam Narrative Physical exam: General: Well-nourished, well-developed. Head: Normocephalic, atraumatic, no tenderness Eyes: Vision is grossly intact. EOMI ENT, no trauma, moist mucous membranes, no rhinorrhea Neck: Nontender, No thyromegaly. CVS: Regular rate and rhythm. S1-S2 present. No murmur, gallop or rub. Respiratory : clear to auscultation bilaterally, chest wall nontender Abdomen: Soft, nontender, nondistended, normal bowel sounds, no masses : Deferred Back: Nontender, no CVA tenderness, no midline spinal tenderness, deformities, step-offs Extremities: Nontender full range of motion, no trauma Skin: Normal color, no trauma, abrasions Neuro: Alert, oriented, cranial nerves II through XII grossly intact. Psychiatry: Normal mood. Normal affect. Not depressed. Not anxious. Results Lab / Micro Data Labs: Laboratory Results - last 24 hr 02/14/23 17:15: PT 12.7, INR 1.0, APTT 27.8 02/14/23 17:15: Urine Color Yellow, Urine Clarity Clear, Urine pH 6.0, Ur Specific Wharton 1.015, Urine Protein Negative, Urine Glucose (UA) Normal, UrineKetones Negative, Urine Occult Blood 10 H, Urine Nitrite Negative, Urine Bilirubin Negative, Urine Urobilinogen Normal, Ur Leukocyte Esterase 500 H, Urine RBC 0 SEEN, Urine WBC 0-5 SEEN, Ur Squamous Epith Cells 0-5 SEEN, Urine Bacteria RARE, Urine Mucus 0 SEEN Micro: Microbiology 02/14/23 15:39 Stool Stool Occult Blood (LEX) - Final Occult Blood Positive Assessment & Plan Assessment/Plan (1) ABLA (acute blood loss anemia): (2) GI bleed: PLAN: Plan Acute blood loss anemia Patient with lightheadedness, fatigue, BUN is stable. Of note BUN on the same day of presentation was 16. BUN on 10/26/2022 was 17. With dark stools upper GI bleed is more probable. However cannot rule out lower GI bleed. Patient was prescribed Protonix p.o. on the same day of presentation. However she could not get to start the outpatient Protonix p.o. Protonix bolus and drip ordered at the emergency department. Protonix drip continued inpatient. Normal saline hydration of 150 MLS per hour. Admit to monitored bed on [facility] Hemoglobin on the day before presentation was 7.2. Hemoglobin on the day of presentation was 7.1. Hemoglobin on 10/26/2022 was 12.9. H&H every 6 hours Review of outpatient iron panel a day before presentation gives a picture of iron deficiency anemia. Will order one-time dose of iron sucrose IV No anticoagulants for DVT prophylaxis SCD Bowel prep with Dulcolax and GoLytely ordered. Clear liquid diet on the day of presentation and n.p.o. after midnight. Gastroenterology consulted. Diabetes mellitus Review of labs shows that her hemoglobin A1c on 10/26/2022 was 6.9. Her hemoglobin A1c on 02/13/2023 is 5.3. Patient is doing well on home metformin therapy. We will hold antidiabetic medication in the setting of clear liquids and n.p.o. after midnight. Blood glucose on BMP on day of presentation is stable. BMP in AM. DVT prophylaxis: SCDs ordered. Charges/Coding Visit Charges Inpatient E&M: 73986 Init Hosp L3 02/14/232001 <Electronically signed by Jean-Pierre Antonio MD> Cosigner Signature (if applicable): CC: Dr. Debbi Ritter MD; Dr. Jean-Pierre Antonio MD~ Signed [facility] Work Phone: Consult note Author [facility] Note Date/Time January 21, 2025 1:50 pm [facility] Medical Records Department [address] [place] [address] Anesthesia Postop Eval I 01/21/25 1350 MR#: [id number] Acct: [id number] Name: VISOPHIA E Rep #:[id number] : 1980 44 From: Albania Bah CRNA PCP: Dr. Debbi Ritter MD Status:REG SDC Y Race: C Location: [place] [address] Anesthesia: Postop Eval I Current Vital Signs Temperature: 97 F Pulse Rate: 90 Blood Pressure: 95/58 Respiratory Rate: 14 Pulse Ox: 98 Oxygen Delivery Method: Room Air Assessment Airway patent: Yes Spontaneous unlabored respirations: Yes Mental status: Awake nausea: No Vomiting: No Anesthesia Complication: No Fluid Hydration Crystalloid volume administer (ml): 10 Total IV fluid infused: 10 Progress Note Anesthesia document: Postop Eval 1 completed: Yes 01/21/25 1350 <Electronically signed by Albania Bah CR NA> Date _ Albania Bah CRNA Cosigner Signature: Date CC: ~ Signed [facility] Work Phone: Discharge summary Author [facility] February 16, 2023 3:18pm Note Date/Time February 16, 2023 3:1 4pm [facility] Medical Records Department [address] [place] [address] Instructions for Home/Discharge Instructions 02/16/23 1513 MR#: [id number] Acct: [id number] Name: SOPHIA LEBRON Rep #:[id number] : 1980 42 From: Charly bailey MD PCP: Dr. Debbi Ritter MD Status:ADM IN Discharge Instructions Diet Discharge Diet: Carb Control Diet Activity Discharge Activity: Return to Normal Activity Dressing / Incision Call your doctor if you observe: Fever of 101 or Higher, Shortness of breath, Dizziness, Fainting spells, Swelling in the ankles, Chest pain and Increased palpitations (irregular heartbeat) Follow Up Care Test Results: Test results from this visit will be discussed in further detail at your follow- up appointment, if applicable. Discharge Plan Admission Admit Date/Time: 02/14/23 19:12 Attending Provider: Charly Diaz Primary Care Provider: Debbi Ritter Consulting Providers: Jean-Pierre Antonio Instructions Additional Instructions / Restrictions: Follow-up with your PCP in 3 to 5 days to obtain outpatient lab work to monitor your hemoglobin Discharge Orders/Prescriptions Prescriptions: New sucralfate 1 gram Tablet 1 g PO 1HR_ACHS 30 Days Qty: 90 0RF Continued metformin 500 mg tablet extended release 24 hr 500 mg PO QPM Label Comments: take 1 tablet by mouth every evening multivitamin Tablet 1 tab PO DAILY sumatriptan succinate 25 mg tablet 25 mg PO DAILY PRN (Reason: Migraine Headache) Label Comments: take 1 tablet by mouth if needed AT ONSET OF HEADACHE may repeat in 2 hours if needed loratadine [Claritin] 10 mg Tablet 10 mg PO DAILY PRN (Reason: SEASONAL ALLERGIES) Changed pantoprazole 40 mg tablet,delayed release (DR/EC) 40 mg PO BID 60 Days Qty: 120 0RF Referrals / Follow Up: Debbi Ritter MD [Primary Care Provider] - Within 1 Week FriendAnthony DO [Med Staff - Active Staff] - Within 1 Month Disposition Disposition (needs filled in before D/C Order can be placed): Home, Self Care 02/16/231517<Electronically signed by Charly Diaz MD>Charly Diaz MD CC: Dr. Debbi Ritter MD; Dr. Jean-Pierre Antonio MD ~ Signed [facility] Work Phone: Discharge summary Author [facility] February 16, 2023 3:24pm Note Date/Time February 16, 2023 3:2 4pm [facility] Medical Records Department [address] [place] [address] Discharge Summary 02/16/231517 MR#: [id number] Acct: [id number] Name: SOPHIA LEBRON Rep #:[id number] : 1980 42 From: Charly bailey MD PCP: Dr. Debbi Ritter MD Status:ADM IN [id number] Providers Date of Admission: 02/14/23 Primary Care Physician: Dr. Debbi Ritter MD Consultations 02/14/23 20:55 Consult: Gastroenterology Routine Consulting Provider: Sergio G[facility] Reason for Consult: ABLA EMERGENT Consult: No MD Notified: Yes Date Notified: 02/14/23 Time Notified: 19:26 Method of Notification: Text Reason For Visit: ABLA Diagnosis Discharge Diagnosis (1) ABLA (acute blood loss anemia): Status: Acute Code(s): D62 - Acute posthemorrhagic anemia (2) GI bleed: Status: Acute Code(s): K92.2 - Gastrointestinal hemorrhage, unspecified Medications at Discharge Home Medications loratadine 10 mg tablet (Claritin) 10 mg PO DAILY PRN SEASONAL ALLERGIES 02/14/23 metformin 500 mg tablet,extended release 24 hr 500 mg PO QPM diabetes 02/14/23 multivitamin 1 tab PO DAILY health maintenance 02/14/23 sumatriptan succinate 25 mg tablet 25 mg PO DAILY PRN Migraine Headache 02/14/23 pantoprazole 40 mg tablet,delayed release 40 mg PO BID acid reflux 60 days #120 tabs 02/16/23 sucralfate 1 gram tablet 1 g PO 1HR_ACHS 30 days #90 tabs 02/16/23 Hospital Course Operations None Procedures Colonoscopy and EGD Summary of Care Provided Minutes Spent on Discharge: 35 Hospital Course: Per HPI: SOPHIA LEBRON, is a 42 F with a significant history of diabetes mellitus; Ksenia syndrome and VSD who presents to the emergency department with low hemoglobin on outpatient lab. Patient was recently diagnosed with diabetes mellitus and was started on metformin.? Because of upcoming follow-up doctor visits on her diabetes patient was requested to get some lab work done ahead of her visit.? The lab work showed low hemoglobin of 7.2.? However in October this year her hemoglobin was 12.9.?With patient's hemoglobin of 7.2 she was made to repeat the hemoglobin and the repeat hemoglobin turned out to be 7.1.? Because of persistent low hemoglobin she was sent to emergency department for further evaluation and treatment. Also patient reports that in the past 2 days she noticed dark stools and a spot of blood.? She reports lightheadedness for the past 2 weeks. She reports fatigue.? She denies anorexia. Emergency department, discussed the case with gastroenterology who recommended that patient stays at the hospital for further evaluation and treatment.?Emergency department doctor reports guaiacpositive exams on rectal examination. In regard to patient's VSD she reports that she is growing out of it and follow- up examination shows that the VSD is closing up.? She reported that her last symptoms in regard to the VSD was when she was a kid. Hospital Course: 1. Acute blood loss anemia from upper GI bleed ? Plan was for EGD yesterday however this was canceled because of her anemia below 7 despite the appropriateness of intervention by EGD to fix the bleeding there was report of ST changes which are not evident on the EKG prior, troponin was normal and she continues to deny any chest pain. No further cardiac work-upat this time is indicated ? Continue with PPI ? She transfused 2 unit and overcorrected to 9.5 indicating that the 6.4 yesterday that held up EGD was falsely low ? Appreciate GIs assistance, will continue with gentamicin and Vanc ? She did receive an iron infusion during her stay ? EGD demonstrated a gastric ulcer or that was oozing with a visible vessel thiswas treated with heater probe and injection. We will plan on Carafate for the next 8 weeks as well as twice daily Protonix for the next 8 weeks. She did havea colonoscopy that showed 2 polyps that were removed however prep was poor so she needs a follow-up with gastroenterology in the next 4 months to have a repeat colonoscopy. I discussed with her and her family the plan for possible discharge today they expressed understanding the risk benefits of going home andwould like to go home today. They did state that she does tend to take a decentamount of Advil per month due to headaches I discussed with the risks of taking Advil in the setting of her GI bleeding and expressed understanding and will find alternative methods to controlling and treating the headaches 2. DM2 ? Continue with sliding scale insulin when she is able to take p.o. ? Can resume metformin on discharge ? A1c is improved to 5.3 ? We will make adjustments to her blood sugar interventions as necessary Weight / BMI Weight Weight: 177 lb 14.609 oz Body Mass Index (BMI) 34.7 ABG / Lab / Microbiology Data Result Diagrams: 02/16/23 05:15 02/16/23 05:15 Laboratory: Laboratory Results - last 24 hr 02/14/23 16:20: Blood Type O POSITIVE, Antibody Screen NEGATIVE, Crossmatch See Detail 02/15/23 09:15: BRE-1 Antibody <0.2, SS-A/Ro IgG Antibody < 0.2, SS-B/La IgG Antibody < 0.2, Sm (Funes) Antibody <0.2, GOLF CADDIE Antibody <0.2, Scl-70 Scleroderma Ab <0.2, Double Strand DNA Ab 1, Centromere B Antibody <0.2 02/15/23 09:15: Vitamin B12 631 02/15/23 20:28: Hgb 9.5 L, Hct 31.6 L 02/16/23 05:15: WBC 8.0, RBC 3.40 L, Hgb 9.2 L, Hct 29.8 L, MCV 87.6 D, MCH 27.1, MCHC 30.9 L D, RDW Std Deviation 57.6 H, RDW Coeff of Dana 18.1 H, Plt Count 268, MPV 10.8, Immature Gran % (Auto) 0.600, Neut % (Auto) 65.6, Lymph % (Auto) 22.0, [place] % (Auto) 7.9, Eos % (Auto) 3.4, Baso % (Auto) 0.5, Absolute Neuts (auto) 5.2, Absolute Lymphs (auto) 1.75, Nucleated RBC % 0.3 02/16/23 05:15: Sodium 139, Potassium 3.6, Chloride 111 H, Carbon Dioxide 25.0, Anion Gap 3 L, BUN 7, Creatinine 0.81, Estim Creat Clear Calc 63.66, Est GFR (MDRD) Af Amer 99, Est GFR (MDRD) Non-Af 82, BUN/Creatinine Ratio 8.7 L, [id number], Calcium 8.2 L 02/16/23 09:25: Urine Test Negative 02/16/23 10:16: APTT 29.9 Microbiology: Microbiology 02/14/23 15:39 Stool Stool Occult Blood (LEX) - Final Occult Blood Positive D/C Instructions Discharge Diet: Carb Control Diet Call your doctor if you observe: Fever of 101 or Higher, Shortness of breath, Dizziness, Fainting spells, Swelling in the ankles, Chest pain and Increased palpitations (irregular heartbeat) Meaningful Use Info Meaningful Use Diagnoses (Choose all that apply): None applicable Discharge Plan Admission Admit Date/Time: 02/14/23 19:12 Attending Provider: Charly Diaz Primary Care Provider: Debbi Ritter Consulting Providers: Jean-Pierre Antonio Instructions Additional Instructions / Restrictions: Follow-up with your PCP in 3 to 5 days to obtain outpatient lab work to monitor your hemoglobin Discharge Orders/Prescriptions Prescriptions: New sucralfate 1 gram Tablet 1 g PO 1HR_ACHS 30 Days Qty: 90 0RF Continued metformin 500 mg tablet extended release 24 hr 500 mg PO QPM Label Comments: take 1 tablet by mouth every evening multivitamin Tablet 1 tab PO DAILY sumatriptan succinate 25 mg tablet 25 mg PO DAILY PRN (Reason: Migraine Headache) Label Comments: take 1 tablet by mouth if needed AT ONSET OF HEADACHE may repeat in 2 hours if needed loratadine [Claritin] 10 mg Tablet 10 mg PO DAILY PRN (Reason: SEASONAL ALLERGIES) Changed pantoprazole 40 mg tablet,delayed release (DR/EC) 40 mg PO BID 60 Days Qty: 120 0RF Referrals / Follow Up: Debbi Ritter MD [Primary Care Provider] - Within 1 Week FriendAnthony DO [Med Staff - Active Staff] - Within 1 Month Disposition Disposition (needs filled in before D/C Order can be placed): Home, Self Care Charges/Coding Visit Charges Inpatient E&M: 19326 Disch Hosp >30min 02/16/23 1524 <Electronically signed by Charly Diaz MD> Cosigner Signature (if applicable): CC: Dr. Debbi Ritter MD; Dr. Charly Diaz MD~ Signed [facility] Work Phone: Evaluation noteNo assessment information available [facility] Work Phone: Evaluation note* Diagnosis Onset Date Resolution Status ABLA (acute blood loss anemia) acute Anemia acute GI bleed acute [facility] Work Phone: Evaluation note* Diagnosis Onset Date Resolution Status ABLA (acute blood loss anemia) acute GI bleed resolved [facility] Work Phone: Evaluation note* Diagnosis Onset Date Resolution Status ABLA (acute blood loss anemia) acute GI bleed resolved Colon polyps acute Gastric ulcer due to nonster oidal antiinflammatory drug (NSAID) therapy acute Preop cardiovascular exam ac jacquelin Pulmonic stenosis acute VSD (ventricular septal defect) acute [facility] Work Phone: Evaluation note* Diagnosis Onset Date Resolution Status Preop cardiovascular exam ac jacquelin Pulmonic stenosis acute VSD (ventricular septal defect) acute [facility] Work Phone: Evaluation note* Diagnosis Onset Date Resolution Status Colon polyps acute Gastric ulcer due to nonster oidal antiinflammatory drug (NSAID) therapy acute [facility] Work Phone: Evaluation note* Diagnosis Encounter to establish care- Primary Other reasons for seeking consultation Diabetes type II (HCC) 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 Chronic migraine without aura without status migrainosus, not intractable Chronic migraine without aura, without mention of intractable migraine without mention of status migrainosus Neurogenic bladder Neurogenic bladder, NOS Iron deficiency anemia, unspecified iron deficiency anemia type Peptic ulcer disease Peptic ulcer, unspecified site, unspecified as acute or chronic, without mention of hemorrhage, perforation, or obstruction Pulmonary valve stenosis, unspecified etiology VSD (ventricular septal defect) (HCC) Ventricular septal defect Chronic low back pain, unspecified back pain laterality, unspecified whether sciatica present Deafness in right ear Unspecified hearing loss Intellectual disability Unspecified intellectual disabilities Encounter for screening mammogram for malignant neoplasm of breast Other screening mammogram Screening for cervical cancer Screening for malignant neoplasm of the cervix [facility] February 14, 2023 8:02pm Note Date/Time February 14, 2023 7:3 1pm [facility] Medical Records Department [address] [place] [address] H&P Exam - Hospitalist 02/14/23 193 MR#: [id number] Acct: [id number] Name: SOPHIA LEBRON Rep #:[id number] : 1980 42 From: Jean-Pierre Antonio MD PCP: Dr. Debbi Ritter MD Status:REG ER Location: ED HPI - General General Date of Admission: 02/14/23 Date of Service: 02/14/23 Chief Complaint: Low hemoglobin on outpatient lab HPI Narrative SOPHIA LEBRON, is a 42 F with a significant history of diabetes mellitus; [place] syndrome and VSD who presents to the emergency department with low hemoglobin on outpatient lab. Patient was recently diagnosed with diabetes mellitus and was started on metformin. Because of upcoming follow-up doctor visits on her diabetes patient was requested to get some lab work done ahead of her visit. The lab work showedlow hemoglobin of 7.2. However in October this year her hemoglobin was 12.9. With patient's hemoglobin of 7.2 she was made to repeat the hemoglobin and the repeat hemoglobin turned out to be 7.1. Because of persistent low hemoglobin she was sent to emergency department for further evaluation and treatment. Also patient reports that in the past 2 days she noticed dark stools and a spot of blood. She reports lightheadedness for the past 2 weeks. She reports fatigue. She denies anorexia. Emergency department, discussed the case with gastroenterology who recommended that patient stays at the hospital for further evaluation and treatment. Emergency department doctor reports guaiac positive exams on rectal examination. In regard to patient's VSD she reports that she is growing out of it and follow- up examination shows that the VSD is closing up. She reported that her last symptoms in regard to the VSD was when she was a kid. [facility] Medical History Diabetes Migraines [place] syndrome VSD (ventricular septal defect) Home Medications loratadine 10 mg tablet (Claritin) 10 mg PO DAILY PRN SEASONAL ALLERGIES 02/14/23 [History Last Taken 02/14/23] metformin 500 mg tablet,extended release 24 hr 500 mg PO QPM diabetes 02/14/23 [History Last Taken 02/13/23] multivitamin 1 tab PO DAILY health maintenance 02/14/23 [History Last Taken 02/14/23] pantoprazole 40 mg tablet,delayed release 40 mg PO DAILY acid reflux 02/14/23 [History Last Taken Unknown] sumatriptan succinate 25 mg tablet 25 mg PO DAILY PRN Migraine Headache 02/14/23[History Last Taken 2 Days Ago ~02/12/23] Allergy/AdvReac Type Severity Reaction Status Date / Time Sulfa (Sulfonamide AdvReac PT UNSURE Verified 02/14/23 15:03 Antibiotics) OF REACTION Family History Other Alzheimer's dementia Breast cancer Colon cancer Diabetes Surgical History History of excision of pilonidal cyst Social History Smoking Status: Never smoker ROS ROS Narrative Pertinent positives and pertinent negatives as noted in HPI. All other systems were reviewed and are negative Vital Signs Vital Signs Vital Signs: 02/14/23 15:02 02/14/23 15:41 02/14/23 15:43 Temperature 98 F Temperature Source Temporal Pulse Rate 109 H 97 Respiratory Rate 16 13 Respiratory Effort Normal Non-Labored Respiratory Pattern Normal Blood Pressure 144/99 H 130/83 H Blood Pressure Mean 114 98 Pulse Ox 99 97 Oxygen Delivery Method Room Air Room Air 02/14/23 17:14 02/14/23 19:05 Temperature Temperature Source Pulse Rate 91 84 Respiratory Rate 14 14 Respiratory Effort Respiratory Pattern Blood Pressure 123/57 H 112/73 Blood Pressure Mean 79 86 Pulse Ox 98 99 Oxygen Delivery Method Room Air Room Air Weight Weight: 81.335 kg Body Mass Index (BMI) 35.0 Physical Exam Narrative Physical exam: General: Well-nourished, well-developed. Head: Normocephalic, atraumatic, no tenderness Eyes: Vision is grossly intact. EOMI ENT, no trauma, moist mucous membranes, no rhinorrhea Neck: Nontender, No thyromegaly. CVS: Regular rate and rhythm. S1-S2 present. No murmur, gallop or rub. Respiratory : clear to auscultation bilaterally, chest wall nontender Abdomen: Soft, nontender, nondistended, normal bowel sounds, no masses : Deferred Back: Nontender, no CVA tenderness, no midline spinal tenderness, deformities, step-offs Extremities: Nontender full range of motion, no trauma Skin: Normal color, no trauma, abrasions Neuro: Alert, oriented, cranial nerves II through XII grossly intact. Psychiatry: Normal mood. Normal affect. Not depressed. Not anxious. Results Lab / Micro Data Labs: Laboratory Results - last 24 hr 02/14/23 17:15: PT 12.7, INR 1.0, APTT 27.8 02/14/23 17:15: Urine Color Yellow, Urine Clarity Clear, Urine pH 6.0, Ur Specific Wharton 1.015, Urine Protein Negative, Urine Glucose (UA) Normal, UrineKetones Negative, Urine Occult Blood 10 H, Urine Nitrite Negative, Urine Bilirubin Negative, Urine Urobilinogen Normal, Ur Leukocyte Esterase 500 H, Urine RBC 0 SEEN, Urine WBC 0-5 SEEN, Ur Squamous Epith Cells 0-5 SEEN, Urine Bacteria RARE, Urine Mucus 0 SEEN Micro: Microbiology 02/14/23 15:39 Stool Stool Occult Blood (LEX) - Final Occult Blood Positive Assessment & Plan Assessment/Plan (1) ABLA (acute blood loss anemia): (2) GI bleed: PLAN: Plan Acute blood loss anemia Patient with lightheadedness, fatigue, BUN is stable. Of note BUN on the same day of presentation was 16. BUN on 10/26/2022 was 17. With dark stools upper GI bleed is more probable. However cannot rule out lower GI bleed. Patient was prescribed Protonix p.o. on the same day of presentation. However she could not get to start the outpatient Protonix p.o. Protonix bolus and drip ordered at the emergency department. Protonix drip continued inpatient. Normal saline hydration of 150 MLS per hour. Admit to monitored bed on [facility] Hemoglobin on the day before presentation was 7.2. Hemoglobin on the day of presentation was 7.1. Hemoglobin on 10/26/2022 was 12.9. H&H every 6 hours Review of outpatient iron panel a day before presentation gives a picture of iron deficiency anemia. Will order one-time dose of iron sucrose IV No anticoagulants for DVT prophylaxis SCD Bowel prep with Dulcolax and GoLytely ordered. Clear liquid diet on the day of presentation and n.p.o. after midnight. Gastroenterology consulted. Diabetes mellitus Review of labs shows that her hemoglobin A1c on 10/26/2022 was 6.9. Her hemoglobin A1c on 02/13/2023 is 5.3. Patient is doing well on home metformin therapy. We will hold antidiabetic medication in the setting of clear liquids and n.p.o. after midnight. Blood glucose on BMP on day of presentation is stable. BMP in AM. DVT prophylaxis: SCDs ordered. Charges/Coding Visit Charges Inpatient E&M: 41334 Init Hosp L3 02/14/232001 <Electronically signed by Jean-Pierre Antonio MD> Cosigner Signature (if applicable): CC: Dr. Debbi Ritter MD; Dr. Jean-Pierre Antonio MD~ Signed [facility] Work Phone: History and physical note Author [facility] August 07, 2023 6:37am Note Date/Time August 07, 2023 6 :37am [facility] Medical Records Department [address] [place] [address] History & Physical Exam 08/07/23 0637 MR#: [id number] Acct: [id number] Name: SOPHIA LEBRON Rep #:[id number] : 1980 43 From: Anthony Dolan DO PCP: Dr. Debbi Ritter MD Status:[facility] Location: [place] [address] History and Physical Date of Admission: 08/07/23 43 F who presents to the office today for f/u hospitalization 02/14/23-02/16/23 for acute blood loss anemia from upper GI bleed. She is accompanied by her mother. She was admitted via the ED where she had been sent by primary care for hgb of 7.2. EGD demonstrated a 15 mm gastric ulcer that was oozing with a visible vessel which was treated with heater probe and injection.?Bxs revealed chronic gastritis, gastric metaplasia in duodenum, negative H pylori. Being treated with pantoprazole 40 mg bid x 8 wks and sucralfate x 8 wks. Received iron transfusion during hospitalization as well as 2 units of blood. Had colonoscopy but prep was poor so she needs repeat colonoscopy; 2 polyps were removed--hyperplastic. Was taking ibuprofen and naproxen for headaches, no longer taking those. She feels better--no longer has SOB, dizziness, abd pain. No melena or hematochezia. No nausea, vomiting, dysphagia, diarrhea, constipation. ROS Const Constitutional: Positive for headache(s); No fatigue ENT ENT: Positive for headache(s); No difficulty swallowing Gastro GI: No abdominal pain, belching, bloating, change in bowel habits, change in stool character, coffee ground emesis, constipation, cramping, diarrhea, heartburn, difficulty swallowing, feeling full early, excessive flatus, incontinent of stools, Vomiting blood/hematemesis, Blood in stool, loose stools,Black,tarry stools, nausea/dyspepsia, pain with swallowing, vomiting or other Musc Musculoskeletal: Positive for back pain and sciatica; No joint pain Skin Skin: No yellowing of the eye or itchy eyes Neuro Neurology: Positive for headache(s) and tremor(s) Psych Psychiatric: Positive for anxiety and No depression Endo Endocrine: No fatigue Aller/Imm Allergy/Immunologic: No itchy eyes Mo/Lymp Hematologic/Lymphatic: No easy bleeding or easy bruising Exam Const General: cooperative, healthy appearing and comfortable Nutritional Appearance: obese Orientation: alert, awake and oriented x3 Eyes Conjunctivae: conjunctivae normal Sclera: sclerae normal Resp Effort & Inspection: normal respiratory effort GI Inspection: normal to inspection Skin General: no rashes or lesions noted Quality Reporting Tobacco Screening ([facility] 138) Smoking Status: Never smoker Assessment and Plan Assessment and Plan (1) Gastric ulcer due to nonsteroidal antiinflammatory drug (NSAID) therapy: Status: Acute Plan: 43 yo female with recent hospitalization for bleeding gastric ulcer. Due to large size 15 mm of ulcer she needs repeat EGD. Will be done same time as repeatcolonoscopy which is required because of poor prep, 2 small polyps were removed--hyperplastic. Finish 8 wk course of sucralfate, as well as 8 wk course of PPI bid, then continue pantoprazole 40 mg QAM. f/u after endoscopies. Update cbc, iron today. (2) Colon polyps: Status: Acute Plan: see above Orders: Orders CBC W/Diff, Automated Today D62 - Acute posthemorrhagic anemia Iron+Iron Binding Capacity Today D62 - Acute posthemorrhagic anemia Ferritin Today D62 - Acute posthemorrhagic anemia Medications: Changed From pantoprazole 40 mg PO BID 60 days 120 tabs 0RF acid reflux To pantoprazole 40 mg PO QAM 90 tabs 1RF acid reflux I have examined the patient and the H&P has been reviewed. There are no clinicalchanges since date of exam. 08/07/23 0637 <Electronically signed by Anthony Dolan DO> Cosigner Signature (if applicable): CC: Dr. Debbi Ritter MD; Anthony Dolan DO~ Signed [facility] Work Phone: History and physical note Author Anthony D[facility] Note Date/Time January 21, 2025 1:27 pm [facility] Medical Records Department [address] [place] [address] History & Physical Exam 01/21/25 1325 MR#: [id number] Acct: [id number] Name: SOPHIA LEBRON Rep #:[id number] : 1980 44 From: Anthony Dolan DO PCP: Dr. Debbi Ritter MD Status:REG [facility] Location: [place] [address] HPI - General General Date of Admission: 01/21/25 Date of Service: 01/21/25 Chief Complaint: Gastric ulcer HPI Narrative SOPHIA LEBRON, is a 44 F who presents surviallence of gastric ulcer *BGI established 02.14.23-02.16.23 for management of GIB with ABLA and chronic DMII?EGD and colonoscopy 02.16.23?EGD one oozing cratered gastric ulcer, heater probe; duodenitis.? Colonoscopy poor prep; two sessile hyperplastic polyps? OV 04.07.23 as f/u ?Biochemical 04.07.23?CBC (hgb12.3), iron, TIBC, ferritin?EGD and Colonoscopy 08.07.23?EGD irregular Zline; one non- bleeding cratered gastric ulcer, 8mm. HPylori and metaplasia neg? Colonoscopy diverticulosis; 5mm rectal hyperplastic polyp, 15mm descending TA polyp.? ?OV 10.2623 Pt continues to have HB. Is very diligent with her diet. Takes Pantoprazole 40mg QD. Bowels are normal now. Was having constipation previously.No dark or bloddy stools. OV 4..24 Pt reports that she is doing well and has minimal symptoms to report.Pt states that she has occasionally heartburn if she's been running around doinga lot of things. Pt reports that she continues Pantoprazole 40mg. Pt states thatshe has at least 1 formed bm per day with no blood in the stool. OV 07.15.24 Pt was hospitalized in early June 2024 for bleeding gastric ulcer. She underwent EGD with Dr. Dolan. Since her discharge she has been doingwell. She has some weakness and lightheadedness. She denies abdominal; pain, n/v, constipation, diarrhea or melena. She continues to take pantoprazole 40 mg BID and sucralfate. EGD 07.02.24 Normal esophagus. - Spurting gastric ulcers with a visible vessel. Treated with a monopolar probe. - A single bleeding angiodysplastic lesion in the stomach. Treated with a heater probe. - No gross lesions in the first portion of the duodenum. - No specimens collected. [facility] Medical History Loss of hearing Wears glasses Anxiety Diabetes Bladder disease High cholesterol Anemia History of ulceration GERD (gastroesophageal reflux disease) Non-smoker History of echocardiogram Cardiology follow-up encounter Neurogenic bladder Type 2 diabetes mellitus without complication Pulmonic stenosis Iron deficiency anemia VSD (ventricular septal defect) M[place] syndrome Migraines Home Medications ?Medication ?Instructions ?Recorded ?Last Taken ?Type loratadine 10 mg tablet (Claritin) 10 mg PO DAILY PRN SEASONAL 02/14/23 01/20/25 History ALLERGIES metformin 500 mg tablet,extended 500 mg PO QHS diabete s 02/14/23 01/19/25 History release 24 hr atorvastatin 40 mg tablet 20 mg PO DAILY 07/01/2412/23 History sumatriptan succinate 100 mg tablet See Rx Instruction s PO .COMPLEX 07/15/24 01/19/25 History pantoprazole 40 mg tablet,delayed 40 mg PO BID 30 days #60 tabs 08/01/24 01/21/25 07:00 Rx release amitriptyline 50 mg tablet 50 mg PO QHS 10/04/2401/19 History Allergy/AdvReac Type Severity Reaction Status Date / Time Sulfa (Sulfonamide AdvReac PT UNSURE Verified 01/21/25 12:23 Antibiotics) OF REACTION Family History Father Heart disease CVA (cerebral vascular accident) Hypertension Dementia Mother Diabetes Sister Diabetes Fibromyalgia Other Alzheimer's dementia Breast cancer Colon cancer Surgical History Hx of colonoscopy History of esophagogastroduodenoscopy (EGD) History of cardiac catheterization History of colonoscopy History of excision of pilonidal cyst (~2004) Social History household members: family housing: house pets and animals: Yes Smoking Status: Never smoker alcohol intake: never substance use type: does not use caffeine: Yes ROS Constitutional Constitutional: Denies fatigue, fever(s), poor appetite, weight gain or weight loss Gastrointestinal Gastrointestinal: Denies belching, bloating, change in bowel habits, change in stool character, chewing difficulty, coffee ground emesis, constipation, cramping, diarrhea, dyspepsia, dysphagia, early satiety, excessive flatus, fecalincontinence, heartburn, hematemesis, hematochezia, hemorrhoids, loose stools, melena, nausea, odynophagia, rectal bleeding, tenesmus, vomiting or weight changes Vital Signs Vital Signs Vital Signs: 01/21/25 12:26 01/21/25 12:28 01/21/25 13:06 Temperature 98.8 F 98.8 F Temperature Source Temporal Pulse Rate 85 85 Respiratory Rate 18 18 Respiratory Pattern Normal Blood Pressure 131/62 H 131/62 H Blood Pressure Mean 85 Blood Pressure Source Monitor Blood Pressure Position Semi-Fowlers Blood Pressure Location Right Arm Pulse Ox 99 99 Oxygen Delivery Method Room Air Room Air Weight Weight: 179 lb 6.4 oz Body Mass Index (BMI) 33.9 Physical Exam Const alert, oriented x3, no apparent distress and healthy appearing General Appearance: cooperative GI normal to inspection, nondistended, normoactive bowel sounds, soft to palpation,non-tender and non-distended Percussion: normal to percussion Rectal Exam: deferred Results Lab / Micro Data Labs: Laboratory Results - last 24 hr 01/21/25 12:10: Urine Test Negative Assessment & Plan Assessment/Plan (1) Gastric ulcer due to nonsteroidal antiinflammatory drug (NSAID) therapy: (2) Anemia: (3) ABLA (acute blood loss anemia): PLAN: ROS Const Constitutional: Positive for fatigue and headache(s); No fever(s) or weight change ENT ENT: Positive for headache(s); No difficulty swallowing Gastro GI: No abdominal pain, belching, bloating, change in bowel habits, change in stool character, coffee ground emesis, constipation, cramping, diarrhea, heartburn, difficulty swallowing, feeling full early, excessive flatus, incontinent of stools, Vomiting blood/hematemesis, Blood in stool, loose stools,Black,tarry stools, nausea/dyspepsia, pain with swallowing, vomiting or other Musc Musculoskeletal: Positive for back pain, muscle weakness and stiffness; No joint pain Skin Skin: No yellowing of the eye or itchy eyes Neuro Neurology: Positive for headache(s) Psych Psychiatric: No anxiety and No depression Endo Endocrine: Positive for fatigue; No weight change Aller/Imm Allergy/Immunologic: No itchy eyes Mo/Lymp Hematologic/Lymphatic: No easy bleeding or easy bruising Exam Const General: cooperative and comfortable Nutritional Appearance: average body habitus and well nourished [facility] Head: normal to inspection Ears: hearing grossly normal bilaterally Nose: external nose normal Face and sinus: normal facial exam Eyes General: appearance normal, both eyes and all related structures Neck Neck: normal visual inspection Chest Chest palpation & inspection: normal inspection of the chest Resp Effort & Inspection: normal respiratory effort GI Inspection: normal to inspection Palpation: no hepatosplenomegaly Skin General: no rashes or lesions noted Neuro General: patient alert Extrem General: normal to inspection Psych Affect: normal affect Assessment and Plan Assessment and Plan (1) Anemia: Status: Acute (2) History of peptic ulcer disease: Status: Acute Plan: Pt is a 44 yo female here today for f/u after hospitalization for bleeding gastric ulcer in early June 2024. Since he discharge she has been doing well. She does have some weakness and lightheadedness still. Her last hemoglobin9.12.24 was 7.7 which is slowly up trending. I will order CBC to continue monitoring this. We will schedule her for repeat EGD in 3 months to ensure healing of the gastric ulcer. She will continue PPI BID and sucralfate. She willf/u in 6 months -EGD in 3 months -CBC ordered -Refilled pantoprazole and sucralfate -f/u in 6 months Orders: Orders CBC W/Diff, Automated Today D64.9 - Anemia, unspecified 01/21/25 1327 <Electronically signed by Anthony Dolan DO> Cosigner Signature (if applicable): CC: Dr. Debbi Ritter MD; Anthony Dolan DO~ Signed [facility] Work Phone: Hospital Discharge instructions Additional Instructions Hemoglobin 12.4 in the lab. Lipase normal. Stool guaiac positive. Discussed with Dr. Dolan in the ED. Continue current medicine of your Protonix and your Carafate. Use Magic mouthwash as needed. Follow-up in the office for reevaluation. If you have worsening symptoms, return to the ED for reevaluation.[facility] Work Phone: Reason for referral (narrative)No reason for referral information availableWooSelect [facility] [place] Work Phone: Chief Complaint and Reason for Visit Chief Complaint ABLA ABNL LABS Reason for Visit ABLA (acute blood lo ss anemia) Anemia GI bleed Chief Complaint ABLA ABNL LABS ABLA ABLA ABLA Reason for Visit ABLA (acute blood lo ss anemia) Anemia GI bleed Chief Complaint ABLA ABNL LABS ABLA ABLA ABLA Reason for Visit ABLA (acute blood lo ss anemia) GI bleed Chief Complaint ABLA ABNL LABS ABLA ABLA ABLA H FU E ORDERS VSD, STENOSIS Reason for Visit ABLA (acute blood lo ss anemia) GI bleed Colon polyps Gastric ulcer due to nonsteroidal antiinflammatory drug (NSAID) therapy Preop cardiovascular exam Pulmonic stenosis VSD (ventricular septal defect) Chief Complaint VSD, STENOSIS Reason for Visit Preop cardiovascular exam Pulmonic stenosis VSD (ventricular septal defect) Chief Complaint 2 WK FU SCREENING Reason for Visit Colon polyps Gastric ulcer due to nonsteroidal antiinflammatory drug (NSAID) therapy Chief Complaint 2 WK FU SCREENING ABD PAIN ENLARGED THYROID Reason for Visit Colon polyps Gastric ulcer due to nonsteroidal antiinflammatory drug (NSAID) therapy Chief Complaint ABD PAIN ENLARGED THYROID HYPERSOMNIA Reason for Visit Admit Date Upper gastrointestinal bleed October 082023 10:33am Reason for Visit Admit Date Upper gastrointestinal bleed October 082023 10:33am ABLA (acute blood loss anemia) January 11:51am Anemia January 21, 2025 11:5 1am Gastric ulcer due to nonster oidal antiinflammatory drug (NSAID) therapy January 21, 2025 11:51am Chief Complaint Admit Date ABD PAIN, GI BLEED March 04, 2025 8:03p m Reason for Visit Admit Date ABLA (acute blood loss anemia) January 11:51am Anemia January 21, 2025 11:5 1am Gastric ulcer due to nonster oidal antiinflammatory drug (NSAID) therapy January 21, 2025 11:51am Chief Complaint Admit Date ABD PAIN, GI BLEED March 04, 2025 8:03p m ER FU March 11, 2025 3:14p m E-ORDER March 11, 2025 3:40p m Reason for Visit Admit Date ABLA (acute blood loss anemia) January 11:51am Anemia January 21, 2025 11:5 1am Gastric ulcer due to nonster oidal antiinflammatory drug (NSAID) therapy January 21, 2025 11:51am Gastritis March 11, 2025 3:14p m Guaiac positive stools March 11, 2025 3: 14pm History of peptic ulcer disease February 3:14pm Reason for Visit Admit Date ABLA (acute blood loss anemia) January 11:51am Anemia January 21, 2025 11:5 1am Gastric ulcer due to nonster oidal antiinflammatory drug (NSAID) therapy January 21, 2025 11:51am History of peptic ulcer disease February 3:14pm Gastritis March 11, 2025 3:14p m Guaiac positive stools March 11, 2025 3: 14pm Chief Complaint Admit Date ABD PAIN, GI BLEED March 04, 2025 8:03p m ER FU March 11, 2025 3:14p m E-ORDER March 11, 2025 3:40p m 1 Y FU May 27, 2025 9:2 6am Reason for Visit Admit Date History of peptic ulcer disease February 3:14pm Gastritis March 11, 2025 3:14p m Guaiac positive stools March 11, 2025 3: 14pm Family History No Family History Records Found Relationship Condition Age at Onset Recorded Date/T nazario Not Specified Alzheimer's dementia Unknown Malignant neoplasm of colon Unknown Diabetes mellitus Unknown Malignant neoplasm of breast Unknown Relationship Condition Age at Onset Recorded Date/T nazario Not Specified Alzheimer's dementia Unknown Malignant neoplasm of colon Unknown Malignant neoplasm of breast Unknown father Cardiac disease Unknown Cerebrovascular accident (CVA) Unknown Hypertension Unknown Dementia Unknown mother Diabetes mellitus Unknown sister Diabetes mellitus Unknown Fibromyalgia Unknown Advance Directives No Advanced Directives Records Found Advance Directive Response Recorded Date/ Time Living Will No February 14, 2023 3:43pm Power of Crane Service Technician No February 14 3:43pm Advance Directive Response Recorded Date/ Time Name of Medical Power of Crane Service Technician Audrey Lebron February 14, 2023 9:03pm Living Will No February 14, 2023 9:03pm Power of Crane Service Technician Yes February 14 9:03pm Advance Directive Response Recorded Date/ Time Living Will No August 02 9:21am Power of Crane Service Technician No August 02, 2023 9:21am Advance Directive Response Recorded Date/ Time Living Will No August 02 8:21am Power of Crane Service Technician No August 02, 2023 8:21am Advance Directive Response Recorded Date/ Time Name of Medical Power of Crane Service Technician Audrey October 10, 2023 12:53pm Living Will No October 10, 2 023 12:53pm Power of Crane Service Technician Yes October 10, 2023 12:53pm Advance Directive Response Recorded Date/ Time Name of Medical Power of Crane Service Technician Audrey October 10, 2023 1:53pm Living Will No October 10, 2 023 1:53pm Power of Crane Service Technician Yes October 10, 2023 1:53pm Advance Directive Response Recorded Date/ Time Living Will Yes October 04, 2 024 12:21pm Power of Crane Service Technician Yes October 04, 2024 12:21pm Name of Medical Power of Crane Service Technician AUDREY LEBRON October 04, 2024 12:21pm Advance Directive Response Recorded Date/ Time Living Will Yes October 04, 2 024 1:21pm Do you have a Healthcare Power of Crane Service Technician? Yes October 04, 2024 1:21pm Name of Medical Power of Crane Service Technician AUDREY LEBRON October 04, 2024 1:21pm Living Will No January 15, 2025 2:45pm Do you have a Healthcare Power of Crane Service Technician? No January 15, 2025 2:45pm Advance Directive Response Recorded Date/ Time Living Will No January 15, 2025 2:45pm Do you have a Healthcare Power of Crane Service Technician? No January 15, 2025 2:45pm Do you have a Healthcare Power of Crane Service Technician? No March 04, 2025 8:29pm Advance Directive Response Recorded Date/ Time Living Will No October 10 1:53pm Do you have a Healthcare Power of Crane Service Technician? Yes October 10, 2023 1:53pm Do you have a Healthcare Power of Crane Service Technician? No March 04, 2025 8:29pm Summary Purpose Additional Source Comments Care Teams (unrecognized sec tion and content) Team Status: Active Member Role Status Dates Dr. Debbi Ritter MD Primary Care Provider Active Team Status: Inactive Member Role Status Dates Dr. Debbi Ritter MD Primary Care Provider, Referrin g Provider Active Dr. Ammon Whitt MD Attending Provider Active Team Status: Active Member Role Status Dates Dr. Debbi Ritter MD Primary Care Provider, Referrin g Provider Active Dr. Anthony Dolan DO Attending Provider, Other Prov ider Active Team Status: Inactive Member Role Status Dates Dr. Debbi Rittre MD Primary Care Provider, Referrin g Provider Active Dr. Anthony Dolan DO Attending Provider Active Team Status: Active Member Role Status Dates Dr. Debbi Ritter MD Primary Care Provider Active Dr. Kelley Farmer MD Emergency Provider Active Dr. Jean-Pierre Antonio MD Attending Provider Active Team Status: Inactive Member Role Status Dates Dr. Debbi Ritter MD Primary Care Prov ider, Attending Provider, Referring Provider Active Team Status: Active Member Role Status Dates Dr. Debbi Ritter MD Primary Care Prov ider, Attending Provider, Referring Provider Active Team Status: Active Member Role Status Dates Dr. Debbi Ritter MD Primary Care Provider Active Dr. Kelley Farmer MD Emergency Provider Active Dr. Jean-Pierre Antonio MD Admit Provider, Attending Pro vider Active Team Status: Active Member Role Status Dates Dr. Debbi Ritter MD Primary Care Provider Active Dr. Kelley Farmer MD Emergency Provider Active Dr. Jean-Pierre Antonio MD Admit Provider, Other Provide r Active Dr. Charly Diaz MD Other Provider Active Dr. Anthony Dolan DO Attending Provider Active Team Status: Active Member Role Status Dates Dr. Debbi Ritter MD Primary Care Provider Active Dr. Kelley Farmer MD Emergency Provider Active Dr. Jean-Pierre Antonio MD Admit Provider, Other Provide r Active Dr. Charly Diaz MD Attending Provider, Other Provider Active Team Status: Active Member Role Status Dates Dr. Debbi Ritter MD Primary Care Provider Active Dr. Anthony Dolan DO Attending Provider Active Team Status: Inactive Member Role Status Dates Dr. Debbi Ritter MD Primary Care Provider Active Dr. Kelley Farmer MD Emergency Provider Active Dr. Jean-Pierre Antonio MD Admit Provider, Other Provide r Active Dr. Charly Diaz MD Attending Provider Active Team Status: Active Member Role Status Dates Dr. Debbi Ritter MD Primary Care Provider Active Dr. Kelley Farmer MD Emergency Provider Active Dr. Jean-Pierre Antonio MD Admit Provider, Other Provide r Active Dr. Charly Diaz MD Referring Provider, Other Provider Active Dr. Anthony Dolan DO Attending Provider Active Team Status: Active Member Role Status Dates Dr. Debbi Ritter MD Primary Care Provider Active Dr. Anthony Dolan DO Attending Provider Active Dr. Charly Diaz MD Referring Provider Active Team Status: Inactive Member Role Status Dates Dr. Debbi Ritter MD Primary Care Provider, Referrin g Provider Active Rosanne Howell CITY ASSESSOR, CITY ASSESSOR-C Attending Provider Active Team Status: Inactive Member Role Status Dates Dr. Debbi Ritter MD Primary Care Provider Active Rosanne Howell CITY ASSESSOR, CITY ASSESSOR-C Attending Provider, Referrin g Provider Active Team Status: Inactive Member Role Status Dates Dr. Debbi Ritter MD Primary Care Provider, Attendin g Provider Active Team Status: Inactive Member Role Status Dates Dr. Debbi Ritter MD Primary Care Provider Active Dr. Ramírez Forbes DO Attending Provider, Emergency P cecy Active Team Status: Inactive Member Role Status Dates Dr. Debbi Ritter MD Primary Care Provider Active Start: October 08, 2024 End: October 08, 2024 Dr. Debbi Ritter MD Referring Provider Active Start: October 08, 2024 End: October 08, 2024 Dr. Anthony Dolan DO Attending Provider Active Start: October 08, 2024 End: October 08, 2024 Team Status: Active Member Role Status Dates Dr. Debbi Ritter MD Primary Care Provider Active Start: October 08, 2024 Dr. Debbi Ritter MD Referring Provider Active Start: October 08, 2024 Dr. Anthony Dolan DO Attending Provider Active Start: October 08, 2024 Dr. Anthony Dolan DO Other Provider Active St art: October 08, 2024 Team Status: Inactive Member Role Status Dates Dr. Debbi Ritter MD Primary Care Provider Active Start: December 02, 2024 End: December 02, 2024 Dr. Debbi Ritter MD Attending Provider Active Start: December 02, 2024 End: December 02, 2024 Dr. Debbi Ritter MD Referring Provider Active Start: December 02, 2024 End: December 02, 2024 Team Status: Inactive Member Role Status Dates Dr. Debbi Ritter MD Primary Care Provider Active Start: December 04, 2024 End: December 04, 2024 Dr. Debbi Ritter MD Attending Provider Active Start: December 04, 2024 End: December 04, 2024 Dr. Debbi Ritter MD Referring Provider Active Start: December 04, 2024 End: December 04, 2024 Team Status: Inactive Member Role Status Dates Dr. Debbi Ritter MD Primary Care Provider Active Start: December 13, 2024 End: December 13, 2024 Dr. Jf Hall MD Attending Provider Active Start: December 13, 2024 End: December 13, 2024 Dr. Jf Hall MD Referring Provider Active Start: December 13, 2024 End: December 13, 2024 Team Status: Inactive Member Role Status Dates Dr. Debbi Ritter MD Primary Care Provider Active Start: January 21, 2025 End: January 21, 2025 Dr. Debbi Ritter MD Referring Provider Active Start: January 21, 2025 End: January 21, 2025 Dr. Anthony Dolan DO Attending Provider Active Start: January 21, 2025 End: January 21, 2025 Team Status: Active Member Role Status Dates Dr. Debbi Ritter MD Primary Care Provider Active Start: January 21, 2025 Dr. Debbi Ritter MD Referring Provider Active Start: January 21, 2025 Dr. Anthony Dolan DO Attending Provider Active Start: January 21, 2025 Dr. Anthony Dolan DO Other Provider Active St art: January 21, 2025 Team Status: Inactive Member Role Status Dates Dr. Debbi Ritter MD Primary Care Provider Active Start: March 04, 2025 End: March 04, 2025 Dr. Elver Walton DO Emergency Provider Active Start : March 04, 2025 End: March 04, 2025 Team Status: Inactive Member Role Status Dates Dr. Debbi Ritter MD Primary Care Provider Active Start: March 04, 2025 End: March 04, 2025 Dr. Elver Walton DO Attending Provider Active Start : March 04, 2025 End: March 04, 2025 Dr. Elver Walton DO Emergency Provider Active Start : March 04, 2025 End: March 04, 2025 Team Status: Inactive Member Role Status Dates Dr. Debbi Ritter MD Primary Care Provider Active Start: March 11, 2025 End: March 11, 2025 Dr. Debbi Ritter MD Referring Provider Active Start: March 11, 2025 End: March 11, 2025 RATNA Borges Attending Provider Active Start: March 11, 2025 End: March 11, 2025 Team Status: Active Member Role Status Dates Dr. Debbi Ritter MD Primary Care Provider Active Start: March 11, 2025 RATNA Borges Attending Provider Active Start: March 11, 2025 RATNA Borges Referring Provider Active Start: March 11, 2025 Team Status: Inactive Member Role Status Dates Dr. Debbi Ritter MD Primary Care Provider Active Start: March 11, 2025 End: March 11, 2025 RATNA Borges Attending Provider Active Start: March 11, 2025 End: March 11, 2025 RATNA Borges Referring Provider Active Start: March 11, 2025 End: March 11, 2025 Team Status: Inactive Member Role Status Dates Dr. Debbi Ritter MD Primary Care Provider Active Start: March 21, 2025 End: March 21, 2025 Dr. Debbi Ritter MD Attending Provider Active Start: March 21, 2025 End: March 21, 2025 Dr. Debbi Ritter MD Referring Provider Active Start: March 21, 2025 End: March 21, 2025 Team Status: Active Member Role/Relationship Status Dates Dr. Mulugeta Olivo MD Primary Care Provider Acti ve Team Status: Inactive Member Role/Relationship Status Dates Dr. Debbi Ritter MD Primary Care Provider Active Start: March 04, 2025 End: March 04, 2025 Dr. Elver Walton DO Attending Provider Active Start : March 04, 2025 End: March 04, 2025 Dr. Elver Walton DO Emergency Provider Active Start : March 04, 2025 End: March 04, 2025 Team Status: Inactive Member Role/Relationship Status Dates Dr. Debbi Ritter MD Primary Care Provider Active Start: March 11, 2025 End: March 11, 2025 Dr. Debbi Ritter MD Referring Provider Active Start: March 11, 2025 End: March 11, 2025 RATNA Borges Attending Provider Active Start: March 11, 2025 End: March 11, 2025 Team Status: Inactive Member Role/Relationship Status Dates Dr. Debbi Ritter MD Primary Care Provider Active Start: March 11, 2025 End: March 11, 2025 RATNA Borges Attending Provider Active Start: March 11, 2025 End: March 11, 2025 RATNA Borges Referring Provider Active Start: March 11, 2025 End: March 11, 2025 Team Status: Inactive Member Role/Relationship Status Dates Dr. Debbi Ritter MD Primary Care Provider Active Start: March 21, 2025 End: March 21, 2025 Dr. Debbi Ritter MD Attending Provider Active Start: March 21, 2025 End: March 21, 2025 Dr. Debbi Ritter MD Referring Provider Active Start: March 21, 2025 End: March 21, 2025 Team Status: Inactive Member Role/Relationship Status Dates Dr. Debbi Ritter MD Referring Provider Active Start: May 27, 2025 End: May 27, 2025 Dr. Ammon Whitt MD Attending Provider Active S tart: May 27, 2025 End: May 27, 2025 Dr. Mulugeta Olivo MD Primary Care Provider Acti ve Start: May 27, 2025 End: May 27, 2025 Carpet Cleaning Technician Relationship Specialty Start Date End Date Kiran Olivo MD [address] [place] [address] PCP - General Family Medicine 06/19/25 Goals (unrecognized section and content) Goals may be documented in a n alternate sectionGoals may be documented in an alternate sectionGoals may be documented in an alternate sectionGoals may be documented in an alternate section Source Comments (unrecognize d section and content) In the event this informatio n is protected by the Federal Confidentiality of Alcohol and Drug Abuse Patient Records regulations: The Federal rules restrict any use of the information to criminally investigate or prosecute any alcohol or drug abuse patient.[facility] Reason for Visit (unrecogniz ed section and content) Reason Comments New Patient Est care INFORMATION SOURCE (unrecogn ized section and content) DATE CREATED AUTHOR 06/23/2025 [facility] DATE CREATED AUTHOR AUTHOR'S ORGANIZ ATION 07/02/2025 [facility] DATE CREATED AUTHOR AUTHOR'S ORGANIZ ATION 07/08/2025 [facility] FOR RECORDS PERTAINING TO PATIENTS WHO [...] BE BASED ON THE PRIMARY CLINICAL RECORDS. [employer] [facility]. provides no warranty or guarantee of the accuracy or completeness of information in this document.
[2025-07-09 05:41] LABS: Internal QC Validated? YES +Cl - CLEAR BKGD
[2025-07-09 05:42] LABS: Pregnancy, Urine Negative Negative; Record Kit Lot#,Urine Preg 0000964736
[2025-07-09] MEDS: Lactated Ringers 1,000 ML 15 ML IV (05:58)
--- NOTE | 2025-07-09 06:30 | EGD_PTH ---
PATIENT: FRIDA LEBRON LOC: EN U#:[id number] AGE/SX: 45/F ROOM: RE07/09/[address]: Dr. Anthony Dolan DO : 1980 BED: DIS: 07/09/2025 SPEC #: [id number] RECD: 07/09/25 08:25 STATUS: CHAPARRITA JENNY #: [id number] FLAKITO: 07/09/25 06:[address]: Anthony Dolan DEPT: SURGICAL PATHOLOGY RECD BY: Lazarus King ENTERED: 07/09/25 11:44 SP TYPE: EGD BIOPSY MAXIMUS DR: Dr. Mulugeta Olivo MD Tissues: A - Gastric mucous membrane B - Esophagus, NOS Procedures: Surgery Specimen Level IV HEADER OPERATION: EGD with biopsy PRE-OP DIAGNOSIS: Gastritis, gastric ulcer, abdominal pain TISSUE SUBMITTED: A- Gastric body biopsy, B- Distal esophagus biopsy MICROSCOPIC DIAGNOSIS A. Stomach, body, biopsies: - Oxyntic (fundic) mucosa with slight chronic inflammation - No Helicobacter pylori-like organisms are identified in these H & E stained sections B. Distal esophagus: * Benign squamous epithelium * Oxynto-cardiac mucosa with chronic inflammation * No goblet cell metaplasia is identified MICROSCOPIC DESCRIPTION Slides are reviewed. GROSS DESCRIPTION A. Received in fixative is one container labeled with the patient's name and designated Gastric body biopsy. The specimen consists of two irregular fragments of light hair tissue that measure 0.4 and 0.7 cm. The specimen is totally submitted in one cassette. B. Received in fixative is one container labeled with the patient's name and designated Distal esophagus biopsy. The specimen consists of multiple irregular fragments of light hair tissue that in aggregate measure 0.7 x 0.2 x 0.1 cm. The specimen is totally submitted in one cassette. CT 07/09/2025 CPT:[id number]
--- NOTE | 2025-07-09 06:35 | PCM.HP.STD ---
HPI - General General Date of Admission: 07/09/25 Date of Service: 07/09/25 Chief Complaint: Abdominal pain and peptic ulcer disease HPI Narrative FRIDA LEBRON, is a 45 F who presents with the Chief Complaint: epigastric pain [facility]GI established in 2022 for GIB wiht ABLA. EGD and colonoscopy 02.16.23 EGD one oozing cratered gastric ulcer, heater probe; duodenitis. Colonoscopy poor prep; two sessile hyperplastic polyps OV 6 as f/u Biochemical 04.07.23 CBC (hgb12.3), iron, TIBC, ferritin EGD and Colonoscopy 08.07.23 EGD irregular Zline; one non-bleeding cratered gastric ulcer, 8mm. HPylori and metaplasia neg Colonoscopy diverticulosis; 5mm rectal hyperplastic polyp, 15mm descending TA polyp EGD 07.02.24 Normal esophagus. - Spurting gastric ulcers with a visible vessel. Treated with a monopolar probe. - A single bleeding angiodysplastic lesion in the stomach. Treated with a heater probe. - No gross lesions in the first portion of the duodenum. - No specimens collected. Last OV 07.15.24 Pt recently hospitalized in beginning of Jun for bleeding gastric ulcer. Since then she has been doing well. SHe continues with pantoprazole 40 mg BID and sucralfate. [facility] ED 03.04.25 with epigastric abd pain and black stool. Work up was unremarkable. Rectal exam with brown stool but positive for blood. Given GI cocktail. Dr. Dolan consulted and recommend clear diet for 2 days and continue PPI and Carafate. OV 5 Pt continues to have epigastric pain off and on. Magic mouthwash has been helpful. SHe continues with Carafate and PPI. She has not had any further black stools. She does endorse specks of black in her stool but denies melena. [facility] Medical History Loss of hearing Wears glasses Anxiety Diabetes Bladder disease High cholesterol Anemia History of ulceration GERD (gastroesophageal reflux disease) Non-smoker History of echocardiogram Cardiology follow-up encounter Neurogenic bladder Type 2 diabetes mellitus without complication Pulmonic stenosis Iron deficiency anemia VSD (ventricular septal defect) [place] syndrome Migraines Home Medications ?Medication ?Instructions ?Recorded ?Last Taken ?Type loratadine 10 mg tablet (Claritin) 10 mg PO DAILY PRN SEASONAL 02/14/23 01/20/25 History ALLERGIES metformin 500 mg tablet,extended 500 mg PO QHS diabetes 02/14/23 01/19/25 History release 24 hr sumatriptan succinate 100 mg tablet See Rx Instructions PO .COMPLEX 07/15/24 01/19/25 History amitriptyline 50 mg tablet 50 mg PO QHS 10/04/24 01/19/25 History pantoprazole 40 mg tablet,delayed 40 mg PO BID #180 tabs 01/30/25 Unknown Rx release atorvastatin 40 mg tablet 40 mg PO DAILY 05/27/25 Unknown History sucralfate 1 gram tablet 1 g PO TID #360 TABLETS 06/30/25 Unknown Rx topiramate 50 mg tablet (Topamax) 50 mg PO DAILY 07/03/25 Unknown History Allergy/AdvReac Type Severity Reaction Status Date / Time Sulfa (Sulfonamide AdvReac PT UNSURE Verified 07/09/25 05:47 Antibiotics) OF REACTION Family History Father Heart disease CVA (cerebral vascular accident) Hypertension Dementia Mother Diabetes Sister Diabetes Fibromyalgia Other Alzheimer's dementia Breast cancer Colon cancer Surgical History Hx of colonoscopy History of esophagogastroduodenoscopy (EGD) History of cardiac catheterization History of colonoscopy History of excision of pilonidal cyst (~2004) Social History household members: family housing: house pets and animals: Yes Smoking Status: Never smoker alcohol intake: never substance use type: does not use caffeine: Yes ROS Constitutional Constitutional: Denies fatigue, fever(s), poor appetite, weight gain or weight loss Gastrointestinal Gastrointestinal: Denies belching, bloating, change in bowel habits, change in stool character, chewing difficulty, coffee ground emesis, constipation, cramping, diarrhea, dyspepsia, dysphagia, early satiety, excessive flatus, fecal incontinence, heartburn, hematemesis, hematochezia, hemorrhoids, loose stools, melena, nausea, odynophagia, rectal bleeding, tenesmus, vomiting or weight changes Vital Signs Vital Signs Vital Signs: 07/09/25 05:44 07/09/25 05:44 Temperature 97.4 F L Temperature Source Temporal Pulse Rate 83 Respiratory Rate 16 Respiratory Pattern Normal Blood Pressure 116/59 L Blood Pressure Mean 78 Blood Pressure Source Monitor Blood Pressure Position Semi-Fowlers Blood Pressure Location Left Arm Pulse Ox 99 Oxygen Delivery Method Room Air Weight Weight: 178 lb 9.191 oz Body Mass Index (BMI) 33.7 Physical Exam Const alert, oriented x3, no apparent distress and healthy appearing General Appearance: cooperative GI normal to inspection, nondistended, normoactive bowel sounds, soft to palpation, non-tender and non-distended Percussion: normal to percussion Rectal Exam: deferred Results Lab / Micro Data Labs: Laboratory Results - last 24 hr 07/09/25 05:30: Urine Test Negative Assessment & Plan Assessment/Plan (1) History of peptic ulcer disease: (2) Gastric ulcer due to nonsteroidal antiinflammatory drug (NSAID) therapy: PLAN: Assessment and Plan Assessment and Plan (1) Gastritis: Status: Acute Plan: This is a 44 yo female pt here today for ED f/u regarding her epigastric pain and black stools. Pt recently seen in the ED in February 2025 for epigastric pain and work up was without abnormalities besides a positive FOBT. She was given GI cocktail with relief and sent home with PPI, Carafate and magic mouthwash. SHe continues to have intermittent epigastric pain. I have refilled the magic mouthwash it was helpful to her. She is scheduled for an EGD in April 2025. I have ordered CBC to evaluate her Hgb. If it is down trending will attempt to get her in sooner for an EGD. I am not concerned for active GI bleeding as Hgb was stable and she denies melena. -Continue PPI and Carafate -Continue magic mouthwash PRN -EGD -CBC -Consider moving up her EGD to a sooner time slot pending Hgb (2) Guaiac positive stools: Status: Acute (3) History of peptic ulcer disease: Status: Acute Orders: Orders CBC W/Diff, Automated Today K29.70 - Gastritis, unspecified, without bleeding Medications: Refilled MAGIC MOUTH WASH (BMX) diphenhydramine 12.5 mg/5 mL oral liquid 60 mL; aluminum-mag hydroxide-simethicone 400 mg-400 mg-40 mg/5 mL oral susp 60 mL; Lidocaine Viscous 2 % mucosal solution 60 mL; Per 180 mL 10 mL PO Q8H PRN PRN 180 mL 0RF abdominal pain
--- NOTE | 2025-07-09 06:36 | PCM.PRE.AN2 ---
ASA Classification* ASA Classification ASA Classification: 3 Assessment & Plan Anesthesia* Anesthesia Assessment Anesthesia Assessment: Discussed sedation and/or anesthesia options, risks, benefits, and alternatives with patient/parents/legal guardian/POA. Questions invited. The patient/parents/legal guardian/POA seems to understand and agrees to proceed with anesthesia plan. Reviewed the physical assessment, medical history, allergy history and patient home medications list prior to surgery/procedure/anesthetic and documented any changes. Performed airway and anesthesia risk assessments. Anesthesia Type Anesthesia Type: MAC History Source History Obtained from:: Patient, Chart and Significant Other (Mother) Anesthesia Focused Assessment* Temperature: 97.4 F Pulse Rate: 83 Blood Pressure: 116/59 Respiratory Rate: 16 Pulse Ox: 99 Airway Assessment Mouth opens: >3 cm Mallampati Score: II Teeth Condition: Chipped/Broken Neck Range of motion (ROM): Full ROM Labs Anesthesia Preop lab: CBC WBC, (4.4-11.0) 9.0 K/mm3 03/21/25, 08:35 RBC, (4.2-5.4) 4.20 M/mm3 03/21/25, 08:35 Hgb, (12.0-15.0) 12.5 g/dL 03/21/25, 08:35 Hct, (37-47) 38.0 % 03/21/25, 08:35 Plt Count, (150-450) 293 K/mm3 03/21/25, 08:35 CHEMISTRY Potassium, (3.3-5.1) 3.7 mmol/L 03/21/25, 08:35 Sodium, (133-145) 131 mmol/L L 03/21/25, 08:35 Magnesium, (1.6-2.6) 2.4 mg/dL 07/03/24, 06:31 Phosphorus, (2.5-4.9) 2.3 mg/dL L 07/03/24, 06:31 BUN, (4-19) 15 mg/dL 03/21/25, 08:35 Creatinine, (0.70-1.20) 0.94 mg/dL 03/21/25, 08:35 Glucose, (70-99) 134 mg/dL H 03/21/25, 08:35 POC Glucose, (74-106) 95 mg/dL 01/21/25, 12:32 TSH, (0.358-3.740) 3.970 uIU/mL H 07/02/24, 07:55 COAG PT, (11.7-14.9) 12.4 SECONDS 03/04/25, 20:34 Urine Test Negative Negative Today, 05:30 Pre-Assessment Diagnosis/Proposed Procedure Planned Operative Procedure(s): EGD Anesthesia History 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 When Was Last Pacemaker Check QUESTION #4 FULL TEXT: You/Your Family Experience fever (hyperthermia) with Anesthesia Last Oral Intake Last Oral intake: Last Oral Intake NPO since 23:00 07/09/25 05:44 Meds taken in AM with sips of No 07/09/25 05:44 water? 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 - band instrument repairer: PONV - band instrument repairer Female Yes 07/03/25 12:48 HX of Motion Sickness No 07/03/25 12:48 HX of N/V After Surgery No 07/03/25 12:48 Non-Smoker Yes 07/03/25 12:48 Duration of Surgery greater No 07/03/25 12:48 than 60 minutes Number of Risk Factors 2 07/03/25 12:48 PONV Score Moderate Risk 07/03/25 12:48 Height & Weight Height & Weight: Anesthesia: Height & Weight Height 5 ft 1 in 07/09/25 05:44 Weight: 81 kg 07/09/25 05:44 Body Mass Index (BMI) 33.7 07/09/25 05:44 Respiratory Assessment Respiratory Assessment - band instrument repairer: Respiratory Tract Infection Hx - band instrument repairer Hx Respiratory Tract Infection No 07/03/25 12:48 STOP Sleep Apnea STOP Sleep Apnea - band instrument repairer: STOP Sleep Apnea - band instrument repairer Hx Hypertension No 07/03/25 12:48 Hx Sleep Apnea No 07/03/25 12:48 CPAP BIPAP Do you snore loudly (louder No 07/03/25 12:48 than talking or can be heard Do you often feel tired/ No 07/03/25 12:48 fatigued/ sleepy during daytime? Has anyone observed you stop No 07/03/25 12:48 breathing during sleep? STOP Results Negative 07/03/25 12:48 QUESTION #5 FULL TEXT : Do you snore loudly (louder than talking or can be heard through closed doors)? 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 Specify any problems Hx of Preganancy in last 3 N/A 07/03/25 12:48 Months Nurse Filling Out Transfusion NBUCHER 07/03/25 12:48 & Questions: Date: 07/03/25 07/03/25 12:48 Time: 12:48 07/03/25 12:48 Patient unable to answer at this time (ie. 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 - band instrument repairer: /Reproductive Hx- band instrument repairer Hx Now No 07/03/25 12:48 Gestational Age (in weeks): EDC: Hx Hx Para Hx Section SAB No 07/03/25 12:48 Active Medications Active Medications: Current Medications Generic Name Dose Route Start Last Admin Trade Name Freq PRN Reason Stop Dose Admin Lactated Ringer's 1,000 mls @ 15 mls/hr 07/09/25 05:45 07/09/25 05:58 IV 15 mls/hr .Q48H GIANNA Administration PFSH Medical History Loss of hearing Wears glasses Anxiety Diabetes Bladder disease High cholesterol Anemia History of ulceration GERD (gastroesophageal reflux disease) Non-smoker History of echocardiogram Cardiology follow-up encounter Neurogenic bladder Type 2 diabetes mellitus without complication Pulmonic stenosis Iron deficiency anemia VSD (ventricular septal defect) [place] syndrome Migraines Home Medications ?Medication ?Instructions ?Recorded ?Last Taken ?Type loratadine 10 mg tablet (Claritin) 10 mg PO DAILY PRN SEASONAL 02/14/23 01/20/25 History ALLERGIES metformin 500 mg tablet,extended 500 mg PO QHS diabetes 02/14/23 01/19/25 History release 24 hr sumatriptan succinate 100 mg tablet See Rx Instructions PO .COMPLEX 07/15/24 01/19/25 History amitriptyline 50 mg tablet 50 mg PO QHS 10/04/24 01/19/25 History pantoprazole 40 mg tablet,delayed 40 mg PO BID #180 tabs 01/30/25 Unknown Rx release atorvastatin 40 mg tablet 40 mg PO DAILY 05/27/25 Unknown History sucralfate 1 gram tablet 1 g PO TID #360 TABLETS 06/30/25 Unknown Rx topiramate 50 mg tablet (Topamax) 50 mg PO DAILY 07/03/25 Unknown History Allergy/AdvReac Type Severity Reaction Status Date / Time Sulfa (Sulfonamide AdvReac PT UNSURE Verified 07/09/25 05:47 Antibiotics) OF REACTION Family History Father Heart disease CVA (cerebral vascular accident) Hypertension Dementia Mother Diabetes Sister Diabetes Fibromyalgia Other Alzheimer's dementia Breast cancer Colon cancer Surgical History Hx of colonoscopy History of esophagogastroduodenoscopy (EGD) History of cardiac catheterization History of colonoscopy History of excision of pilonidal cyst (~2004) Social History household members: family housing: house pets and animals: Yes Smoking Status: Never smoker alcohol intake: never substance use type: does not use caffeine: Yes Review of Systems (Anesthesia) ROS Narrative System reviewed and no additional complaints, except as documented.
--- NOTE | 2025-07-09 06:58 | OP.EGD_ITS ---
Patient Name: Sophia Wolfe Procedure Date: 07/09/2025 6:23 AM Date of : 1980 Age: 45 Procedure: Upper GI endoscopy Indications: Epigastric abdominal pain, Abdominal pain in the left upper quadrant, Abdominal distress in the left upper quadrant, Indigestion, Peptic ulcer Providers: Anthony Dolan DO Referring MD: Mulugeta Olivo Medicines: Monitored Anesthesia Care Patient Profile: This is a 45 year old female. Refer to note in patient chart for documentation of history and physical. Patient has symptoms of acute abdominal cramping, acute abdominal distention, acute left upper quadrant abdominal pain, acute epigastric abdominal pain, acute dyspepsia and acute nausea. Complications: No immediate complications. Procedure: Pre-Anesthesia Assessment: - Prior to the procedure, a History and Physical was performed, and patient medications and allergies were reviewed. The patient is competent. The risks and benefits of the procedure and the sedation options and risks were discussed with the patient. All questions were answered and informed consent was obtained. Patient identification and proposed procedure were verified by the physician in the pre-procedure area. Mental Status Examination: alert and oriented. Airway Examination: normal oropharyngeal airway and neck mobility. Respiratory Examination: clear to auscultation. CV Examination: normal. ASA Grade Assessment: II - A patient with mild systemic disease. After reviewing the risks and benefits, the patient was deemed in satisfactory condition to undergo the procedure. The anesthesia plan was to use monitored anesthesia care (MAC). Immediately prior to administration of medications, the patient was re-assessed for adequacy to receive sedatives. The heart rate, respiratory rate, oxygen saturations, blood pressure, adequacy of pulmonary ventilation, and response to care were monitored throughout the procedure. The physical status of the patient was re-assessed after the procedure. After obtaining informed consent, the endoscope was passed under direct vision. Throughout the procedure, the patient's blood pressure, pulse, and oxygen saturations were monitored continuously. The Endoscope was introduced through the mouth, and advanced to the third part of the duodenum. Small bowel enteroscopy was deemed necessary. The upper GI endoscopy was accomplished without difficulty. The patient tolerated the procedure well. Scope In: 6:47:21 AM Scope Out: 6:51:46 AM Total Procedure Duration Time 0 hours 4 minutes 25 seconds Findings: The Z-line was irregular and was found 40 cm from the incisors. Biopsies were taken with a cold forceps for histology. Verification of patient identification for the specimen was done. Estimated blood loss was minimal. Suspect gastroparesis due to absence of peristalsis, patient symptoms and retained gastric contents. Patchy mildly erythematous mucosa without bleeding was found in the gastric body. Biopsies were taken with a cold forceps for histology. Verification of patient identification for the specimen was done. Biopsies were taken with a cold forceps for Helicobacter pylori testing. Verification of patient identification for the specimen was done. Estimated blood loss was minimal. No gross lesions were noted in the entire examined duodenum. Impression: - Z-line irregular, 40 cm from the incisors. Biopsied. - Gastroparesis. - Erythematous mucosa in the gastric body. Biopsied. - No gross lesions in the entire examined duodenum. Recommendation: - Discharge patient to home. - Gastroparesis diet. - Continue present medications. - Await pathology results. - Gastric Emptying study Procedure Code(s): --- Professional --- 72661, Small intestinal endoscopy, enteroscopy beyond second portion of duodenum, not including ileum; with biopsy, single or multiple CPT copyright 2021 [employer] [place] [employer]. All rights reserved. The codes documented in this report are preliminary and upon account manager relief review may be revised to meet current compliance requirements. Anthony Dolan DO 07/09/2025 6:57:55 AM This report has been signed electronically. Number of Addenda: 0 Note Initiated On: 07/09/2025 6:23 AM
--- NOTE | 2025-07-09 06:59 | OP.PROVAT_ITS ---
07/09/2025 Mulugeta Olivo Re : Upper GI endoscopy procedure for Sophia Marreror Pallavi This procedure was performed on Wednesday, July 09, 2025. My impressions and recommendations are as follows: Impressions : - Z-line irregular, 40 cm from the incisors. Biopsied. - Gastroparesis. - Erythematous mucosa in the gastric body. Biopsied. - No gross lesions in the entire examined duodenum. Recommendations : - Discharge patient to home. - Gastroparesis diet. - Continue present medications. - Await pathology results. - Gastric Emptying study My findings are described in the full procedure note, which is enclosed. If I can be of further assistance, please feel free to contact me at . Sincerely, Anthony Dolan, 07/09/2025 6:57:55 AM This report has been signed electronically.
--- NOTE | 2025-07-09 07:02 | PCM.POST.ANE ---
Anesthesia: Postop Eval I Current Vital Signs Temperature: 97.5 F Pulse Rate: 98 Blood Pressure: 116/74 Respiratory Rate: 16 Pulse Ox: 98 Oxygen Delivery Method: Room Air Assessment Airway patent: Yes Spontaneous unlabored respirations: Yes Mental status: Awake nausea: Yes Vomiting: No Anesthesia Complication: No Fluid Hydration Crystalloid volume administer (ml): 300 Total IV fluid infused: 300 Progress Note Anesthesia document: Postop Eval 1 completed: Yes
--- NOTE | 2025-07-09 12:28 | PCM.POSTANE2 ---
Anesthesia Postop Eval I Sum Postop Eval Completion status Anesthesia document: Postop Eval 1 completed: Yes Anesthesia Postop Eval I Summary Anesthesia Postop Eval I Summary: Anesthesia Postop Eval I: Assessment Summary Airway patent Yes 07/09/25 07:03 [email or web address] Spontaneous unlabored Yes 07/09/25 07:03 [email or web address] respirations Mental status Awake 07/09/25 07:03 [email or web address] nausea Yes 07/09/25 07:03 [email or web address] Vomiting No 07/09/25 07:03 [email or web address] Anesthesia Postop Eval I: Fluid Summary Crystalloid volume administer 300 07/09/25 07:03 [email or web address] (ml) Colloids volume administered ( ml) Blood Product volume administered (ml) Total IV fluid infused 300 07/09/25 07:03 [email or web address] Anesthesia Postop Eval I: Summary Notes Anesthesia Complication No 07/09/25 07:03 [email or web address] Anesthesia Complication Comment: Post-operative progress note Anesthesia: Postop Eval II Evaluation Mental status: Awake and Calm Pain Level: 1 nausea: No Vomiting: No Complications Anesthesia Complication: No
== END 2025-07-09 07:36 | disposition home or self-care (01) ==
LOC: EN 05:19 → AC 05:20
PROVIDERS: Anesthesiology; PCP Family Medicine; Referring Provider Family Medicine; Visit Provider Internal Medicine Gastroenterology
PROC: 0DJ08ZZ Inspection of Upper Intestinal Tract, Via Natural or Artificial Opening Endoscopic (ICD-10-PCS; CPT 43235; principal; 2025-07-09 06:25)
DX: K29.50 Unspecified chronic gastritis without bleeding (principal); E11.43 Type 2 diabetes mellitus with diabetic autonomic (poly)neuropathy; K25.9 Gastric ulcer, unspecified as acute or chronic, without hemorrhage or perforation; K31.84 Gastroparesis; E78.00 Pure hypercholesterolemia, unspecified; T39.395A Adverse effect of other nonsteroidal anti-inflammatory drugs [NSAID], initial encounter; K21.00 Gastro-esophageal reflux disease with esophagitis, without bleeding
CPT/HCPCS: 44361; 81025; 82962; 88305; J2405

== ENCOUNTER → 2025-08-25 | Outpatient (CLI) | payer MEDICARE, OTHER, SELFPAY ==
--- NOTE | 2025-08-25 09:53 | NM_ITS ---
PROCEDURE: NM/Gastric Emptying Study
== END | disposition home or self-care (01) ==
LOC: NM 09:49
PROVIDERS: PCP Family Medicine; Referring Provider Internal Medicine Gastroenterology; Visit Provider Internal Medicine Gastroenterology
DX: K31.84 Gastroparesis (principal)
CPT/HCPCS: 78264; A9541